=== PATIENT | male | born 1950 | race Caucasian/White ===

== ENCOUNTER 2018-11-01 09:33 | Day surgery (SDC) | payer OTHER ==
--- OUTSIDE RECORDS SUMMARY | 2018-11-01 09:36 | XMS REPORT ---
:1950 [facility] Mikael Muñoz [address] [place] [id number] Care Team Providers Name Role Phone UNKNOWN, REFFERING Primary Care Provider Unavailable YURI LARSON Unavailable Unavailable Problems This patient has no known problems. Allergies, Adverse Reactions, Alerts This patient has no known allergies or adverse reactions. Medications This patient has no known medications. Encounters Start End Encounter Admission Attending Care Care Encounter Date/Time Date/Time Type Type Clinicians Facility Department ID 2017-02-02 2017-02-02 Outpatient C [facility] [id number] 20:25:00 20:25:00 YURI Results Test Description Test Time Test Comments Text Results Atomic Results Result Comments Glycosylated Hemoglobin 2017-02-03 00:43:00 Test Item Value Reference Range Comments HBA1c (test code=HBA1C) 5.3 % 4.8-5.9 CBC with [id number] 00:09:00 Test Item Value Reference Range Comments WBC (test code=WBC) 6.9 K/cumm 4.4-10.5 RBC (test code=RBC) 4.36 M/cumm 4.10-5.70 Hemoglobin (test code=HGB) 13.3 gm/dL 13.4-17.4 Hematocrit (test code=HCT) 39.2 % 38.7-52.0 MCV (test code=MCV) 90.1 fL 80-100 MCH (test code=MCH) 30.6 pg 27.0-32.5 MCHC (test code=MCHC) 33.9 g/dL 32.0-37.5 RDW (test code=RDW) 13.1 % 11.5-14.5 Platelet Count (test code=PLTCT) 243 K/cumm 140-440 MPV (test code=MPV) 10.1 fL Diff Method (test code=DIFFM) Auto Neutrophil (test code=NEUT) 57.0 % 36-70 Lymphocyte (test code=LYMPH) 29.1 % 12-44 Monocyte (test code=MONO) 6.7 % 0-11 Eosinophil (test code=EOS) 6.3 % 0-7 Basophil (test code=BASO) 0.9 % 0-2 Neutro Abs (test code=ANEUT) 4.0 K/cumm 1.6-7.4 Lymph Abs (test code=ALYMPH) 2.0 K/cumm 0.5-4.6 [place] Abs (test code=AMONO) 0.5 K/cumm 0.0-1.2 Eos Abs (test code=AEOS) 0.43 K/cumm 0.00-0.74 Baso Abs (test code=ABASO) 0.1 K/cumm 0.00-0.21 Lipid [id number] 23:40:00 Test Item Value Reference Range Comments Cholesterol (test 143 mg/dL 0-200 code=CHOL) Triglycerides (test 117 mg/dL 9-200 code=TRIG) HDL (test code=HDL) 41 mg/dL 40-60 Chol/HDL (test 3.5 Ratio 0.0-5.0 code=CHOLPHDL) LDL, Calculated (test 79 mg/dL 0-130 (NOTE)RISK OF HEART code=LDLC) DISEASEPublished by Salvadorean Heart AssociationAnalyte Optimal Boderline Increased RiskCHOL <200 200-239 >240TRIG <150 150-199 >200HDL Male: >60 <40HDL Female: >60 <50LDL <100 130-159 >160LDL NEAR OPTIMAL IS 100-129 VLDL (test code=VLDL) 23 mg/dL 5-40 LDL/HDL (test code=LDLPHDL) 2 Comprehensive Metabolic [id number] 23:40:00 Test Item Value Reference Range Comments Sodium (test code=NA) 142 mmol/L 135-145 Potassium (test code=K) 4.4 mmol/L 3.5-5.1 Chloride (test code=CL) 104 mmol/L 98-105 Carbon Dioxide (test 27 mmol/L 22-29 code=CO2) Glucose (test code=GLU) 112 mg/dL 70-115 Blood Urea Nitrogen 16 mg/dL 8-23 (test code=BUN) Creatinine (test 0.9 mg/dL 0.7-1.2 code=CREAT) Calcium (test code=CA) 8.9 mg/dL 8.3-10.5 Prot Total (test 6.7 g/dL 6.4-8.3 code=TP) Albumin (test code=ALB) 4.3 g/dL 3.5-5.2 A/G Ratio (test 1.8 Ratio code=AGRATIO) Globulin (test 2.4 2.9-3.1 code=GLOB) Bili Total (test 0.2 mg/dL 0.1-0.9 code=TBIL) Alk Phos (test 71 U/L 40-129 code=APHOS) AST (test code=AST) 17 U/L 1-40 ALT (test code=ALT) 13 U/L 1-41 BUN/Creatinine Ratio 17.8 (test code=BCRATIO) Anion Gap (test 11 mmol/L 7-16 code=AGAP) Estimated GFR (test >60 mL/min/1.73m2 eGFR (estimated Glomerular code=GFR) Filtration Rate) is an estimated value,calculated from the patient's serum creatinine using the MDRD equation.It is NOT the patient's actual GFR. The eGFR provides a more clinicallyuseful measure of kidney disease than serum creatinine alone.This calculation takes sex and race into account, if the informationis provided. If the race is not provided, and the patient isAfrican-Salvad[place], multiply by 1.212. If sex is not provided, and thepatient is female, multiply by 0.742. Results for patients <18 years ofage have not been validated by the MDRD study and should be interpretedwith caution.eGFR Result Interpretation:eGFR > or=60 is in the Normal RangeeGFR < 60 may mean kidney diseaseeGFR < 15 may mean kidney failureRanges recommended by the National Kidney Foundation,http://nkdep.nih .gov
[2018-11-01] MEDS ORDERED: LIDOCAINE 2% MPF 5 ML VIAL ONE ×2 (09:51→11:21)
[2018-11-01] MEDS ORDERED: BUPIVACAINE 0.25% PF 10 ML VIAL ONE (09:52)
[2018-11-01] MEDS ORDERED: TETRACAINE HCL 0.5% 4ML OPTH ONE (09:52)
[2018-11-01] MEDS ORDERED: NA CHLORIDE 0.9% 500 ML ONE (09:52)
[2018-11-01] MEDS: CYCLOPENTOLATE 1% OPTH 2 ML ONE ×3 (10:10→10:20)
[2018-11-01] MEDS: PHENYLEPHRINE 10% OPTH 5ML ONE ×3 (10:10→10:20)
[2018-11-01] MEDS ORDERED: BALANCED SALT IRRIG PLAIN 500 ML BTL IRR ONE (10:41)
[2018-11-01] MEDS ORDERED: DUOVISC 1 KIT OPTH ONE (10:41)
[2018-11-01] MEDS ORDERED: NS 0.9% VIAL 10 ML ONE (10:41)
[2018-11-01] MEDS: EPINEPHRINE/PF 1 MG/ML AMP ONE ×2 (11:11→11:59)
[2018-11-01] MEDS ORDERED: PROPOFOL 200 MG/20 ML VIAL IV ONE (11:20)
[2018-11-01] MEDS ORDERED: EPINEPHRINE/PF 1 MG/ML AMP ONE ×2 (11:37)
[2018-11-01] MEDS: MOXIFLOXACIN HCL 10 DROPS/ML **OR USE OPTH ONE ×2 (11:59→12:17)
--- NOTE | 2018-11-01 12:48 | P.BOP ---
Preoperative diagnosis: Combined form cataract and miosis OD Postoperative diagnosis: Same Primary procedure: Phacoemulsification with IOL OD Estimated blood loss: None Anesthesia: Local (Subtenon's infusion with anesthesia for cataract surgery) Complications: None Implants: ZCB00 +20.5 Transferred to: Other (Day surgery) Condition: Good
--- NOTE | 2018-11-01 23:37 | OP ---
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 Postoperative Diagnosis: Combined form of cataract and myosis, right eye. Operation Performed: Phacoemulsification with intraocular lens implant, right eye complex with the use of pupil health professional, right eye. Anesthesia: Per cataract surgery. Complications: None. Description Of Procedure: In day surgery, the patient was prepped with Betadine and draped. A lid speculum was placed in the right eye. A conjunctival incision was made in the inferior nasal quadrant with Aashish scissors. A 1:1 mixture of 2% Xylocaine and 0.25% bupivacaine was placed around the globe. Approximately 5 mL were used. A [place] balloon was placed on the eye for approximately 5 minutes. The patient was brought into the operative room. The patient was prepped and draped in the usual sterile fashion for ophthalmic surgery. A lid speculum was placed in the eye. Paracentesis were made superiorly and inferiorly in the limbal cornea. Viscoat was placed in the anterior chamber. A crescent blade was used to create a tunnel incision in the temporal cornea and a keratome was used to enter the anterior chamber. The pupil did not dilate adequately for a 5 mm capsulotomy. An Xpand iris speculum was place in the eye to dilate the pupil. Provisc was placed in the eye and 360 degree capsulotomy was performed. The lens was hydrodissected with balanced salt solution and moved freely. The lens was removed in a stop and chop fashion. 9.56 phaco CDE was required. Irrigation and aspiration was used to remove residual cortex. Provisc was placed in the eye. A ZCB00 +20.5 diopter lens was placed in the capsular bag without complications. The Xpand iris speculum was removed. Irrigation and aspiration was used to remove residual viscoelastic. The paracentesis sites were hydrated with balanced salt solution and the wound and paracentesis sites were inspected and found to be watertight. Intracameral Vigamox 0.07 cc was injected at the end of the procedure. The eye was irrigated with balanced salt solution. The eye was patched with a soft cotton patch and Perdue metal shield. The patient was returned to day surgery in good condition. Comments: Epinephrine 1:[address] in the anterior chamber prior to Viscoat. Discharge Instructions: Mr. Franklin is discharged home in good condition. He is to follow up with Dr. Jones in the morning. DIANNA/MAYA Voice ID: [id number] Report ID: [id number] [id number]
== END 2018-11-01 13:09 | disposition home or self-care (01) ==
LOC: OR 09:33
PROVIDERS: ATTEND Ophthalmology Retina Specialist
PROC: 08RJ3JZ Replacement of Right Lens with Synthetic Substitute, Percutaneous Approach (ICD-10-PCS; principal; 2018-11-01 10:45)
DX: H25.11 Age-related nuclear cataract, right eye (principal); H57.03 Miosis; I10 Essential (primary) hypertension; I25.10 Atherosclerotic heart disease of native coronary artery without angina pectoris; I21.9 Acute myocardial infarction, unspecified; Z95.5 Presence of coronary angioplasty implant and graft
CPT/HCPCS: 66982; J2704; J0171 ×2

== ENCOUNTER 2024-01-31 19:55 | Inpatient (IN) | payer OTHER ==
--- OUTSIDE RECORDS SUMMARY | 2024-01-31 20:00 | XMS REPORT | Continuity of Care Document ---
Author Name Unknown Address [address] [facility] [address] [place] [address] [facility] Address [address] [facility] [address] [place] [address] Care Team Providers Care Biodiesel Product Manager Name Role Phone UNKNOWN, REFFERING Primary Care Physician TIFFANY Farias Attending Clinician Unavailable JULIAN AMAYA Attending Clinician Unavailable FLACA GREY Attending Clinician Unavailab Caroline WILKINS, Marielle Ross Attending Clinician + [phone] Reed WILKINS, Steph Attending Clinician [phone] Kalie Freed MD Attending Clinician + Tiffany Jamil MD Attending Clinician [phone] Neo WILKINS, Tobin Phillips Attending Clinician +[phone] Flaca Grey MD Attending Clinician [phone] YURI WHITE Attending Clinician Unavailable Yuri White Attending Clinician Unavailable Damian Attending Clinician Unavailable YURI WHITE Attending Clinician Unavailable KALIE FREED Admitting Clinician Kalie Carvajal MD Admitting Clinician + Damian Admitting Clinician Unavailable YURI WHITE Admitting Clinician Unavailable Payers Payer Name Policy Type Policy Number Effective Date Expirati on Date Source [employer] OON Medicare [id number] 2022 00:00:00 [employer] MED[employer] ADVANTAGE PPO [id number] 2022 00:00:00 Problems Condition Name Condition Details Condition Category Status Onset Date Resolution Date Last Treatment Date Treating Clinician Comments Source Benign prostatic hyperplasi a Benign prostatic hyperplasi a Disease Recurre iae 2023-03 00:00: 00 Jose A Youssef Epic Drop in hemoglobin Drop in hemoglobin Disease Active 2023-03 00:00: 00 Memcarlos Youssef Epic Aspiration pneumonia (CMS/HCC) Aspiration pneumonia (CMS/HCC) Disease Active 2023-03 00:00: 00 Jose A Youssef Epic 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 Disease Active 2023-03 00:00: 00 Jose A Youssef Epic Dysphagia Dysphagia Disease Active 2023-03 00:00: 00 Jose A Youssef Epic Moderate malnutriti on (CMS/HCC) Moderate malnutriti on (CMS/HCC) Disease Active 2023-03 00:00: 00 Jose A Youssef Epic Emphysema lung Emphysema lung Disease Active 2023-03 00:00: 00 Jose A Youssef Epic VT (ventricul ar tachycardi a) VT (ventricul ar tachycardi a) Disease Active 2023-03 00:00: 00 Jose A Youssef Epic Anxiety Anxiety Disease Active 2023-03 00:00: 00 Jose A Youssef Epic Depression Depression Disease Active 2023-03 00:00: 00 Jose A Youssef Epic Multifocal pneumonia Multifocal pneumonia Disease Active 2023-03 00:00: 00 Jose A Youssef Epic Carotid artery stenosis Carotid artery stenosis Disease Active 2023-03 00:00: 00 Jose A Youssef Epic Mixed hyperlipid emia Mixed hyperlipid emia Disease Active 2023-03 00:00: 00 Jose A Youssef Epic 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 Disease Active 2023-03 00:00: 00 Jose A Youssef Epic Hypokalemi a Hypokalemi a Disease Active 2023-03 00:00: 00 Jose A Youssef Epic Hypocalcem ia Hypocalcem ia Disease Active 2023-03 00:00: 00 Jose A Youssef Epic Transamini tis Transamini tis Disease Active 2023-03 00:00: 00 Jose A Youssef Epic Normocytic anemia Normocytic anemia Disease Active 2023-03 00:00: 00 Jose A Youssef Epic Atrial fibrillati on/flutter Atrial fibrillati on/flutter Disease Active 2023-03 00:00: 00 Jose A Youssef Epic Diarrhea Diarrhea Disease Resolve d 2023-03 00:00: 00 2024-01-25 00:00:00 2024-01-25 10:57:12 Jose A Youssef Epic Acute respirator y failure with hypoxemia Acute respirator y failure with hypoxemia Disease Resolve d 2023-03 00:00: 00 2024-01-25 00:00:00 2024-01-25 10:57:36 Jose A Youssef Epic VF (ventricul ar fibrillati on) (CMS/HCC) VF (ventricul ar fibrillati on) (CMS/HCC) Disease Resolve d 2023-03 00:00: 00 2024-01-25 00:00:00 2024-01-25 10:58:23 Jose A Youssef Epic Hyponatrem ia Hyponatrem ia Disease Resolve d 2023-03 00:00: 00 2024-01-25 00:00:00 2024-01-25 10:40:33 Jose A Youssef Epic Arrhythmia Arrhythmia Disease Resolve d 2023-03 00:00: 00 2024-01-17 00:00:00 2024-01-17 23:55:10 Jose A Treadwell Allergies, Adverse Reactions, Alerts Allergy Name Allergy Type Status Severity Reaction(s) Onset Date Inactive Date Treating Clinician Comments Source No Known Drug Allergie s DA Active U 11-14 00:00: 00 [facility] Social History Social Habit Start Date Stop Date Quantity Comments Source History of tobacco use Cigarette Smoker [facility] Mikael Treadwell Gender identity Reed riagt Treadwell Sexual orientation [facility] Tobacco use and exposure 2024-01-19 00:00:00 2024-01-19 00:00:00 Smokeless tobacco non-user [facility] History of Social function 2024-01-18 00:00:00 2024-01-18 00:00:00 [facility] Smoking Status Start Date Stop Date Source Ex-smoker 2024-01-19 00:00:00 2024-01-19 00:00:00 [facility] Medications Ordered Medication Name Filled Medication Name Start Date Stop Date Current Medication? Ordering Clinician Indication Dosage Frequency Signature (SIG) Comments Components Source traMADol (Ultram) 50 MG tablet traMADol (Ultram) 50 MG tablet 2023-03 14:57: 48 01-26 00:00 :00 No 50mg Q6H Take 50 mg by mouth every 6 hours if needed for severe pain (7-10). Jose A Youssef [facility] benazepril (Lotensin) 20 MG tablet benazepril (Lotensin) 20 MG tablet 2023-03 14:57: 47 Yes 1{tbl} QD Take 1 tablet by mouth 1 time each day. Jose A del real [facility] ferrous sulfate 325 (65 Fe) MG EC tablet ferrous sulfate 325 (65 Fe) MG EC tablet 2023-03 14:57: 47 Yes 325mg Take 325 mg by mouth in the morning and 325 mg at noon and 325 mg in the evening. Take with meals. Do not crush, chew, or split.. Jose A Youssef [facility] tadalafil (Cialis) 5 MG tablet tadalafil (Cialis) 5 MG tablet 2023-03 14:57: 47 Yes 5mg QD Take 5 mg by mouth 1 time each day. Jose A Youssef [facility] citalopram (CeleXA) 20 MG tablet citalopram (CeleXA) 20 MG tablet 2023-03 14:57: 45 01-25 00:00 :00 No 2{tbl} QD Take 2 tablets by mouth 1 time each day. Jsoe A Youssef [facility] simvastatin (Zocor) 40 MG tablet simvastatin (Zocor) 40 MG tablet 2023-03 14:57: 45 01-25 00:00 :00 No 40mg Take 40 mg by mouth at bedtime. Jose A Youssef [facility] aspirin 325 MG tablet aspirin 325 MG tablet 2023-03 14:57: 45 01-22 00:00 :00 No 325mg QD Take 325 mg by mouth 1 time each day. Jose A Youssef [facility] calcium carbonate (Tums) chewable tablet 500 mg calcium carbonate (Tums) chewable tablet 500 mg 2023-03 09:00: 00 Yes 500mg QD 500 mg, Oral, Daily, First dose on Thu01/27/24 at 0900 Jose A Youssef [facility] amiodarone (Pacerone) tablet 400 mg amiodarone (Pacerone) tablet 400 mg 2023-03 09:00: 00 02-02 08:59 :00 No 400mg QD 400 mg, Oral, Daily, First dose (after last modificati on) on Thu01/27/24 at 0900, For 7 days Jose A Youssef [facility] carvedilol (Coreg) 25 MG tablet carvedilol (Coreg) 25 MG tablet 2023-03 00:00: 00 04-26 23:59 :00 No 25mg Take 1 tablet by mouth in the morning and 1 tablet in the evening. Take with meals. Jose A Youssef [facility] amiodarone (Pacerone) 400 MG tablet amiodarone (Pacerone) 400 MG tablet 2023-03 00:00: 00 02-02 23:59 :00 No 400mg QD Take 1 tablet by mouth 1 time each day for 7 doses. Do not start before January 27, 2024. Jose A Youssef [facility] amoxicillin -clavulanat e (Augmentin) 875-125 MG per tablet 875 mg amoxicillin -clavulanat e (Augmentin) 875-125 MG per tablet 875 mg 2023-03 21:00: 00 02-20 20:59 :00 No 875mg Q.5D 875 mg, Oral, Every 12 hours scheduled, First dose (after last modificati on) on Thu01/26/24 at 2100, For 26 days, Give with food., Suspected Indication (Select all that apply): Pneumonia Jose A Treadwell tamsulosin (Flomax) 24 hr capsule 0.4 mg tamsulosin (Flomax) 24 hr capsule 0.4 mg 2023-03 09:00: 00 02-24 08:59 :00 No .4mg QD 0.4 mg, Oral, Daily, First dose on Thu01/26/24 at 0900, For 30 days Jose A Treadwell apixaban (Eliquis) 5 MG tablet apixaban (Eliquis) 5 MG tablet 2023-03 00:00: 00 Yes 5mg Q.5D Take 1 tablet by mouth in the morning and 1 tablet before bedtime. Jose A Treadwell guaiFENesin (Robitussin ) 100 MG/5ML liquid guaiFENesin (Robitussin ) 100 MG/5ML liquid 2023-03 00:00: 00 04-25 23:59 :00 No 200mg Q6H Take 10 mL by mouth every 6 hours if needed for cough. Jose A Treadwell amoxicillin -clavulanat e (Augmentin) 875-125 MG tablet amoxicillin -clavulanat e (Augmentin) 875-125 MG tablet 2023-03 00:00: 00 03-08 23:59 :00 No 875mg Q.5D Take 1 tablet by mouth in the morning and 1 tablet before bedtime. Do all this for 84 doses. Jose A Treadwell magnesium sulfate IVPB 2 g magnesium sulfate IVPB 2 g 2023-03 10:45: 00 01-24 13:20 :00 No 2g 2 g, Intravenou s, at 25 mL/hr, Administer over 2 Hours, Once, On Thu01/25/24 at 1045, For 1 dose Jose A Treadwell amoxicillin -clavulanat e (Augmentin) 875-125 MG per tablet 875 mg amoxicillin -clavulanat e (Augmentin) 875-125 MG per tablet 875 mg 2023-03 21:00: 00 01-25 09:54 :19 No 875mg Q.5D 875 mg, Oral, Every 12 hours scheduled, First dose (after last modificati on) on Thu24 at 2100, For 7 days, Give with food., Suspected Indication (Select all that apply): Pneumonia Jose A Treadwell LORazepam (Ativan) tablet 0.5 mg LORazepam (Ativan) tablet 0.5 mg 2023-03 13:31: 32 Yes .5mg Q6H 0.5 mg, Oral, Every 12 hours PRN, anxiety, Starting on 01/24/24 at 1331 Jose A Youssef Epic zinc oxide (Desitin) 40 % paste 1 Application zinc oxide (Desitin) 40 % paste 1 Application 2023-03 11:54: 28 02-22 11:53 :28 No 1{appli cation} 1 Applicatio n, Topical, As needed, diaper rash, irritation , Starting on 01/24/24 at 1154, For 30 days Jose A Treadwell carvedilol (Coreg) tablet 25 mg carvedilol (Coreg) tablet 25 mg 2023-03 17:00: 00 Yes 25mg 25 mg, Oral, 2 times daily with meals, First dose (after last modificati on) on 01/23/24 at 1700 Jose A Treadwell magnesium sulfate IVPB 2 g magnesium sulfate IVPB 2 g 2023-03 14:15: 00 01-22 16:42 :00 No 2g 2 g, Intravenou s, at 25 mL/hr, Administer over 2 Hours, Once, On 01/23/24 at 1415, For 1 dose Jose A Treadwell apixaban (Eliquis) tablet 5 mg apixaban (Eliquis) tablet 5 mg 2023-03 13:00: 00 Yes 5mg Q.5D 5 mg, Oral, Every 12 hours scheduled, First dose on 01/23/24 at 1300 Jose A Treadwell Potassium chloride solution 40 mEq Potassium chloride solution 40 mEq 2023-03 10:15: 00 01-22 10:47 :00 No 40meq 40 mEq, Oral, Once, On 01/23/24 at 1015, For 1 dose, Mix with 4 oz (120ml) of water prior to administra tion Jose A Youssef Epic carvedilol (Coreg) tablet 12.5 mg carvedilol (Coreg) tablet 12.5 mg 2023-03 08:00: 00 01-22 10:11 :34 No 12.5mg 12.5 mg, Oral, 2 times daily with meals, First dose (after last modificati on) on Thu01/23/24 at 0800 Jose A Treadwell ipratropium (Atrovent) 0.02 % nebulizer solution 0.5 mg ipratropium (Atrovent) 0.02 % nebulizer solution 0.5 mg 2023-03 16:00: 00 Yes .5mg Q6H 0.5 mg, Nebulizati on, Every 6 hours PRN, wheezing, shortness of breath, Starting on Thu01/22/24 at 1600 Jose A Treadwell potassium & sodium phosphates (Phos-NaK) 280-160-250 MG packet 1 packet potassium & sodium phosphates (Phos-NaK) 280-160-250 MG packet 1 packet 2023-03 13:30: 00 01-21 17:30 :00 No 1{packe t} 1 packet, Nasogastri c, Once, On Thu01/22/24 at 1330, For 1 dose, mg dosing is based on phosphorus component. Each packet contains 250 mg elemental phosphorus . Mix 1 packet in 75 mL water or juice; stir well and administer promptly. Jose A Treadwell HYDROcodone -acetaminop hen (Paige) 10-325 MG per tablet 1 tablet HYDROcodone -acetaminop hen (Paige) 10-325 MG per tablet 1 tablet 2023-03 13:06: 59 Yes 1{tbl} Q6H 1 tablet, Oral, Every 6 hours PRN, severe pain (7-10), Starting on Thu01/22/24 at 1306 Jose A Treadwell LORazepam (Ativan) tablet 0.5 mg LORazepam (Ativan) tablet 0.5 mg 2023-03 13:05: 24 01-23 13:31 :38 No .5mg QD 0.5 mg, Oral, Nightly PRN, anxiety, Starting on Thu01/22/24 at 1305 Jose A Treadwell acetaminoph en (Tylenol) tablet 1,000 mg acetaminoph en (Tylenol) tablet 1,000 mg 2023-03 06:45: 00 Yes 1000mg Q8H 1,000 mg, Oral, Every 8 hours, First dose on Thu01/22/24 at 0645, Max acetaminop hen = 4000mg/day (4gm/day) Jose A Treadwell ampicillin- sulbactam (Unasyn) 3 g in sodium chloride 0.9 % 100 mL IVPB-MB+ ampicillin- sulbactam (Unasyn) 3 g in sodium chloride 0.9 % 100 mL IVPB-MB+ 2023-03 16:15: 00 01-23 10:21 :20 No 3g Q6H 3 g, Intravenou s, at 200 mL/hr, Administer over 30 Minutes, Every 6 hours, First dose on Thu01/21/24 at 1615, For 28 days, Mini-Bag Plus bag. Break seal and mix before use, as follows: For liquid drug vials, skip to step 2. 1. Hold bag with vial down. Squeeze solution into vial until half-full. Shake to suspend drug in solution. 2. Hold bag with vial upside down. Squeeze bag to force air into vial, then release to drain suspended drug from vial into bag. 3. Repeat above until vial is empty of drug and solution is thoroughly mixed. Ensure drug is completely dissolved. Do not remove drug vial. 4. Remove port protector, attach admin set per its instructio ns, then hang container from IV pole and prime set per directions . Do not use in series connection s. 5. Ensure the vial is empty of drug and in solution, then administer medication as ordered. Use within specified BUD., Suspected Indication (Select all that apply): Pneumonia Jose A Treadwell oxyCODONE (Roxicodone ) immediate release tablet 5 mg oxyCODONE (Roxicodone ) immediate release tablet 5 mg 2023-03 10:29: 25 01-21 13:07 :33 No 5mg Q6H 5 mg, Nasogastri c, Every 6 hours PRN, severe pain (7-10), Starting on Thu01/21/24 at 1029 Jose A Treadwell melatonin oral liquid 1 mg melatonin oral liquid 1 mg 2023-03 01:30: 00 Yes 1mg 1 mg, Oral, Nightly, First dose on Thu01/21/24 at 0130 Jose A Treadwell LORazepam (Ativan) tablet 0.5 mg LORazepam (Ativan) tablet 0.5 mg 2023-03 17:30: 00 01-19 17:40 :00 No .5mg 0.5 mg, Oral, Once, On Thu01/20/24 at 1730, For 1 dose Jose A Treadwell amiodarone (Pacerone) tablet 400 mg amiodarone (Pacerone) tablet 400 mg 2023-03 17:00: 00 Yes 400mg Q.5D 400 mg, Oral, 2 times daily, First dose on Thu01/19/24 at 1700, For 7 days Jose A Treadwell metoprolol succinate XL (Toprol-XL) 24 hr tablet 25 mg metoprolol succinate XL (Toprol-XL) 24 hr tablet 25 mg 2023-03 09:00: 00 01-21 09:49 :29 No 25mg QD 25 mg, Oral, Daily, First dose on Thu01/19/24 at 0900, Do not crush or chew., On hold since Thu01/22/2024 at 0946 until manually unheld Jose A Treadwell HYDROcodone -acetaminop hen (Paige) 10-325 MG per tablet 1 tablet HYDROcodone -acetaminop hen (Paige) 10-325 MG per tablet 1 tablet 2023-03 07:33: 22 01-20 10:31 :13 No 1{tbl} Q6H 1 tablet, Oral, Every 6 hours PRN, severe pain (7-10), Starting on Thu01/19/24 at 0733 Jose A Treadwell HYDROcodone -acetaminop hen (Paige) 5-325 MG per tablet 1 tablet HYDROcodone -acetaminop hen (Paige) 5-325 MG per tablet 1 tablet 2023-03 07:33: 22 01-20 10:31 :13 No 1{tbl} Q6H 1 tablet, Oral, Every 6 hours PRN, moderate pain (4-6), Starting on Thu01/19/24 at 0733 Jose A Treadwell HYDROcodone -acetaminop hen (Paige) 5-325 MG per tablet 1 tablet HYDROcodone -acetaminop hen (Paige) 5-325 MG per tablet 1 tablet 2023-03 20:45: 00 01-18 00:08 :00 No 1{tbl} 1 tablet, Oral, Once, On Thu01/18/24 at 2045, For 1 dose Jose A Treadwell Enteral Free water Flush 30 mL Enteral Free water Flush 30 mL 2023-03 15:00: 00 01-23 09:23 :23 No 30mL Q4H 30 mL, Nasogastri c, Every 4 hours, First dose on Thu01/18/24 at 1500 Jose A Treadwell peptamen AF liquid peptamen AF liquid 2023-03 15:00: 00 01-23 11:54 :56 No Nasogastri c, at 80 mL/hr, Continuous , Starting on Thu01/18/24 at 1500, Administer enteral tube feeding as follows: Standard Progressio n: Initiate at 20 mL/hr and increase by 20 mL/hr evry 4 hours. Refer to the Rate field for Goal Rate , On hold since Thu01/22/2024 at 1547 until manually unheld Jose A Treadwell azithromyci n (Zithromax) tablet 500 mg azithromyci n (Zithromax) tablet 500 mg 2023-03 15:00: 00 01-18 14:50 :00 No 500mg 500 mg, Oral, Every 24 hours, First dose on Thu01/18/24 at 1500, For 2 days, Suspected Indication (Select all that apply): Pneumonia Jose A Treadwell Ensure Enlive liquid 1 Container Ensure Enlive liquid 1 Container 2023-03 14:00: 00 Yes 1{conta iner} 1 Container, Oral, 3 times daily with meals, First dose on Thu01/18/24 at 1400 Jose A Treadwell hydrocortis one sod succinate (PF) (Solu-URSULA F) injection 50 mg hydrocortis one sod succinate (PF) (Solu-URSULA F) injection 50 mg 2023-03 12:00: 00 01-20 16:37 :09 No 50mg Q.25D 50 mg, Intravenou s, Every 6 hours scheduled, First dose on Thu01/18/24 at 1200, For 5 days, IV or IM Reconstitu te 100 mg vials with bacteriost atic water or bacteriost atic sodium chloride. not more > 2ml Jose A Treadwell ipratropium (Atrovent) 0.02 % nebulizer solution 0.5 mg ipratropium (Atrovent) 0.02 % nebulizer solution 0.5 mg 2023-03 10:15: 00 01-21 15:48 :58 No .5mg Q.25D 0.5 mg, Nebulizati on, Every 6 hours RT, First dose on Thu01/18/24 at 1015 Jose A Treadwell metroNIDAZO LE (Flagyl) IVPB 500 mg metroNIDAZO LE (Flagyl) IVPB 500 mg 2023-03 10:15: 00 01-20 16:14 :26 No 500mg Q8H 500 mg, Intravenou s, Administer over 30 Minutes, Every 8 hours, First dose on Thu01/18/24 at 1015, For 7 days, premix bag, Suspected Indication (Select all that apply): Infectious Diarrhea Jose A Treadwell amLODIPine (Norvasc) tablet 5 mg amLODIPine (Norvasc) tablet 5 mg 2023-03 09:00: 00 Yes 5mg QD 5 mg, Oral, Daily, First dose (after last modificati on) on Thu01/18/24 at 0900 Jose A Treadwell aspirin chewable tablet 81 mg aspirin chewable tablet 81 mg 2023-03 09:00: 00 01-19 17:26 :56 No 81mg QD 81 mg, Oral, Daily, First dose on Thu01/18/24 at 0900, On hold since Thu01/20/2024 at 1619 until manually unheld Jose A Treadwell vancomycin (Vancocin) 1,000 mg in sodium chloride 0.9 % 100 mL IVPB-MB+ vancomycin (Vancocin) 1,000 mg in sodium chloride 0.9 % 100 mL IVPB-MB+ 2023-03 08:00: 00 01-18 09:06 :57 No 1000mg Q12H 1,000 mg, Intravenou s, at 100 mL/hr, Administer over 60 Minutes, Every 12 hours, First dose on Thu01/18/24 at 0800, Mini-Bag Plus bag. Break seal and mix before use, as follows: For liquid drug vials, skip to step 2. 1. Hold bag with vial down. Squeeze solution into vial until half-full. Shake to suspend drug in solution. 2. Hold bag with vial upside down. Squeeze bag to force air into vial, then release to drain suspended drug from vial into bag. 3. Repeat above until vial is empty of drug and solution is thoroughly mixed. Ensure drug is completely dissolved. Do not remove drug vial. 4. Remove port protector, attach admin set per its instructio ns, then hang container from IV pole and prime set per directions . Do not use in series connection s. 5. Ensure the vial is empty of drug and in solution, then administer medication as ordered. Use within specified BUD., Suspected Indication (Select all that apply): Pneumonia Memoria gt Youssef Epic pantoprazol e (ProtoNix) EC tablet 40 mg pantoprazol e (ProtoNix) EC tablet 40 mg 2023-03 07:30: 00 Yes 40mg 40 mg, Oral, Daily before breakfast, First dose on Thu01/18/24 at 0730, Do not crush, chew, or split. Jose A Youssef Epic HYDROcodone -acetaminop hen (Paige) 5-325 MG per tablet 1 tablet HYDROcodone -acetaminop hen (Paige) 5-325 MG per tablet 1 tablet 2023-03 22:45: 00 01-16 23:30 :00 No 1{tbl} 1 tablet, Oral, Once, On Thu01/17/24 at 2245, For 1 dose Memoria gt Youssef Epic pantoprazol e (ProtoNix) injection 40 mg pantoprazol e (ProtoNix) injection 40 mg 2023-03 22:45: 00 01-16 23:32 :00 No 40mg 40 mg, Intravenou s, Once, 1 dose, On Thu01/17/24 at 2245 Jose A Treadwell guaiFENesin (Robitussin ) 100 MG/5ML liquid 200 mg guaiFENesin (Robitussin ) 100 MG/5ML liquid 200 mg 2023-03 21:40: 37 Yes 200mg Q6H 200 mg, Oral, Every 6 hours PRN, cough, Starting on Thu01/17/24 at 2140 Jose A Treadwell ipratropium -albuterol (Duo-Neb) 0.5-2.5 mg/3 mL nebulizer solution 3 mL ipratropium -albuterol (Duo-Neb) 0.5-2.5 mg/3 mL nebulizer solution 3 mL 2023-03 21:15: 00 01-17 10:09 :05 No 3mL Q.25D 3 mL, Nebulizati on, Every 6 hours RT, First dose on Thu01/17/24 at 2115 Jose A Treadwell gabapentin (Neurontin) capsule 300 mg gabapentin (Neurontin) capsule 300 mg 2023-03 21:00: 00 01-25 00:00 :00 Yes 300mg 300 mg, Oral, Nightly, First dose on Thu01/17/24 at 2100 Jose A Treadwell vancomycin (Vancocin) 2,000 mg in sodium chloride 0.9 % 250 mL IVPB vancomycin (Vancocin) 2,000 mg in sodium chloride 0.9 % 250 mL IVPB 2023-03 19:10: 00 01-16 22:08 :00 No 2000mg 2,000 mg, Intravenou s, Administer over 120 Minutes, Once, On Thu01/17/24 at 1910, For 1 dose, IV fluid shortage, Suspected Indication (Select all that apply): Pneumonia Jose A Treadwell cefepime (Maxipime) 1 g in sterile water injection cefepime (Maxipime) 1 g in sterile water injection 2023-03 19:05: 00 01-20 16:14 :26 No 1g Q6H 1 g, Intravenou s, Administer over 5 Minutes, Every 6 hours, First dose on Thu01/17/24 at 1905, For 7 days, Reconstitu te vial with 10 mL sterile water for injection. Prepare dose at bedside immediatel y prior to administra tion. Reconstitu tion: Shake immediatel y and vigorously . Withdraw entire contents and give IV push slowly over specified time., Suspected Indication (Select all that apply): Pneumonia Jose A Treadwell atorvastati n (Lipitor) tablet 40 mg atorvastati n (Lipitor) tablet 40 mg 2023-03 18:55: 00 Yes 40mg QD 40 mg, Oral, Daily, First dose on 01/17/24 at 1855 Jose A Treadwell Potassium chloride solution 20 mEq Potassium chloride solution 20 mEq 2023-03 18:00: 00 01-16 18:12 :00 No 20meq 20 mEq, Oral, Once, On Thu01/17/24 at 1800, For 1 dose, Mix with 4 oz (120ml) of water prior to administra tion Jose A Treadwell magnesium sulfate IVPB 2 g magnesium sulfate IVPB 2 g 2023-03 17:50: 00 01-16 20:59 :00 No 2g 2 g, Intravenou s, at 25 mL/hr, Administer over 2 Hours, Once, On 01/17/24 at 1750, For 1 dose Jose A Treadwell iohexol (OMNIPaque) 350 MG/ML injection 100 mL iohexol (OMNIPaque) 350 MG/ML injection 100 mL 2023-03 17:47: 36 01-16 17:47 :00 No 100mL 100 mL, Intravenou s, Once in imaging, Starting on Thu01/17/24 at 1747, For 1 dose Jose A Treadwell buPROPion SR (Wellbutrin SR) 12 hr tablet 150 mg buPROPion SR (Wellbutrin SR) 12 hr tablet 150 mg 2023-03 17:40: 00 Yes 150mg QD 150 mg, Oral, Daily, First dose on 01/17/24 at 1740, Do not crush, chew, or split. Jose A Treadwell lisinopril tablet 40 mg lisinopril tablet 40 mg 2023-03 17:40: 00 Yes 40mg QD 40 mg, Oral, Daily, First dose on 01/17/24 at 1740 Jose A Treadwell memantine (Namenda) tablet 10 mg memantine (Namenda) tablet 10 mg 2023-03 17:40: 00 Yes 10mg Q.5D 10 mg, Oral, 2 times daily, First dose on 01/17/24 at 1740 Jose A Treadwell escitalopra m (Lexapro) tablet 5 mg escitalopra m (Lexapro) tablet 5 mg 2023-03 17:40: 00 Yes 5mg QD 5 mg, Oral, Daily, First dose on 01/17/24 at 1740 Jose A Treadwell clopidogrel (Plavix) tablet 75 mg clopidogrel (Plavix) tablet 75 mg 2023-03 17:40: 00 Yes 75mg QD 75 mg, Oral, Daily, First dose on 01/17/24 at 1740 oJse A Treadwell isosorbide mononitrate ER (Imdur) 24 hr tablet 30 mg isosorbide mononitrate ER (Imdur) 24 hr tablet 30 mg 2023-03 17:40: 00 01-25 00:00 :00 Yes 30mg QD Take 30 mg by mouth 1 time each day. Jose A Treadwell sodium chloride (NS) 0.9 % flush 10 mL sodium chloride (NS) 0.9 % flush 10 mL 2023-03 17:25: 00 Yes 10mL Q12H 10 mL, Intravenou s, Every 12 hours, First dose on Thu01/17/24 at 1725, Administer at least once every 12 hours Jose A Treadwell glucagon injection 1 mg glucagon injection 1 mg 2023-03 17:17: 06 Yes 1mg 1 mg, Intramuscu lar, As needed, For BG < 70 mg/dL if no IV access and patient is either Unconsciou s, unable to swallow or npo, Starting on Thu01/17/24 at 1717, For BG < 70 mg/dL if no IV access and patient is either Unconsciou s, unable to swallow or npo and notify MD. Jose A Treadwell dextrose 50 % solution 25 g dextrose 50 % solution 25 g 2023-03 17:17: 06 Yes 25g 25 g, Intravenou s, As needed, other, if Blood Glucose </= 50 mg/dL, Starting on Thu01/17/24 at 1717, If BG </=50 mg/dL, give 50 mL of D50W IV push STAT and notify MD. Jose A Youssef Epic dextrose 50 % solution 12.5 g dextrose 50 % solution 12.5 g 2023-03 17:17: 06 Yes 12.5g 12.5 g, Intravenou s, As needed, low blood sugar, if Blood Glucose 51- 69 mg/dL, Starting on Thu01/17/24 at 1717, For BG 51-69 mg/dL and patient UNCONSCIOU S OR UNABLE TO SWALLOW OR NPO: Give 25 mL of D50W IV push and notify MD. Jose A Youssef Epic sodium chloride 0.9 % infusion 250 mL sodium chloride 0.9 % infusion 250 mL 2023-03 17:17: 06 Yes 250mL 250 mL, Intravenou s, As needed, For antibiotic flush to clear line, replace bag every 24 hours., Starting on Thu01/17/24 at 1717 Jose A Youssef Epic sodium chloride (NS) 0.9 % flush 10 mL sodium chloride (NS) 0.9 % flush 10 mL 2023-03 17:17: 06 Yes 10mL 10 mL, Intravenou s, As needed, line care, Line Flush, Starting on Thu01/17/24 at 1717 Jose A Youssef Epic Potassium chloride solution 40 mEq Potassium chloride solution 40 mEq 2023-03 17:10: 00 01-16 18:11 :00 No 40meq 40 mEq, Oral, Once, On Thu01/17/24 at 1710, For 1 dose, Mix with 4 oz (120ml) of water prior to administra tion Jose A Youssef Epic Amiodarone HCl in Dextrose 450-5 MG/250ML-% solution 450 mg Amiodarone HCl in Dextrose 450-5 MG/250ML-% solution 450 mg 2023-03 17:00: 00 01-18 11:12 :41 No 450mg 450 mg, Intravenou s, at 16.67-33.3 3 mL/hr, Continuous , Starting on Thu01/17/24 at 1700, Start at 1 mg/min (33.33 mL/hour) x 6 hrs, then change to 0.5 mg/min (16.67 mL/hour) for 18 hours. Provider should consider changing to oral amiodarone if appropriat e after 24 hours of continuous infusion. Hold for HR < 50 BPM. Jose A Treadwell heparin 50 units/mL in sodium chloride 0.45 % heparin 50 units/mL in sodium chloride 0.45 % 2023-03 16:35: 00 01-22 12:46 :25 No .1U/kg/ h 0.1-40 Units/kg/h r ?82.5 kg (0.165-66 mL/hr, rounded to 0.17-66 mL/hr), Intravenou s, Continuous , Starting on [place] 01/17/24 at 1635, AFIB/Strok e PTT Weight Based Heparin Protocol Calculate heparin infusion dose using ACTUAL BODY WEIGHT. Start at 14 units/kg/h r (MAX INITIAL INFUSION = 1,200 units/hr = 24 mL/hr) - adjust per AFIB / Stroke Guidelines below Draw baseline PTT. Initiate drip. DO NOT wait for PTT results to start drip. Draw PTT 6 hours after drip initiation and 6 hours after every dose change. No heparin loading dose or bolus unless specifical ly ordered by provider. Do not draw PTT through line heparin is infused. --- Titration Table PTT < 30 sec: INCREASE dose by 4 units /kg/hr (Actual body Weight). Notify Provider STAT. Draw PTT 6 hours after increase in dose. PTT 30 - 45.9 sec: INCREASE dose by 3 units/kg/h r (Actual body Weight). Draw PTT 6 hours after increase in dose. PTT 46 - 59.9 sec: INCREASE dose by 2 units/kg/h r (Actual body Weight). Draw PTT 6 hours after increase in dose. PTT 60 - 79.9 sec: Therapeuti c, continue at same dose. Redraw PTT in 6 hours to confirm. Once 3 consecutiv e therapeuti c PTT, reduce draws to Q12H. PTT 80 - 90.9 sec: DECREASE dose by 1 unit/kg/hr (Actual Body Weight). Draw PTT 6 hours after decrease in dose. PTT 91 - 99.9 sec: HOLD infusion for 45 min. Notify provider STAT. DECREASE dose by 2 units/kg/h r (Actual Body Weight). Draw PTT 6 hours after decrease in dose. PTT 100 - 119.9 sec: HOLD infusion for 60 min. Notify provider STAT. DECREASE dose by 3 units/kg/h r (Actual Body Weight). Draw PTT 6 hours after decrease in dose. PTT 120 - 150.9 sec: HOLD infusion for 60 min. Notify provider STAT. DECREASE dose by 4 units/kg/h r (Actual Body Weight). Draw PTT 6 hours after decrease in dose. PTT >/= 151 sec: HOLD infusion and repeat PTT STAT through venipunctu re or separate line. Notify provider STAT. 1. If repeat PTT < 151 sec, then follow above protocol. 2. If repeat PTT >/= 151 sec, then continue to HOLD infusion & repeat PTT every 2 hours until PTT < 100 sec. Then DECREASE previous dose by 5 units/kg/h r (Actual Body Weight). Draw PTT 6 hours after decrease in dose --- Jose A Treadwell amiodarone (Cordarone) 150 mg in dextrose 5 % 100 mL IVPB (RN PREP) amiodarone (Cordarone) 150 mg in dextrose 5 % 100 mL IVPB (RN PREP) 2023-03 16:25: 00 01-16 17:01 :00 No 150mg 150 mg, Intravenou s, at 600 mL/hr, Administer over 10 Minutes, Once, On 01/17/24 at 1625, For 1 dose, If D5W 100 mL is not available, may mix in 100 mL of NS Jose A Treadwell HYDROcodone -acetaminop hen (Paige) 10-325 MG per tablet 1 tablet HYDROcodone -acetaminop hen (Paige) 10-325 MG per tablet 1 tablet 2023-03 15:20: 00 01-16 15:20 :00 No 1{tbl} 1 tablet, Oral, Once, On 01/17/24 at 1520, For 1 dose Jose A Treadwell azithromyci n (Zithromax) 500 mg in sodium chloride 0.9 % 250 mL IVPB (vial-mate) azithromyci n (Zithromax) 500 mg in sodium chloride 0.9 % 250 mL IVPB (vial-mate) 2023-03 15:15: 00 01-16 16:52 :00 No 500mg 500 mg, Intravenou s, at 250 mL/hr, Administer over 60 Minutes, Once, On 01/17/24 at 1515, For 1 dose, Suspected Indication (Select all that apply): Pneumonia Memcarlos l Mikael Epic cefTRIAXone (Rocephin) 1 g in sterile water injection cefTRIAXone (Rocephin) 1 g in sterile water injection 2023-03 15:15: 00 01-16 15:56 :00 No 1g 1 g, Intravenou s, Administer over 5 Minutes, Once, On 01/17/24 at 1515, For 1 dose, Reconstitu te vial with 10 mL sterile water for injection. Prepare dose at bedside immediatel y prior to administra tion. Reconstitu tion: Shake immediatel y and vigorously . Withdraw entire contents and give IV push slowly over specified time., Suspected Indication (Select all that apply): Pneumonia Memcarlos Youssef Epic magnesium sulfate IVPB 2 g magnesium sulfate IVPB 2 g 2023-03 14:45: 00 01-16 15:44 :00 No 2g 2 g, Intravenou s, at 100 mL/hr, Administer over 30 Minutes, Once, On 01/17/24 at 1445, For 1 dose Memcarlos Youssef Epic Potassium chloride solution 40 mEq Potassium chloride solution 40 mEq 2023-03 14:45: 00 01-16 14:48 :00 No 40meq 40 mEq, Oral, Once, On 01/17/24 at 1445, For 1 dose, Mix with 4 oz (120ml) of water prior to administra tion Memcarlos Youssef Epic benzonatate (Tessalon) capsule 100 mg benzonatate (Tessalon) capsule 100 mg 2023-03 13:45: 00 01-16 14:48 :00 No 100mg 100 mg, Oral, Once, On 01/17/24 at 1345, For 1 dose, Do not crush or chew. Jose A Youssef Epic carvedilol (Coreg) 12.5 MG tablet carvedilol (Coreg) 12.5 MG tablet 2023-03 0 00:00: 00 01-26 00:00 :00 No 12.5mg Take 12.5 mg by mouth in the morning and 12.5 mg in the evening. Take with meals. [facility] lovastatin (Mevacor) 40 MG tablet lovastatin (Mevacor) 40 MG tablet 2023-03 0 00:00: 00 Yes 40mg Take 40 mg by mouth at bedtime. [facility] escitalopra m (Lexapro) 20 MG tablet escitalopra m (Lexapro) 20 MG tablet 08-10 00:00: 00 Yes QD 1 time each day. [facility] clopidogrel (Plavix) 75 MG tablet clopidogrel (Plavix) 75 MG tablet 08-10 00:00: 00 01-22 00:00 :00 No 75mg QD Take 75 mg by mouth 1 time each day. [facility] memantine (Namenda) 10 MG tablet memantine (Namenda) 10 MG tablet 06-10 00:00: 00 Yes 10mg Q.5D Take 10 mg by mouth in the morning and 10 mg in the evening. [facility] gt Youssef [facility] amLODIPine (Norvasc) 5 MG tablet amLODIPine (Norvasc) 5 MG tablet 2022-03 00:00: 00 Yes 1{tbl} Q.5D Take 1 tablet by mouth in the morning and 1 tablet in the evening. [facility] gt [facility] Immunizations Ordered Immunization Name Filled Immunization Name Date Status Comments Source Influenza, High Dose Seasonal, Preservative Free Influenza, High Dose Seasonal, Preservative Free 2024-01-26 00:00:00 Completed [facility] Vital Signs Vital Name Observation Time Observation Value Comments S lalabindu Heart rate 2024-01-27 11:30:16 102 /min Jennifer jaramillo [facility] Respiratory rate 2024-01-27 11:30:16 18 /min [facility] Oxygen saturation in Arterial blood by Pulse oximetry 2024-01-27 11:30:16 98 /min [facility] Systolic blood pressure 2024-01-27 11:30:10 161 mm[Hg] [facility] Diastolic blood pressure 2024-01-27 11:30:10 74 mm[Hg] [facility] Body temperature 2024-01-27 11:29:48 37.06 [facility] Body height 2024-01-18 09:01:00 177.8 cm Reed fidell [place] [facility] Body weight 2024-01-18 09:01:00 82.555 kg Reed rial Mikael Epic BMI 2024-01-18 09:01:00 26.11 kg/m2 Reed rial Mikael Epic Heart rate 2024-01-27 11:30:16 102 /min Memor ial [place] Epic Respiratory rate 2024-01-27 11:30:16 18 /[facility] O[facility] in Arterial blood by Pulse oximetry 2024-01-27 11:30:16 98 /min [facility] Systolic blood pressure 2024-01-27 11:30:10 161 mm[Hg] [facility] Diastolic blood pressure 2024-01-27 11:30:10 74 mm[Hg] [facility] Body temperature 2024-01-27 11:29:48 37.06 [facility] Body height 2024-01-18 09:01:00 177.8 cm Reed rial [place] [facility] Body weight 2024-01-18 09:01:00 82.555 kg Reed rial Mikael Epic BMI 2024-01-18 09:01:00 26.11 kg/m2 Reed rial Mikael Epic Heart rate 2024-01-27 11:30:16 102 /min Memor ial Mikael Epic Respiratory rate 2024-01-27 11:30:16 18 /min [facility] Epic Oxygen saturation in Arterial blood by Pulse oximetry 2024-01-27 11:30:16 98 /min [facility] Systolic blood pressure 2024-01-27 11:30:10 161 mm[Hg] [facility] Diastolic blood pressure 2024-01-27 11:30:10 74 mm[Hg] [facility] Body temperature 2024-01-27 11:29:48 37.06 [facility] Body height 2024-01-18 09:01:00 177.8 cm Reed rial [place] [facility] Body weight 2024-01-18 09:01:00 82.555 kg [facility] BMI 2024-01-18 09:01:00 26.11 kg/m2 [facility] Procedures Procedure Date / Time Performed Performing Clinician Source POC GLUCOSE UNSOLICITED RESULTS 2024-01-27 11:31:00 Neo, Tobin Phillips [facility] POC GLUCOSE UNSOLICITED RESULTS 2024-01-27 07:31:00 Neo, Tobin Phillips [facility] MAGNESIUM LEVEL 2024-01-27 03:28:00 JenaLinda [facility] PHOSPHORUS LEVEL 2024-01-27 03:28:00 Jacinta Limon [facility] COMPLETE BLOOD COUNT W/DIFF AND PLATELET 2024-01-27 03:28:00 Mark Limon [facility] COMPLETE BLOOD COUNT 2024-01-27 03:28:00 Mark Limon [facility] AUTOMATED DIFFERENTIAL 2024-01-27 03:28:00 Mark Limon [facility] BASIC METABOLIC PANEL 2024-01-27 03:28:00 Myah Arcos [facility] [place] esophagus barium swallow w video and speech 2024-01-27 00:00:00 [facility] POC GLUCOSE UNSOLICITED RESULTS 2024-01-26 20:53:00 Neo, Tobin Phillips [facility] POC GLUCOSE UNSOLICITED RESULTS 2024-01-26 15:51:00 Neo, Min Alan [facility] POC GLUCOSE UNSOLICITED RESULTS 2024-01-26 11:50:00 Neo, Tobin Phillips [facility] COMPLETE BLOOD COUNT W/DIFF AND PLATELET 2024-01-26 10:24:00 Mark Limon [facility] COMPLETE BLOOD COUNT 2024-01-26 10:24:00 Mark Limon [facility] AUTOMATED DIFFERENTIAL 2024-01-26 10:24:00 Mark Limon [facility] POC GLUCOSE UNSOLICITED RESULTS 2024-01-26 07:22:00 Neo, Tobin Phillips [facility] COMPLETE BLOOD COUNT W/DIFF AND PLATELET 2024-01-26 03:33:00 NesbyMark [facility] COMPLETE BLOOD COUNT 2024-01-26 03:33:00 Mark Limon [facility] AUTOMATED DIFFERENTIAL 2024-01-26 03:33:00 Paytonsanjuanita Mark [facility] MAGNESIUM LEVEL 2024-01-26 03:32:00 JenaLinda Marthaoli [facility] PHOSPHORUS LEVEL 2024-01-26 03:32:00 NesbyJacinta [facility] BASIC METABOLIC PANEL 2024-01-26 03:32:00 Myah Arcos [facility] POC GLUCOSE UNSOLICITED RESULTS 2024-01-25 20:58:00 Neo, Min Alan [facility] POC GLUCOSE UNSOLICITED RESULTS 2024-01-25 16:09:00 Neo, Min Alan [facility] COMPLETE BLOOD COUNT W/DIFF AND PLATELET 2024-01-25 12:30:00 NessanjuanitaMark [facility] COMPLETE BLOOD COUNT 2024-01-25 12:30:00 NesbyMark [facility] AUTOMATED DIFFERENTIAL 2024-01-25 12:30:00 Nessanjuanita Mark [facility] POC GLUCOSE UNSOLICITED RESULTS 2024-01-25 11:37:00 Neo, Min Alan [facility] POC GLUCOSE UNSOLICITED RESULTS 2024-01-25 07:31:00 Neo, Min Alan [facility] MAGNESIUM LEVEL 2024-01-25 04:37:00 JenaLinda hewitt Marthaoli [facility] PHOSPHORUS LEVEL 2024-01-25 04:37:00 NesbyJacinta [facility] BASIC METABOLIC PANEL 2024-01-25 04:37:00 Myah Arcos [facility] POCT BLOOD GLUCOSE 2024-01-24 18:26:00 Romulo Arcos [facility] POC GLUCOSE UNSOLICITED RESULTS 2024-01-24 16:34:00 Neo, Tobin Phillips [facility] POCT BLOOD GLUCOSE 2024-01-24 13:25:00 Romulo Arcos [facility] POC GLUCOSE UNSOLICITED RESULTS 2024-01-24 11:56:00 NeoTobin davis [facility] OSMOLALITY URINE 2024-01-24 11:39:00 NessanjuanitaJacintaisle [facility] SODIUM LEVEL URINE 2024-01-24 11:39:00 Nessanjuanita Ada Abdoul Gómezisle [facility] OSMOLALITY 2024-01-24 11:38:00 NessanjuanitaKimberlee [facility] BASIC METABOLIC PANEL 2024-01-24 11:38:00 NessanjuanitaMarkisle [facility] POCT BLOOD GLUCOSE 2024-01-24 10:48:00 Romulo Arcos [facility] POC GLUCOSE UNSOLICITED RESULTS 2024-01-24 08:06:00 NeoTobin [facility] MAGNESIUM LEVEL 2024-01-24 04:10:00 Linda Bella [facility] OSMOLALITY 2024-01-24 04:10:00 Nessanjuanita Kimberlee Gómezisle [facility] PHOSPHORUS LEVEL 2024-01-24 04:10:00 Spring [facility] COMPLETE BLOOD COUNT W/DIFF AND PLATELET 2024-01-24 04:10:00 Spring [facility] COMPLETE BLOOD COUNT 2024-01-24 04:10:00 Dasia reid [facility] AUTOMATED DIFFERENTIAL 2024-01-24 04:10:00 Raul young [facility] BASIC METABOLIC PANEL 2024-01-24 04:10:00 Myah Arcos [facility] Phosphorus Level AM 2024-01-24 00:00:00 M [facility] Calprotectin, Stool 2024-01-24 00:00:00 M [facility] POC GLUCOSE UNSOLICITED RESULTS 2024-01-23 21:15:00 NeoTobin davis [facility] POC GLUCOSE UNSOLICITED RESULTS 2024-01-23 16:06:00 Neo, Tobin Phillips [facility] C DIFFICILE DNA WITH REFLEX TO TOXIN IF INDICATED 2024-01-23 13:55:00 Jermaine Whitman [facility] POC GLUCOSE UNSOLICITED RESULTS 2024-01-23 11:19:00 [facility] 2024-01-23 09:41:00 [facility], [facility] POC GLUCOSE UNSOLICITED RESULTS 2024-01-23 08:09:00 Neo, Tobin Phillips [facility] MAGNESIUM LEVEL 2024-01-23 01:16:00 JenaLinda hewitt [facility] PHOSPHORUS LEVEL 2024-01-23 01:16:00 Smithhart, [facility] COMPLETE BLOOD COUNT W/DIFF AND PLATELET 2024-01-23 01:16:00 Smithjuant, [facility] PT AND PTT 2024-01-23 01:16:00 Neo, Tobin Phillips [facility] COMPLETE BLOOD COUNT 2024-01-23 01:16:00 Dasia rt, [facility] AUTOMATED DIFFERENTIAL 2024-01-23 01:16:00 Raul young [facility] BASIC METABOLIC PANEL 2024-01-23 01:16:00 Myah Arcos [facility] POC GLUCOSE UNSOLICITED RESULTS 2024-01-22 22:18:00 Neo, [facility] POC GLUCOSE UNSOLICITED RESULTS 2024-01-22 16:56:00 Neo, Tobin Phillips [facility] [place] ESOPHAGUS BARIUM SWALLOW WITH VIDEO AND SPEECH 2024-01-22 15:18:55 Myah Arcos [facility] PT AND PTT 2024-01-22 14:20:00 Neo, [facility] POC GLUCOSE UNSOLICITED RESULTS 2024-01-22 12:36:00 Neo, Min Alan [facility] POC GLUCOSE UNSOLICITED RESULTS 2024-01-22 08:14:00 Neo, Min Alan [facility] POC GLUCOSE UNSOLICITED RESULTS 2024-01-22 07:20:00 Neo, Min [facility] PT AND PTT 2024-01-22 05:43:00 Neo, Tobin Phillips [facility] MAGNESIUM LEVEL 2024-01-22 05:38:00 JenaLinda hewitt [facility] PHOSPHORUS LEVEL 2024-01-22 05:38:00 Smithhannah [facility] C3 COMPLEMENT 2024-01-22 05:38:00 Clare Arcos [facility] COMPLETE BLOOD COUNT W/DIFF AND PLATELET 2024-01-22 05:38:00 Smithhannah [facility] ANTINEUTROPHIL CYTOPLASMIC ANTIBODY W/ REFLEX TITER 2024-01-22 05:38:00 Myah Arcos [facility] ANTINUCLEAR ANTIBODY COMPREHENSIVE PANEL 2024-01-22 05:38:00 Myah rAcos [facility] COMPLETE BLOOD COUNT 2024-01-22 05:38:00 Dasia reid [facility] AUTOMATED DIFFERENTIAL 2024-01-22 05:38:00 Raul young [facility] COMPREHENSIVE METABOLIC PANEL 2024-01-22 05:38:00 Spring [facility] PT AND PTT 2024-01-21 21:09:00 Neo, Tobin Phillips [facility] POC GLUCOSE UNSOLICITED RESULTS 2024-01-21 18:02:00 Neo, Tobin Phillips [facility] Epic XR ABDOMEN 1 VIEW 2024-01-21 17:23:29 [facility] XR ABDOMEN 1 VIEW 2024-01-21 16:37:59 Lisandro López [facility] PT AND PTT 2024-01-21 13:13:00 Neo, Tobin Phillips [facility] Epic XR ABDOMEN 1 VIEW 2024-01-21 13:04:11 Nader Nieves [facility] EGD 2024-01-21 10:42:25 Khari Varghese [facility] TISSUE EXAM 2024-01-21 10:18:00 Myah Ledbetter ial [place] Epic PTT 2024-01-21 03:48:00 Xochitl Constantino Reed rial Mikael Epic XR CHEST 1 VIEW 2024-01-21 02:25:00 Darryn Dunham [facility] PTT 2024-01-21 01:34:00 Tiffany Jamil Memo rial [place] Epic PHOSPHORUS LEVEL 2024-01-21 01:32:00 Smithhannah [facility] COMPLETE BLOOD COUNT W/DIFF AND PLATELET 2024-01-21 01:32:00 [facility] 2024-01-21 01:32:00 Smithsun rt[facility] AUTOMATED DIFFERENTIAL 2024-01-21 01:32:00 Raul young [facility] Epic COMPREHENSIVE METABOLIC PANEL 2024-01-21 01:32:00 Smithhannah, [facility] POC ARTERIAL BLOOD GAS AND BASIC PANEL UNSOLICITED RESULTS 2024-01-21 01:28:00 [facility] Blood Gas, Venous 2024-01-21 00:00:00 Mem orial [place] Epic POC GLUCOSE UNSOLICITED RESULTS 2024-01-20 18:17:00 [facility] 2024-01-20 17:44:00 Dhlyle, Tiffany Reed rial [place] Epic POC GLUCOSE UNSOLICITED RESULTS 2024-01-20 11:31:00 [facility] 2024-01-20 09:44:00 Dhoble, Tiffany Reed rial [place] Epic POC GLUCOSE UNSOLICITED RESULTS 2024-01-20 06:00:00 Omero, Tiffany [facility] Epic MAGNESIUM LEVEL 2024-01-20 02:13:00 Tiffany Jamil [facility] Epic COMPLETE BLOOD COUNT W/DIFF AND PLATELET 2024-01-20 02:13:00 Spring [facility] Epic RETICULOCYTE COUNT 2024-01-20 02:13:00 [facility] AND TIBC 2024-01-20 02:13:00 [facility] [place] Epic CALCIUM LEVEL IONIZED WHOLE BLOOD 2024-01-20 02:13:00 Omero[facility] PT AND PTT 2024-01-20 02:13:00 Dhlyle Tiffany Reed rial [place] Epic COMPLETE BLOOD COUNT 2024-01-20 02:13:00 [facility] AUT[facility]ATED DIFFERENTIAL 2024-01-20 02:13:00 Tiana Molina [facility] COMPREHENSIVE METABOLIC PANEL 2024-01-20 02:13:00 Tiana Londono Gloria [facility] FOLATE LEVEL 2024-01-20 02:13:00 Eric Yeimymino [facility] Epic PT AND PTT 2024-01-19 19:05:00 Tiffany Jamil Reed rial [place] Epic POC GLUCOSE UNSOLICITED RESULTS 2024-01-19 17:28:00 Ab Omerohijeet [facility] Epic PT AND PTT 2024-01-19 13:13:00 Omero, Tiffany Reed rial [place] Epic POC GLUCOSE UNSOLICITED RESULTS 2024-01-19 11:26:00 Ab Omerohijeet [facility] FECAL LEUKOCYTE STAIN 2024-01-19 11:02:00 Ab Omerohi esther [facility] ENTERIC PATHOGENS WITH CULTURE IF INDICATED 2024-01-19 11:02:00 Tiffany Jamil [facility] PT AND PTT 2024-01-19 04:58:00 Tiffany Jamil Reed [facility] MAGNESIUM LEVEL 2024-01-19 02:52:00 Getachew Londono [facility] PHOSPHORUS LEVEL 2024-01-19 02:52:00 Tiana Londono [facility] COMPLETE BLOOD COUNT W/DIFF AND PLATELET 2024-01-19 02:52:00 Tiana Londono Wells [facility] PT AND PTT 2024-01-19 02:52:00 Tiffany [facility]il [facility] COMPLETE [facility]LO[facility] COUNT 2024-01-19 02:52:00 Tiana Quinteros [facility] AUTOMATED DIFFERENTIAL 2024-01-19 02:52:00 Raul young [facility] COMPREHENSIVE METABOLIC PANEL 2024-01-19 02:52:00 Tiana Londono Gloria [facility] pH Stool 2024-01-19 00:00:00 [facility] POC GLUCOSE UNSOLICITED RESULTS 2024-01-18 23:08:00 Tiffany Jamil [facility] XR ABDOMEN 1 VIEW 2024-01-18 21:47:00 [facility]LO[facility] COUNT W/DIFF AND PLATELET 2024-01-18 19:38:00 Dhoble, Tiffany [facility] PT AND PTT 2024-01-18 19:38:00 Dhoble, Tiffany Reed rial [facility] COMPLETE BLOOD COUNT 2024-01-18 19:38:00 Dhoble, Abhij eet [facility] AUTOMATED DIFFERENTIAL 2024-01-18 19:38:00 Dhoble, Abh ijeet [facility] REFLEX MORPHOLOGY - DO NOT ORDER 2024-01-18 19:38:00 Dhoble, Tiffany [facility] US THYROID 2024-01-18 14:06:44 Harse, Valencia [facility] MEETING MANAGER FEES PROCEDURE 2024-01-18 13:20:00 Harse, Valencia Carlie [facility] [facility] 2024-01-18 11:06:00 Corine Freed [facility] FUNGAL CULTURE W/SMEAR 2024-01-18 11:05:00 Nisa Gonzalez [facility] MYCOBACTERIUM TUBERCULOSIS PCR RESP 2024-01-18 11:05:[address] [facility]IR[facility] W/GRAM STAIN 2024-01-18 11:04:00 Tiana Londono [facility] AFB CULTURE W/SMEAR W/PCR IF INDICATED 2024-01-18 11:04:00 Vanessa Reyes [facility] HISTOPLASMA ANTIGEN, URINE 2024-01-18 11:00:00 [facility] BLAST[facility]TIBODY 2024-01-18 11:00:00 Harse, Daisy muller [facility] COCCIDIOIDES ANTIBODY IGG, IGM W/ REFLEX TO CF 2024-01-18 11:00:00 Louise, Valencia [facility] TRANSTHORACIC ECHO (TTE) COMPLETE W/ STRAIN 2024-01-18 09:38:00 Tiana Londono [facility] CT BRAIN WO IV CONTRAST 2024-01-18 06:18:00 Sam Gonzalez [facility] STREP PNEUMONIAE ANTIGEN 2024-01-18 05:21:00 Smi Tiana lundy [facility] TRANSPLANT RESPIRATORY VIRAL PANEL [facility] 2024-01-18 05:21:00 Spring [facility] UA WITH CULTURE IF INDICATED 2024-01-18 05:21:00 Spring [facility] LACTIC ACID LEVEL 2024-01-18 03:15:00 Nisa Gonzalez [facility] XR ABDOMEN 1 VIEW 2024-01-18 03:06:24 Nisa Gonzalez [facility] MAGNESIUM LEVEL 2024-01-18 02:11:00 SmithGetachew young Gloria [facility] PHOSPHORUS LEVEL 2024-01-18 02:11:00 Spring [facility] T4 FREE 2024-01-18 02:11:00 Getachew Londono [facility] BILIRUBIN TOTAL AND DIRECT 2024-01-18 02:11:00 Nisa Gonzalez [facility] COMPLETE BLOOD COUNT W/DIFF AND PLATELET 2024-01-18 02:11:00 Spring [facility] RETICULOCYTE COUNT 2024-01-18 02:11:00 Nisa Gonzalez [facility] IRON LEVEL AND TIBC 2024-01-18 02:11:00 Nisa Gonzalez [facility] CALCIUM LEVEL IONIZED WHOLE BLOOD 2024-01-18 02:11:00 Kalie Freed [facility] THYROID STIMULATING HORMONE W/ REFLEX FREE T4 2024-01-18 02:11:00 Tiana Londono [facility] PT AND PTT 2024-01-18 02:11:00 Corine Freed [facility] COMPLETE BLOOD COUNT 2024-01-18 02:11:00 Dasia reid [facility] AUTOMATED DIFFERENTIAL 2024-01-18 02:11:00 Raul young [facility] COMPREHENSIVE METABOLIC PANEL 2024-01-18 02:11:00 Spring [facility] LIPID PANEL W/CALCULATED LDL 2024-01-18 02:11:00 Spring [facility] VANCOMYCIN LEVEL 2024-01-18 02:11:00 Tiana Londono [facility] VITAMIN B12 LEVEL 2024-01-18 02:11:00 Nisa Gonzalez [facility] FERRITIN 2024-01-18 02:11:00 Nisa Gonzalez [facility] FOLATE LEVEL 2024-01-18 02:11:00 Nisa Gonzalez [facility] HEMOGLOBIN A1C 2024-01-18 02:11:00 Getachew Londono [facility] ACUTE HEPATITIS PANEL 2024-01-18 00:01:00 Nisa Gonzalez [facility] QUANTIFERON - TB GOLD PLUS 2024-01-18 00:01:00 Nisa Gonzalez [facility] POC ARTERIAL BLOOD GAS AND COMPREHENSIVE PANEL UNSOLICITED RESULTS 2024-01-17 23:19:00 Kalie Freed [facility] BLOOD CULTURE 2024-01-17 23:14:00 Getachew Londono [facility] BLOOD CULTURE 2024-01-17 23:08:00 Getachew Londono [facility] TYPE AND SCREEN 2024-01-17 21:25:00 Nisa Gonzalez [facility] ASPERGILLUS GALACTOMANNA ANTIGEN 2024-01-17 21:25:00 Nisa Gonzalez [facility] MAGNESIUM LEVEL 2024-01-17 21:20:00 Nisa Gonzalez [facility] B-TYPE NATRIURETIC PEPTIDE 2024-01-17 21:20:00 Nisa Gonzalez [facility] PHOSPHORUS LEVEL 2024-01-17 21:20:00 Nisa Gonzalez [facility] T4 FREE 2024-01-17 21:20:00 Nisa Gonzalez [facility] HIV 4TH GEN WITH REFLEX 2024-01-17 21:20:00 Sam Gonzalez [facility] THYROID STIMULATING HORMONE W/ REFLEX FREE T4 2024-01-17 21:20:00 Nisa Gonzalez [facility] TROPONIN I HIGH SENSITIVITY (SINGLE ORDER) 2024-01-17 21:20:00 Tiana Londono Gloria [facility] FUNGITELL 2024-01-17 21:20:00 Nisa Gonzalez [facility] MYCOPLASMA ANTIBODY IGG, IGM 2024-01-17 21:20:00 Spring Tiana Castro [facility] BASIC METABOLIC PANEL 2024-01-17 21:20:00 Nisa Gonzalez [facility] HEMOGLOBIN A1C 2024-01-17 21:20:00 Nisa Gonzalez [facility] LACTIC ACID LEVEL 2024-01-17 21:20:00 Nisa Gonzalez [facility] ECG 12-LEAD 2024-01-17 20:11:56 Getachew Londono Gloria [facility] MAGNESIUM LEVEL 2024-01-17 19:06:00 Cj Oro [facility] PHOSPHORUS LEVEL 2024-01-17 19:06:00 [facility]OL[facility]EL 2024-01-17 19:06:00 Maria Esther Oro [facility] HEPATIC FUNCTION PANEL 2024-01-17 19:06:00 Nisa Gonzalez [facility] AFB CULTURE W/SMEAR W/PCR IF INDICATED 2024-01-17 19:05:00 Ute Gomez [facility] PROCALCITONIN LEVEL 2024-01-17 19:05:00 Ute Gomez [facility] MRSA BY PCR 2024-01-17 19:05:00 Ziggy Gomez [facility] CT ANGIOGRAM CHEST PULMONARY EMBOLISM 2024-01-17 17:47:25 Spring Tiana Wells [facility] PTT 2024-01-17 16:18:00 Steph Mcbride iagt [facility] XR CHEST 1 VIEW 2024-01-17 13:17:58 Marielle Cota Clarissa h [facility] ECG 12-LEAD 2024-01-17 13:14:45 Getachew Londono [facility] BLOOD GAS, VENOUS 2024-01-17 13:02:00 Beata, Marielle [place] [facility] B-TYPE NATRIURETIC PEPTIDE 2024-01-17 13:01:00 Marielle Cota [facility] PHOSPHORUS LEVEL 2024-01-17 13:01:00 Marielle Cota [facility] COMPLETE BLOOD COUNT W/DIFF AND PLATELET 2024-01-17 13:01:00 Marielle Cota [facility] PROTIME-INR 2024-01-17 13:01:00 Marielle Cota [facility] TROPONIN I HIGH SENSITIVITY (SINGLE ORDER) 2024-01-17 13:01:00 Marielle Cota [facility] COMPLETE BLOOD COUNT 2024-01-17 13:01:00 Beata [facility] AUTOMATED DIFFERENTIAL 2024-01-17 13:01:00 Paul Cota [facility] BASIC METABOLIC PANEL 2024-01-17 13:01:00 Delvin Mccarthy [facility] HEPATIC FUNCTION PANEL 2024-01-17 13:01:00 Paul Cota [facility] LIPASE LEVEL 2024-01-17 13:01:00 Marielle Cota [facility] MAGNESIUM LEVEL 2024-01-17 13:01:00 Marielle Cota [facility] CARDIAC POC 2024-01-17 12:45:39 Pipo Lafleur [facility] Cardiac device check - Inpatient 2024-01-17 00:00:00 [facility] Legionella antigen, urine 2024-01-17 00:00:00 [facility] ECG 12 lead 2024-01-17 00:00:00 [facility] Magnesium Level [facility] Basic Metabolic Panel [place] [facility] AFB Culture w/Smear w/PCR if Indicated [facility] Fungal Culture w/Smear Marcosor ial [facility] Plan of Care Planned Activity Planned Date Details Comments Source Medication 2024-02-03 09:00:00 amiodarone ( Pacerone) tablet 200 mg [code = 297003] [facility] Procedure 2024-02-24 00:00:00 Phosphorus Level [facility] Procedure 2024-02-23 00:00:00 Complete Blo od Count w/Diff and Platelet [facility] Encounters Start Date/Time End Date/Time Encounter Type Admission Type Attending [facility] Care Facility Care Department Encounter ID Source 2024-01-17 12:35:00 Inpatient Emergency [facility]AC[facility] [id number] 2024-03-02 10:00:00 2024-03-02 10:00:00 Outpatient JULIAN AMAYA [facility] [id number] [facility] 2024-01-17 12:35:00 2024-01-27 14:57:00 Inpatient Emergency MATILDA FLACA [facility] General Medicine [id number] [facility] 2024-01-17 12:35:00 2024-01-27 14:57:00 Hospital Encounter Marielle Cota, Steph Freed, Kalie Jamil, Tiffany Larson, Tobin Grey, Lauranikolaysun Puma [facility] [id number] [facility] 2023-10-14 09:43:00 2023-10-14 09:43:00 Outpatient ROQUE YURI [facility] [id number] [facility] 2023-05-04 10:49:00 2023-05-04 10:49:00 Outpatient ROQUE YURI [facility] [id number] [facility] 2023-04-23 10:48:00 2023-04-23 10:48:00 Outpatient ROQUE YURI [facility] [id number] [facility] 2021-11-29 06:02:00 2021-11-29 12:30:00 Outpatient Elective Yuri White [facility] [id number] [facility] 2021-11-29 06:02:00 2021-11-29 06:02:00 Outpatient [facility] [id number] [facility] 2021-11-15 06:36:00 2021-11-15 15:25:00 Outpatient Lin Yuri White [facility] [id number] [facility] 2021-11-15 06:36:00 2021-11-15 06:36:00 Outpatient [facility] [id number] [facility] 2021-05-24 10:26:00 2021-05-24 10:26:00 Outpatient YURI [facility] [id number] [facility] 2020-04-17 12:11:00 2020-04-17 12:11:00 Outpatient YURI [facility] [id number] [facility] 2020-02-22 04:39:00 2020-02-22 04:39:00 Outpatient Young_J MMG MMG [id number] [facility] 2020-01-18 03:04:00 2020-01-18 03:04:00 Outpatient Young_J MMG MMG [id number] [facility] 2019-11-07 04:57:00 2019-11-07 04:57:00 Outpatient Young_J MMG MMG [id number] [facility] 2019-03-17 10:46:00 2019-03-17 10:46:00 Outpatient Young_J MMG MMG [id number] [facility] 2017-02-02 20:25:00 2017-02-02 20:25:00 Outpatient Sammy YURI [facility] [id number] [facility] 2014-12-04 12:07:00 2014-12-04 12:07:00 Outpatient YURI [facility] [id number] [facility] 2013-07-18 12:36:00 2013-07-18 12:36:00 Outpatient YURI [facility] [id number] [facility] 2013-05-30 08:06:00 2013-05-30 08:06:00 Outpatient YURI [facility] [id number] [facility] 2010-03-25 13:48:00 2010-03-25 13:48:00 Outpatient YURI [facility] [id number] [facility] Results Test Description Test Time Test Comments Results Result Co mments Source [facility] [id number] 08:18:30* Test Item Value Reference Range Interpretation Comme nts POC Glu (test code = 0820191698) 94 mg/dL 70-99 POC Performing Location (jocelyne t code = 3103753982) C4E JE [facility] [id number] 21:12:29* Test Item Value Reference Range Interpretation Comme nts POC Glu (test code = 4432776740) 107 mg/dL 70-99 H POC Glu Comment 1 (test code = 2647875427) Notified RN/MD POC Performing Location (jocelyne t code = 3246512097) C4W ONC Lab Interpretation (test cod e = 34576-9) Abnormal [facility] [id number] 15:53:50* Test Item Value Reference Range Interpretation Comme nts POC Glu (test code = 0878765071) 109 mg/dL 70-99 H POC Performing Location (jocelyne t code = 8748219280) C4E JE Lab Interpretation (test cod e = 26591-9) Abnormal [facility] [id number] 12:34:53* Test Item Value Reference Range Interpretation Comme nts POC Glu (test code = 9387629030) 131 mg/dL 70-99 H POC Performing Location (jocelyne t code = 3438853888) C4E JE Lab Interpretation (test cod e = 68267-3) Abnormal [facility] [id number] 08:21:11* Test Item Value Reference Range Interpretation Comme nts POC Glu (test code = 5083354495) 88 mg/dL 70-99 POC Performing Location (jocelyne t code = 5457233004) C4W ONC [facility] [id number] 21:49:16* Test Item Value Reference Range Interpretation Comme nts POC Glu (test code = 7674974950) 110 mg/dL 70-99 H POC Glu Comment 1 (test code = 7275363772) Notified RN/MD POC Performing Location (jocelyne t code = 7290873950) C4E JE Lab Interpretation (test cod e = 13249-9) Abnormal [facility] [id number] 20:45:02* Test Item Value Reference Range Interpretation Comme nts POC Glu (test code = 3129102386) 110 mg/dL 70-99 H POC Performing Location (jocelyne t code = 4342655408) C4E JE Lab Interpretation (test cod e = 67936-4) Abnormal [facility] [id number] 12:27:04* Test Item Value Reference Range Interpretation Comme nts POC Glu (test code = 5568055407) 120 mg/dL 70-99 H POC Performing Location (jocelyne t code = 1009315889) C4W ONC Lab Interpretation (test cod e = 82183-9) Abnormal [facility] [id number] 08:50:44* Test Item Value Reference Range Interpretation Comme nts POC Glu (test code = 3085039701) 102 mg/dL 70-99 H POC Performing Location (jocelyne t code = 9872992124) C4E JE Lab Interpretation (test cod e = 82610-9) Abnormal [facility] [id number] 17:46:54* Test Item Value Reference Range Interpretation Comme nts POC Glu (test code = 5562973604) 105 mg/dL 70-99 H POC Performing Location (jocelyne t code = 3218761933) C4W ONC Lab Interpretation (test cod e = 13888-8) Abnormal [facility] [id number] 12:07:30* Test Item Value Reference Range Interpretation Comme nts POC Glu (test code = 5147078550) 110 mg/dL 70-99 H POC Glu Comment 1 (test code = 4204927190) Notified RN/MD POC Performing Location (jocelyne t code = 4064880114) C4E JE Lab Interpretation (test cod e = 74283-1) Abnormal [facility] [id number] 08:12:28* Test Item Value Reference Range Interpretation Comme nts POC Glu (test code = 9306121565) 87 mg/dL 70-99 POC Glu Comment 1 (test code = 6577397138) Notified RN/MD POC Performing Location (jocelyne t code = 0958056656) C4E JE [facility] [id number] 21:26:28* Test Item Value Reference Range Interpretation Comme nts POC Glu (test code = 4704464794) 121 mg/dL 70-99 H POC Glu Comment 1 (test code = 4235827280) Notified RN/MD POC Performing Location (jocelyne t code = 0069074682) C4W ONC Lab Interpretation (test cod e = 51172-3) Abnormal [facility] [id number] 16:41:43* Test Item Value Reference Range Interpretation Comme nts POC Glu (test code = 4059386986) 112 mg/dL 70-99 H POC Performing Location (jocelyne t code = 5034101803) C4E JE Lab Interpretation (test cod e = 16972-5) Abnormal [facility] [id number] 13:20:17* Test Item Value Reference Range Interpretation Comme nts POC Glu (test code = 8425628336) 141 mg/dL 70-99 H POC Performing Location (jocelyne t code = 2922044144) C4E JE Lab Interpretation (test cod e = 08534-3) Abnormal [facility] [id number] 09:20:45* Test Item Value Reference Range Interpretation Comme nts POC Glu (test code = 7713054595) 92 mg/dL 70-99 POC Performing Location (jocelyne t code = 6876332577) C4W ONC [facility] [id number] 22:40:57* Test Item Value Reference Range Interpretation Comme nts POC Glu (test code = 7565639744) 74 mg/dL 70-99 POC Glu Comment 1 (test code = 1532028119) Notified RN/MD POC Performing Location (jocelyne t code = 3619056501) C4W ONC [facility] [id number] 17:29:02* Test Item Value Reference Range Interpretation Comme nts POC Glu (test code = 5504282570) 130 mg/dL 70-99 H POC Glu Comment 1 (test code = 2002800868) Notified RN/MD POC Performing Location (jocelyne t code = 6096732349) C4W ONC Lab Interpretation (test cod e = 02443-8) [facility]normal [facility] EpicAspergillus galactomanna [id number] 14:09:26* Test Item Value Reference Range Interpretation Comme nts Aspergillus galactomannan Ag (test code = 4488465960) SEE COMMENT Aspergillus galactomannan In dex (test code = 4093726795) Source A galactomannan Ag (t est code = 4169290312) SERUM EMELIA (test code = EMELIA) [facility] [id number] 13:59:53* Test Item Value Reference Range Interpretation Comme nts Case Report (test code = 1499) Final Diagnosis (test code = 05730-9) f1dagRXrUSMkzFRlFA EwMVxhbnNpXHNwbHRw R4JzhujnHHgkIZ6iGT 5veGxhdHRveWVuXGRl CoYdq8fbq600bFIyv3 xmMCBTZWdvZSBVSTt9 xNpmJ32lw7E9RlchL4 xyZWQwXGdyZWVuMFxi kNTeCSl0MDGpxFBrvr EyMjQwXHBhcGVyaDE1 YWXhIV5oauaaRUxuQC waQFKwfwO8QFTyaDLc T9ZxLTFyNL3qxbmtHP W5XXxvECQeWFK5IxDs WQYsq0Srwqi6GrEsbM FyZFxwbGFpblxiXGZz UuWrUM1cMVVkdOheZ2 UxSINgs8hocctgEudt tMO2QnehUSZgLAPCk2 9waGFnZWFsIHNxdWFt e4XhSU68O16aNOI5vY VlSAMpGTM3dlXnSX2u TYNgPev0vABvq99cpY TeuSEeso7etHXzFN9e M9vmtzG4gSRtUJ53G8 4hQGCeM1XdfBWoXcBi YXJkaWEpIHdpdGggbW lsZCBjaHJvbmljIGlu XczhpB3ezPpeci1diA UbFINnXIUjOH9bP3S2 aXZlIGZvciBpbnRlc3 WdwlXnUA8kvMIsyKVm zUSep8CiPAojoQdes2 lhLlxwYXJccGFyIEIu IFxjZjAgRXNvcGhhZ3 LoLHUubWRqVDEkn7Zm uInrhLCjNW7rUIVuxL cmY7UizFLcxKDwmU77 goFsyEJys0Bpn2z9lS FzaLgdNKQxUOS3rAVi YBDmTD3gHIOeLFVftg xjZjEgLSBOZWdhdGl2 VRCik9MhzK68WSI5xS 7fnWLaDLLrbYlmk1je PG0xESY8v7AcDZJmDU 5ccGFyXHBhcmRcYjBc U8GnITPpxb9= Clinical Information (test code = 29) b7czxOPtWYJkbKKuDU EwMVxhbnNpXHNwbHRw N7FuanhePQbePG2hQS 5veGxhdHRveWVuXGRl KuIpa7sid917gEJbg6 xmMCBTZWdvZSBVSTt9 mVddK89fa0V8ZnwlW1 4mdZBjDXH6YUVlELEo cPLpUVLpDHJ6JSHipT TbP4kfNMPgEI5tkwcj OUwuMVvwSMVhoSQ4EP RptTUwQ0DoAUQrFGtd RSRhmzl6QzAxOv6qsH VyeTcyMFxwYXJkXHBs PXjjTNQcVhFoOr88XZ Kix0ShLIBxPOIdyb2= Macroscopic Description (test code = 5820202672) t4gitIAyRJCjsUOYGE VuPXNdYO2myTadvKg9 aScmHQUlqqG9eMYpWF sam2plFNF6t9prctGJ ZdthDCEcWU7yFJpgHS LmOQ9hMhVxNNErPgBo XHBhcGVydzEyMjQwXH PyuBXzjEE8FHCfPC6o cmdsMTgwMFxtYXJncj E6HGMyqCObL4MrLCAj YK5ubfdnVCR9KBTKLc dzQh8abGZwiEszSaCv ZmNoYXJzZXQwXGZzd2 lzcyBTZWdvZSBVSTt9 hC2KSCVaE0MwND1Oy4 zpCYSyxEPtFSO9OUus a9biSCfcWTS5NOEoGU IdCKHgLA0DKlZzIDL5 DimmZYQqOEn6AVt5LY MSKZTnTrg2OSG0HDl8 BJUbGV4kPTblvUWrTQ rvSsjdNZbgZ631EZvl XHPpO9WuD5AqQWgcHg BcXGlkIDUxMDAyIFxc GUTrS0HTILQtPJr1Cn AiPyYsOGy5KPegG2EF SARfTOZbJTT7SvzdDm N1YJs8BLRIUh6zUsE1 DNL6MQNsBKM0DajtZU dugHVpXZowc1TpMnJx MMFhXKwuhkF5YTWtca IeLWvruFslsF7hWfDp VCWUXhEUu93tcBKymP DgVWPZr8swmz0mzWSy X8rmOpSnAqtrACKuXN pccGFyZCANClxwbGFp blxsdHJjaFxmczIyXG BcpCAUAXL4ZC1tQXBZ NxogmOOnBUIve7EtVL xlcGljWHNhMzAgDQpS ZWNlaXZlZCBpbiBmb3 JtYWxpbiBsYWJlbGVk IHdpdGggdGhlIHBhdG ryvfPaplPoHE1uWOGE Bz7rFPFdQJZeQYeik9 FoWUBih8XuUZkxRBss YmlvcHNpZXMiIGFyZS RgzTd1vUPnJTN3ID8y q2innAKqw79joDI2rW UrqVMiJiUqJ87aynEm IHRoYXQgYXJlIDAuNC Z9AFRfUDO2VCNaXnRg bOQwkoGnO4mnTJeyyW TmPSSDoFMcq2ErE0vj OJ9zdHVfJI28vZUxoH mfr2GkdGw2xQWtLJwl IEExIGluIGEgYmlvcH F8VTXdFw8HNrvcyDee QqAfeMAxGhB3TIZdkQ LfKUD9DN6qlZfiCXZt QDe0PStqAZRxW5BsP3 QgXFxzZyBcXGlkIDUx XIVlBKynGPKkA9ZOMB XzPRl1DiGoQsXfPVk8 OJysE4JRTCZlQFLgDI Y9VrOzAmO5XXy3SWUY Or5bPqL5CSS1CXB7XJ Y2CukmNMbhqLSjBIoq c7MxSrLxTEYtIBqznv L3ZMRlboVmv9MaIDBb EFAtO7ikVpWxVRUOHr bgjlToWLEgZUVow7Hf SCr6ewShGE2jHA7jDu MyMlxwYXIgDQpccGFy ZCANClxwbGFpblxsdH JjaFxmczIyXGVwaWNO RXM4MV5vOUBBVdggcZ CeZURxq7LpERkwgXwk RGIqSzDzb0QhPKkpoQ ljWHNhMzAgDQpSZWNl fVWqWYWaqpNbg0XyNM xpbiBsYWJlbGVkIHdp dGggdGhlIHBhdGllbn ZxsuCrRD9iENQNIz8d IXUnOUOvYS1jLATzv5 4jtBOhBXWtDVIqw9Gk aWVzIiBpcyBhIHNpbm dsZSBvZiBmcmFnbWVu dNYuFxT2SL4wb2hkeC Brq73ooMO3tNVurOSc dGhhdCBpcyAwLjMgeC VyZjPpcAVdYkOjN75f JQSOmGMcl7KsI8xmYZ 2mnNSeBP10yGRlhBex w4KtzAm9fNLoNKqbMB IxIGluIGEgYmlvcHN5 DJNoOc0RFwgcdQbrYw AqiHAhVzY0FQGrbZHs YCS3GR2cmCyfFWYwM1 LjZ0TessM4CSEvlvWR VlueIHIxWM0SRTArLW yvDC3IyD== Microscopic Description (test code = 32) z8tbfVWbYPNfaNIsMz XnZGVwWXYaf6gmSUMy bGFuZzEwMzNcZnRuYm cilAQkYXHiGaDxm2oi d919uUNab5qaZKDwSr L5xZXfPSZeP45iLRCQ V214KJRtVVybl8uoi9 LtWDIctNDhn7H5KUGQ CBbeFDMNOYk0hCbxM7 8ym5P9LkxkL0eoJAGb YWVjP5JyOX8wKASyGn l3ABF2FNI3PZVpPVNp M5OtRY3sAQIrkJSoRI h6y0tdvDbrYJAyGTU9 u3vgNYnafgGlZX6vcd 6rtFo0g8chmzLnSHBy KXKqnTCMOISnF0MrhJ jzQe3anYb0mBbeIclg KSG4Ipu1UX9vri58br o0gUnsESNzmtoeWfZ2 TKwjCJGemnafNUu6MB vhDKXjqUB1YSMkaWMt V8SpCNRmTJ3budj8PU I2JNikVLHiSxX1ZLVe aGVhZGVyeTcyMFxmb2 08ATR3EcMfMH4hH9Bz g5Y2pK0oaRJgRPTelS DlKpTsZYWcak6fsWKy KCexy6AuUUI3tnH4lJ FmoUHsGRVgML38Oehe d7SaDkxoNSG9TCZzxo Upe5Icl5uhFjGogrIz D8aoA0ShIUWkJUAaBO FsOuKzraRgv2Xuq4Zs uPPbyFs4y9keJCDiNL SmzFljr2irCXN5EVLy J0O3mAHec0jrFQhwIQ VutWR0qxK4CWMcoGXf Y3KazI2wKXTeZC9kux s8p8vnABB1ILhjWNQc HiY5zpX9LRTyeSEiZA ScyQdyOTdzo901LFF2 JjJwWRRfv0OxX6AlcH afC79itLvbS60pOVKv cYpspG4sgChsoJ2uFs BcZnMyNFxxbFxwbGFp blxmMVxmczIyXGxhbm daHTLrOPfzN8xvQoEn FPAhnDubEMgkr6LnXT YxXGZzMjIgQSBtaWNy s3Xdi4AnLhLcjGTjqF 5hdGlvbiBoYXMgYmVl tqNoOTPlt7IgJRFiIR 1mAHDeINYgoJ2gcY7z olOfxhAccH9hr4Azi3 JhdGVkIGluIHRoZSBk nQUeuj2oxZAkXKOelo LnBUMbCXLia0XpbKo1 ZSBhbmQgbmVnYXRpdm OgZ47rpZQjpIGeLb6m QZKnmKEvgWH9c7ZoGF 9xQ4ZkDPMrMDLrkG30 vv5zeBW4o4FhUK1hW1 EwVPR4MDiblhslzVEl jBIeLh1gqLVcQBQpao M7lTdvJVFej2DpLUes dmUgYmVlbiByZXZpZX dlZCBhbmQsIHVubGVz nsSifHwvcwzyo8Ofxr 90ZWQsIGhhdmUgYmVl feKzr1UnGPM7afAyOG TciKEkg2AhnNR7LH8w cGFyfQ== Non-Clinical Documentation (test code = [id number]) g0lqkYLpRCBjuDCrTB EwMVxhbnNpXHNwbHRw J9ZtemxoSCuvCU6aMN 5veGxhdHRveWVuXGRl XbXme4itd178eICsl7 xmMCBTZWdvZSBVSTt9 mYnnJ53oz6M1XvnpH5 xyZWQwXGdyZWVuMFxi gUAgUPr7HFQdkLGlzo EyMjQwXHBhcGVyaDE1 AYQwHU7siwekMIlbCK igTOXldyQ5YKWgkKJn W0WcTNKyUL0kcoxgNV X8OWcpEQMtYVE9JwPl HBVxm6Ajgzu6DwAbuI FyZFxwbGFpblxmczIw XGNmMSBUaXNzdWUgcH XdJ7Bvl7usPtFaylCy s0lbBTJunIUeoTXiFT Rop94twZFsHx9wkUSz NWN6GD3okD7exAEqKT ihhh9aic9wUQZGTETi sHkvRDJJLWPbYK9geW f3CBbfGXBkrnPHtVLn p6Saw1OtBeApbMBwgW 5hdGlvbiBhbmQgZGlh A56uo3cmXVIosoEqmk 4uBUVanTPLEK1nnjza aAOHWEWfHF8lE1GFPO ApoDKmLZ9vPN5TVNwj e3TrmFHzCwzdXPVlCv UpIBGYTX5loP6lGQzh bHE1y60aBKQMSPr4NA MwLlxwYXJ9 Teaching Physician Statement (test code = [id number]) d5sbzNUrKARcdSSmGs WgWTYyFSRdw7sqMSJe bGFuZzEwMzNcZnRuYm wrcUBoLOTiKzIia1eg c082dEGmb6nyLFZnFo U8lBHpEVDbI11mTSXP K702AKAbEDkty4uea2 YcWJDphKBzl0R2ZRTH dulvnLm1bFehV92so6 S9CovkG3qdJOZcGZTb K2RuBO2eTWXsAot5AR L2NLW6YFJmUEAyB7Ml LQ7bGDUfkFYuBGe5d8 nqfYzqSAIdAEW4c9sf OCtswkWjZE3lia5tyT t5f7jhyfZmHYUfZOXh sRGEUNSwB6TrgTicIw 1keBl1sTsoSmpcOZC5 Vwb9NJ5pic26sgh2gU xfZBCetbfaScD1TQis CROhiivfHYz6NApdJF EbnDR5YTSmwXDxK1Ep XMRlTA7pzmp0ROZ8TC wnYNRqIiR7YJCfzXPa UOLhhIpuWDccx689VZ V1HaIoTH6nY7Ucc1F9 pP3wtWPrFVBqmNEqOz CdAXJqaq2oiYRpNEmw c5CxDND3cbF6uGAdeW ZyWAZzVK88Xgsqt1Sv VlmjWAL8MJTyfgVvq4 Ccw7ggYfWpgsEhE1br K5OtEZGdQFTsXJTvDu BdirXhf7Pwb4ErfAGg xOl0k1jtFECsPMUxxL jls9bhAQW4KLRjT9F6 bHAax0emNEttFVMzeH F0itT5VKLrgYLjR8Od sZ4wJABvVF1jfvh7l5 psZTK7LVgnGZPaDiQ4 abW0QEYpiOZtGWDokZ dcYXvku830OTU1YqWb FTJlb5YiC6DmtNsuM3 2ckBowM11tAGAwsTua wO2poIfujK4iXdSaJl MyNFxxbFxwbGFpblxm MVxmczIwXGxhbmcxMD UbSUfxU2ihGoOxWIUq nYkvYOmhe7HdKCDfZX MjDgFsFbtbwLM6KICz JAEsw93doAr7IVVjtv fso7UaEDYsUUMnHPGd ZGVudCdzIHByZWxpbW vvHWU8NYxdnMKqsICo gAH2sK3rUYMtDMNeiY jft6PvR2uzSP0mlAFy yPUyMABjd28bFHQjNF BoYXZlIHBlcnNvbmFs bHkgaXNzdWVkIHRoaX JvkqDmm7E8CjVwaTPm fQ== [facility] Jgfjmom6530-56-19 12:53:09* Test Item Value Reference Range Interpretation Comme nts POC Glu (test code = 2326570653) 123 mg/dL 70-99 H POC Glu Comment 1 (test code = 4944061497) Notified RN/MD POC Performing Location (jocelyne t code = 5471097114) C4W ONC Lab Interpretation (test cod e = 78526-4) Abnormal [facility] Fosaabc0676-88-87 08:27:18* Test Item Value Reference Range Interpretation Comme nts POC Glu (test code = 9375369026) 135 mg/dL 70-99 H POC Glu Comment 1 (test code = 3335237455) Notified RN/MD POC Performing Location (jocelyne t code = 0922127083) C4W ONC Lab Interpretation (test cod e = 74505-5) Abnormal [facility] Aoionap1120-44-57 07:22:21* Test Item Value Reference Range Interpretation Comme nts POC Glu (test code = 2182262403) 106 mg/dL 70-99 H POC Performing Location (jocelyne t code = 4300587782) C4E JE Lab Interpretation (test cod e = 48527-7) Abnormal [facility] Qzeiopg4015-34-61 20:43:59* Test Item Value Reference Range Interpretation Comme nts POC Glu (test code = 8726586504) 117 mg/dL 70-99 H POC Performing Location (jocelyne t code = 1250389346) C4E JE Lab Interpretation (test cod e = 30063-2) Abnormal [facility] Arterial Blood Gas and Basic Bumtw2763-91-54 01:31:07* Test Item Value Reference Range Interpretation Comme nts POC A Temp (test code = 8134321317) DegC POC A Source (test code = 0609039683) ART POC A pH (test code = 2744-1) 7.35-7.45 H POC A PCO2 (test code = 2019-8) See_Comment L [Automated messa ge] The system which generated this result transmitted reference range: 35 - 45 mmHg. The reference range was not used to interpret this result as normal/abnormal. POC A PO2 (test code = 2703-7) See_Comment LL [Automated messa ge] The system which generated this result transmitted reference range: 80 - 100 mmHg. The reference range was not used to interpret this result as normal/abnormal. POC A HCO3 (test code = 1960-4) See_Comment [Automated messa ge] The system which generated this result transmitted reference range: 22 - 26 mMol/L. The reference range was not used to interpret this result as normal/abnormal. POC A BE (test code = 1925-7) See_Comment [Automated messa ge] The system which generated this result transmitted reference range: -2 - 2 mMol/L. The reference range was not used to interpret this result as normal/abnormal. POC A O2 Sat (calc) (test code = 2708-6) 67.7 % 95-100 L POC A Hgb Tot (test code = 98132-3) 9.6 g/dL 13.7-17.5 L POC A Hct (calc) (test code = 40063-9) 29 % 40.1-51.0 L POC A Na (test code = 15850-8) See_Comment L [Automated messa ge] The system which generated this result transmitted reference range: 135 - 145 mEq/L. The reference range was not used to interpret this result as normal/abnormal. POC A K (test code = 9425872) See_Comment L [Automated messa ge] The system which generated this result transmitted reference range: 3.5 - 5.1 mEq/L. The reference range was not used to interpret this result as normal/abnormal. POC Chloride (test code = 3901345) See_Comment [Automated messa ge] The system which generated this result transmitted reference range: 95 - 109 mEq/L. The reference range was not used to interpret this result as normal/abnormal. POC A Glu (test code = 2339-0) 97 mg/dL 70-99 POC A LA (test code = 224) See_Comment [Automated messa ge] The system which generated this result transmitted reference range: 0.5 - 2.2 mMol/L. The reference range was not used to interpret this result as normal/abnormal. POC A Ca Ion (test code = 85157-2) See_Comment [Automated messa ge] The system which generated this result transmitted reference range: 1.05 - 1.25 mMol/L. The reference range was not used to interpret this result as normal/abnormal. POC A Ca Ion (7.4) (test code = 0865038118) 1.21 mmol/L 1.05-1.25 POC Performing Location (test code = 7896561504) [facility] Lab Interpretation (test code = 48064-8) Abnormal [facility] Paexqek6884-78-17 18:31:24* Test Item Value Reference Range Interpretation Comme nts POC Glu (test code = 2529404810) 95 mg/dL 70-99 POC Glu Comment 1 (test code = 3605491308) Notified RN/MD POC Performing Location (jocelyne t code = 8507347432) [facility] Mniarcl0968-27-42 12:08:15* Test Item Value Reference Range Interpretation Comme nts POC Glu (test code = 8884484107) 115 mg/dL 70-99 H POC Glu Comment 1 (test code = 3168569006) Notified RN/MD POC Performing Location (jocelyne t code = 9800152489) [facility] Lab Interpretation (test cod e = 11300-6) Abnormal [facility] Lqaoidp1701-24-41 06:02:32* Test Item Value Reference Range Interpretation Comme nts POC Glu (test code = 9209327090) 116 mg/dL 70-99 H POC Performing Location (jocelyne t code = 8380545110) 4 CCU Lab Interpretation (test cod e = 22815-4) Abnormal [facility] Uachuik5630-46-77 17:36:04* Test Item Value Reference Range Interpretation Comme nts POC Glu (test code = 2079174565) 124 mg/dL 70-99 H POC Glu Comment 1 (test code = 6980755210) Notified RN/MD POC Performing Location (jocelyne t code = 7472353170) [facility] Lab Interpretation (test cod e = 19336-3) Abnormal [facility] Tazufqy2516-21-71 11:29:34* Test Item Value Reference Range Interpretation Comme nts POC Glu (test code = 9134336971) 119 mg/dL 70-99 H POC Performing Location (jocelyne t code = 9398845541) [facility] CCU Lab Interpretation (test cod e = 41143-3) Abnormal [facility] Clfyfog8238-40-91 23:29:51* Test Item Value Reference Range Interpretation Comme nts POC Glu (test code = 1212389474) 137 mg/dL 70-99 H POC Glu Comment 1 (test code = 7280601260) Notified RN/MD POC Glu Comment 2 (test code = 2272728563) Cleaned Meter POC Performing Location (jocelyne t code = 8295289929) [facility]U Lab Interpretation (test cod e = 03988-8) [facility] ejivisys9882-17-37 11:04:22* Test Item Value Reference Range Interpretation Comme nts RVOT Vmean (test code = 0908360019) 0.78 m/s LA Vol I (A4C) BSA (test code = 4465770744) 25.2 ml/m2 LA Vol I BSA (test code = 7547973945) 37.4 ml/m2 LVOT Vmax/AV Vmax (test code = 9367490675) 0.91 {ratio} Ao Root diam diastole (test code = 1819947042) 28 mm LVOT Vmean (test code = 7270686295) 0.75 m/s PV mn jomar (test code = 6854909671) 1 m/s LA area A4C (test code = 0013213357) 17.7 cm2 LA area A2C (test code = 8244126069) 23.3 cm2 MV max jomar (test code = 3580851210) 0.942 cm/s TR pk grad (test code = 9914912884) mmHg TAPSE (test code = 1669586449) 28 mm LA ESV A2C (test code = 1710724120) 75.458605527155599 mL LA ESV A4C (test code = 1934239683) 75.063907036997370 mL MV mn jomar (test code = 0364785660) 0.591 m/s MV A pk jomar (test code = 4939923619) 0.8 m/s MV VTI (test code = 7571385878) 21.5 cm MV E pk jomar (test code = 6218049648) 0.88 m/s PV mn grad (test code = 8144688604) mmHg MV pk grad (test code = 6123951680) mmHg AV pk grad (test code = 3305931145) mmHg LV stroke vol (test code = 6304099627) 86 ml RVOT VTI (test code = 1477864752) 22.9 cm RVOT pk jomar (test code = 8417014428) 1.19 m/s AV VTI (test code = 6032627885) 23.6 cm AV pk jomar (test code = 5891157882) 1.2 m/s LVOT VTI (test code = 8559931615) 22.5 cm LVOT pk jomar (test code = 8261851841) 1.09 m/s LVOT area (test code = 2731137216) 3.8 cm2 LVOT diam (test code = 3100567840) 22 mm MV DT (test code = 8158259605) 176 ms MV e' lateral jomar (test code = 1801241691) 13.7 cm/s MV E/A ratio (test code = 6243338319) PV pk grad (test code = 8796464128) mmHg MV area cont eq (test code = 4659231637) 3.98 cm2 MV mn grad (test code = 8711165317) mmHg LVOT pk grad (test code = 0002194921) mmHg AV mn grad (test code = 8857084612) mmHg RVOT mn grad (test code = 7973068569) mmHg RVOT pk grad (test code = 9637553078) mmHg MV E/e' septal (test code = 2353562866) TR pk jomar (test code = 7773276390) 2.07 m/s AV area pk jomar (test code = 4677286127) 3.45 cm2 AV area cont VTI (test code = 0560888142) 3.62 cm2 LVOT mn grad (test code = 7999603455) mmHg LV ESV 3D (test code = 6352374850) 117 cm3 LV EDV 3D (test code = 8089247855) 276 ml LVEF 3D (test code = 6578560355) 58 % AV mn jomar (test code = 0040398062) 0.93 m/s LVPWd (test code = 2238112344) 11 mm LA size (test code = 3289774897) [address] junction (test code = 9162786958) 24 mm Fractional Shortening 2D (test code = 9697819398) 23 % LVIDs (test code = 5996962923) 36 mm IVSd (test code = 1493307005) 10 mm LVIDd (test code = 9460142632) 46 mm PV pk jomar (test code = 8493819331) 1.42 m/s PV VTI (test code = 2390120) 25.7 cm MV E/e' lateral (test code = 5792069) MV e' septal jomar (test code = 7710994) 7.62 cm/s LV ESV 2D (test code = 8951655) 52.6 mL LV EDV 2D (test code = 3954247) 96.3 mL IVSd 2D (test code = 0209142) 10.4 cm BSA (test code = 0094856617) 2.02 m2 LV RWT 2D (test code = 1650093275) LV mass index 2D (test code = 5084389161) 84.6 g/m2 LV GLS (test code = 4832925665) -16.9 % Radiology Study observation (narrative) (test code = 23480-1) EMELIA (test code = EMELIA) [facility] EpicElectrocardiogram, 42-kzei3350-24-04 10:46:23* Test Item Value Reference Range Interpretation Comme nts Ventricular Rate (test code = 6537714406) BPM Atrial Rate (test code = 6320968053) BPM AR Interval (test code = 6129237074) 194 ms QRS Duration (test code = 6279235091) 80 ms QT/QTc (test code = 2181440037) 430 ms QTc Calculation (test code = 5152469002) 495 ms P-[place] (test code = 7830645941) degrees R-[place] (test code = 4494258407) degrees T-[place] (test code = 1457417688) degrees EMELIA (test code = EMELIA) PXN (test code = PXN) [facility] EpicECG 12 nyzj6973-91-96 09:43:40* Test Item Value Reference Range Interpretation Comme nts Ventricular Rate (test code = 8940177850) BPM Atrial Rate (test code = 1898032958) BPM AR Interval (test code = 7485866324) 192 ms QRS Duration (test code = 0766084859) 100 ms QT/QTc (test code = 5251654013) 396 ms QTc Calculation (test code = 1063885467) 467 ms P-[place] (test code = 0089735278) degrees R-[place] (test code = 7996032198) degrees T-[place] (test code = 9771713215) degrees EMELIA (test code = EMELIA) PXN (test code = PXN) [facility] Arterial Blood Gas and Comprehensive Zduou0439-97-10 23:21:39* Test Item Value Reference Range Interpretation Comme nts POC A Temp (test code = 2867314041) DegC POC A Source (test code = 9042335998) ART POC A pH (test code = 2744-1) 7.35-7.45 H POC A PCO2 (test code = 2019-) See_Comment L [Automated messa ge] The system which generated this result transmitted reference range: 35 - 45 mmHg. The reference range was not used to interpret this result as normal/abnormal. POC A PO2 (test code = 2703-7) See_Comment L [Automated messa ge] The system which generated this result transmitted reference range: 80 - 100 mmHg. The reference range was not used to interpret this result as normal/abnormal. POC A HCO3 (test code = 1960-4) See_Comment [Automated messa ge] The system which generated this result transmitted reference range: 22 - 26 mMol/L. The reference range was not used to interpret this result as normal/abnormal. POC A BE (test code = 1925-7) See_Comment [Automated messa ge] The system which generated this result transmitted reference range: -2 - 2 mMol/L. The reference range was not used to interpret this result as normal/abnormal. POC A O2 Sat (calc) (test code = 2708-6) 93.8 % 95-100 L POC A O2 Sat (shona) (test code = 6789931169) 92.8 % 95.0-100.0 L POC A Oxyhgb (test code = 2841590184) 91.2 % 95-100 L POC A Carboxy (test code = 7474722562) 0.8 % Non-Smoker: 0.0-2.0 Smoker: 0.0-9.0 Reference RangeNon-Smoker 0.0-2.0 ? ?Smoker 0.0-9.0 POC A Methgb (test code = 2615-3) 0.8 % 0.0-1.4 POC A Hgb Tot (test code = 74932-0) 10.6 g/dL 13.7-17.5 L POC A Hct (calc) (test code = 33886-0) 32 % 40.1-51.0 L POC A Na (test code = 01063-0) See_Comment L [Automated messa ge] The system which generated this result transmitted reference range: 135 - 145 mEq/L. The reference range was not used to interpret this result as normal/abnormal. POC A K (test code = 8559996) See_Comment [Automated messa ge] The system which generated this result transmitted reference range: 3.5 - 5.1 mEq/L. The reference range was not used to interpret this result as normal/abnormal. POC Chloride (test code = 9436719) See_Comment [Automated messa ge] The system which generated this result transmitted reference range: 95 - 109 mEq/L. The reference range was not used to interpret this result as normal/abnormal. POC A Glu (test code = 2339-0) 130 mg/dL 70-99 H POC A LA (test code = 224) See_Comment [Automated messa ge] The system which generated this result transmitted reference range: 0.5 - 2.2 mMol/L. The reference range was not used to interpret this result as normal/abnormal. POC A Ca Ion (test code = 43879-8) See_Comment [Automated messa ge] The system which generated this result transmitted reference range: 1.05 - 1.25 mMol/L. The reference range was not used to interpret this result as normal/abnormal. POC A Ca Ion (7.4) (test code = 0057628328) 1.15 mmol/L 1.05-1.25 POC Performing Location (test code = 7510926881) [facility] CLI Lab Interpretation (test code = 98061-7) Abnormal [facility] EpicPartial Thromboplastin Korp3854-42-92 06:38:00* Test Item Value Reference Range Interpretation Comme nts Partial Thromboplastin Time (test code = PTT) 26.8 Seconds 23.9-32.8 N Comprehensive Metabolic Rsynk2597-21-69 06:38:00* Test Item Value Reference Range Interpretation Comme nts SODIUM (test code = NA) 141.0 mmol/L 136.0-145.0 N Potassium,K (test code = K) 4.9 mmol/L 3.0-5.1 N Chloride (test code = CL) 107 mmol/L 98-107 N Carbon Dioxide (test code = CO2) 29 mmol/L 20-31 N Anion Gap (test code = GAP) 5 mmol/L 5-15 N Blood Urea Nitrogen (test co de = BUN) 18 mg/dL 9-23 N Creatinine (test code = CREATT) 1.24 mg/dL 0.55-1.02 H Creatinine Clr Calc Pharmacy (test code = CRCLPHA) 55.60 mL/min Estimated GFR ( Ameri ca (test code = EGFRAA) > 60 mL/min/1.73m2 Estimated GFR (Non Afr Ameri ca (test code = EGFRNAA) 58 mL/min/1.73m2 BUN/Creatinine Ratio (test c ode = BCRATIO) 15 ratio 10-20 N Glucose (test code = GLU) 95 mg/dL 74-106 N Osmolality,Calculated (test code = OSMOC) 293.4 Calcium (test code = CA) 8.7 mg/dL 8.3-10.6 N Bilirubin,Total (test code = BILIT) 0.2 mg/dL 0.2-1.1 N Aspartate Amino Transferase (test code = AST) 23 U/L 0-34 N Alanine Aminotransferase (te st code = ALT) 19 U/L 10-49 N Total Protein (test code = TP) 7.2 g/dL 5.7-8.2 N Albumin Level (test code = ALB) 4.4 g/dL 3.2-4.8 N Globulin (test code = GLOB) 2.8 mg/dL 2.3-3.5 N Albumin/Globulin Ratio (test code = AGRATIO) 1.6 ratio 0.8-2.0 N Alkaline Phosphatase (test c ode = ALP) 77 U/L 46-116 N Lipid Abcbn8523-57-75 06:38:00* Test Item Value Reference Range Interpretation Comme nts Triglycerides (test code = TRIG) 211 mg/dL 9-200 H Cholesterol (test code = CHOL) 166 mg/dL 0-200 N LDL Cholesterol,Calculated (test code = LDLC) 91 mg/dL 0-130 N LDL (mg/dL)Op timal <100Near Optimal 100-129Borderline High 130-159High 160-189Very High >=190 VLDL CHOLESTEROL (test code = VLDL) 42 mg/dL HDL Cholesterol (test code = HDL) 33 mg/dL 40-60 L LDL/HDL Ratio (test code = LDLHDL) 3 Chol/HDL Ratio (test code = CHLHDL) 5.0 ratio 0.0-5.0 N Complete Blood Count w/o Vuvo2027-05-08 06:38:00* Test Item Value Reference Range Interpretation Comme nts White Blood Count (test code = WBCT) 8.0 x10 3/uL 4.4-10.5 N Red Blood Count (test code = RBC) 4.32 x10 6/uL 4.10-5.70 N Hemoglobin (test code = HGBT) 12.8 g/dL 13.4-17.4 L Hematocrit (test code = HCTT) 41.1 % 38.7-52.0 N Mean Corpuscular Volume (jocelyne t code = MCV) 95.10 fL 80.00-100.00 N Mean Corpuscular Hemoglobin (test code = MCH) 29.6 pg 27.0-32.5 N Mean Corpuscular HGB Conc (test code = MCHC) 31.10 g/dL 32.00-37.50 L RDW Coefficient of Variation (test code = RDWCV) 12.7 % 11.5-14.5 N Platelet Count (test code = PLTT) 280.0 x10 3/uL 140.0-440.0 N Mean Platelet Volume (test code = MPV) 9.3 fL nRBC Abs (test code = NRBCA) 0 nRBC Pct (test code = NRBCP) 0 % Prothrombin Time NJV5628-26-96 06:38:00* Test Item Value Reference Range Interpretation Comme nts Prothrombin Time (test code = PT) 10.5 Seconds 9.3-12.1 N INR (test code = INR) 1.0 ratio 0.9-1.2 N Reference Interv al is for non-anticoagulated patients.Suggested INR Therapeutic Range for Vitamin K antogonisttherapy:LEV ELS OFTHERAPY INDICATIONS TARGET INR RANGEStandard Dose Venous Thrombosis, 2.0 - 3.0 Atrial Fibrillation, Pulmonary Embolism.High Dose Valvular Heart Disease, 2.5 - 3.5 Mechanical Heart, Intracardiac Thrombosis. Complete Blood Count w/o Xuie2462-02-63 07:52:00* Test Item Value Reference Range Interpretation Comme nts White Blood Count (test code = WBCT) 7.0 x10 3/uL 4.4-10.5 N Red Blood Count (test code = RBC) 4.05 x10 6/uL 4.10-5.70 L Hemoglobin (test code = HGBT) 12.3 g/dL 13.4-17.4 L Hematocrit (test code = HCTT) 36.5 % 38.7-52.0 L Mean Corpuscular Volume (jocelyne t code = MCV) 90.10 fL 80.00-100.00 N Mean Corpuscular Hemoglobin (test code = MCH) 30.4 pg 27.0-32.5 N Mean Corpuscular HGB Conc (test code = MCHC) 33.70 g/dL 32.00-37.50 N RDW Coefficient of Variation (test code = RDWCV) 12.5 % 11.5-14.5 N Platelet Count (test code = PLTT) 256.0 x10 3/uL 140.0-440.0 N Mean Platelet Volume (test code = MPV) 9.2 fL nRBC Abs (test code = NRBCA) 0 nRBC Pct (test code = NRBCP) 0 % Prothrombin Time TVQ9678-09-15 07:52:00* Test Item Value Reference Range Interpretation Comme nts Prothrombin Time (test code = PT) 10.9 Seconds 9.3-12.1 N INR (test code = INR) 1.0 ratio 0.9-1.2 N Reference Interv al is for non-anticoagulated patients.Suggested INR Therapeutic Range for Vitamin K antogonisttherapy:LEV ELS OFTHERAPY INDICATIONS TARGET INR RANGEStandard Dose Venous Thrombosis, 2.0 - 3.0 Atrial Fibrillation, Pulmonary Embolism.High Dose Valvular Heart Disease, 2.5 - 3.5 Mechanical Heart, Intracardiac Thrombosis. Comprehensive Metabolic Qhnmo4063-09-93 07:52:00* Test Item Value Reference Range Interpretation Comme nts SODIUM (test code = NA) 140.0 mmol/L 136.0-145.0 N Potassium,K (test code = K) 4.5 mmol/L 3.0-5.1 N Chloride (test code = CL) 109 mmol/L 98-107 H Carbon Dioxide (test code = CO2) 24 mmol/L 20-31 N Anion Gap (test code = GAP) 7 mmol/L 5-15 N Blood Urea Nitrogen (test co de = BUN) 17 mg/dL 9-23 N Creatinine (test code = CREATT) 1.13 mg/dL 0.55-1.02 H Creatinine Clr Calc Pharmacy (test code = CRCLPHA) 66.33 mL/min Estimated GFR ( Ameri ca (test code = EGFRAA) > 60 mL/min/1.73m2 Estimated GFR (Non Afr Ameri ca (test code = EGFRNAA) > 60 mL/min/1.73m2 BUN/Creatinine Ratio (test c ode = BCRATIO) 15 ratio 10-20 N Glucose (test code = GLU) 111 mg/dL 74-106 H Osmolality,Calculated (test code = OSMOC) 292.0 Calcium (test code = CA) 8.7 mg/dL 8.3-10.6 N Bilirubin,Total (test code = BILIT) 0.3 mg/dL 0.2-1.1 N Aspartate Amino Transferase (test code = AST) 21 U/L 0-34 N Alanine Aminotransferase (te st code = ALT) 18 U/L 10-49 N Total Protein (test code = TP) 6.8 g/dL 5.7-8.2 N Albumin Level (test code = ALB) 4.3 g/dL 3.2-4.8 N Globulin (test code = GLOB) 2.5 mg/dL 2.3-3.5 N Albumin/Globulin Ratio (test code = AGRATIO) 1.7 ratio 0.8-2.0 N Alkaline Phosphatase (test c ode = ALP) 83 U/L 46-116 N Lipid Spjcf8522-46-80 07:52:00* Test Item Value Reference Range Interpretation Comme nts Triglycerides (test code = TRIG) 126 mg/dL 9-200 N Cholesterol (test code = CHOL) 137 mg/dL 0-200 N LDL Cholesterol,Calculated (test code = LDLC) 83 mg/dL 0-130 N LDL (mg/dL)Op timal <100Near Optimal 100-129Borderline High 130-159High 160-189Very High >=190 VLDL CHOLESTEROL (test code = VLDL) 25 mg/dL HDL Cholesterol (test code = HDL) 29 mg/dL 40-60 L LDL/HDL Ratio (test code = LDLHDL) 3 Chol/HDL Ratio (test code = CHLHDL) 4.7 ratio 0.0-5.0 N Glycosylated Hiircdawbm6451-51-00 00:43:00* Test Item Value Reference Range Interpretation Comme nts HBA1c (test code = HBA1C) 5.3 % 4.8-5.9 N CBC with Tdoxafloyivq5128-69-51 00:09:00* Test Item Value Reference Range Interpretation Comme nts WBC (test code = WBC) 6.9 K/cumm 4.4-10.5 N RBC (test code = RBC) 4.36 M/cumm 4.10-5.70 N Hemoglobin (test code = HGB) 13.3 gm/dL 13.4-17.4 L Hematocrit (test code = HCT) 39.2 % 38.7-52.0 N MCV (test code = MCV) 90.1 fL 80-100 N MCH (test code = MCH) 30.6 pg 27.0-32.5 N MCHC (test code = MCHC) 33.9 g/dL 32.0-37.5 N RDW (test code = RDW) 13.1 % 11.5-14.5 N Platelet Count (test code = PLTCT) 243 K/cumm 140-440 N MPV (test code = MPV) 10.1 fL Diff Method (test code = DIFFM) Auto Neutrophil (test code = NEUT) 57.0 % 36-70 N Lymphocyte (test code = LYMPH) 29.1 % 12-44 N Monocyte (test code = MONO) 6.7 % 0-11 N Eosinophil (test code = EOS) 6.3 % 0-7 N Basophil (test code = BASO) 0.9 % 0-2 N Neutro Abs (test code = ANEUT) 4.0 K/cumm 1.6-7.4 N Lymph Abs (test code = ALYMPH) 2.0 K/cumm 0.5-4.6 N [place] Abs (test code = AMONO) 0.5 K/cumm 0.0-1.2 N Eos Abs (test code = AEOS) 0.43 K/cumm 0.00-0.74 N Baso Abs (test code = ABASO) 0.1 K/cumm 0.00-0.21 N Lipid Bmyoahj1661-92-93 23:40:00* Test Item Value Reference Range Interpretation Comme nts Cholesterol (test code = CHOL) 143 mg/dL 0-200 N Triglycerides (test code = TRIG) 117 mg/dL 9-200 N HDL (test code = HDL) 41 mg/dL 40-60 N Chol/HDL (test code = CHOLPHDL) 3.5 Ratio 0.0-5.0 N LDL, Calculated (test code = LDLC) 79 mg/dL 0-130 N (NOTE)RISK OF HEART DISEASEPublished by Indonesian Heart AssociationAnalyte Optimal Boderline Increased RiskCHOL <200 200-239 >240TRIG <150 150-199 >200HDL Male: >60 <40HDL Female: >60 <50LDL <100 130-159 >160LDL NEAR OPTIMAL IS 100-129 VLDL (test code = VLDL) 23 mg/dL 5-40 N LDL/HDL (test code = LDLPHDL) 2 Comprehensive Metabolic Luzzt5619-56-14 23:40:00* Test Item Value Reference Range Interpretation Comme nts Sodium (test code = NA) 142 mmol/L 135-145 N Potassium (test code = K) 4.4 mmol/L 3.5-5.1 N Chloride (test code = CL) 104 mmol/L 98-105 N Carbon Dioxide (test code = CO2) 27 mmol/L 22-29 N Glucose (test code = GLU) 112 mg/dL 70-115 N Blood Urea Nitrogen (test code = BUN) 16 mg/dL 8-23 N Creatinine (test code = CREAT) 0.9 mg/dL 0.7-1.2 N Calcium (test code = CA) 8.9 mg/dL 8.3-10.5 N Prot Total (test code = TP) 6.7 g/dL 6.4-8.3 N Albumin (test code = ALB) 4.3 g/dL 3.5-5.2 N A/G Ratio (test code = AGRATIO) 1.8 Ratio Globulin (test code = GLOB) 2.4 2.9-3.1 L Bili Total (test code = TBIL) 0.2 mg/dL 0.1-0.9 N Alk Phos (test code = APHOS) 71 U/L 40-129 N AST (test code = AST) 17 U/L 1-40 N ALT (test code = ALT) 13 U/L 1-41 N BUN/Creatinine Ratio (test code = BCRATIO) 17.8 Anion Gap (test code = AGAP) 11 mmol/L 7-16 N Estimated GFR (test code = GFR) >60 mL/min/1.73m2 eGFR (estimated Glomerular Filtration Rate) is an estimated value,calculated from the patient's serum creatinine using the MDRD equation.It is NOT the patient's actual GFR. The eGFR provides a more clinicallyuseful measure of kidney disease than serum creatinine alone.This calculation takes sex and race into account, if the informationis provided. If the race is not provided, and the patient isAfrican-Indonesian, multiply by 1.212. If sex is not provided, and thepatient is female, multiply by 0.742. Results for patients <18 years ofage have not been validated by the MDRD study and should be interpretedwith caution.eGFR Result Interpretation:eGFR > or = 60 is in the Normal RangeeGFR < 60 may mean kidney diseaseeGFR < 15 may mean kidney failureRanges recommended by the National Kidney Foundation,http://nkdep .nih.gov Consult Notes Date/Time Note Provider Source 2024-01-26 14:01:00 NUTRITION ASSESSMENT - ADULT Unit: JE Reason for RD Encounter: nutrition follow-up Findings Nutrition Diagnosis: Nutrition Diagnosis: Inadequate oral intake related to decreased ability to consume sufficient energy as evidenced by NPO status and requiring enteral nutrition for nutrient. EVALUATION : Resolved *Malnutrition Diagnosis: Moderate malnutrition Related To: Chronic illness As Evidenced By: Moderate fat loss (PO intake <75% for >=1 month) Evaluation: Improved Interventions and Recommendation: Diet per MEETING MANAGER Continue Ensure TID chocolate Order snack per pt request: peach and vanilla yogurt (pm) NUTRITION RISK: Low, in 8-10 days Next Date for Nutrition Services Follow Up: 02/05/24 Communication : verbally MEETING MANAGER Current Nutrition: Dietary Orders (From admission, onward) Start Ordered 11/10/24 1012 Adult Diet Dysphagia; 2 - Mildly Thick ([place]); 6 - Soft & Bite Sized (Dysphagia Advanced); No Diet effective now Question Answer Comment Diet type Dysphagia Liquid Consistency or Liquid Type: 2 - Mildly Thick ([place]) Modify Texture or Food Level (Dysphagia): 6 - Soft & Bite Sized (Dysphagia Advanced) Room Service: No 01/24/24 1012 Orderered Tube Feeds and Supplements Medication Dose Route Frequency Provider Last Rate Last Admin Ensure Enlive liquid 1 Container 1 Container Oral TID with meals Valencia Gil NP 1 Container at 01/26/24 0800 PO/EN/PN Intakes: Percent Meals Eaten for the past 48 hrs: Percent Meals Eaten (%) 01/26/24 1306 100 01/26/24 0841 100 01/25/24 1400 100 01/25/24 0900 100 Nutrition Visit Information: 01/25: S/p MBS on 01/21. Today pt reports a good appetite, eager to have regular liquid consistency, requests to add snack to diet order. He has been drinking un-thickened water for the past 5 days. MEETING MANAGER at bedside re-educated pt the risk of aspiration and PNA of taking liquid consistency that's not recommended by MEETING MANAGER. Pt had diarrhea in the past few days but it has been resolved. 01/18: Pt UBW 195lbs and endorses weight gain to 210lbs recently. Pt states he has a good appetite but it is small. He intentionally only eats 1 meal per day. Pt endorses swallowing issues. Failed FEES. DHT placed and EN started. Peptamen 1.5 hanging, notified RN to change out formula. Anthropometrics: Height: 177.8 cm (5' 10") Height Method: Stated Weight: Weight Method: Bed scale 82.6kg Body mass index is 26.11 kg/m?. [place] body weight: 73 kg (160 lb 15 oz) Adjusted ideal body weight: 76.8 kg (169 lb 5.8 oz) Wt Readings from Last 10 Encounters: 01/18/24 82.6 kg (182 lb) Estimated Nutrition Needs: Weight Used for Equation Calculations: 82.6 kg (182 lb 1.6 oz) Calculated Energy Needs Using Equations Height: 1.778 m (5' 10") Weight Used for Equation Calculations: 82.6 kg (182 lb 1.6 oz) Energy Equation Used: Rule of thumb (kcal/kg) Energy Lower Range: 22 (kcal/kg) Energy Upper Range: 25 (kcal/day) Energy Needs Lower Range: 1817 kcal/day (kcal/day) Energy Needs Upper Range: 5 kcal/day Temp: 36.7 ?C (98.1 ?F) Estimated Protein Needs (g/kg) Protein Lower Range: 1.2 (g/kg) Protein Upper Range: 1.5 (g/day) Protein Lower Range: 99 g/day (g/day) Protein Upper Range: 124 g/day Fluid Needs Fluid Needs Method: mL/kg/day; Or per MD (mL/kg) Fluid Needs: 25 Nutrition Physical Findings per edi manager: Orientation Level: Oriented X4 O2 Delivery Method: Nasal cannula Gastrointestinal (WDL): WDL Abdomen Inspection: Soft Abdominal Tenderness: Nontender; No guarding Bowel Sounds: All quadrants Bowel Sounds (All Quadrants): Active Last BM Date: 01/25/24 Gastrointestinal Symptoms: Diarrhea LUE: Full movement RUE: Full movement LLE: Full movement RLE: Full movement Edema: Right lower extremity; Left lower extremity; Left upper extremity; Right upper extremity LUE Edema: +1 LLE Edema: +1 RLE Edema: +1 Gastric Tube 01/18/24 Cortrak 10 Fr Right nostril (Active) Wound 01/17/24 Right Buttock (Active) Wound 01/17/24 Other (Comments) Left Buttock (Active) Nutrition Focused Physical Exam - Muscles and Fat: Assessment of Muscle Status Date Assessed: 01/19/24 Muscle Status: No change from prior exam (01/25) Muslim Region: Eoct-rt-yiesiylm deficit: Slight depression Clavicle Bone Region: Fmso-qm-qsppandr deficit: More prominent clavicle bone, less prominent muscle when palpated Patellar Region: Afyp-ft-[id number] deficit: Knee cap more prominent Calves-Posterior Region: No deficits noted Assessment of Fat Status Date Assessed: 01/19/24 Fat Status: No change from prior exam (01/25) Orbital Region: Zuxr-rs-qbmqvwew deficit: Somewhat hollow look, slightly dark circles Cheek Region (Buccal Fat Pads): No deficits noted: Full, round, filled-out cheeks / Ample bounce back of fat pads Basic Information: Admitting diagnosis: Arrhythmia [I49.9] Chest pain, unspecified type [R07.9] Clinical course: Problem List VT (ventricular tachycardia) (HCC) VF (ventricular fibrillation) (CMS/HCC) (HCC) Anxiety Depression Multifocal pneumonia Cardiac defibrillator in situ Carotid artery stenosis Mixed hyperlipidemia 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 Hyponatremia Hypokalemia Hypocalcemia Transaminitis Normocytic anemia Atrial fibrillation/flutter (HCC) Emphysema lung (HCC) Acute respiratory failure with hypoxemia (HCC) Medications: acetaminophen, 1,000 mg, Oral, q8h [START ON 02/03/2024] amiodarone, 200 mg, Oral, Daily [START ON 01/27/2024] amiodarone, 400 mg, Oral, Daily amLODIPine, 5 mg, Oral, Daily amoxicillin-clavulanate, 875 mg, Oral, q12h MICHEL apixaban, 5 mg, Oral, q12h MICHEL atorvastatin, 40 mg, Oral, Daily buPROPion SR, 150 mg, Oral, Daily carvedilol, 25 mg, Oral, BID with meals clopidogrel, 75 mg, Oral, Daily Ensure Enlive, 1 Container, Oral, TID with meals escitalopram, 5 mg, Oral, Daily gabapentin, 300 mg, Oral, Nightly influenza vaccine, 0.5 mL, Intramuscular, During hospitalization [Held by provider] isosorbide mononitrate ER, 30 mg, Oral, Daily lisinopril, 40 mg, Oral, Daily melatonin, 1 mg, Oral, Nightly memantine, 10 mg, Oral, BID pantoprazole, 40 mg, Oral, Daily before breakfast sodium chloride, 10 mL, Intravenous, q12h tamsulosin, 0.4 mg, Oral, Daily PRN medications: dextrose, dextrose, glucagon, guaiFENesin, HYDROcodone-acetaminophen, ipratropium, LORazepam, sodium chloride, sodium chloride, zinc oxide Labs: Pertinent Labs : Labs in chart were reviewed. Lab Results Component Value Date Hgb A1C 5.09 01/18/2024 Review / Management: I/O 24 HRS: Intake/Output Summary (Last 24 hours) at 01/26/2024 1414 Last data filed at 01/26/2024 1306 Gross per 24 hour Intake 480 ml Output -- Net 480 ml Unmeasured Stool Occurrence: 1 Monitoring and Evaluation: MONITORING AND EVALUATION: Nutrition Intake : PO intake and tolerance GOAL: >75% of estimated needs met: Evaluation : Met Registered Dietitian: Lillie Cox MS, RD, LD Thursday-Thursday office phone [phone] Thursday-Thursday pager [phone] Weekend/On-call pager [phone] TERY MANAGER Nutrition [facility] 2024-01-21 15:33:46 Associated Order(s): IP CONSULT TO SOCIAL WORK SW following up on inpatient consult. SW met with pt at bedside to discuss MPOA paperwork. Pt would like to wait to complete until his niece Venus visits. SW will revisit with pt tomorrow. Consult will be marked as completed. Sherri Garcia LMSW Clinical Research Specialist, Internal Medicine Case Management Department [phone] [facility] 2024-01-21 11:07:35 Pulmonary Consultation Note History Of Present Illness Esequiel Chew Jr. is a 73 y.o. year old male with PMH of CAD and prior PCI's (on DAPT), HTN, HLD, A-fib, carotid artery stenosis, COPD/emphysema, BPH, HFrEF, AICD, anxiety, depression who presented after an episode of lightheadedness followed by an ICD shock and was admitted to CCU for arrhythmia workup. On admission, he also reported dyspnea, orthopnea, diarrhea, and intermittent fevers x 3 weeks. 3 days prior to presentation, he experienced an episode of palpitations and lightheadedness followed by an AICD shock. He then fell and hit his head, and was brought to the ED for evaluation by family. In the ED, he began having runs of VT and was started on an amiodarone gtt. CXR showed left midlung and right lower lobe pulmonary opacities suggesting multifocal infection. CTA chest showed bilateral consolidations, some of which contain cavitary changes; enlarged mediastinal and bilateral hilar lymph notes, indeterminate. Pt admitted to CCU and followed by [facility] for multifocal pneumonia with cavitary lesions, and acute hypoxic respiratory failure. He has been treated with cefepime/flagyl for PNA x 3 days Per cardiology, recommendations for medical management of VT with amiodarone taper, and outpatient evaluation for VT ablation and PVI. Pt underwent FEES on 01/17 showing mild to moderate oropharyngeal dysphagia, with MEETING MANAGER recommendations for NPO with alternate means of nutrition. Pt currently has NG tube in place, receiving tube feeds. GI performed EGD on 01/20 with findings of a mild non-obstructive Schatzki's ring and small hiatal hernia. Today, patient reports significant improvement in respiratory symptoms. Still requiring 2.5L NC and reporting productive cough new this admission. He reports a significant smoking history (about 40 years), but quit 5 years ago. He reports symptoms of acid reflux and has occasional episodes of aspiration. Denies frequent regurgitation, dysphagia, or emesis. 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 He reports that his father from lung cancer (diagnosed at 66 years). He brought up that he does not want to "live the rest of his life in the hospital", and does not want to be discharged to a snf. He would like to enjoy at least 5-10 more years of his life, and when he is ready for discharge, he would like to stay with his friend who has been taking care of him. He does not think he would want aggressive treatment if he were to be diagnosed with cancer himself. Past Medical History CAD and prior PCI's (on DAPT), HTN, HLD, A-fib, carotid artery stenosis, COPD/emphysema, BPH, HFrEF, AICD, anxiety, depression Surgical History He has no past surgical history on file. Social History He reports that he has quit smoking. His smoking use included cigarettes. He has never been exposed to tobacco smoke. He has never used smokeless tobacco. He reports that he does not use drugs. No history on file for alcohol use. Family History No family history on file. Allergies Patient has no known allergies. Current medications: [START ON 02/03/2024] amiodarone, 200 mg, Oral, Daily amiodarone, 400 mg, Oral, BID [START ON 01/27/2024] amiodarone, 400 mg, Oral, Daily [Held by provider] amLODIPine, 5 mg, Oral, Daily atorvastatin, 40 mg, Oral, Daily buPROPion SR, 150 mg, Oral, Daily [Held by provider] carvedilol, 12.5 mg, Oral, BID with meals cefepime, 1 g, Intravenous, q6h clopidogrel, 75 mg, Oral, Daily Ensure Enlive, 1 Container, Oral, TID with meals Enteral Free water Flush, 30 mL, Nasogastric, q4h escitalopram, 5 mg, Oral, Daily gabapentin, 300 mg, Oral, Nightly hydrocortisone sodium succinate, 50 mg, Intravenous, q6h MICHEL influenza vaccine, 0.5 mL, Intramuscular, During hospitalization ipratropium, 0.5 mg, Nebulization, q6h [Held by provider] isosorbide mononitrate ER, 30 mg, Oral, Daily [Held by provider] lisinopril, 40 mg, Oral, Daily melatonin, 1 mg, Oral, Nightly memantine, 10 mg, Oral, BID metoprolol succinate XL, 25 mg, Oral, Daily metroNIDAZOLE, 500 mg, Intravenous, q8h pantoprazole, 40 mg, Oral, Daily before breakfast sodium chloride, 10 mL, Intravenous, q12h Review of Systems Constitutional: Positive for chills and fever. HENT: Negative for mouth sores and sore throat. Respiratory: Positive for cough. Negative for shortness of breath. Cardiovascular: Negative for chest pain and leg swelling. Genitourinary: Negative for dysuria and hematuria. Musculoskeletal: Negative for arthralgias. Physical Exam: No apparent respiratory distress at rest on Head and examination: Normocephalic, atraumatic examination with pInk conjunctiva, anicteric sclerae. No cervical adenopathy or jugular venous distention. Neck supple Chest: Equal chest expansion. Lung auscultation reveals distant breath sounds with scattered rhonchi. No wheezing or crackles Cardiac: Adynamic precordium with distinct heart sounds and regular rhythm. Abdomen: No guarding, tenderness or hepatosplenomegaly. Bowel sounds hypoactive Extremities: Warm with fair pulses and pink nailbeds. Last Recorded Vitals Blood pressure 138/64, pulse 84, temperature 36.7 ?C (98 ?F), resp. rate 17, height 1.778 m (5' 10"), weight 82.6 kg (182 lb), SpO2 94%. Pertinent Labs : Results from last 7 days Lab Units 01/21/24 12701/17/24 2319 POC PH, ARTERIAL 7.51* 7.46* POC PCO2, ARTERIAL mmHg 31* 34* POC PO2, ARTERIAL mmHg 31* 66* POC HCO3, ARTERIAL mMol/L POC SO2, ARTERIAL (CALC) % 67.7* 93.8* POC SO2, ARTERIAL % -- 92.8* POC BASE EXCESS, ARTERIAL mMol/L 2 1 Results from last 7 days Lab Units 01/21/24 0132 01/21/24 0128 01/20/2421201/19/24 025 WBC 10*3/uL 18.74* -- 15.03* 14.61* HEMOGLOBIN g/dL 9.1* -- 8.7* 7.9* POC HEMATOCRIT, ARTERIAL (CALC) % -- 29.0* -- -- HEMATOCRIT % 29.0* -- 25.4* 23.8* PLATELETS 10*3/uL 842* -- 706* 566* Results from last 7 days Lab Units 01/21/24 0132 01/21/24 0128 01/20/24 1817 01/20/24 0600 01/20/2421201/19/24 1126 01/19/24 0252 POC SODIUM, ARTERIAL mEq/L -- 133* -- -- -- -- -- SODIUM mEq/L 142 -- -- -- 136 -- 134* POC POTASSIUM, ARTERIAL mEq/L -- 3.3* -- -- -- -- -- POTASSIUM mEq/L 3.7 -- -- -- 3.7 -- 3.5 POC CHLORIDE mEq/L -- 108 -- -- -- -- -- CHLORIDE mEq/L 108* -- -- -- 106 -- 103 CO2 mEq/L 26.5 -- -- -- 22.7 -- 24.2 BUN mg/dL 19 -- -- -- 17 -- 20 CREATININE mg/dL 0.75 -- -- -- 0.70 -- 0.72 CALCIUM mg/dL 7.9* -- -- -- 7.9* -- 7.4* PROTEIN TOTAL g/dL 6.5 -- -- -- 6.8 -- 6.9 BILIRUBIN TOTAL mg/dL 0.32 -- -- -- 0.30 -- 0.40 ALK PHOS U/L 100 -- -- -- 104 -- 110 ALT U/L 34 -- -- -- 34 -- 38 AST U/L 31 -- -- -- 31 -- 35 POC GLUCOSE, ARTERIAL mg/dL -- 97 -- -- -- -- -- GLUCOSE mg/dL 100* -- -- -- 129* -- 137* POC GLUCOSE mg/dL -- -- 95 < > -- < > -- < > = values in this interval not displayed. No results found for: "CBCDIF", "PLASCLMYIGH", "PROCAL", "BNP" RADIOLOGY EGD Result Date: 01/21/2024 Table formatting from the original result was not included. Introduction: A 73 yrs male patient presents for an EGD. Indication: Dysphagia, unspecified type Pre-sedation assessment: A history and physical has been performed, and patient medication allergies have been reviewed. The patient's tolerance of previous anesthesia has been reviewed. The risks and benefits of the procedure and the sedation options and risks were discussed with the patient. All questions were answered and informed consent obtained. Consent: The benefits, risks (perforation, bleeding, infection, pancreatitis, adverse effects to the medicine, and the possibility of missing polyps, tumors, cancers, and other lesions), alternatives to the procedure were discussed and informed consent was obtained from the patient. Medications See Anesthesia Record. Details of the Procedure The patient underwent monitored anesthesia care, which was administered by an anesthesia professional. The patient's ETCO2, heart rate, level of consciousness, oxygen, respirations, blood pressure and ECG were monitored throughout the procedure. The scope was introduced through the mouth and advanced to the second part of the duodenum. Retroflexion was performed in the cardia. The patient experienced no blood loss. The procedure was not difficult. The patient tolerated the procedure well. There were no apparent adverse events. Findings All observed locations appeared normal, including the cardia, fundus of the stomach, body of the stomach, incisura, antrum, pylorus, duodenal bulb, 1st part of the duodenum and 2nd part of the duodenum. Non-obstructing ring in the lower third of the esophagus; performed cold forceps biopsy Small hiatal hernia - GE junction 41 cm from the incisors. Hill grade 2 GE valve. Performed multiple forceps biopsies in the middle third of the esophagus and lower third of the esophagus A nasogastric tube was successfully placed in the stomach Impression Normal. Ring in the lower third of the esophagus; performed cold forceps biopsy Small hiatal hernia Performed forceps biopsies in the middle third of the esophagus and lower third of the esophagus Nasogastric tube placed in the stomach Specimens ID Type Source Tests Collected by Time 1 : lwer esophageal biopsies Tissue Esophagus - Lower TISSUE EXAM Alonzo Scott MA 01/21/2024 1018 2 : mid esophageal biopsies Tissue Esophagus - Mid TISSUE EXAM Alonzo Scott MA 01/21/2024 1023 Recommendation Follow up with PCP Await pathology results No significant lesions seen that could be causing dysphagia. Recommend further management with speech therapy. Events Procedure Events Event Event Time Procedure Events Event Event Time ENDO UPPER SCOPE IN TIME 01/21/2024 10:15 AM ENDO UPPER SCOPE OUT TIME 01/21/2024 10:27 AM EGD procedure length: 12m Last relevant procedure: Scope Used: Staff Staff Role Bea Shook MD Anesthesiologist Myah Ledbetter MD Proceduralist Chanel Nieves MD Fellow Alonzo Scott MA Endo Mold Stamper ASA Score: 4 Mallampati Score: II XR chest 1 view Result Date: 01/21/2024 EXAM: XR CHEST 1 VIEW DATE: 01/21/2024 2:19 INDICATION: increased work of rbeathing COMPARISON: CTA chest and chest x-ray from 01/17/2024 TECHNIQUE: AP chest Stable left AICD and feeding tube. Stable cardiomediastinal silhouette. 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 Bilateral masslike and consolidative cavitary opacities in addition to other patchy opacities as better characterized on recent CT chest. No pleural effusion. No pneumothorax in this portable radiograph. Regional skeleton is unchanged. XR abdomen 1 view Result Date: 01/19/2024 EXAM: XR ABDOMEN 1 VIEW DATE: 01/18/2024 21:40 INDICATION: tube placement verification ADDITIONAL INFORMATION: None. COMPARISON: None. TECHNIQUE: Limited AP view of the abdomen for tube placement assessment. FINDINGS: Feeding tube: With its tip overlying the gastric lumen. Enteric suction tube: None. Other tubes, lines and hardware: ICD leads overlying the right atrium and right ventricle.. Other: Bilateral opacification of the lung lobes. Mild to moderate gaseous distention of stomach. 1. Feeding tube with its tip overlying the gastric antrum. This report was dictated by a [employer] Controller/Fellow/MIRACLE: Deborah Matute RES, MD 01/19/2024 11:05 I have personally reviewed the images as well as the interpretation and agree with the findings. Dictation Date/time: 01/19/2024 11:03 Electronically Signed by: Pastora Wilkerson MD 01/19/2024 12:55 US thyroid Result Date: 01/18/2024 EXAM: US THYROID DATE: 01/18/2024 13:38 INDICATION: 73-year-old Male to evaluate thyroid for thyroiditis COMPARISON: None. TECHNIQUE: Multiplanar grayscale and color Doppler ultrasound of the neck was obtained in the area of the thyroid. FINDINGS: Thyroid: Homogeneous parenchyma with subjectively normal color Doppler flow. Size: Right thyroid: 1.8 cm x 3.2 cm x 1.2 cm, 3.6 cm3 Left thyroid: 1.7 cm x 3.3 cm x 1.6 cm, 4.9 cm3 Isthmus thickness: 0.4 cm Thyroid nodules: None. Other: None. Unremarkable thyroid ultrasound. This report was dictated by a [employer] Controller/Fellow/MIRACLE: Gisele Alexander RES 01/18/2024 14:54 I have personally reviewed the images as well as the interpretation and agree with the findings. Dictation Date/time: 01/18/2024 14:51 Electronically Signed by: Lori Gonzalez MD 01/18/2024 16:16 XR abdomen 1 view Result Date: 01/18/2024 EXAM: XR ABDOMEN 1 VIEW DATE: 01/18/2024 2:59 INDICATION: abdominal distention ADDITIONAL INFORMATION: None. COMPARISON: X-ray chest, 01/17/2024. TECHNIQUE: AP abdomen. FINDINGS: Lines, tubes and hardware: Partially visualized combination pacer ICD with leads overlying the right atrium and right ventricle. Lower thorax: Pulmonary opacities within the left midlung and right lower lobe, same as prior. Abdomen and bowel: Diffusely dilated gas-filled bowel loops, small bowel loop measuring up to 3.6 cm. Bones and soft tissues: Regional skeleton is unchanged. Others: Residual contrast in the distended urinary bladder. 1. Ileus. Serial radiographs may be obtained to ensure resolution. 2. Hardware as above. This report was dictated by a [employer] Controller/Fellow/MIRACLE: Gina Murphy RES, MD 01/18/2024 11:53 I have personally reviewed the images as well as the interpretation and agree with the findings. Dictation Date/time: 01/18/2024 11:46 Electronically Signed by: Samson Garrison MD 01/18/2024 13:16 Transthoracic echo (TTE) complete Result Date: 01/18/2024 1. This study demonstrates normal biventricular size and overall systolic function, concentric left ventricular remodeling, a catheter in the right sided chambers, trace mitral regurgitation, and trace tricuspid regurgitation. 2. There are no prior echocardiographic studies currently available for comparison. Electrocardiogram, 12-lead Result Date: 01/18/2024 SINUS RHYTHM WITH PREMATURE SUPRAVENTRICULAR COMPLEX(ES) PROLONGED QT INTERVAL OR TU FUSION, CONSIDER MYOCARDIAL DISEASE, ELECTROLYTE IMBALANCE, OR DRUG EFFECTS ABNORMAL ECG Compared with prior study, prolonged QT interval is now noted Confirmed by Katelin Hayward ([id number]) on 01/18/2024 10:46:16 AM ECG 12 lead Result Date: 01/18/2024 SINUS RHYTHM NORMAL ECG NO PREVIOUS ECGS AVAILABLE Confirmed by Katelin Hayward ([id number]) on 01/18/2024 9:43:[address] BRAIN WO IV CONTRAST Result Date: 01/18/2024 EXAM: CT BRAIN WITHOUT CONTRAST DATE: 01/18/2024 6:10 INDICATION: s/p fall . COMPARISON: None. TECHNIQUE: Axial CT images of the brain were obtained. Sagittal and coronal reformats. IV contrast: None DLP: Refer to CT protocol form FINDINGS: No acute intracranial hemorrhage or extra-axial collection. No midline shift or mass effect. No brain parenchymal edema. The ventricles and sulci are enlarged from chronic brain parenchymal volume loss. Periventricular white matter hypoattenuation is nonspecific but likely represents chronic microvascular ischemic changes. The skull base, calvarium, and included facial bones have no acute fracture. The paranasal sinuses and mastoid air cells are predominantly clear. * No acute intracranial hemorrhage or calvarial fracture. This report was dictated by a [employer] Controller/Fellow/MIRACLE: Magaly Landry RES, MD 01/18/2024 8:18 I have personally reviewed the images as well as the interpretation and agree with the findings. Dictation Date/time: 01/18/2024 8:11 Electronically Signed by: Kayden Calderon MD 01/18/2024 9:07 CT angiogram chest pulmonary embolism Result Date: 01/18/2024 EXAM: CTA CHEST WITH CONTRAST DATE: 01/17/2024 17:36 INDICATION: Pacemaker shocks, runs of VT and VF, concern for PE Age: 73 years y/o Male; ADDITIONAL INFORMATION: None. COMPARISON: None available. TECHNIQUE: CT of the chest is acquired during pulmonary arterial phase following administration of IV contrast. Axial, sagittal, coronal, and oblique MIP reconstructions are created. IV Contrast and DLP: Refer to MAR/pet technologist documentation. FINDINGS: Lines, tubes and hardware: There is a left-sided ICD/pacemaker with its leads terminating in the right atrial appendage and right ventricle. Lower neck: The visualized portions of the lower neck are unremarkable. Lymph nodes: There are enlarged mediastinal and bilateral hilar lymph nodes measuring up to 1.4 cm in short axis. Mediastinum, heart, pericardium and great vessels: Pulmonary emboli: None. Pulmonary trunk: 2.3 cm. Ascending aorta: 3.0 cm. Heart: The heart size is within normal limits. There is no CT evidence of right heart strain. RV/LV <1.0, within normal limits. Moderate Pericardium: No pericardial effusion. Airway, lungs and pleura: There is mucous plugging in the peripheral airways. There is moderate centrilobular enprostil emphysema. There are bilateral consolidations some of which contain cavitary changes. No pleural effusions or pneumothorax. Upper abdomen: There is a small hiatal hernia. Musculoskeletal: No acute abnormality. Age-related degenerative findings. Low attenuation of the vertebral trabecular bone, suggestive of osteopenia/osteoporosis. Correlation with DEXA scan is recommended. 1. No pulmonary emboli or right heart strain. 2. Bilateral consolidations, some of which contain cavitary changes. The differential diagnosis mainly includes necrotizing pneumonia. Less possible differential possibilities include septic emboli, mycobacterial infection, or fungal infection. Follow-up with chest CT in 8 weeks is recommended to ensure resolution and rule out underlying malignancy. 3. Enlarged mediastinal and bilateral hilar lymph nodes, indeterminate. Attention on follow-up imaging is recommended. 4. Moderate emphysema. 5. Moderate atherosclerotic coronary artery calcifications. 6. Findings suggestive of osteopenia/osteoporosis. Correlation with DEXA scan is recommended. 7. Other incidental findings as described above. The above findings were communicated to and acknowledged by Dr. Gomez via Securechat at 01/17/2024 17:59 by Virginia Rogers RES. This report was dictated by a [employer] Controller/Fellow/MIRACLE: Virginia Rogers RES 01/17/2024 18:08 I have personally reviewed the images as well as the interpretation and agree with the findings. Dictation Date/time: 01/17/2024 17:52 Electronically Signed by: González Mireles MD 01/18/2024 8:29 XR chest 1 view Result Date: 01/17/2024 EXAM: XR CHEST 1 VIEW DATE: 01/17/2024 12:55 INDICATION: CP COMPARISON: None. TECHNIQUE: AP chest. FINDINGS: Lines, tubes and hardware: Combination pacer-ICD has leads overlying the right atrium and right ventricle. Lungs and pleura: Pulmonary opacities within the left midlung and right lower lobe. The costophrenic sulci are sharp without effusion. Heart and mediastinum: The heart size is normal. Vascular calcifications are present at the aorta. Bones and soft tissues: No acute abnormality. Age-related degenerative findings. Left midlung and right lower lobe pulmonary opacities suggesting multifocal infection. Transthoracic echo (TTE) complete Result Date: 01/18/2024 1. This study demonstrates normal biventricular size and overall systolic function, concentric left ventricular remodeling, a catheter in the right sided chambers, trace mitral regurgitation, and trace tricuspid regurgitation. 2. There are no prior echocardiographic studies currently available for comparison. Assessment & Plan Esequiel Chew Jr. is a 73 y.o. year old male with PMH of CAD and prior PCI's (on DAPT), HTN, HLD, A-fib, carotid artery stenosis, COPD/emphysema, BPH, HFrEF, AICD, anxiety, depression who presented after an episode of lightheadedness followed by an ICD shock and was admitted to CCU for arrhythmia workup. Pulmonology consulted for acute hypoxemic respiratory failure in the setting of bilateral necrotizing lung consolidations with cavitary changes and hilar lymphadenopathy. Patient's findings on CT likely represent lung abscesses from necrotizing pneumonia in the setting of aspiration. Although similar imaging findings could be seen in lung cancer, infection is more likely given that the patient has responded very well clinically to antibiotics. Would treat infection as below with repeat CT scan after. #Bilateral necrotizing lung consolidations with cavitations #Hilar lymphadenopathy #Acute hypoxemic and hypercapnic respiratory failure #COPD #Chronic dysphagia with aspiration Recommendations: - Would change current antibiotics to IV Unasyn and complete a total of 4-6 weeks of antibiotics total (can change to PO Augmentin if discharging) - If still admitted in 10 days, can repeat CT chest with contrast at that time - No indication for bronchoscopy at this time, as yield of bronchial washings would be low with multiple days of antibiotics, and biopsy can carry risks of worsening infection in the setting of abscess - Follow up with Pulmonology in [address] chest w contrast (we will arrange for follow up) Patient seen and discussed with Dr. Amaya. Reg Edgar MD Internal Medicine PGY-3 [facility] Cosigned by Julian Amaya MD at 01/21/2024 4:38 PM CEMETERY MANAGER TERY MANAGER TERY MANAGER Associated attestation - Julian Amaya MD - 01/21/2024 4:38 PM CEMETERY MANAGER Attending note: I personally saw and examined the patient on 01/21/2024. I discussed and confirmed the history and examination with the resident. I have also independently reviewed the records including laboratory data, imaging and if available, outside records. We jointly formulated an assessment and plan as is outlined in the note. 73 year old male who was admitted for ICD shock and found to have bilateral pulmonary parenchymal changes on CT chest suggestive of necrotizing pneumonia and possibly lung abscess. He has had non specific symptoms of cough, feeling fatigued and some shortness of breath prior to this hospitalization. We were consulted to evaluate whether he should undergo bronchoscopy to identify microbiologic diagnosis. He had provided good sputum sample with < 25 squamous epithelial cells and this culture was negative, blood cultures have remained negative. Today is day 5 of antibiotics and he is feeling better. His imaging also shows significant emphysema in upper to mid lungs and fibrotic changes in the lower zones most consistent with combined pulmonary fibrosis and emphysema. Considering he is on day 5 of antibiotics and improving, the likelihood of BAL providing a microbiologic diagnosis is pretty low. He has had dysphagia, GERD and hiatal hernia and he has had episodes suggestive of aspiration. There is also a possibility that BAL may make him symptomatically worse post procedure. After extensive discussion with the patient and discussing risks and benefits, we agree that risks potentially outweigh the benefits as the yield of BAL is going to be low. Malignancy is certainly in the differential. We can check ANCA but vasculitis is also low on differential. We have mutually agreed to continue antibiotics for [address] chest and outpatient clinic follow up. If CT chest is improving, we have ruled out malignancy but if the findings are similar or worse, he will need bronchoscopy with BAL and biopsy. I will set him up to see me in clinic on March [address] chest and PFTs and communicate the final time with the primary team so that this can be added to his discharge paperwork. For antibiotics, he can be transitioned to IV unasyn while inpatient and discharged on augmentin. For COPD, he is only on albuterol PRN and uses only 2-3 times/week, he can continue this. We can also stop hydrocortisone. Case was discussed in person with primary team's attending, Dr. Larson. We will sign off but please do not hesitate to call us with any questions or if there is clinical worsening. High complexity. Julian Amaya MD Back Panel Padderrelief man Department of Pulmonary, Critical Care and Sleep Medicine [facility] Internal Medicine [facility] 2024-01-20 16:51:48 GASTROENTEROLOGY INPATIENT CONSULT SERVICE CONSULT NOTE Consult requested by Dr Tiffany Jamil MD Consult order placed by primary team Patient Name: Esequiel Chew Jr. Primary Care Physician: PCP Date of admission: 01/17/2024 Date of Service: 01/20/2024 Reason for Consultation: Dysphagia HPI History Obtained From: Patient Two patient identifiers (Name/) confirmed: Yes Esequiel Chew Jr. is a 73 y.o. male with pseudomonal Pertinent History History reviewed. No pertinent past medical history. History reviewed. No pertinent surgical history. Social History Tobacco Use Smoking status: Former Types: Cigarettes Passive exposure: Never Smokeless tobacco: Never Substance Use Topics Drug use: Never No family history on file. No current facility-administered medications on file prior to encounter. Current Outpatient Medications on File Prior to Encounter Medication Sig Dispense Refill amLODIPine (Norvasc) 5 MG tablet Take 1 tablet by mouth in the morning and 1 tablet in the evening. benazepril (Lotensin) 20 MG tablet Take 1 tablet by mouth 1 time each day. carvedilol (Coreg) 12.5 MG tablet Take 12.5 mg by mouth in the morning and 12.5 mg in the evening. Take with meals. clopidogrel (Plavix) 75 MG tablet Take 75 mg by mouth 1 time each day. escitalopram (Lexapro) 20 MG tablet 1 time each day. lovastatin (Mevacor) 40 MG tablet Take 40 mg by mouth at bedtime. memantine (Namenda) 10 MG tablet Take 10 mg by mouth in the morning and 10 mg in the evening. aspirin 325 MG tablet Take 325 mg by mouth 1 time each day. buPROPion SR (Wellbutrin SR) 150 MG 12 hr tablet Take 150 mg by mouth 1 time each day. citalopram (CeleXA) 20 MG tablet Take 2 tablets by mouth 1 time each day. gabapentin (Neurontin) 300 MG capsule Take 300 mg by mouth at bedtime. isosorbide mononitrate ER (Imdur) 30 MG 24 hr tablet Take 30 mg by mouth 1 time each day. simvastatin (Zocor) 40 MG tablet Take 40 mg by mouth at bedtime. No Known Allergies Home Meds: @PTAMEDSLIST@ Review of Systems General: (-) fever (-) chills, (-) night sweats, (-) weight loss, (-) weight gain, (-) fatigue HEENT: (-) headache, (-) visual changes, (-) hearing loss, (-) rhinorrhea, (-) sore throat Cardiac: (-) chest pain, (-) palpitations, (-) syncope Respiratory: (-) cough, (-) shortness of breath, (-) wheezing Gastrointestinal: see HPI Urinary: (-) frequency, (-) urgency, (-) dysuria, (-) hematuria Musculoskeletal: (-) myalgias, (-) arthralgias Neurological: (-) muscular weakness, (-) tingling, (-) numbness Hematology: (-) easy bruising, (-) bleeding, (-) lymphadenopathy Skin: (-) rashes, (-) itching, (-) bruising Physical Exam Vitals: 01/20/24 1300 01/20/24 1400 01/20/24 1500 01/20/24 1600 BP: 142/66 135/72 149/78 137/63 Pulse: 88 92 95 89 Resp: (!) 39 26 (!) 43 25 Temp: TempSrc: SpO2: 96% 93% 96% 96% Weight: Height: Physical Exam General Appearance: Awake, alert male in no apparent distress HEENT: NC/AT, PERRL, EOMI, MMM CV: RRR, without murmur, gallop, or rubs. No edema. Pulm: Clear to auscultation. No wheezing, rales, or rhonchi GI: soft, NT/ND, +BS, no organomegaly. MSK: no redness, warmth, or swelling of the joints. Normal ROM. Neuro: A&Ox3. Moves all extremities equally. Sensation grossly intact. Skin: no rashes or lesions Laboratory data Lab Results Component Value Date WBC 15.03 (H) 01/20/2024 Hgb 8.7 (L) 01/20/2024 POC A Hct (calc) 32.0 (L) 01/17/2024 Hct 25.4 (L) 01/20/2024 MCV 91.0 01/20/2024 POC A Na 131 (L) 01/17/2024 Sodium Lvl 136 01/20/2024 POC A K 4.0 01/17/2024 Potassium Lvl 3.7 01/20/2024 POC Chloride 99 01/17/2024 Chloride Lvl 106 01/20/2024 CO2 Lvl 22.7 01/20/2024 BUN 17 01/20/2024 Calcium Lvl 7.9 (L) 01/20/2024 Magnesium 1.86 01/20/2024 Phosphorus Lvl 3.4 01/19/2024 Prothrombin Time (PT) 17.8 (H) 01/20/2024 INR 1.44 (H) 01/20/2024 PTT 49.8 (H) 01/20/2024 Lab Results Component Value Date AST 31 01/20/2024 ALT 34 01/20/2024 Imaging / endoscopy / colonoscopy Prior relevant EGD: none Prior relevant Colonoscopy: none CT head negative. Problem List: Patient Active Problem List Diagnosis VT (ventricular tachycardia) (HCC) VF (ventricular fibrillation) (CMS/HCC) (HCC) Anxiety Depression Multifocal pneumonia Cardiac defibrillator in situ Carotid artery stenosis Mixed hyperlipidemia 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 Hyponatremia Hypokalemia Hypocalcemia Transaminitis Normocytic anemia Atrial fibrillation/flutter (HCC) Emphysema lung (HCC) Acute respiratory failure with hypoxemia (HCC) Moderate malnutrition (CMS/HCC) (HCC) Assessment/plan: Esequiel Chew Jr. is a 73 y.o. year old male with PMH of CAD and prior PCI's, HTN, HLD, A-fib, carotid artery stenosis, COPD/emphysema, BPH, HFrEF, AICD, anxiety, depression presented with multiple AICD shocks and CT imaging concerning for multifocal pneumonia versus cavitary pneumonia. GI was consulted for several months of dysphagia requiring feeding tube while inpatient. #Oropharyngeal dysphagia #History of tobacco use #WL -associated with 20 lbs WL in 2 months. Dysphagia is progress and worse with liquids. FEES which showed mild to moderate oropharyngeal dysphagia. -barium swallow pending -CT head negative, no hx of stroke Plan: -EGD in AM -Hold TF at midnight -Make NPO at midnight Khari Varghese MD Gastroenterology & Hepatology l PGY-4 [facility] 01/20/2024 4:55 PM Cosigned by Chintan Mendoza MD at 01/20/2024 8:42 PM CEMETERY MANAGER TERY MANAGER TERY MANAGER Associated attestation - Chintan Mendoza MD - 01/20/2024 8:42 PM CEMETERY MANAGER I reviewed the resident's note and agree with the documented findings and plan of care.Elderly male with dysphagia and weight loss. Plan for EGD tomorrow to exclude UGI pathology. Chintan Mendoza MD, AGAArianna, RAN, DWIGHT Parra and Tammy Harding relief man Chief, Gastroenterology, Hepatology, and Nutrition [facility] 2024-01-20 10:38:48 Associated Order(s): Inpatient consult to Supportive Medicine Supportive Medicine Initial Consult Note Inpatient consult to Supportive Medicine Performed by: Cher Clemente DO Authorized by: Vanessa Reyes MD Principal Problem: VT (ventricular tachycardia) (HCC) Reason for Consult: goals of care discussions Requesting Clinician: Tiffany Jamil MD History Of Present Illness Esequiel Chew Jr. is a 73 y.o. male presenting with history of HTN, carotid artery stenosis, COPD, Afib on plavix s/p ICD, hx of MIs s/p stent placement), who presented after an episode of lightheadedness followed by an ICD shock and is admitted to CCU for arrhythmia workup. CXR showed left midlung and right lower lobe pulmonary opacities suggesting multifocal infection. CTA chest showed bilateral consolidations, some of which contain cavitary changes; enlarged mediastinal and bilateral hilar lymph notes, indeterminate. Pt admitted to CCU [facility] for multifocal pneumonia with cavitary lesions, and acute hypoxic respiratory failure. Per cardiology, recommendations for medical management of VT with amiodarone taper, and outpatient evaluation for VT ablation and PVI. Pt underwent FEES on 01/17 showing mild to moderate oropharyngeal dysphagia, with MEETING MANAGER recommendations for NPO with alternate means of nutrition. Pt currently has NG tube in place, receiving tube feeds. Supportive Medicine is consulted for assistance with goals of care discussions, with regards to the possibility of feeding tube placement. History obtained from chart review and the patient. No family present at bedside. Pt reports hx of chronic back pain that started after back injury at age 9 when he fell off a ladder, hx of herniated discs, and hx of spinal surgery. Pt reports taking tramadol 50mg and Paige 10 at home for at least 15 years, reports taking 2-4 tablets of tramadol or Paige per day. Pt reports alternating tramadol and Paige as needed for pain, would take 4 tablets of tramadol in addition to 4 tablets of Paige 10 per day but sometimes would take 2 tablets of tramadol in addition to 2 tablets of Paige 10 per day depending on his pain level. Pt denies constipation, reports diarrhea with last BM today. Pt denies any difficulty swallowing at home prior to hospitalization, reports he did not notice any changes to swallowing at home, denies coughing or choking with eating/drinking at home. Pt reports his partner had a PEG tube, would see his partner tube feed. Pt is and does not have any children. Advance Care Planning Advance Directives and Living Will: Not Received Power of Blow Mold Operator: Not Received Medical Power of Blow Mold Operator/Advance Directive: No AD/MPOA documentation in [facility]. Pt reports he previously completed MPOA documentation for niece Venus but does not know where the document is, does not think Venus has a copy of the document. Social History Social History Tobacco Use Smoking status: Former Types: Cigarettes Passive exposure: Never Smokeless tobacco: Never Substance Use Topics Alcohol use: Not on file Social History Substance and Sexual Activity Drug Use Never Living situation: Pt reports living alone in a house. Self-identifed support system: Pt reports he has a brother who lives in [place], sister and niece who live in [place]. Pt is and does not have any children. Functional Status: Pt reports living independently, does not have home health, does not have home provider. Pt reports using assistive devices including cane and rolling walker at home. Review Of Systems Review of Systems HENT: Negative for trouble swallowing. Gastrointestinal: Positive for diarrhea. Negative for constipation. Musculoskeletal: Positive for back pain. Physical Exam Recent Vital Signs: 129/60 | 90 | 36.5 ?C (97.7 ?F) | 26 | 177.8 cm (5' 10") | 82.6 kg (182 lb) | Body mass index is 26.11 kg/m?. BP & Temp Min/Max Last 24 Hours: BP Min: 88/54 Min taken time: 01/19/24 1500 Max: 153/69 Max taken time: 01/20/24 0400 | Temp Av.7 ?C (98 ?F) Min: 36.5 ?C (97.7 ?F) Min taken time: 01/20/24 0800 Max: 36.9 ?C (98.4 ?F) Max taken time: 01/19/24 1225 Physical Exam: Vitals reviewed. Constitutional: General: He is not in acute distress. HENT: Head: Normocephalic and atraumatic. Nose: Comments: NG tube in place Mouth/Throat: Mouth: Mucous membranes are moist. Eyes: General: No scleral icterus. Cardiovascular: Rate and Rhythm: Normal rate. Pulmonary: Effort: Pulmonary effort is normal. No respiratory distress. Skin: General: Skin is warm and dry. Neurological: Mental Status: He is alert and oriented to person, place, and time. Psychiatric: Mood and Affect: Mood normal. Behavior: Behavior normal. Diagnostic Data Labs: Latest Reference Range & Units 01/20/24 02:13 Sodium Lvl 136 - 145 mEq/L 136 Potassium Lvl 3.4 - 4.5 mEq/L 3.7 Chloride Lvl 98 - 107 mEq/L 106 CO2 Lvl 20.0 - 31.0 mEq/L 22.7 Anion Gap 10.0 - 20.0 mEq/L 11.0 Creatinine Lvl 0.7 - 1.30 mg/dL 0.70 EGFR >60 mL/min/1.73m2 97 BUN 9 - 23 mg/dL 17 B/C Ratio 6 - 25 24 Glucose Lvl 70 - 99 mg/dL 129 (H) (H): Data is abnormally high Imaging: Reviewed in EMR. Impression 73 y.o. male presenting with history of HTN, carotid artery stenosis, COPD, Afib on plavix s/p ICD, hx of MIs s/p stent placement), who presented after an episode of lightheadedness followed by ICD shocks and is admitted to CCU for arrhythmia workup. CXR showed left midlung and right lower lobe pulmonary opacities suggesting multifocal infection. CTA chest showed bilateral consolidations, some of which contain cavitary changes; enlarged mediastinal and bilateral hilar lymph notes, indeterminate. Pt admitted to CCU and followed by [facility] for multifocal pneumonia with cavitary lesions, and acute hypoxic respiratory failure. Per cardiology, recommendations for medical management of VT with amiodarone taper, and outpatient evaluation for VT ablation and PVI. Pt underwent FEES on 01/17 showing mild to moderate oropharyngeal dysphagia, with MEETING MANAGER recommendations for NPO with alternate means of nutrition. Pt currently has NG tube in place, receiving tube feeds. Supportive Medicine is consulted for assistance with goals of care discussions, with regards to the possibility of feeding tube placement. Goals of Care Decisional Capacity: Pt has capacity. Pt making his own decisions at this time. Code Status: Full code Plan of Care: Continue current treatment Advance Care Planning - No AD/MPOA documentation in [facility]. Pt reports previously completing MPOA documentation for his niece Venus to be his MPOA, but does not know where document is. - Pt reports his partner had a PEG tube and expresses understanding of tube feeding, PEG tube care, risks of infection/skin irritation, and how it changes way of life. Pt reports he did not notice any difficulty swallowing at home prior to hospitalization, reports he felt weak in 2 weeks leading up to his hospitalization in addition to the ICD shocks. Pt reports the FEES procedure was painful and uncomfortable, pt amenable to MBBS for further evaluation. Pt reports his independence is important to him. Pt reports if he fails additional swallowing evaluation and a feeding tube is indicated, he would be amenable to life with a feeding tube if it allows for him to return to his independent living. Pt expresses that he would like to go back to his independent living after hospital discharge however, reports he can live with his niece or other family (brother/sister) if needed in his recovery. Pt expresses that a life of dependence in a snf would not be acceptable to him, and that he would not want to be intubated if he is at end-of-life. Discussed with pt Advance Directives and MPOA documentation, discussed with pt to further discuss his wishes in detail with his niece Venus who he wants to be his MPOA. Pt amenable to completing Advance Directives and Medical Power of Blow Mold Operator documentation at this time. - Recommend SW consult for assistance with completing AD/MPOA documentation. Recommendations # Pain, Chronic - MEDD: 22.5 - Current pain regimen: gabapentin 300mg at bedtime, Paige 5 q6h PRN for moderate pain, Paige 10 q6h PRN for severe pain - Continue current pain regimen [facility]; no patterns suggestive of abuse or diversion noted - Maintain naloxone readily available at bedside in case of respiratory depression # Dysphagia - MEETING MANAGER following, appreciate recommendations - Recommend further evaluation/workup for etiology of dysphagia # Delirium, at risk - Recommend to maintain day/night cycle by having lights on during the day and off at night and minimize nighttime interruptions. - Recommend to avoid or minimize medications that can worsen or precipitate delirium, such as opioids, benzodiazepines, anticholinergics, antihistamines, etc. - Recommend to avoid restraints as possible as these can also worsen delirium. - Encourage family to be at bedside as well, if possible. Cher Clemente, DO Supportive Medicine Fellow Thank you for the opportunity to participate in the care of this patient. We are available as needed, please contact us as below. To contact us, please message our team through Epic: [facility] Supportive and Palliative Medicine Weekday (weekdays 7am to 4pm) [facility] Supportive and Palliative Medicine Weeknight/Weekend/Holiday (all other times) Cosigned by Kanika Desai MD at 01/22/2024 4:12 PM CEMETERY MANAGER TERY MANAGER TERY MANAGER TERY MANAGER TERY MANAGER Associated attestation - Kanika Desai MD - 01/22/2024 4:12 PM CEMETERY MANAGER ATTENDING ATTESTATION I have seen and examined the patient with the fellow, Cher Clemente DO on 01/20/24. I have personally reviewed the patient's labs and diagnostic data, including CBC, BMP. Personally reviewed cxr: pt with icd. I have reviewed documentation in the EMR from cardiology and critical care. I have reviewed the documentation and agree with the documented examination and plan, with the following clarifications and additions: Patient alert, oriented, pleasant. After obtaining consent for complex medical decision-making and advance care planning discussion today, I met with patient for goals of care discussion. I spent 20 minutes in face to face discussion of goals. Please refer to fellow note. In short, has had weeks to months of dysphagia, recently worsened. He currently lives alone but has a niece and other family members along with financial resources that he feels can assist for any current short term and ongoing needs if he cannot live alone. He has had experience with Gtube management and felt this alternative feeding source was able to provide his partner with increased life expectancy and still a good quality. If feeding tube can still allow him to have increased life expectancy and return a relatively functionally independent lifestyle (he is agreeable he may need to move in with his niece, but is still hoping to go on independent walks and manage his ADLs) he would be open to discussion. Life in snf is not acceptable quality of life. HE is open to filling out advance directives as he feels he would wish for DNR/DNI and comfort in setting of terminal illness. We have discussed the patient with primary team. Thank you for the opportunity to participate in the care of this patient. We will follow along intermittently as indicated. For additional visits, please contact us directly. To contact us, please message our team through Epic: [facility] Supportive and Palliative Medicine Weekday (weekdays 7am to 4pm) [facility] Supportive and Palliative Medicine Weeknight/Weekend/Holiday (all other times) [facility] 09:43:53 Associated Order(s): IP CONSULT TO NUTRITION SERVICES NUTRITION ASSESSMENT - ADULT Unit: CCU Reason for RD Encounter: TF Consult Findings Nutrition Diagnosis: Nutrition Diagnosis: Inadequate oral intake related to decreased ability to consume sufficient energy as evidenced by NPO status and requiring enteral nutrition for nutrient. *Malnutrition Diagnosis: Moderate malnutrition Related To: Chronic illness As Evidenced By: Moderate fat loss (PO intake <75% for >=1 month) Interventions and Recommendation: 1: ENTERAL NUTRITION: ENTERAL FORMULA: Peptamen AF @ 80mL/hr x22hr infusion time (Provides 2112kcal, 134g PRO) 2: DIET : Advance diet as medically feasible and Per MEETING MANAGER recommendations 3: DIET: Oral supplement(s) : Ensure Enlive TID chocolate when diet advances NUTRITION RISK: Moderate, in 5-7 days Next Date for Nutrition Services Follow Up: 01/26/24 Communication : RN Current Nutrition: Orderered Tube Feeds and Supplements Medication Dose Route Frequency Provider Last Rate Last Admin Ensure Enlive liquid 1 Container 1 Container Oral TID with meals Valencia Gil NP 1 Container at 01/18/24 1723 Enteral Free water Flush 30 mL 30 mL Nasogastric q4h Vanessa Reyes MD 30 mL at 01/19/24 1200 peptamen AF liquid Nasogastric Continuous Vanessa Reyes MD 80 mL/hr at 01/19/24 1216 Rate Change at 01/19/24 1216 PO/EN/PN Intakes: No data found. Nutrition Visit Information: 01/18: Pt UBW 195lbs and endorses weight gain to 210lbs recently. Pt states he has a good appetite but it is small. He intentionally only eats 1 meal per day. Pt endorses swallowing issues. Failed FEES. DHT placed and EN started. Peptamen 1.5 hanging, notified RN to change out formula. Anthropometrics: Height: 177.8 cm (5' 10") Height Method: Stated Weight: Weight Method: Bed scale 82.6kg Body mass index is 26.11 kg/m?. [place] body weight: 73 kg (160 lb 15 oz) Adjusted ideal body weight: 76.8 kg (169 lb 5.8 oz) Wt Readings from Last 10 Encounters: 01/18/24 82.6 kg (182 lb) Estimated Nutrition Needs: Weight Used for Equation Calculations: 82.6 kg (182 lb 1.6 oz) Calculated Energy Needs Using Equations Height: 1.778 m (5' 10") Weight Used for Equation Calculations: 82.6 kg (182 lb 1.6 oz) Energy Equation Used: Rule of thumb (kcal/kg) Energy Lower Range: 25 (kcal/kg) Energy Upper Range: 35 (kcal/day) Energy Needs Lower Range: 2065 kcal/day (kcal/day) Energy Needs Upper Range: 2891 kcal/day Temp: 36.9 ?C (98.4 ?F) Estimated Protein Needs (g/kg) Protein Lower Range: 1.2 (g/kg) Protein Upper Range: 1.5 (g/day) Protein Lower Range: 99 g/day (g/day) Protein Upper Range: 124 g/day Fluid Needs Fluid Needs Method: mL/kg/day; Or per MD (mL/kg) Fluid Needs: 25 (mL/day) Fluid Needs (Calculated): 2065 mL/kg/day Nutrition Physical Findings per edi manager: Orientation Level: Disoriented to time O2 Delivery Method: Nasal cannula Gastrointestinal (WDL): X Abdomen Inspection: Soft Abdominal Tenderness: Soft; Nontender Bowel Sounds: All quadrants Bowel Sounds (All Quadrants): Active Last BM Date: 01/19/24 Gastrointestinal Symptoms: Diarrhea LUE: Full movement RUE: Full movement LLE: Limited movement RLE: Limited movement Edema: Left lower extremity; Right lower extremity Gastric Tube 01/18/24 Cortrak 10 Fr Right nostril (Active) Wound 01/17/24 Right Buttock (Active) Wound 01/17/24 Other (Comments) Left Buttock (Active) Nutrition Focused Physical Exam - Muscles and Fat: Assessment of Muscle Status Date Assessed: 01/19/24 Muslim Region: Xcbt-[id number]-qiacngca deficit: Slight depression Clavicle Bone Region: Tmvr-kz-oltsnoie deficit: More prominent clavicle bone, less prominent muscle when palpated Patellar Region: Oquk-gs-pfqompvw deficit: Knee cap more prominent Calves-Posterior Region: No deficits noted Assessment of Fat Status Date Assessed: 01/19/24 Orbital Region: Wsxa-wy-[id number] deficit: Somewhat hollow look, slightly dark circles Cheek Region (Buccal Fat Pads): No deficits noted: Full, round, filled-out cheeks / Ample bounce back of fat pads Basic Information: Admitting diagnosis: Arrhythmia [I49.9] Chest pain, unspecified type [R07.9] Clinical course: Problem List VT (ventricular tachycardia) (HCC) VF (ventricular fibrillation) (CMS/HCC) (HCC) Anxiety Depression Multifocal pneumonia Cardiac defibrillator in situ Carotid artery stenosis Mixed hyperlipidemia 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 Hyponatremia Hypokalemia Hypocalcemia Transaminitis Normocytic anemia Atrial fibrillation/flutter (HCC) Emphysema lung (HCC) Acute respiratory failure with hypoxemia (HCC) Medications: [START ON 02/02/2024] amiodarone, 200 mg, Oral, Daily amiodarone, 400 mg, Oral, BID [START ON 01/26/2024] amiodarone, 400 mg, Oral, Daily [Held by provider] amLODIPine, 5 mg, Oral, Daily aspirin, 81 mg, Oral, Daily atorvastatin, 40 mg, Oral, Daily azithromycin, 500 mg, Oral, q24h buPROPion SR, 150 mg, Oral, Daily [Held by provider] carvedilol, 12.5 mg, Oral, BID with meals cefepime, 1 g, Intravenous, q6h clopidogrel, 75 mg, Oral, Daily Ensure Enlive, 1 Container, Oral, TID with meals Enteral Free water Flush, 30 mL, Nasogastric, q4h escitalopram, 5 mg, Oral, Daily gabapentin, 300 mg, Oral, Nightly hydrocortisone sodium succinate, 50 mg, Intravenous, q6h MICHEL ipratropium, 0.5 mg, Nebulization, q6h [Held by provider] isosorbide mononitrate ER, 30 mg, Oral, Daily [Held by provider] lisinopril, 40 mg, Oral, Daily memantine, 10 mg, Oral, BID metoprolol succinate XL, 25 mg, Oral, Daily metroNIDAZOLE, 500 mg, Intravenous, q8h pantoprazole, 40 mg, Oral, Daily before breakfast sodium chloride, 10 mL, Intravenous, q12h heparin, 0.1-40 Units/kg/hr, Last Rate: 25 Units/kg/hr (01/19/24 1100) peptamen AF, , Last Rate: 80 mL/hr at 01/19/24 1216 PRN medications: dextrose, dextrose, glucagon, guaiFENesin, HYDROcodone-acetaminophen, HYDROcodone-acetaminophen, sodium chloride, sodium chloride Labs: Pertinent Labs : Labs in chart were reviewed. Lab Results Component Value Date Hgb A1C 5.09 01/18/2024 Review / Management: I/O 24 HRS: Intake/Output Summary (Last 24 hours) at 01/19/2024 1404 Last data filed at 01/19/2024 1100 Gross per 24 hour Intake 1178.08 ml Output 2650 ml Net -1471.92 ml Monitoring and Evaluation: MONITORING AND EVALUATION: Nutrition Intake : PO intake and tolerance GOAL: >75% of estimated needs met: Kaye Card MPH RD LD Thursday-Thursday pager [phone] [facility] [phone] TERY MANAGER Nutrition [facility] 2024-01-19 08:05:18 Brief EP Plan of Care Note: Echo reviewed, with normal EF. Recommend continued medical management of VT with amiodarone taper. Consider initiating beta ronen as tolerated. Will follow up outpatient for evaluation of VT ablation and PVI. Continue workup and management of pulmonary cavitary lesions per primary team. Oseas Isbell MD Pin Drafter EP will sign off at this time. Cosigned by Kay Schrader MD at 01/22/2024 10:32 PM CEMETERY MANAGER TERY MANAGER TERY MANAGER Mental Health Worker Physician [facility] 2024-01-18 10:27:10 Associated Order(s): IP CONSULT TO ELECTROPHYSIOLOGY Electrophysiology (EP) Consult Note Referring Provider: No ref. provider found Reason for Consult: Consult for ventricular tachycardia/ICD shocks History of Present Illness Susan Parker is a 73-year-old male with a history of CAD status post PCI last in 2004, reported heart failure with reduced ejection fraction (?), [place] presenting for dizziness and lightheadedness followed by an ICD shock. EP consulted for ventricular tachycardia and ICD shocks. Patient notes that over the past 3 weeks he has had intermittent fevers, chills and cough. Over this time he has noted at least 3 shocks with his ICD, with preceding symptoms of body tingling, lightheadedness and palpitations. Currently denies chest pain, shortness of breath, palpitations. Notes history of heart failure with reduced ejection fraction, saying that his last EF was 33 to 5%. Of note also mentions a very recent cardiac catheterization with his primary resource paraprofessional which showed mild nonobstructive coronary artery disease with patent stents, left for medical management. History reviewed. No pertinent surgical history. No family history on file. Social History Substance and Sexual Activity Drug Use Not on file Tobacco Use: Low Risk (01/16/2023) Received from [facility] Nephrology Patient History Smoking Tobacco Use: Never Smokeless Tobacco Use: Never Passive Exposure: Not on file Alcohol Use: Not on file No Known Allergies Current Outpatient Medications Medication Instructions amLODIPine (Norvasc) 5 MG tablet 1 tablet, 2 times daily aspirin 325 mg, Oral, Daily benazepril (Lotensin) 20 MG tablet 1 tablet, Daily buPROPion SR (WELLBUTRIN SR) 150 mg, Oral, Daily carvedilol (COREG) 12.5 mg, 2 times daily with meals citalopram (CeleXA) 20 MG tablet 2 tablets, Oral, Daily clopidogrel (PLAVIX) 75 mg, Daily escitalopram (Lexapro) 20 MG tablet Daily gabapentin (NEURONTIN) 300 mg, Oral, Nightly isosorbide mononitrate ER (IMDUR) 30 mg, Oral, Daily lovastatin (MEVACOR) 40 mg, Nightly memantine (NAMENDA) 10 mg, 2 times daily simvastatin (ZOCOR) 40 mg, Oral, Nightly Review of Systems: As above Physical Exam: BP 119/57 | Pulse 83 | Temp 36.6 ?C (97.8 ?F) (Oral) | Resp (!) 48 | Ht 1.778 m (5' 10") | Wt 82.6 kg (182 lb) | SpO2 93% | BMI 26.11 kg/m? General: alert, oriented, not in distress Lungs: no resp distress Heart: RHYTHM: RRR, no mrg Abdomen: soft, non tender, non distended Extremities: lower extremity edema, symmetric, normal distal pulses Laboratory Data: Lab Results Component Value Date Glucose Lvl 126 (H) 01/18/2024 Creatinine Lvl 1.06 01/18/2024 BUN 34 (H) 01/18/2024 Potassium Lvl 3.9 01/18/2024 Sodium Lvl 133 (L) 01/18/2024 CO2 Lvl 24.4 01/18/2024 Calcium Lvl 7.8 (L) 01/18/2024 Magnesium 2.56 01/18/2024 Albumin Lvl 1.9 (L) 01/18/2024 Protein 6.9 01/18/2024 ALT 41 (H) 01/18/2024 AST 47 (H) 01/18/2024 Bilirubin Total 0.34 01/18/2024 Bilirubin Total 0.35 01/18/2024 WBC 20.09 (H) 01/18/2024 Hgb 8.3 (L) 01/18/2024 Hct 27.1 (L) 01/18/2024 Plt Count 576 (H) 01/18/2024 Cholesterol 56 01/18/2024 Triglycerides 102 01/18/2024 HDL Cholesterol 11.1 01/18/2024 Hgb A1C 5.09 01/18/2024 TSH 0.189 (L) 01/18/2024 Natriuretic Peptide B 173 (H) 01/17/2024 INR 1.48 (H) 01/18/2024 Diagnostic Tests: Transthoracic echo (TTE) complete Result Date: 01/18/2024 1. This study demonstrates normal biventricular size and overall systolic function, concentric left ventricular remodeling, a catheter in the right sided chambers, trace mitral regurgitation, and trace tricuspid regurgitation. 2. There are no prior echocardiographic studies currently available for comparison. Encounter Date: 01/17/24 Electrocardiogram, 12-lead Result Value Ventricular Rate 80 Atrial Rate 80 AR Interval 194 QRS Duration 80 QT/QTc 430 QTc Calculation 495 P-[place] 71 R-[place] 48 T-[place] 57 Narrative SINUS RHYTHM WITH PREMATURE SUPRAVENTRICULAR COMPLEX(ES) PROLONGED QT INTERVAL OR TU FUSION, CONSIDER MYOCARDIAL DISEASE, ELECTROLYTE IMBALANCE, OR DRUG EFFECTS ABNORMAL ECG Compared with prior study, prolonged QT interval is now noted Confirmed by Katelin Hayward ([id number]) on 01/18/2024 10:46:16 AM Device interrogation 01/18/2024: 7 episodes of VT in zone 2 status post ATP and 850 V shock. Episodes of atrial fibrillation documented with the VT and zone 3 (V-fib range) Problem List Items Addressed This Visit None Visit Diagnoses Chest pain, unspecified type - Primary Assessment and Plan: Susan Parker is a 73-year-old male with a history of CAD status post PCI last in 2004, reported heart failure with reduced ejection fraction (?), [place] presenting for dizziness and lightheadedness followed by an ICD shock. EP consulted for ventricular tachycardia and ICD shocks. # Monomorphic ventricular tachycardia # Paroxysmal atrial fibrillation (based on ICD EGM, [id number] of 3) Recommendations: -Continue IV amiodarone per protocol, can transition to p.o. amiodarone if patient remains clinically stable (400 mg twice daily x 7 days, 400 mg daily x 7 days, 200 mg daily until follow-up) -Formal echocardiogram -Recommend evaluation and assessment of cavitary lung lesions per primary team could potentially trigger VT -Patient with documented episode of atrial fibrillation based on ICD EGM, patient would require anticoagulation based on CHADS2-VASC score if no other contraindications -Patient will likely require consideration of outpatient VT ablation acute infectious process has been evaluated and treated Patient staffed with attending Dr. Schrader EP will continue to follow. Oseas Isbell MD Cosigned by Kay Schrader MD at 01/18/2024 10:05 PM CEMETERY MANAGER TERY MANAGER TERY MANAGER TERY MANAGER Associated attestation - Kay Schrader MD - 01/18/2024 10:05 PM CEMETERY MANAGER I have seen and examined the patient with Dr. Isbell on 01/18/24. I have reviewed all the clinical information, lab investigation and imaging data. I agree with the above findings, assessment and plan. Continue medical therapy for VT . 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 Good candidate for VT ablation for scar modification as outpatient once his lung infection subside. [facility] 2024-01-17 21:52:50 Consults History Of Present Illness Esequiel Chew is a 73 y/o M with a PMHx of chronic back pain, h/o multiple back surgeries, CAD s/p PCI (00 and 05' stents), HTN, HLD, Afib, carotid artery stenosis (L 40% occlusion), COPD, BPH, HFrEF, AICD, anxiety, depression, who presented to the hospital for multiple ICD shocks. Patient reportedly has been experiencing AICD discharges, dyspnea, orthopnea, intermittent fevers, for 3 weeks. Patient reports that 3 days ago he had an episode of palpitations, lightheadedness, and then and ICD shock. He states that he then fell and hit his head on the fireplace, but ended up on his bottom? Patient was brought to the ED by his niece who received an overseas phone call by the patient's boyfriend for concerns about his health. In the ED, the patient had runs of VT and was started on an amio gtt. CTA PE reported no PE, bilateral GGOs, air and fluid-filled cavities seen in the left mid lung and RML respectively, and extensive emphysematous changes. Patient is admitted to CCU for acute hypoxic respiratory failure and VT/VF AICD discharges. On arrival to CCU, patient is alert and oriented x4, on 4L nasal cannula, on amio gtt, and heparin gtt. Past Medical History He has no past medical history on file. Surgical History He has no past surgical history on file. Social History He has no history on file for tobacco use, alcohol use, and drug use. Family History No family history on file. Allergies Patient has no known allergies. Medications Medications Prior to Admission Medication Sig Dispense Refill Last Dose/Taking amLODIPine (Norvasc) 5 MG tablet Take 1 tablet by mouth in the morning and 1 tablet in the evening. Taking benazepril (Lotensin) 20 MG tablet Take 1 tablet by mouth 1 time each day. Taking carvedilol (Coreg) 12.5 MG tablet Take 12.5 mg by mouth in the morning and 12.5 mg in the evening. Take with meals. Taking clopidogrel (Plavix) 75 MG tablet Take 75 mg by mouth 1 time each day. Taking escitalopram (Lexapro) 20 MG tablet 1 time each day. Taking lovastatin (Mevacor) 40 MG tablet Take 40 mg by mouth at bedtime. Taking memantine (Namenda) 10 MG tablet Take 10 mg by mouth in the morning and 10 mg in the evening. Taking aspirin 325 MG tablet Take 325 mg by mouth 1 time each day. buPROPion SR (Wellbutrin SR) 150 MG 12 hr tablet Take 150 mg by mouth 1 time each day. citalopram (CeleXA) 20 MG tablet Take 2 tablets by mouth 1 time each day. gabapentin (Neurontin) 300 MG capsule Take 300 mg by mouth at bedtime. isosorbide mononitrate ER (Imdur) 30 MG 24 hr tablet Take 30 mg by mouth 1 time each day. simvastatin (Zocor) 40 MG tablet Take 40 mg by mouth at bedtime. Review of Systems Constitutional: Positive for chills, fatigue and fever. HENT: Positive for sore throat. Eyes: Negative. Respiratory: Positive for cough, shortness of breath and wheezing. Cardiovascular: Negative for chest pain and leg swelling. Gastrointestinal: Positive for abdominal distention and diarrhea. Negative for abdominal pain and blood in stool. Endocrine: Negative. Genitourinary: Negative. Musculoskeletal: Positive for back pain. Skin: Bilateral buttocks skin tears Allergic/Immunologic: Negative. Neurological: Negative for dizziness, light-headedness, numbness and headaches. Psychiatric/Behavioral: Negative. Physical Exam: Constitutional: Appearance: Normal appearance. He is obese. HENT: Head: Normocephalic. Mouth/Throat: Mouth: Mucous membranes are moist. Eyes: Extraocular Movements: Extraocular movements intact. Pupils: Pupils are equal, round, and reactive to light. Cardiovascular: Rate and Rhythm: Normal rate and regular rhythm. Pulses: Normal pulses. Heart sounds: No murmur heard. Comments: L chest AICD w/o drainage, redness, or pain on palpation Pulmonary: Effort: Respiratory distress present. Breath sounds: Wheezing present. Abdominal: General: There is distension. Tenderness: There is no guarding. Musculoskeletal: General: Normal range of motion. Cervical back: Normal range of motion. Skin: General: Skin is warm. Capillary Refill: Capillary refill takes less than 2 seconds. Comments: Bilateral buttocks wound Neurological: General: No focal deficit present. Mental Status: He is alert and oriented to person, place, and time. Mental status is at baseline. Psychiatric: Mood and Affect: Mood normal. Last Recorded Vitals Blood pressure (!) 95/45, pulse 81, temperature 37.7 ?C (99.9 ?F), temperature source Oral, resp. rate 22, height 1.778 m (5' 10"), weight 82.5 kg (181 lb 14.1 oz), SpO2 90%. Relevant Results Pertinent Labs : Lab Results Component Value Date WBC 20.05 (H) 01/17/2024 Hgb 9.4 (L) 01/17/2024 Hct 29.4 (L) 01/17/2024 Plt Count 581 (H) 01/17/2024 Lab Results Component Value Date Sodium Lvl 136 01/17/2024 Potassium Lvl 4.0 01/17/2024 Chloride Lvl 101 01/17/2024 CO2 Lvl 25.0 01/17/2024 BUN 36 (H) 01/17/2024 Creatinine Lvl 1.10 01/17/2024 Glucose Lvl 108 (H) 01/17/2024 Lab Results Component Value Date Calcium Lvl 7.8 (L) 01/17/2024 Magnesium 2.47 01/17/2024 Phosphorus Lvl 4.3 01/17/2024 Lab Results Component Value Date AST 58 (H) 01/17/2024 ALT 45 (H) 01/17/2024 Alkaline Phosphatase 125 (H) 01/17/2024 Lab Results Component Value Date PTT 35.3 01/17/2024 Prothrombin Time (PT) 16.6 (H) 01/17/2024 INR 1.32 (H) 01/17/2024 No results found for: "COLORU", "CLARITYU", "SPECGRAV", "PHUR", "PROTUR", "GLUCOSEU", "KETONESU", "NITRITEU", "LEUKOCYTESUR", "BILIRUBINUR", "UROBILINOGEN" Lab Results Component Value Date HS Troponin I 12 01/17/2024 Natriuretic Peptide B 170 (H) 01/17/2024 No components found for: "HGBA1C;2" No components found for: "TSH;2" Assessment & Plan Arrhythmia (Resolved: 01/17/2024) VT (ventricular tachycardia) (HCC) VF (ventricular fibrillation) (CMS/HCC) (HCC) Anxiety Depression Multifocal pneumonia Cardiac defibrillator in situ Carotid artery stenosis Mixed hyperlipidemia 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 Hyponatremia Hypokalemia Hypocalcemia Transaminitis Normocytic anemia Atrial fibrillation/flutter (HCC) Chronic back pain C/f sepsis Neuro/Psych: - no focal deficits - continue home escitalopram and wellbutrin for anxiety/depression - continue home namenda for memory difficulties - continue home gabapentin - Send for CT head CV: - Device interrogation shows since 08/06 >> 7 episodes of VT-2 (HR >181) >> 4 episodes of VF with 3 shocks delivered >> 49 episodes of SVT noted >> AP <1%, MEDICAID BILLING SPECIALIST 3.5% - BNP 170 - trend trop, initial trop 12 - Obtain TTE - Continue amiodarone gtt. - Consult EP in the AM. - can consider [facility] this hospitalization for ischemic eval. - Continue ASA, plavix, and statin - Hold home antihypertensives given borderline blood pressures 90/50s. Amlodipine 5mg, lisinopril 40mg, coreg 12.5mg, isosorbide mononitrate ER. - Management per CCU team. Resp: - CTA PE negative for PE, bilateral GGOs, air and fluid-filled cavities seen in the left mid lung and RML respectively, and extensive emphysematous changes. - currently on nasal cannula - Start schedued duonebs q6h - f/u MTB PCR, quantiferon gold, transplant respiratory viral, respiratory culture - Will need to establish outpatient follow-up for COPD at a pulmonary clinic GI/Nutrition: - [facility] diet - send for enteric pathogens for mucoidal diarrhea, per patient report. - hold anti-diarrheal or laxatives for now - continue home ppi - f/u KUB - elevated liver enzymes. F/u acute hepatitis panel and trend liver enzymes Renal/Electrolytes: - strict I&O - check lytes and replete PRN - continue to monitor - hold BPH medication for now given borderline blood pressures Endo: - Check TSH w/reflex, Hgb A1c Heme/Onc: - send for anemia panel in the AM - continue to monitor daily cbc w/diff and coags ID: - Leukocytosis - CTA with evidence c/f multifocal pneumonia - f/u blood cultures, UA w/reflex, HIV, fungal sputum culture - f/u MTB PCR, quantiferon gold, transplant respiratory viral, respiratory culture - Continue empiric vancomycin, cefepime, and azithromycin. Msk/Skin/Deconditioned: - Consult PT/OT Lines, Tubes, and Drains: PIVs Compliance: Intubation: none Sedation weaning trial: DVT prophylaxis: heparin gtt HOB greater than 30 degrees: GI prophylaxis: protonix Central Lines: none Arterial Line: none [place]: none Restraints:none Disposition: CCU Code Status: Full code DISPOSITION I spent a total of 45 minutes of critical care time with this patient independently, not including procedure time then plan was discussed with Dr. Zak Donaldson Cosigned by Zak Donaldson MD at 01/18/2024 2:04 AM CEMETERY MANAGER TERY MANAGER TERY MANAGER Associated attestation - Zak Donaldson MD - 01/18/2024 2:04 AM CEMETERY MANAGER [facility] Attending Attestation I saw and examined the patient on 01/17/24. I agree with Nisa Gonzalez NP's chief complaint, history, exam, and medical decision making with the following additions/revisions: 73-year-old male with extensive history as outlined below, presenting after having multiple ICD shocks at home. Interrogation with mixed VT and VF events. In the setting of hypokalemia and cavitary pneumonia. Currently says breathing comfortably on 5 L of oxygen which is new, with no chest pain. Symptoms of cough are chronic, but sputum production has changed in the last couple of days. Physical Exam: as outlined POCUS: IVC >2.2cm and noncollapsing. Difficulty obtaining cardiac views. Assessment & Plan Problem List: Principal Problem: VT (ventricular tachycardia) (HCC) Active Problems: VF (ventricular fibrillation) (CMS/HCC) (HCC) Anxiety Depression Multifocal pneumonia Cardiac defibrillator in situ Carotid artery stenosis Mixed hyperlipidemia 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 Hyponatremia Hypokalemia Hypocalcemia Transaminitis Normocytic anemia Atrial fibrillation/flutter (HCC) Emphysema lung (HCC) Acute respiratory failure with hypoxemia (HCC) I personally formulated the plan and discussed with the MIRACLE. As outlined below. Code status: Full Code There is a high probability of sudden, clinically significant or life threatening deterioration in the patient's condition due to the above. Personal critical care time not including separately billable procedures: 40 minutes Please note, J[employer]Jabon Dictation was used for this note. Please excuse any typos or transcriptional errors. Zak Donaldson MD [place] [facility] [facility] Faculty Nurse Practitioner Darryn Youssef History and Physical Notes Date/Time Note Provider Source 2024-01-17 16:08:08 CCU History and Physical Admission Date: 01/17/2024 CCU Day: 0 Problem List Active Problems: There are no active Hospital Problems. Esequiel Chew Jr [address] White Assessment & Plan The patient is a 73 y.o. 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 CARDIOVASCULAR: Pressors: none #Ventricular Tachycardia #Ventricular Fibrillation - ddx: ischemia, CHF, electrolyte abnomalitites - may consider C this admission to workup known CAD for potential progression Device interrogation shows since 08/06 >> 7 episodes of VT-2 (HR >181) >> 4 episodes of VF with 3 shocks delivered >> 49 episodes of SVT noted >> AP <1%, MEDICAID BILLING SPECIALIST 3.5% - BNP 170 - Plan - trend trop, initial trop 12 - TTE - amiodarone gtt - can consider C this hospitalization for ischemic eval #Afib - not on anticoagulation or any rhythm control - not in Afib on admission - Plan: - heparin gtt - amiodarone as above #CAD - history of FL in 1999 and 2004 - describes chest tightness with exertion - Troponin 12 Plan: - trend troponin - GDMT: * RAAS: lisinopril * BB: coreg * MRA: none * SGLT2: will consider adding after monitoring BP - continue atorvastatin - continue plavix - pending TSH, A1C, lipid panel #HTN - continue amlodipine 5mg daily - continue coreg 12.5 daily BID NEURO/PSYCH Sedation: - RASS/AxO4 - Pain control - Sedation - Fall precautions RESPIRATORY: - No acute concerns; monitor for hypoxemic respiratory concerns - Stable on NC, O2 sat goal >90% - Early ambulation as tolerated - Aspiration precautions #Multifocal PNA - Fever and chill for 3 weeks (Tmax 103) - CXR 01/16: Left midlung and right lower lobe pulmonary opacities suggesting multifocal infection. - WBC 20.05 on admission - CTA chest shows cavitary lesion - Pt on 2 L NC on admission, not on home O2 - Plan: - strep pneumo antigen, legionella antigen, AFB, MRSA nares, Mycoplasma, Blood Cultures - vanc/cefepime/azithromycin GI/FEN: - Heart health diet - Bowel regimen (miralax/senna) - PPI RENAL: - Strict I&Os - Check & replete lytes - Avoid nephrotoxins - Renally dose medications INFECTIOUS DISEASE: - Monitor for infections HEMATOLOGY: #Anemia - Hb 9.4 on admission - transfuse to keep Hgb >7.0, Plt >20 ENDO: - follow up A1c/TSH MSK/DERM - PT/OT consulted Code status: FULL Contact: No patient contacts matched the search criteria. DVT PPX: heparin gtt PUD PPX : Not indicated Diet: Heart Healthy L/T/D: IV Access: Peripheral IV 01/17/24 Left Antecubital (Active) Peripheral IV 01/17/24 Right Antecubital (Active) Dispo: pending clinical improvement Patient staffed with attending physician, MD Tiana Cooney MD Internal Medicine | PGY-1 [facility] | [facility] Subjective History of Present Illness The patient is a 73 y.o. 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 He also reports orthopnea and dyspena and chest tightness on exertion. He is active at baseline, mowing his lawn and walking around his 2 [address] land. He reports he does often have to stop and rest. Per the patient over the last three weeks he has been shocked at least 3 times by his ICD. He says each shock is proceeded by an episode of "body tingling", lightheadedness and palpitations. This is the first time he has sought care for it. When asked about his ICD, patient described an episode of cardiac arrest and stated that he got a ICD placed afterwards. Presume VT/VF as cause. He is on plavix, and is not sure why he is not on anticoagulation but has been on plavix monotherapy for many years. He also reports a 3 week history of fevers with a Tmax of 103. He additionally has a productive cough. PMH: History reviewed. No pertinent past medical history. PSH: History reviewed. No pertinent surgical history. FH: No family history on file. SH: Social History Tobacco Use Smoking Status Not on file Smokeless Tobacco Not on file Social History Substance and Sexual Activity Alcohol Use None Social History Substance and Sexual Activity Drug Use Not on file ALLERGIES: Patient has no known allergies. PRIOR TO ADMISSION MEDS: No current facility-administered medications on file prior to encounter. No current outpatient medications on file prior to encounter. ROS: 10 point review of systems assessed and negative except as stated in the HPI. Objective Vital Signs Current: Visit Vitals BP 108/54 Pulse 83 Temp 37.7 ?C (99.9 ?F) (Oral) Resp 16 24 Hour: Vitals: 01/17/24 1300 01/17/24 1400 01/17/24 1430 01/17/24 1530 BP: 110/54 115/69 119/59 108/54 Pulse: 84 82 84 83 Resp: 16 16 Temp: SpO2: 91% 91% 92% 94% Intake/Output: No intake/output data recorded. No intake or output data in the 24 hours ending 01/17/24 1608 Net intake/output since admission: Net IO Since Admission: No IO data has been entered for this period [01/17/24 1608] PHYSICAL EXAM General Appearance: no acute distress, no pallor HEENT: Extra ocular movements intact, no scleral icterus, mucous membrane moist, external ears normal Neck: Supple, FROM Lungs: respiratory effort normal, crackles bilaterally, no wheezes/rales/rhonchi Heart: Regular rate and regular rhythm, no murmur Abdomen: soft, non-tender, non-distended MSK/Extremities: No edema, pulses 2+. No obvious deformity. Skin: No lesions, no rash. No jaundice. Neurologic: AOx3, no focal deficits, speech clear Psych: Mood congruent affect, responds appropriately to questions. SCHEDULED HOSPITAL MEDICATIONS azithromycin, 500 mg, Intravenous, Once PRN Medications: Drips: heparin, 0.1-40 Units/kg/hr LABS Results from last 7 days Lab Units 01/17/24 1301 WBC 10*3/uL 20.05* HEMOGLOBIN g/dL 9.4* MCV fL 92.7 Results from last 7 days Lab Units 01/17/24 1301 WBC 10*3/uL 20.05* HEMOGLOBIN g/dL 9.4* MCV fL 92.7 Results from last 7 days Lab Units 01/17/24 1301 SODIUM mEq/L 135* POTASSIUM mEq/L 3.0* CHLORIDE mEq/L 100 CO2 mEq/L 25.6 BUN mg/dL 32* PHOSPHORUS mg/dL 3.7 Results from last 7 days Lab Units 01/17/24 1301 AST U/L 41* ALT U/L 41* Results from last 7 days Lab Units 01/17/24 1301 INR 1.32* PROTIME Seconds 16.6* No lab exists for component: "APH", "APCO2", "APO2" No lab exists for component: "POCGLU" Microbiology: No results found for the last 90 days. OTHER DATA EKG Review: No results found for this or any previous visit (from the past 4464 hours). Echo: No echocardiogram results found for the past 12 months Stress Test: Cath: Radiology Review: XR chest 1 view Result Date: 01/17/2024 EXAM: XR CHEST 1 VIEW DATE: 01/17/2024 12:55 INDICATION: CP COMPARISON: None. TECHNIQUE: AP chest. FINDINGS: Lines, tubes and hardware: Combination pacer-ICD has leads overlying the right atrium and right ventricle. Lungs and pleura: Pulmonary opacities within the left midlung and right lower lobe. The costophrenic sulci are sharp without effusion. Heart and mediastinum: The heart size is normal. Vascular calcifications are present at the aorta. Bones and soft tissues: No acute abnormality. Age-related degenerative findings. Left midlung and right lower lobe pulmonary opacities suggesting multifocal infection. Cosigned by Kalie Freed MD at 01/18/2024 5:37 PM CEMETERY MANAGER TERY MANAGER TERY MANAGER Associated attestation - Kalie Freed MD - 01/18/2024 5:37 PM CEMETERY MANAGER The patient was seen and examined with the resident. The relevant lab results, imaging and EKGs were personally reviewed, and the medications were reconciled. I agree with above mentioned assessment and plan. Total amount of critical care time spent throughout the day excluding procedural time was - 35 minutes. The patient remain critically ill, and requires ICU level of care. Patient Active Problem List Diagnosis Date Noted Emphysema lung ([facility]) 01/18/2024 Acute respiratory failure with hypoxemia ([facility]) 01/18/2024 VT (ventricular tachycardia) ([facility]) 01/17/2024 VF (ventricular fibrillation) ([facility]) ([facility]) 01/17/2024 Anxiety 01/17/2024 Depression 01/17/2024 Multifocal pneumonia 01/17/2024 Carotid artery stenosis 01/17/2024 Mixed hyperlipidemia 01/17/2024 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 01/17/2024 Hyponatremia 01/17/2024 Hypokalemia 01/17/2024 Hypocalcemia 01/17/2024 Transaminitis 01/17/2024 Normocytic anemia 01/17/2024 Atrial fibrillation/flutter ([facility]) 01/17/2024 Cardiac defibrillator in situ 04/17/2023 Internal Medicine [facility] Procedure Notes Date/Time Note Provider Source 2024-01-27 10:30:00 Images from the original note were not included. Speech-Language Pathology [facility] MEETING MANAGER FIBEROPTIC ENDOSCOPIC EVALUATION OF SWALLOWING (FEES) Patient Name: Esequiel Chew Jr. Today's Date: 01/27/2024 Room: [facility] FEES EVALUATION SUMMARY: Pt appears safe to start an easy to chew/thin liquid diet with strict aspiration precautions. RECOMMENDATIONS: Diet Recommendations: Soft and bite size/thin liquids Medications: As tolerated, Whole with drink, Whole in puree, One pill at a time, Crushed in puree with MD approval Swallow Precautions: Upright to 90 degrees, Remain upright after meals 30 minutes, Alternate liquids/solids, Small bites/sips, Feed only when alert Supervision Recommended: Close supervision Oral care: Regular toothbrush PROGNOSIS: Good PLAN: Treatment/Interventions: Instrumental Assessments Frequency: 3-4 times per week GENERAL INFORMATION: Reason for Consult: Pt was referred for a FEES evaluation in the setting of further assessment of the pharyngeal swallow. Oxygenation: Nasal cannula Behavior:Cooperative Level of Consciousness: Awake & alert Pain: Diet Prior to this Evaluation: Level 0- Thin Liquids and Level 6- Dysphagia Soft and Bite-Sized Preferred Language: Burmese PRE-ASSESSMENT: MEETING MANAGER Pre-Assessment Current Method of Nutrition: Oral intake FEES PROCEDURE: MEETING MANAGER present on this date for instrumental swallow study. MEETING MANAGER passed the scope through the right nare, views of the hypopharynx and larynx obtained. Anatomy appears WFL. MEETING MANAGER provided the pt with trials of thin liquid, mildly thick liquid, puree and regular texture PO. Oral phase c/b posterior loss with all trials. Pharyngeal phase c/b decreased epiglottic inversion and decreased laryngeal sensation. Deficits resulted shallow penetration with mildly thick liquid. Shallow penetration was observed with thin liquid when mixed with regular texture PO x1. Mild pharyngeal residue remained after the swallow. At this time the pt appears safe to initiate a soft and bite sized with thin liquid diet. MEETING MANAGER provided the pt with strict aspiration precautions that the pt verbalized he will follow. MEETING MANAGER instructed that the pt not mix consistencies at this time. Pt verbalized understanding. If concern for aspiration arises please discontinue diet and consult speech therapy services. MEETING MANAGER to continue to follow for dysphagia treatment. EXAMINATION METHOD: Examination Method Previous MBS or FEES: Yes Previous MBS/FEES comment: Pt on an easy to chew/thin liquid diet. Time out protocol completed: Yes Respiratory Status: Nasal cannula Foreign Body Obstruction: DHT ANATOMICAL OVERVIEW Anatomical Overview Views of The Larynx and Vocal Folds Included: Within Functional Limits Secretions: 0-Normal amount of secretions, mucosa moist, but no saliva flowing Velopharyngeal Closure: Within Functional Limits Epiglottis: Within Functional Limits Valleculae: Within Functional Limits Arytenoids: Within Functional Limits Posterior Pharyngeal Wall: Within Functional Limits True Vocal Cords at Rest: Within Functional Limits True Vocal Cords During Voicing: Within Functional Limits FEES BOLUS: Bolus 1: Bolus 1 Texture: 0 Thin Method of Feeding: Spoon, Straw Oral Phase Observations: Posterior loss Swallow Initiated: Lateral channels Nicole-Valleculae Residue: II- Trace 1-5% Trace Coating of The Mucosa Penetration-Aspiration Scale: 3: Material enters the airway, remains above the vocal folds, and is not ejected from the airway. Bolus 2: Bolus 2 Texture: 2 Mildly Thick Method of Feeding: Straw Oral Phase Observations: Posterior loss Swallow Initiated: Lateral channels Penetration-Aspiration Scale: 3: Material enters the airway, remains above the vocal folds, and is not ejected from the airway. Bolus 3: Bolus 3 Texture: 4 Pureed Method of Feeding: Spoon Oral Phase Observations: Posterior loss Swallow Initiated: Valleculae [place]-Valleculae Residue: III-Mild 5-25% Epiglottic Ligament Visible Penetration-Aspiration Scale: 1: Material does not enter airway Bolus 4: Bolus 4 Texture: 7 Regular Swallow Initiated: Valleculae Penetration-Aspiration Scale: 1: Material does not enter airway OUTCOME MEASURES: International Dysphagia Diet Standardization Initiative - IDDSI Solids - 6 - Soft & Bite Sized Liquids - 0 - Thin IDDSI Level - 7 FUNCTIONAL ORAL INTAKE SCALE (FOIS), CARTER ET AL., 2005: 6- Total oral diet with multiple consistencies without special preparation, but with specific food limitations DYSPHAGIA OUTCOME AND SEVERITY SCALE (ANDREA), O'LANI ET AL., 1999: 6 = Within functional limits/modified independence. Normal diet, functional swallow. Patient may have mild oral or pharyngeal delay, retention, or trace epiglottal undercoating but independently and spontaneously compensates/clears. May need extra time for meal. Have no aspiration or penetration across consistencies. GOALS: Encounter Goals Encounter Goals (Active) Pt will tolerate a soft/bite size with thin liquid diet without concern for aspiration. Start: 01/27/24 Expected End: 02/18/24 LTG - Patient will improve on swallowing outcome measure (Progressing) Start: 01/18/24 Expected End: 03/14/24 STG - Improve airway protection (Progressing) Start: 01/18/24 Expected End: 03/14/24 STG - Participate in an instrumental swallow study (Progressing) Start: 01/18/24 Expected End: 03/14/24 Speech-Language/Pathology Treatment Plan, taught by ANDREW Quezada at 01/27/2024 2:15 PM. Learner: Patient Readiness: Acceptance Method: Explanation Response: Verbalizes Understanding Results of Exam, taught by ANDREW Quezada at 01/27/2024 2:15 PM. Learner: Patient Readiness: Acceptance Method: Explanation Response: Verbalizes Understanding Education Comments No comments found. If this is the last documented treatment, then it will signify discharge from acute care prior to discharge from the therapy service and will serve as the discharge summary. Therapy discharge recommendations are made by determining the patient's prior level of function, assessing current function level and establishing rehab potential. The overall discharge plan may be affected by input from Physicians, Care Coordination, medical condition/status, family support and insurance benefits. ANDREW Quezada [facility] 2024-01-22 14:50:00 Images from the original note were not included. Speech-Language Pathology [facility] MEETING MANAGER MODIFIED BARIUM SWALLOW STUDY (MBSS) Patient Name: Esequiel Chew Jr. Today's Date: 01/22/2024 [facility]: [facility] MBSS EVALUATION SUMMARY: MEETING MANAGER present on this date for MBS. Prior to the exam the pt was NPO with DHT access. Pt participating in MBS given concern for aspiration during the swallow. MEETING MANAGER provided the pt with trials of thin liquid, mildly thick liquid, puree and regular texture PO. Oral phase c/b posterior loss with all trials and brisk AP transit. Pharyngeal phase c/b decreased epiglottic inversion. Deficits resulted in shallow penetration with thin liquid and flash penetration with mildly thick liquid. The pt was able to tolerate trials of puree and regular texture PO without any penetration/aspiration. The pt presented with ild vallecular residue after the swallow. This improved with liquid wash. At this time time the presents with mild-moderate oropharyngeal dysphagia. It is recommended that the pt be started on a soft/bite size with mildly thick liquid. If concern for aspiration arises please discontinue diet and consult speech therapy services. MEETING MANAGER to continue to follow for dysphagia treatment. RECOMMENDATIONS: Diet Recommendations: Soft and bite size with mildly thick liqud. Medications: As tolerated, One pill at a time, Whole in puree, Crushed in puree with MD approval Swallow Precautions: Upright to 90 degrees, Remain upright after meals 30 minutes, Alternate liquids/solids, Small bites/sips, Feed only when alert Oral care: Suction toothbrush , Every 6 hours PROGNOSIS: Good PLAN: Frequency: 1-2 times per week GENERAL INFORMATION: Reason for Consult: Pt was referred for a MBSS evaluation in the setting of ongoing evaluation of the pharyngeal swallow. Oxygenation: Room air Behavior:Cooperative Level of Consciousness: Awake & alert Pain: Diet Prior to this Evaluation: Level 2- Mildly-thick Liquids and Level 6- Dysphagia Soft and Bite-Sized Preferred Language: Burmese PRE-ASSESSMENT: MEETING MANAGER Pre-Assessment Current Method of Nutrition: Dobhoff Tube VIDEO FLUOROSCOPIC EXAM: Video Fluoroscopic Exam Patient Position: In a chair, Upright Viewing Plane: Lateral Feeding Assistance: Clinician provided bolus trials Follow Directions/Commands Given: Yes Respiratory Status: Nasal cannula IMPAIRMENT PROFILE: Impairment Profile Lip Closure: Within Functional Limits Tongue Control During Bolus Hold: Within Functional Limits Bolus Preparation for Mastication: Within Functional Limits Bolus Transport and Lingual Motion: Within Functional Limits Soft Palate Elevation: Within Functional Limits Tongue Base Retraction: Within Functional Limits Laryngeal Elevation: Within Functional Limits Anterior Hyoid Excursion: Within Functional Limits Epiglottic Movement: Impaired Laryngeal Vestibular Closure: Within Functional Limits Pharyngeal Stripping Wave: Unable to Determine/Assess Pharyngoesophageal Segment Opening: Within Functional Limits Pharyngeal Contraction: Impaired Esophageal Clearance: Within Functional Limits MBSS BOLUS: Bolus 1: Clinical Measure 1 IDDSI Texture: 0- Thin Bolus Hold: >50% Post loss Bolus Transport: Brisk Initiation of Pharyngeal Swallow: Valleculae Penetration-Aspiration Scale: 3: Material enters the airway, remains above the vocal folds, and is not ejected from the airway. Bolus 2: Clinical Measure 2 IDDSI Texture: 2- Mildly thick Bolus Hold: >50% Post loss Bolus Transport: Brisk Initiation of Pharyngeal Swallow: Valleculae Penetration-Aspiration Scale: 2: Material enters the airway, remains above the vocal folds, and is ejected from the airway. Bolus 3: Clinical Measure 3 IDDSI Texture: 4- Pureed Bolus Hold: >50% Post loss Initiation of Pharyngeal Swallow: Valleculae Penetration-Aspiration Scale: 1: Material does not enter airway Bolus 4: Clinical Measure 4 IDDSI Texture: 7- Regular Initiation of Pharyngeal Swallow: Valleculae Penetration-Aspiration Scale: 1: Material does not enter airway AMOUNT OF RESIDUE AND LOCATION: Amount of Residue and Location (on the worst texture) Valleculae Clearance: Residue Collection Present Pyriform Sinuses Clearance: Residue Collection Present OUTCOME MEASURES: International Dysphagia Diet Standardization Initiative - IDDSI Solids - 6 - Soft & Bite Sized Liquids - 2 - Mildly Thick IDDSI Level - 5 FUNCTIONAL ORAL INTAKE SCALE (FOIS), CARTER ET AL., 2005: 5- Total oral diet with multiple consistencies, but requiring special preparation or compensations DYSPHAGIA OUTCOME AND SEVERITY SCALE (ANDREA), O'LANI ET AL., 1999: 4 = Mild to moderate dysphagia: Intermittent supervision/cueing, one or two consistencies restricted. May exhibit one or more of the following: -Retention in the oral cavity that is cleared with cue. -Retention in pharynx cleared with cue. -Aspiration with one consistency, with weak or no reflexive cough. --Or airway penetration to the level of the vocal cords with cough with two consistencies. --Or airway penetration to the level of the vocal cords without cough with one consistency GOALS: Encounter Goals Encounter Goals (Active) Pt will tolerate a soft and bite size with thin liquid diet without concern for aspiration. Start: 01/22/24 Expected End: 02/12/24 LTG - Patient will improve on swallowing outcome measure (Progressing) Start: 01/18/24 Expected End: 03/14/24 STG - Improve airway protection (Progressing) Start: 01/18/24 Expected End: 03/14/24 STG - Participate in an instrumental swallow study (Progressing) Start: 01/18/24 Expected End: 03/14/24 EDUCATION: Education Documentation No documentation found. Education Comments No comments found. If this is the last documented treatment, then it will signify discharge from acute care prior to discharge from the therapy service and will serve as the discharge summary. Therapy discharge recommendations are made by determining the patient's prior level of function, assessing current function level and establishing rehab potential. The overall discharge plan may be affected by input from Physicians, Care Coordination, medical condition/status, family support and insurance benefits. Tiffany Oseguera CCC-MEETING MANAGER [facility] 2024-01-22 10:15:00 Speech-Language Pathology [facility] MEETING MANAGER FIBEROPTIC ENDOSCOPIC EVALUATION OF SWALLOWING (FEES) Patient Name: Esequiel Chew Jr. Today's Date: 01/22/2024 [facility]: [facility] FEES EVALUATION SUMMARY: Suspected aspiration during the swallow MBS recommended. RECOMMENDATIONS: NPO pending MBSS. Oral care: Suction toothbrush , Every 2 hours PROGNOSIS: Good PLAN: Frequency: 1-2 times per week GENERAL INFORMATION: Reason for Consult: Pt was referred for a FEES evaluation in the setting of ongoing evaluation of pharyngeal swallow. Oxygenation: Nasal cannula Behavior:Cooperative Level of Consciousness: Awake & alert Pain: Diet Prior to this Evaluation: NPO Preferred Language: Burmese PRE-ASSESSMENT: MEETING MANAGER Pre-Assessment Current Method of Nutrition: Dobhoff Tube FEES PROCEDURE: MEETING MANAGER present on this date for instrumental swallow study. MEETING MANAGER passed the scope through the right nare, views of the hypopharynx and larynx obtained. Anatomy appears WFL at this time. MEETING MANAGER provided the pt with trials of thin liquid, mildly thick liquid and puree. Oral phase c/b posterior loss with all trials. Pharyngeal phase c/b decreased epiglottic inversion. Deficits resulted in deep penetration of thin liquid with thin liquid before the swallow. Throughout trials the pt presented with an inconsistent throat clear. It is recommended that the pt be remain NPO and participate in MBS to ask risk of aspiration during the swallow. EXAMINATION METHOD: Examination Method Previous MBS or FEES: Yes Previous MBS/FEES comment: Following previous FEES, it was recommended that pt remain NPO with DHT. Time out protocol completed: Yes Respiratory Status: Nasal cannula Foreign Body Obstruction: DHT ANATOMICAL OVERVIEW Anatomical Overview Views of The Larynx and Vocal Folds Included: Within Functional Limits Secretions: 0-Normal amount of secretions, mucosa moist, but no saliva flowing Velopharyngeal Closure: Within Functional Limits Epiglottis: Within Functional Limits Valleculae: Within Functional Limits Arytenoids: Within Functional Limits Posterior Pharyngeal Wall: Within Functional Limits True Vocal Cords at Rest: Within Functional Limits True Vocal Cords During Voicing: Within Functional Limits FEES BOLUS: Bolus 1: Bolus 1 Texture: 0 Thin Method of Feeding: Spoon, Cup, Straw Oral Phase Observations: Posterior loss Swallow Initiated: Valleculae, Pyriform sinus Penetration-Aspiration Scale: 5: Material enters the airway, contacts the vocal folds, and is not ejected from the airway. Bolus 2: Bolus 2 Texture: 2 Mildly Thick Method of Feeding: Straw Swallow Initiated: Valleculae Bolus 3: Bolus 3 Texture: 4 Pureed Oral Phase Observations: Posterior loss Swallow Initiated: Valleculae [place]-Valleculae Residue: III-Mild 5-25% Epiglottic Ligament Visible Penetration-Aspiration Scale: 2: Material enters the airway, remains above the vocal folds, and is ejected from the airway. OUTCOME MEASURES: International Dysphagia Diet Standardization Initiative - IDDSI Solids - N/A Liquids - N/A FUNCTIONAL ORAL INTAKE SCALE (FOIS), CARTER ET AL., 2005: 1- Nothing by mouth GOALS: Encounter Goals Encounter Goals (Active) LTG - Patient will improve on swallowing outcome measure (Progressing) Start: 01/18/24 Expected End: 03/14/24 STG - Improve airway protection (Progressing) Start: 01/18/24 Expected End: 03/14/24 STG - Participate in an instrumental swallow study (Progressing) Start: 01/18/24 Expected End: 03/14/24 EDUCATION: Education Documentation No documentation found. Education Comments No comments found. If this is the last documented treatment, then it will signify discharge from acute care prior to discharge from the therapy service and will serve as the discharge summary. Therapy discharge recommendations are made by determining the patient's prior level of function, assessing current function level and establishing rehab potential. The overall discharge plan may be affected by input from Physicians, Care Coordination, medical condition/status, family support and insurance benefits. Tiffany Oseguera CCC-MEETING MANAGER [facility] 2024-01-21 10:47:58 [facility] ENDOSCOPY LAB BRIEF POSTOP NOTE Please refer to EPIC procedure note (under "Chart review: Procedures tab") for full narrative Procedure: EGD Pre-Op Diagnosis: Orophayngeal dysphagia Post-Op Diagnosis: Oropharyngeal dysphagia, non-obstructive mild Schatzki's ring Endoscopist: Dr. Ledbetter Senior Marketing Associate/Fellow/Resident(s ): Dr. Nieves Sedation: anesthesia TIVA EBL: minimal Specimens: yes Grafts and Implants: None Complications: no Disposition: to recovery in stable condition then back to unit Brief findings: Mild non-obstructive Schatzki's ring s/p bold biopsy disruption Small hiatal hernia Mid and lower esophageal biopsies NGT replaced; placement confirmed by endoscopy Recommendations: Confirm NGT placement; XR ordered Follow up pathology No significant lesions seen that could be contributing to dysphagia Continue speech therapy evaluation GI will sign off at this time. Please page GI fellow monitor and storage bin tender with questions or concerns. - This is a brief note used for immediate communication. See complete procedure note for full details in the 'chart review' section, under the 'procedures' tab. The note will generally be available within 24 hours. -------- Cosigned by Myah Ledbetetr MD at 01/21/2024 12:11 PM CEMETERY MANAGER TERY MANAGER TERY MANAGER Internal Medicine Physician [facility] 2024-01-18 13:20:00 Associated Order(s): MEETING MANAGER FEES PROCEDURE Images from the original note were not included. Speech-Language Pathology [facility] MEETING MANAGER FIBEROPTIC ENDOSCOPIC EVALUATION OF SWALLOWING (FEES) Patient Name: Susan Parker Today's Date: 01/18/2024 Room: [place] [id number] FEES EVALUATION SUMMARY: RECOMMENDATIONS: Diet Recommendations: NPO with alternate means of nutrition Medications: Non oral Patient may have up to 10 ice chips an hour only after aggressive oral care. Oral care: Suction toothbrush , Every 2 hours MEETING MANAGER to follow up with dysphagia management and repeat instrumental as indicated. PROGNOSIS: Good PLAN: Treatment/Interventions: Instrumental Assessments, Swallow function Frequency: 1-2 times per week GENERAL INFORMATION: Reason for Consult: Pt was referred for a FEES evaluation. Oxygenation: Nasal canula Behavior:Cooperative Level of Consciousness: Awake & alert Diet Prior to this Evaluation: NPO Preferred Language: Burmese PRE-ASSESSMENT: MEETING MANAGER Pre-Assessment Current Method of Nutrition: NPO until cleared by Speech FEES PROCEDURE: The Patient was educated re: the purpose of the test and the procedure. The Patient was given the chance to ask questions re: the procedure and provided verbal assent. The [employer] [employer] Swallow[facility] was utilized at this evaluation. Pt completed instrumental assessment of the swallow while seated upright in bed. Time out was performed, and the flexible endoscope was passed through the right naris, through the velopharyngeal port, and into the oropharynx where visualization of the hypopharynx was obtained. Laryngeal anatomy was WFL. Patient was presented with po trials of thin liquid via tsp/straw, nectar thick liquid via strawm and puree mixed with food grade green dye for contrast. The oral phase was c/b decreased tongue base retraction and posterior loss. The pharyngeal phase was c/b suspected decreased pharyngeal constriction, epiglottic inversion, and pharyngeal closure. Penetration [PAS 4] (suspected [PAS 8]) was indicated with thin liquids, penetration [PAS 6] indicated with nectar thick liquids, and penetration [PAS 3] indicated with puree. A cued cough was ineffective to clear airway invasion. Patient with mild to moderate oropharyngeal dysphagia. Swallow safety and efficiency are impaired. Non-oral nutrition/hydration is indicated at this time. EXAMINATION METHOD: Examination Method Previous MBS or FEES: No Time out protocol completed: Yes Respiratory Status: Nasal cannula ANATOMICAL OVERVIEW Anatomical Overview Views of The Larynx and Vocal Folds Included: Within Functional Limits Secretions: 0-Normal amount of secretions, mucosa moist, but no saliva flowing Velopharyngeal Closure: Within Functional Limits Epiglottis: Within Functional Limits Valleculae: Within Functional Limits Arytenoids: Within Functional Limits Posterior Pharyngeal Wall: Within Functional Limits True Vocal Cords at Rest: Within Functional Limits FEES BOLUS: Bolus 1: Bolus 1 Texture: 0 Thin Oral Phase Observations: Posterior loss Swallow Initiated: Laryngeal vestibule Nicole-Valleculae Residue: II- Trace 1-5% Trace Coating of The Mucosa Nicole-Pyriform Sinus Residue: II- Trace 1-5% Trace Coating of The Mucosa Penetration-Aspiration Scale: 4: Material enters the airway, contacts the vocal folds, and is ejected from the airway. Timing of Airway Invasion: Before the swallow Response to Airway Invasion: Absent response Bolus 2: Bolus 2 Texture: 2 Mildly Thick Oral Phase Observations: Posterior loss Swallow Initiated: Laryngeal vestibule Nicole-Valleculae Residue: II- Trace 1-5% Trace Coating of The Mucosa [place]-Pyriform Sinus Residue: II- Trace 1-5% Trace Coating of The Mucosa Penetration-Aspiration Scale: 6: Material enters the airway, passes below the vocal folds, and is ejected into the larynx or out of the airway. Timing of Airway Invasion: Before the swallow Response to Airway Invasion: Productive spontaneous cough Bolus 3: Bolus 3 Texture: 4 Pureed Oral Phase Observations: Posterior loss Swallow Initiated: Valleculae Nicole-Valleculae Residue: II- Trace 1-5% Trace Coating of The Mucosa Nicole-Pyriform Sinus Residue: II- Trace 1-5% Trace Coating of The Mucosa Penetration-Aspiration Scale: 3: Material enters the airway, remains above the vocal folds, and is not ejected from the airway. Timing of Airway Invasion: During the swallow (inferred) Response to Airway Invasion: Absent response OUTCOME MEASURES: International Dysphagia Diet Standardization Initiative - IDDSI Solids - N/A Liquids - N/A IDDSI Level - 0 FUNCTIONAL ORAL INTAKE SCALE (FOIS), CATRER ET AL., 2005: 1- Nothing by mouth DYSPHAGIA OUTCOME AND SEVERITY SCALE (ANDREA), O'LANI ET AL., 1999: 4 = Mild to moderate dysphagia: Intermittent supervision/cueing, one or two consistencies restricted. May exhibit one or more of the following: -Retention in the oral cavity that is cleared with cue. -Retention in pharynx cleared with cue. -Aspiration with one consistency, with weak or no reflexive cough. --Or airway penetration to the level of the vocal cords with cough with two consistencies. --Or airway penetration to the level of the vocal cords without cough with one consistency GOALS: Encounter Goals Encounter Goals (Active) LTG - Patient will improve on swallowing outcome measure Start: 01/18/24 STG - Improve airway protection Start: 01/18/24 STG - Participate in an instrumental swallow study Start: 01/18/24 EDUCATION: Education Documentation Speech-Language/Pathology Treatment Plan, taught by ANDREW Ram at 01/18/2024 2:26 PM. Learner: Patient Readiness: Eager Method: Explanation Response: Verbalizes Understanding Results of Exam, taught by ANDREW Ram at 01/18/2024 2:26 PM. Learner: Patient Readiness: Eager Method: Explanation Response: Verbalizes Understanding Education Comments No comments found. If this is the last documented treatment, then it will signify discharge from acute care prior to discharge from the therapy service and will serve as the discharge summary. Therapy discharge recommendations are made by determining the patient's prior level of function, assessing current function level and establishing rehab potential. The overall discharge plan may be affected by input from Physicians, Care Coordination, medical condition/status, family support and insurance benefits. ANDREW Ram TERY MANAGER [facility] Notes Date/Time Note Provider Source Referral ID Status Reason Start Date Expiration Date Visits Requested Visits Authorized [id number] Pending Review Specialty Services Required 4 03/27/2024 999 999 TERY MANAGER* Home Health (Routine) - Pending Review Specialty Diagnoses / Procedures Referred By Javi t Referred To Contact Home Health Services Diagnoses Cavitary lesion of lung Aspiration pneumonia of both lungs, unspecified aspiration pneumonia type, unspecified part of lung (CMS/HCC) (HCC) Multifocal pneumonia VF (ventricular fibrillation) (CMS/HCC) (HCC) VT (ventricular tachycardia) ([facility]) Mark Limon MD [address] [facility] [address] [place] [address] Phone: tel: fax: Referral ID Status Reason Start Date Expiration Date Visits Requested Visits Authorized [id number] Pending Review Specialty Services Required 4 03/25/2024 999 [address] [id number] 14:57:54* * Auth/Cert (Routine) Specialty Diagnoses / Procedures Referred By Contjovon t Referred To Contact Diagnoses Arrhythmia Chest pain, unspecified type Procedures APPROVED Kalie Freed MD [address] [facility] [address] [address] Phone: tel: fax: [facility] [place] [facility] (4 Cardiac Care Unit) [address] [place] [phone] Phone: tel: Referral ID Status Reason Start Date Expiration Date Visits Re quested Visits Authorized [id number] 1 1 [id number] 14:57:54 [id number] 14:57:54* Audit-C Score Answer Date of Assessment Author 0 01/19/2024 11:29 PM Angie Lake RN * Intimate Partner Violence Question Answer Date of Assessment Author Within the last year, have y ou been humiliated or emotionally abused in other ways by your partner or ex-partner? No 01/19/2024 11:29 PM Angie Lake, SANYA Within the last year, have y ou been afraid of your partner or ex-partner? No 01/19/2024 11:29 PM Angie Lake RN Within the last year, have y ou been raped or forced to have any kind of sexual activity by your partner or ex-partner? No 01/19/2024 11:29 PM Angie Lake, SANYA Within the last year, have y ou been kicked, hit, slapped, or otherwise physically hurt by your partner or ex-partner? No 01/19/2024 11:29 PM Angie Lake RN * * Calculated C-SSRS Risk Score (Lifetime/Recent) Answer Date of Assessment Author No Risk Indicated 01/17/2024 12:47 PM Marisel Cheung RN * [place] Suicide Severity Rating Scale (Screener/Recent Self-Report) Question Answer Date of Assessment Author 1. Wish to be (Past 1 Month) No 024 12:47 PM CEMETERY MANAGER Marisel Soriano, RN 2. Non-Specific Active Suici jung Thoughts (Past 1 Month) No 01/17/2024 12:47 PM CEMETERY MANAGER Keila Soriano RN 6. Suicidal Behavior (Lifetime) No 12:47 PM CEMETERY MANAGER Marisel Soriano, RN [place] [id number] 14:57:54* Gem Jacques PTA - 01/27/2024 1:46 PM CEMETERY MANAGER Physical Therapy 01/27/24 0903 Pain Assessment Pain Assessment DVPRS Pain Score 6 Pain Rating Scale (DVPRS) 5 Pain Type Chronic pain Pain Location Back Pain Orientation Mid;Lower TERY MANAGER * Tiffany Oseguera [facility]-MEETING MANAGER - 01/27/2024 10:15 AM CEMETERY MANAGER Images from the original note were not included. Speech-Language Pathology [facility] MEETING MANAGER DYSPHAGIA TREATMENT Patient Name: Esequiel Chew Jr. Today's Date: 01/27/2024 [facility] IMPRESSIONS: Pt to participate in instrumental swallow study. RECOMMENDATIONS: Diet Recommendations: Soft and bite size with mildly thick liquid Medications: As tolerated, One pill at a time, Whole in puree, Crushed in puree with MD approval Swallow Precautions: Upright to 90 degrees, Remain upright after meals 30 minutes, Alternate liquids/solids, Small bites/sips, Feed only when alert Oral care: Suction toothbrush , Every 2 hours, As needed FEES on this date. PROGNOSIS: Good PLAN: Treatment/Interventions: Instrumental Assessments Frequency: 3-4 times per week GENERAL INFORMATION: Oxygenation: Nasal cannula Behavior:Cooperative Level of Consciousness: Awake & alert Diet Prior to this Treatment: Level 2- Mildly-thick Liquids and Level 6- Dysphagia Soft and Bite-Sized Preferred Language: Burmese TREATMENT SUMMARY: MEETING MANAGER present on this date for ongoing dysphagia treatment. MEETING MANAGER provided the pt with at home thickener packets. MEETING MANAGER provided detailed instructions regarding how to thicken liquids to mildly thick consistency. The pt verbalized understanding. Pt requesting that he participate in instrumental swallow study before discharge 2/ living far from the hospital. Pt agreeable to participate in FEES on this date. OUTCOME MEASURES: International Dysphagia Diet Standardization Initiative - IDDSI Solids - 6 - Soft & Bite Sized Liquids - 2 - Mildly Thick IDDSI Level - 5 GOALS: Encounter Goals Encounter Goals (Active) LTG - Patient will improve on swallowing outcome measure (Progressing) Start: 01/18/24 Expected End: 03/14/24 STG - Improve airway protection (Progressing) Start: 01/18/24 Expected End: 03/14/24 STG - Participate in an instrumental swallow study (Progressing) Start: 01/18/24 Expected End: 03/14/24 Patient Education:Education Documentation No documentation found. Education Comments No comments found. If this is the last documented treatment, then it will signify discharge from acute care prior to discharge from the therapy service and will serve as the discharge summary. Therapy discharge recommendations are made by determining the patient's prior level of function, assessing current function level and establishing rehab potential. The overall discharge plan may be affected by input from Physicians, Care Coordination, medical condition/status, family support and insurance benefits. KATELYN QuezadaMEETING MANAGER TERY MANAGER * June, PLUG CUTTER - 01/27/2024 9:03 AM CEMETERY MANAGER Physical Therapy Treatment Session Note Patient Name: Esequiel Chew Jr. Today's Date: 01/27/2024 Preferred Language: Burmese Assessment & Plan Assessment and Plan: PT Assessment: Pt tolerates session despite reporting back pain. Rated 6/10 limiting further gait. Pt SBA with bed mobility and transfers. CGA with ambulation. No LOB observed. Pt reported eager to go home and happy doing better medically. Pt will cont to benefit from skilled therapy while inhouse to progress to mobility. Therapy discharge recommendations are made by determining the patient's prior level of function, assessing current function level and establishing rehab potential. The overall discharge plan may be affected by input from Physicians, Care Coordination, medical condition/status, family support and insurance benefits. Subjective"Yeah let's get in a morning walk." Pain: 01/27/24 0903Pain Assessment Pain Assessment DVPRS Pain Score 6 Pain Rating Scale (DVPRS) 5 Pain Type Chronic pain Pain Location Back Pain Orientation Mid;Lower ObjectiveGeneral Visit Information: PT Last Visit PT Received On: 01/27/24 CognitionBehavior/Cognition: Alert, Cooperative, Pleasant mood Orientation Level: Oriented X4 TreatmentRN cleared session. Pt supine alert and awake. Agreeable to treatment. 2L O2 NC. Reported soiled. SBA rolling L<>R with pericare. Once completed, pt transferred EOB. No dizziness reported, however reported back pain. Agreeable to cont session. Pt transitioned to stand to RW. Ambulated into hallway. Returned to room. Transferred BTB. Pt positioned for comfort. Essentials near. NAD upon exit. RN notified. Therapeutic activity:Therapeutic Activity Therapeutic Activity Time Entry: 18 Bed Mobility 1:Level of Assistance 1: Supervision/touching assistance Bed Mobility Comments 1: SBA with task Assistive Devices And Adaptive Equipments: Bed rail Bed Mobility 2:Level of Assistance 2: Supervision/touching assistance Bed Mobility Comments 2: SBA with task Bed Mobility To/From: Sitting EOB to supine Assistive Devices And Adaptive Equipments: No device Bed Mobility 3:Level of Assistance 3: Setup/clean up assistance Bed Mobility Comments 3: SBA with task Bed Mobility To/From: Roll left/right Assistive Devices And Adaptive Equipments: Bed rail Transfers 1: Level of Assistance 1: Supervision/touching assistance Trials/Comments 1: SBA guarding with task Transfer To/From: [id number] Assistive Devices And Adaptive Equipments: Walker, front-wheeled Gait training: Gait Training Time Entry: 15 Gait Training Activity 1:Distance (enter in feet): 140' Gait Training Activity 1: Indoor surface Assistive Devices And Adaptive Equipments: Walker, front-wheeled Level of Assistance 1: Supervision/touching assistance Gait Training Activity 1 Comment: CGA with task. Demonstrates forward flex posture requiring cues for posture. Reported back pain limiting further ambulation. Fatigued with task. No LOB. AM-PAC Basic Mobility:AM-PAC Basic Mobility Inpatient Turning in bed without bedrails: A Little Lying on back to sitting on edge of flat bed: A Lot Bed to chair: None Standing up from chair: None Walk in room: A Little Climbing 3-5 stairs: A Lot Mobility Inpatient Raw Score: 18 JH-HL Goal: 6 Mobility: Highest Level of Mobility Performed (JH-HLM)-HL Goal: 6 Modified [place] Patient Education: Education Documentation No documentation found. Education Comments No comments found. Goals:Encounter Goals Encounter Goals (Active) Pt will complete bed mobility modified independently with or without use of the bedrails. Start: 01/19/24 Expected End: 02/16/24 Pt will ambulate 200 ft with or without least restrictive assistive device and modified independent level of assistance. Start: 01/19/24 Expected End: 02/16/24 Pt with ascend and descend 7 steps modified independently with use of one or more hand rails. Start: 01/19/24 Expected End: 02/16/24 Pt will complete sit to/from stand and stand pivot transfers with modified independence using least restrictive assistive device. Start: 01/19/24 Expected End: 02/16/24 Ana Luisa Salmon, PT, DPT Treatment Note: If this is the last documented treatment, then it will signify discharge from acute care prior to discharge from the therapy service and will serve as the discharge summary. Gem Jacques PTA TERY MANAGER * Alan Holly - 01/26/2024 4:37 PM CEMETERY MANAGER [facility]. [facility] Per Lionel, delivery of portable tank at bedside will be today by 1700. Home setup will be delivered s/p discharge. CM & ordering team made aware. TERY MANAGER * Jose Carlos Little OT - 01/26/2024 3:45 PM CEMETERY MANAGER Treatment Session Note Patient Name: Esequiel Chew Jr. Today's Date: 01/26/2024 Preferred Language: Burmese Assessment & Plan Pt tolerated session well. OT tx focusing on functional transfers, standing balance, increasing activity tolerance and ADL participation. Pt continues to demonstrate increased independence with all transitional mobility and ADLs requiring less assistance. Pt demonstrated good standing balance with functional mobility training. Pt required seated rest breaks after standing FA and ADLs secondary to decreased activity tolerance. Pt is motivated and actively engaging in all aspects of therapy. Pt is performing close to baseline level of function and presents as LOW Fall risk and requires 1 person CGA with A.E. for functional mobility and ADLs. Pt will benefit from continued skilled acute care OT services to address deficits and promote safe and IND ADL participation + reduce caregiver burden. Pt left sitting in BSCh, 2L 02 on and all needs within reach. RN informed. Assessment: OT Assessment Results: Impaired ADL status, Impaired upper extremity strength, Impaired endurance, Impaired gross motor control Prognosis: Good Evaluation/Treatment Tolerance: Patient tolerated treatment well Medical Staff Made Aware: Yes Strengths: Coping skills, Insight into deficits, Attitude of self Plan: Treatment Plan/Goals Established with Patient/Caregiver: Yes Treatment Interventions: ADL retraining, Endurance training, Functional transfer training, Patient/family training, UE strengthening/ROM OT Plan: Skilled OT (Cont OT POC) OT Frequency: 3-5 times per week OT Discharge Recommendations: Home Health OT OT Planned Treatments: Activities of Daily Living, Balance training, Caregiver training, Energy conservation training, Mobility training, Safety education, Therapeutic activities, Therapeutic exercises Duration: Discharge Subjective "I am ready to go home to my pup!" Pain: Pain Assessment Pain Assessment: DVPRS (01/26/20241017) Pain Score: 0 (01/26/20241017) Vital Signs: Patient Vitals for the past 24 hrs: BP MAP (mmHg) Pulse Resp SpO2 01/26/24 1515 -- -- 82 16 97 % 01/26/24 1515 124/58 80 -- -- -- 01/26/24 1306 -- -- 77 18 93 % 01/26/24 1304 -- -- 86 18 92 % 01/26/24 1304 -- -- 91 18 (!) 84 % 01/26/24 1303 -- -- 91 18 (!) 86 % 01/26/24 1301 -- -- 94 18 (!) 87 % 01/26/24 1255 -- -- 78 18 95 % 01/26/24 1253 -- -- 79 18 96 % 01/26/24 1149 -- -- 78 15 96 % 01/26/24 1149 118/53 75 -- -- -- 01/26/24 0719 -- -- 86 -- 95 % 01/26/24 0718 -- -- 87 18 94 % 01/26/2418 159/72 101 -- -- -- 01/26/249 -- -- 76 18 95 % 01/26/249 142/69 93 -- -- -- 01/25/247 -- -- 80 18 95 % 01/25/247 123/53 76 -- -- -- 01/25/241947 -- -- 92 17 97 % 01/25/241947 118/67 84 -- -- -- 01/25/24 1608 -- -- 89 19 96 % 01/25/24 1607 147/65 92 -- -- -- No data found. Objective General Visit Information: Family/Caregiver Present: No Self Care: ADL Self Care/Home Management (ADLs) Time Entry: 29 Grooming Assistance: Supervision/touching assistance (Standing at sink) LE Dressing Assistance: Supervision/touching assistance (Sitting in bed) Toileting Assistance: Supervision/touching assistance Toileting Deficit: Steadying, Supervison/safety 01/26/24 1018 OT Last Visit OT Received On 01/26/24 Time Calculation Start Time 1018 Stop Time 1047 Time Calculation (min) 29 min General Family/Caregiver Present No Precautions UE Weight Bearing Status FWB LE Weight Bearing Status FWB Medical Precautions Fall, safety, Standard Pain Assessment Pain Assessment DVPRS Pain Score 0 ADL Self Care/Home Management (ADLs) Time Entry 29 Grooming Assistance Supervision/touching assistance (Standing at sink) LE Dressing Assistance Supervision/touching assistance (Sitting in bed) Toileting Assistance Supervision/touching assistance Toileting Deficit Steadying;Supervison/safety Bed Mobility 1 Level of Assistance 1 Setup/clean up assistance Bed Mobility To/From Supine to sit on EOB Assistive Devices And Adaptive Equipments Bed rail Transfers Transfer Yes Transfer 1 Level of Assistance 1 Supervision/touching assistance Transfer To/From Edz-yk-Wszij/Kczkz-ii-Vci Assistive Devices And Adaptive Equipments (2ue SUPPORT) Transfers 2 Technique 2 Via walking Level of Assistance 2 Supervision/touching assistance Transfer To/From Bed;Toilet Assistive Devices And Adaptive Equipments (2 UE support) Transfers 3 Technique 3 Via walking Level of Assistance 3 Supervision/touching assistance Transfer To/From Toilet;Chair Assistive Devices And Adaptive Equipments (2UE support) Functional Mobility Functional Mobility CGA with 2UE support Activity Tolerance Endurance Tolerates 10 - 20 min exercise with multiple rests Sitting Balance Supports self independently with both upper extremities Other Activity Other Activity 1 Functional room mobility for ADL; CGA Other Activity 2 Functional sit<>Stand transfers 2x10 with SBA; 2 MIN seated rest breaks in between AM-PAC Daily Activity Inpatient Putting on and taking off regular lower body clothing 4 Bathing (including washing, rinsing, drying) 4 Toileting, which includes using toilet, bedpan or urinal 3 Putting on and taking off regular upper body clothing 4 Taking care of personal grooming such as brushing teeth 4 Eating Meals 4 AM-PAC Daily Activity Raw Score 23 OT Assessment OT Assessment Results Impaired ADL status;Impaired upper extremity strength;Impaired endurance;Impaired gross motor control Prognosis Good Evaluation/Treatment Tolerance Patient tolerated treatment well Medical Staff Made Aware Yes Strengths Coping skills;Insight into deficits;Attitude of self OT Plan Treatment Plan/Goals Established with Patient/Caregiver Yes Treatment Interventions ADL retraining;Endurance training;Functional transfer training;Patient/family training;UE strengthening/ROM OT Plan Skilled OT (Cont OT POC) OT Discharge Recommendations Home Health OT OT Planned Treatments Activities of Daily Living;Balance training;Caregiver training;Energy conservation training;Mobility training;Safety education;Therapeutic activities;Therapeutic exercises Mobility Highest Level of Mobility Performed (JH-HLM) 7 Patient Education: Education Documentation No documentation found. Education Comments No comments found. Goals: Encounter Goals Encounter Goals (Active) Patient will perform grooming with mod I standing at sink. (Progressing) Start: 01/19/24 Patient will perform toilet transfer with mod I using LRAD. (Progressing) Start: 01/19/24 Patient will perform toileting with mod I in 3/3 trials. (Progressing) Start: 01/19/24 Patient will perform lower body dressing with mod I using assistive device if needed in 3/3 trials. (Progressing) Start: 01/19/24 Pt will perform >8 min of OOB ADL routine with no rest breaks to improve overall activity tolerance. (Progressing) Start: 01/19/24 Within 2 weeks of starting therapy, the patient and/or family/caregiver will demonstrate independence and be compliant in a written HEP in order to maximize gains made during therapy. (Progressing) Start: 01/19/24 Pt will tolerate a soft and bite size with thin liquid diet without concern for aspiration. Start: 01/22/24 Expected End: 02/12/24 Jose Carlos Little OTR TERY MANAGER * Marci Nails RN - 01/26/2024 3:37 PM CEMETERY MANAGER Patient has DC orders as of this writing. However, patient is unable to discharge yet at this time as delivery of portable home O2 is pending. Of note, orders for cont home O2 was placed only this afternoon. [facility] Coordinator is working on getting this DME delivered to bedside today. SANYA Prince is aware. TERY MANAGER * Alan Holly - 01/26/2024 3:26 PM CEMETERY MANAGER Home health order received for home oxygen. Per DME they do not service [place], referral sent to [facility] for STAT processing and delivery to bedside. Pending auth/delivery. TERY MANAGER * Sherri Garcia LMSW - 01/26/2024 1:51 PM CEMETERY MANAGER PT will be rafia ome with HH services. Caregiver Venus is available to clam picker pt when ready to dc. No further needs at this time. Sherri Garcia LMSW Clinical Research Specialist, Internal Medicine Case Management Department [phone] TERY MANAGER * Gem Jacques PTA - 01/26/2024 1:05 PM CEMETERY MANAGER Physical Therapy Treatment Session Note Patient Name: Esequiel Chew Jr. Today's Date: 01/26/2024 Preferred Language: Burmese First attempt to work with pt: Time In: 8860-0601. Pt reported recently worked with OT and wanting to rest. Stated "I want to catch my breath and boogie this afternoon with you." Second attempt as follows below: Assessment & Plan Assessment and Plan: PT Assessment: Pt cont to tolerate tx well. Requires little to no assist with transfers and ambulation. Able to ambulate post prior 6MWT conducted by nursing staff. Highly motivated to get better. Pt demonstrates great effort tolerating session with no overt effects. Pt will cont to benefit from skilled therapy while inhouse to increase functional mobility, strength and endurance. Therapy discharge recommendations are made by determining the patient's prior level of function, assessing current function level and establishing rehab potential. The overall discharge plan may be affected by input from Physicians, Care Coordination, medical condition/status, family support and insurance benefits. Subjective"I am ready." "I'm happy I'm getting better." Objective General Visit Information: PT Last Visit PT Received On: 01/26/24 Treatment Solar Designer/Installer SANYA Mueller at bedside. Reported recently conducted 6MWT with pt. Pt reported ready to cont with therapy. O2 95% 2L. O2 transferred to portable tank 2L. Pt transitioned to stand to RW. Ambulated into hallway. No LOB. Returned to room due to fatigue. Transferred to BS chair. Completed LE exercises. O2 stabilized 95%-96%. Repositioned for comfort. O2 returned to wall. Essentials near. NAD upon exit. RN notified. Transfers 1:Level of Assistance 1: Supervision/touching assistance Trials/Comments 1: SBA guarding with task. No LOB observed. Transfer To/From: Sci-ad-Wqsjc/Ijpmu-bq-Wvr Assistive Devices And Adaptive Equipments: Walker, front-wheeled Gait training: Gait Training Time Entry: Gait Training Activity 1:Distance (enter in feet): 135' Gait Training Activity 1: Indoor surface Assistive Devices And Adaptive Equipments: Walker, front-wheeled Level of Assistance 1: Supervision/touching assistance Gait Training Activity 1 Comment: CGA with task. Demonstrates forward flex posture requiring cues for posture. Reported L shoulder discomfort due to increase reliance onto UEs. Fatigued with task. No LOB. 01/26/24 1305Therapeutic Exercise Therapeutic Exercise Activity 1 Marches (x15) Position 1 Seated Therapeutic Exercise Activity 2 LAQs (x15) Position 2 Seated Therapeutic Exercise Acitivity 3 Hip abd/add (x30) Position 3 Seated Therapeutic Exercise Activity 4 Ankle rockers (x30) Position 4 Seated AM-PAC Basic Mobility:AM-PAC Basic Mobility Inpatient Turning in bed without bedrails: A Little Lying on back to sitting on edge of flat bed: A Little Bed to chair: A Little Standing up from chair: None Walk in room: A Little Climbing 3-5 stairs: A Lot Mobility Inpatient Raw Score: 18 JH-HLM Goal: 6 Mobility: Highest Level of Mobility Performed (JH-HLM)-HLM Goal: 6 Modified [place] Patient Education: Education Documentation No documentation found. Education Comments No comments found. Goals:Encounter Goals Encounter Goals (Active) Pt will complete bed mobility modified independently with or without use of the bedrails. Start: 01/19/24 Expected End: 02/16/24 Pt will ambulate 200 ft with or without least restrictive assistive device and modified independent level of assistance. Start: 01/19/24 Expected End: 02/16/24 Pt will tolerate a soft and bite size with thin liquid diet without concern for aspiration. Start: 01/22/24 Expected End: 02/12/24 Pt with ascend and descend 7 steps modified independently with use of one or more hand rails. Start: 01/19/24 Expected End: 02/16/24 Pt will complete sit to/from stand and stand pivot transfers with modified independence using least restrictive assistive device. Start: 01/19/24 Expected End: 02/16/24 Ana Luisa Salmon, PT, DPT Treatment Note: If this is the last documented treatment, then it will signify discharge from acute care prior to discharge from the therapy service and will serve as the discharge summary. Gem Jacques PTA TERY MANAGER * Tiffany Oseguera CCC-MEETING MANAGER - 01/26/2024 10:06 AM CEMETERY MANAGER Images from the original note were not included. Speech-Language Pathology [facility] MEETING MANAGER DYSPHAGIA TREATMENT Patient Name: Esequiel Chew Jr. Today's Date: 01/26/2024 [facility] IMPRESSIONS: Pt presenting with mild oropharyngeal dysphagia at this time. RECOMMENDATIONS: Diet Recommendations: Soft and bite size with mildly thick liqud. Medications: As tolerated, One pill at a time, Whole in puree, Crushed in puree with MD approval Swallow Precautions: Upright to 90 degrees, Remain upright after meals 30 minutes, Alternate liquids/solids, Small bites/sips, Feed only when alert Oral care: Suction toothbrush , Every 6 hours, As needed Repeat instrumental swallow study. PROGNOSIS: Good PLAN: Treatment/Interventions: Instrumental Assessments Frequency: 3-4 times per week GENERAL INFORMATION: Oxygenation: Nasal cannula Behavior:Cooperative Level of Consciousness: Awake & alert Pain: Diet Prior to this Treatment: Level 2- Mildly-thick Liquids and Level 6- Dysphagia Soft and Bite-Sized Preferred Language: Burmese TREATMENT SUMMARY: MEETING MANAGER present on this date for ongoing dysphagia treatment. Upon arrival the pt was seen sitting upright in bed. Pt with thin liquid at the bedside. MEETING MANAGER provided ongoing education to the pt regarding his risk of aspiration PNA following the results of previous FEES if he is to upgrade his liquids IND. The pt verbalized understanding. MEETING MANAGER assisted the pt is thickening 8 oz of water to mildly thick consistencies (2 thickener packets) and observed the pt with trials of mildly thick liquid with his medications. The pt was able to tolerate all trials without any overt s/s of airway invasion. At this time the pt appears safe to continue on current soft and bite size with mildly thick liquid diet. MEETING MANAGER recommended that the pt participate in a repeat instrumental swallow study, pt verbalized preference of MBS. MEETING MANAGER to plan for MBS on 01/26, if the pt is to discharge prior please order outpatient MBS. OUTCOME MEASURES: International Dysphagia Diet Standardization Initiative - IDDSI Solids - 6 - Soft & Bite Sized Liquids - 2 - Mildly Thick IDDSI Level - 5 GOALS: Encounter Goals Encounter Goals (Active) LTG - Patient will improve on swallowing outcome measure (Progressing) Start: 01/18/24 Expected End: 03/14/24 STG - Improve airway protection (Progressing) Start: 01/18/24 Expected End: 03/14/24 STG - Participate in an instrumental swallow study (Progressing) Start: 01/18/24 Expected End: 03/14/24 Patient Education:Education Documentation No documentation found. Education Comments No comments found. If this is the last documented treatment, then it will signify discharge from acute care prior to discharge from the therapy service and will serve as the discharge summary. Therapy discharge recommendations are made by determining the patient's prior level of function, assessing current function level and establishing rehab potential. The overall discharge plan may be affected by input from Physicians, Care Coordination, medical condition/status, family support and insurance benefits. KATELYN QuezadaMEETING MANAGER TERY MANAGER * Mark Limon MD - 01/26/2024 7:28 AM CEMETERY MANAGER Subjective No acute events overnight. Patient had hb drop 2 pts this am, pending repeat. Equal drop in all cell lines however, could be dilutional. Patient denies melena and bright red blood per rectum and other bleeding. Patient endorsing urinary retention with dribbling and difficulty starting and maintaining a stream. States he would like to have a straight cath and start back on home flomax. All other ROS negative. Objective Last Recorded Vitals Blood pressure 159/72, pulse 86, temperature 36.7 ?C (98.1 ?F), resp. rate 18, height 1.778 m (5' 10"), weight 82.6 kg (182 lb), SpO2 95%. Physical Exam:Gen: Resting in bed comfortably, awake, alert and oriented x4 CV: normal rate and rhythm Pulm: Equal expansion, scattered wheezing and crackles on auscultation especially posterior lateral and lower lung olivares. GI: some distension, nontender to palpation Extremities: no peripheral edema Relevant Results: reviewed Assessment:Esequiel Chew Jr. is a 73 y.o. year old male with PMH of CAD and prior PCI's, HTN, HLD, A-fib, carotid artery stenosis, COPD/emphysema, BPH, HFrEF, AICD, anxiety, depression who presented after an episode of lightheadedness followed by an ICD shock and was admitted to CCU for arrhythmia workup. Now admitted to JE unit for continued care of multifocal pneumonia and diet progression. His stay has been complicated by diarrhea that has now resolved. Medically stable on oral antibiotics as of 01/24, pending disposition planning and family decision making for discharge. Assessment & Plan Cavitary lesion of lung - ddx aspiration PNA most likely cause vs vasculitis - multifocal pneumonia with left sided cavitary lung lesions -Antimicrobials: - Azithromycin 01/16-01/18 - CTX 01/16 - Cefepime 01/16-01/20 - Vancomycin 01/16-01/18 - Unasyn 01/20-01/23 - Flagyl 01/17-01/20 - Augmentin 01/23-present (EOT 6 weeks total) -s/p IV hydrocortisone 50 mg q6h 01/17-01/20 -UA negative, HIV negative, Viral panel negative, strep pna and legionella negative -Fungal sputum culture NGTD -Blood culture NGTD -Resp gram stain growing few GPC in pairs and clusters. Culture prelim negative -MTB PCR, QuantiFERON gold negative -Pulmonology consulted with c/f necrotizing pneumonia and possibly lung abscess - no bronch at this time due to risk of worsening status - fungitel ,aspergillus, mycoplasma, histo, blasto, coccidio negative PLAN: - Augmentin for a 4-6 week course - Repeat CT scan in 10-14 days (~01/30) to assess progression if patient is still inpatient - Follow up with Pulmonology in [address] chest w contrast (we will arrange for follow up) - F/up vasculitis work up with ANCA, SHERLEY, Complement per pulm - wean to room air as tolerated Aspiration pneumonia (CMS/HCC) (HCC) - as above Dysphagia - failed FEES 01/17, 01/21 - EGD did not show any lesions that would suggest etiology of dysphagia - Barium swallow 01/21, on dysphagia PLAN: - soft and bite sized diet with mildly thick liquids, meds as tolerated VT (ventricular tachycardia) (HCC) -Has ICD in place -EP wants to transition Amiodarone to PO and consider outpatient ablation after infectious issues resolve - Amiodarone: 400mg BID for 1 week (01/18-01/25), 400mg daily 1 week (01/26-02/01), 200mg daily afterwards (02/02-) Atrial fibrillation/flutter (HCC) - not in Afib on admission PLAN: - amiodarone as above - eliquis 5mg bid 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 - history of FL in 1999 and 2004 - Tchol 56, TG 102, LDL 25 PLAN: - GDMT: * RAAS: lisinopril * BB: coreg * MRA: none * SGLT2: will consider adding after monitoring BP - continue atorvastatin 40mg - continue plavix 75mg Anxiety - wellbutrin 150mg daily - Escitalopram 5mg daily - lorazepam 0.5mg PRN q12h Depression - as above Cardiac defibrillator in situ - as above Carotid artery stenosis - as above Moderate malnutrition (CMS/HCC) (HCC) - as above Drop in hemoglobin - hbg 10.5-> 8.6 but equal drop in all cell lines - likely dilutional - stat CBC to repeat level - patient asx , denies bleeding Benign prostatic hyperplasia - pt endorsing urinary retention and bladder distention - straight cath once - restart home tamsulosin 0.4mg Current Diet: Adult Diet Dysphagia; 2 - Mildly Thick ([place]); 6 - Soft & Bite Sized (Dysphagia Advanced); No VTE Prophylaxisapixaban - 5 MG Disposition: Home with home health and oxygen Mark Limon MDInternal Medicine PGY-1 [facility] Cosigned by Flaca Grey MD at 01/26/2024 11:02 PM CEMETERY MANAGER TERY MANAGER TERY MANAGER Associated attestation - Flaca Grey MD - 01/26/2024 11:02 PM CEMETERY MANAGER I performed a history and physical examination if the patient and discussed his management with the resident. I reviewed the resident's note and agree with the documented findings and plan of care. * Jose Carlos Little OT - 01/25/2024 4:41 PM CEMETERY MANAGER Treatment Session Note Patient Name: Esequiel Chew Jr. Today's Date: 01/25/2024 Preferred Language: Burmese Assessment & Plan Pt tolerated session well. OT tx focusing on functional transfers, standing balance, increasing activity tolerance and ADL participation. Pt demonstrated increased independence with all transitional mobility requiring less assistance. Pt required frequent rest breaks with transitional mobility secondary to decreased activity tolerance. Pt demonstrated good understanding to energy conservation techniques with sit<>stand transfer training. Pt completed standing FA to increase upright tolerance to promote safe and IND functional mobility for ADL participation. Pt demonstrated increased IND with toileting ADL requiring less physical assistance. Pt is motivated and actively engaging in all aspects of therapy. Pt is performing close to baseline level of function and presents as LOW Fall risk and requires 1 person Min A with A.E. for functional mobility and ADLs. Pt will benefit from continued skilled acute care OT services to promote safe and IND ADL participation + reduce caregiver burden. Pt left sitting in BSCh, 2L 02 and all needs within reach. Family at bedside. RN informed. Assessment: OT Assessment Results: Impaired ADL status, Impaired upper extremity strength, Impaired endurance, Impaired gross motor control Prognosis: Good Evaluation/Treatment Tolerance: Patient tolerated treatment well Medical Staff Made Aware: Yes Strengths: Coping skills, Insight into deficits, Attitude of self Plan: Treatment Plan/Goals Established with Patient/Caregiver: Yes Treatment Interventions: ADL retraining, Endurance training, Functional transfer training, Patient/family training, UE strengthening/ROM OT Plan: Skilled OT (Cont OT POC) OT Frequency: 3-5 times per week OT Discharge Recommendations: Home Health OT OT Planned Treatments: Activities of Daily Living, Balance training, Caregiver training, Energy conservation training, Mobility training, Safety education, Therapeutic activities, Therapeutic exercises Duration: Discharge Subjective "I was knocking on 's door" Pain: Pain Assessment Pain Assessment: DVPRS (01/25/2024 111) Pain Score: 0 (01/25/2024 1110) Post-Therapy Intervention Pain Assessment: 0/10 Vital Signs: Patient Vitals for the past 24 hrs: BP MAP (mmHg) Pulse Resp SpO2 01/25/24 1608 -- -- 89 19 96 % 01/25/24 1607 147/65 92 -- -- -- 01/25/24 1136 -- -- 83 18 94 % 01/25/24 1135 136/50 79 -- -- -- 01/25/24 0729 -- -- 104 19 95 % 01/25/24 0729 155/63 94 -- -- -- 01/25/24 0408 -- -- 79 17 93 % 01/25/24406 137/65 89 -- -- -- 01/24/24 2353 -- -- 79 -- 95 % 01/24/242352 136/66 89 -- -- -- 01/24/241928 -- -- 89 18 96 % 01/24/241928 132/63 86 -- -- -- No data found. Objective General Visit Information: Family/Caregiver Present: Yes Others Present: Niece Self Care: ADL Self Care/Home Management (ADLs) Time Entry: 23 Toileting Assistance: Supervision/touching assistance Toileting Deficit: Verbal cueing, Steadying, Supervison/safety, Increased time to complete 01/25/24 1110 OT Last Visit OT Received On 01/25/24 Time Calculation Start Time 1110 Stop Time 1133 Time Calculation (min) 23 min General Family/Caregiver Present Yes Others Present Niece Precautions UE Weight Bearing Status FWB LE Weight Bearing Status FWB Medical Precautions Fall, safety, Standard Pain Assessment Pain Assessment DVPRS Pain Score 0 ADL Self Care/Home Management (ADLs) Time Entry 23 Toileting Assistance Supervision/touching assistance Toileting Deficit Verbal cueing;Steadying;Supervison/safety;Increased time to complete Transfer 1 Technique 1 Via walking Level of Assistance 1 Supervision/touching assistance (2 UE support) Transfer To/From Chair;Toilet Activity Tolerance Endurance Tolerates 10 - 20 min exercise with multiple rests Other Activity Other Activity 1 Functional sit<>Stand transfers 3x10; CGA, 2UE support and frequent seated rest break Other Activity 2 Pt educated on deep prused lip breathing and E.C. techniques Other Activity 3 Pt left sitting in BSCh with Niece at bedside and all needs within reach AM-PAC Daily Activity Inpatient Putting on and taking off regular lower body clothing 2 Bathing (including washing, rinsing, drying) 2 Toileting, which includes using toilet, bedpan or urinal 3 Putting on and taking off regular upper body clothing 3 Taking care of personal grooming such as brushing teeth 3 Eating Meals 3 AM-PAC Daily Activity Raw Score 16 OT Assessment OT Assessment Results Impaired ADL status;Impaired upper extremity strength;Impaired endurance;Impaired gross motor control Prognosis Good Evaluation/Treatment Tolerance Patient tolerated treatment well Medical Staff Made Aware Yes Strengths Coping skills;Insight into deficits;Attitude of self OT Plan Treatment Plan/Goals Established with Patient/Caregiver Yes Treatment Interventions ADL retraining;Endurance training;Functional transfer training;Patient/family training;UE strengthening/ROM OT Plan Skilled OT (Cont OT POC) OT Discharge Recommendations Home Health OT OT Planned Treatments Activities of Daily Living;Balance training;Caregiver training;Energy conservation training;Mobility training;Safety education;Therapeutic activities;Therapeutic exercises Mobility Highest Level of Mobility Performed (-[facility]) 6 Patient Education: Education Documentation No documentation found. Education Comments No comments found. Goals: Encounter Goals Encounter Goals (Active) Patient will perform grooming with mod I standing at sink. (Progressing) Start: 01/19/24 Patient will perform toilet transfer with mod I using LRAD. (Progressing) Start: 01/19/24 Patient will perform toileting with mod I in 3/3 trials. (Progressing) Start: 01/19/24 Patient will perform lower body dressing with mod I using assistive device if needed in 3/3 trials. (Progressing) Start: 01/19/24 Pt will perform >8 min of OOB ADL routine with no rest breaks to improve overall activity tolerance. (Progressing) Start: 01/19/24 Within 2 weeks of starting therapy, the patient and/or family/caregiver will demonstrate independence and be compliant in a written HEP in order to maximize gains made during therapy. (Progressing) Start: 01/19/24 Pt will tolerate a soft and bite size with thin liquid diet without concern for aspiration. Start: 01/22/24 Expected End: 02/12/24 Jose Carlos Little OTR TERY MANAGER * Sudha Sol RN - 01/25/2024 4:06 PM CEMETERY MANAGER CASE MANAGEMENT ROUTINE DISCHARGE PLAN NOTE LOS: 8 Barriers to Discharge: pending home health orders DISCHARGE PLAN A: Home with HH DISCHARGE PLAN B: Home with family YESENIA: 1 day TERY MANAGER * Sherri Garcia LMSW - 01/25/2024 1:17 PM CEMETERY MANAGER SW revisited with pt at bedside to follow up on dc plans. Pt worked with PT today and walked well with minimal assistance. Pt prefers to go home wit HH services. Pt will need SN, PTOT, MEDICAL TRANSCRIPTION EDITOR, FOUNTAIN VENDING MECHANIC, bedside toilet and wheelchair. Pt niece is at bedside and able to take pt home on dc. No further needs at this time. Sherri Garcia LMSW Clinical Research Specialist, Internal Medicine Case Management Department [phone] TERY MANAGER * June, PLUG CUTTER - 01/25/2024 10:18 AM CEMETERY MANAGER Physical Therapy Treatment Session Note Patient Name: Esequiel Chew Jr. Today's Date: 01/25/2024 Preferred Language: Burmese Assessment & Plan Assessment and Plan: PT Assessment: Pt tolerates session well. Motivated and pleasant. Requires no assist with bed mobility and transfers. CGA with ambulation. Fatigues with increase exertion. O2 86%-90% 2L post gait at rest. <1 min increase 92%-93% at rest. Pt demonstrates good effort tolerating session with no overt effects. Will cont to benefit from skilled therapy while inhouse to progress cardiopulmonary endurance, strength and mobility. Therapy discharge recommendations are made by determining the patient's prior level of function, assessing current function level and establishing rehab potential. The overall discharge plan may be affected by input from Physicians, Care Coordination, medical condition/status, family support and insurance benefits. Subjective"I'm ready!!" Objective General Visit Information: PT Last Visit PT Received On: 01/25/24 TreatmentTherapeutic activity: Therapeutic Activity Therapeutic Activity Time Entry: 10 Bed Mobility 1:Level of Assistance 1: Supervision/touching assistance Bed Mobility Comments 1: SBA with task Bed Mobility To/From: Supine to sit on EOB Assistive Devices And Adaptive Equipments: Bed rail Transfers 1: Technique 1: Stand pivot Level of Assistance 1: Supervision/touching assistance Trials/Comments 1: SBA guarding with task Transfer To/From: [id number] Assistive Devices And Adaptive Equipments: Walker, front-wheeled Gait training: Gait Training Time Entry: 15 Gait Training Activity 1:Distance (enter in feet): ~150' Gait Training Activity 1: Indoor surface Assistive Devices And Adaptive Equipments: Walker, front-wheeled Level of Assistance 1: Supervision/touching assistance Gait Training Activity 1 Comment: CGA with task. Demonstrates intermittent fast pace, forward flex posture. No LOB. Fatigued with task requiring two standing rest breaks Pt left [facility] post session. Essentials near. NAD upon exit. RN notified. AM-PAC Basic Mobility:AM-PAC Basic Mobility Inpatient Turning in bed without bedrails: None Lying on back to sitting on edge of flat bed: A Little Bed to chair: A Little Standing up from chair: None Walk in room: A Little Climbing 3-5 stairs: A Lot Mobility Inpatient Raw Score: 19 JH-HLM Goal: 6 Mobility: Highest Level of Mobility Performed (JH-HLM)JH-HLM Goal: 6 Modified [place] Patient Education: Education Documentation No documentation found. Education Comments No comments found. Goals:Encounter Goals Encounter Goals (Active) Pt will complete bed mobility modified independently with or without use of the bedrails. Start: 01/19/24 Expected End: 02/16/24 Pt will ambulate 200 ft with or without least restrictive assistive device and modified independent level of assistance. Start: 01/19/24 Expected End: 02/16/24 Pt will tolerate a soft and bite size with thin liquid diet without concern for aspiration. Start: 01/22/24 Expected End: 02/12/24 Pt with ascend and descend 7 steps modified independently with use of one or more hand rails. Start: 01/19/24 Expected End: 02/16/24 Pt will complete sit to/from stand and stand pivot transfers with modified independence using least restrictive assistive device. Start: 01/19/24 Expected End: 02/16/24 Ana Luisa Salmon, PT, DPT Treatment Note: If this is the last documented treatment, then it will signify discharge from acute care prior to discharge from the therapy service and will serve as the discharge summary. Gem Jacques PTA TERY MANAGER * Mark Limon MD - 01/25/2024 6:40 AM CEMETERY MANAGER Subjective No acute events overnight. Patient denies chest pain, abdominal pain, headache. Patient states diarrhea now resolved. Requests to be walked with PT. Objective Last Recorded Vitals Blood pressure 137/65, pulse 79, temperature 36.7 ?C (98.1 ?F), resp. rate 17, height 1.778 m (5' 10"), weight 82.6 kg (182 lb), SpO2 93%. Physical Exam: Gen: Resting in bed comfortably, awake, alert and oriented x4 CV: normal rate and rhythm Pulm: Equal expansion, no wheezing or crackles on auscultation GI: Soft, nontender to palpation Extremities: no peripheral edema Relevant Results: reviewed Assessment: Esequiel Chew Jr. is a 73 y.o. year old male with PMH of CAD and prior PCI's, HTN, HLD, A-fib, carotid artery stenosis, COPD/emphysema, BPH, HFrEF, AICD, anxiety, depression who presented after an episode of lightheadedness followed by an ICD shock and was admitted to CCU for arrhythmia workup. Now admitted to JE unit for continued care of multifocal pneumonia and diet progression. His stay has been complicated by diarrhea that has now resolved. Medically stable on oral antibiotics as of 01/24, pending disposition planning and family decision making for discharge. Assessment & Plan Cavitary lesion of lung - ddx aspiration PNA most likely cause vs vasculitis - multifocal pneumonia with left sided cavitary lung lesions -Antimicrobials: - Azithromycin 01/16-01/18 - CTX 01/16 - Cefepime 01/16-01/20 - Vancomycin 01/16-01/18 - Unasyn 01/20-01/23 - Flagyl 01/17-01/20 - Augmentin 01/23-present (EOT 6 weeks total) -s/p IV hydrocortisone 50 mg q6h 01/17-01/20 -UA negative, HIV negative, Viral panel negative, strep pna and legionella negative -Fungal sputum culture NGTD -Blood culture NGTD -Resp gram stain growing few GPC in pairs and clusters. Culture prelim negative -MTB PCR, QuantiFERON gold negative -Pulmonology consulted with c/f necrotizing pneumonia and possibly lung abscess - no bronch at this time due to risk of worsening status - fungitel ,aspergillus, mycoplasma, histo, blasto, coccidio negative PLAN: - Augmentin for a 4-6 week course - Repeat CT scan in 10-14 days (~01/30) to assess progression if patient is still inpatient - Follow up with Pulmonology in [address] chest w contrast (we will arrange for follow up) - F/up vasculitis work up with ANCA, SHERLEY, Complement per pulm - wean to room air as tolerated Acute respiratory failure with hypoxemia (HCC) (Resolved: 01/25/2024) - as above Aspiration pneumonia (CMS/HCC) (HCC) - as above Dysphagia - failed FEES 01/17, 01/21 - EGD did not show any lesions that would suggest etiology of dysphagia - Barium swallow 01/21, on dysphagia PLAN: - soft and bite sized diet with mildly thick liquids, meds as tolerated Diarrhea (Resolved: 01/25/2024) - was having multiple loose stools off bowel regimen - on antibiotic regimen per pulm - Cdiff panel negative, fecal leukocytes negative Plan: - continue to monitor now off tube feeds - carmen cream Hyponatremia (Resolved: 01/25/2024) - Na dropped from 146-> 130 over 24 hours - patient reports eating well - order serum osm, urine, osm and urine na wnl Plan: - repeat BMP normal, likely lab error VT (ventricular tachycardia) (HCC) -Has ICD in place -EP wants to transition Amiodarone to PO and consider outpatient ablation after infectious issues resolve - Amiodarone: 400mg BID for 1 week (01/18-01/25), 400mg daily 1 week (01/26-02/01), 200mg daily afterwards (02/02-) VF (ventricular fibrillation) (CMS/HCC) (HCC) (Resolved: 01/25/2024) - as above Atrial fibrillation/flutter (HCC) - not in Afib on admission PLAN: - amiodarone as above - eliquis 5mg bid 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 - history of FL in 1999 and 2004 - Tchol 56, TG 102, LDL 25 PLAN: - GDMT: * RAAS: lisinopril * BB: coreg * MRA: none * SGLT2: will consider adding after monitoring BP - continue atorvastatin 40mg - continue plavix 75mg Anxiety - wellbutrin 150mg daily - Escitalopram 5mg daily - lorazepam 0.5mg PRN q12h Depression - as above Cardiac defibrillator in situ - as above Carotid artery stenosis - as above Moderate malnutrition (CMS/HCC) (HCC) - as above Current Diet: Adult Diet Dysphagia; 2 - Mildly Thick ([place]); 6 - Soft & Bite Sized (Dysphagia Advanced); No VTE Prophylaxis apixaban - 5 MG Code status: FULL Contact: VIRGINIAVENUS (Niece) Mark Limon MD Internal Medicine PGY-1 [facility] Cosigned by Flaca Grey MD at 01/26/2024 12:21 AM CEMETERY MANAGER TERY MANAGER TERY MANAGER TERY MANAGER Associated attestation - Flaca Grey MD - 01/26/2024 12:21 AM CEMETERY MANAGER I performed a history and physical examination if the patient and discussed his management with the resident. I reviewed the resident's note and agree with the documented findings and plan of care. * Mark Limon MD - 01/24/2024 8:04 AM CEMETERY MANAGER Subjective No acute events overnight. Patient denies chest pain, abdominal pain, headache, difficulty breathing. Reports no resolution of diarrhea and having pain because his skin feels "raw" due to him having so many bowel movements and sitting in it. Reports working with PT was good when he got to walk and wants to continue. States talking to the [employer]en [employer] utility worker yesterday was very helpful in terms of his emotional burden and stress level. Reports he lost his phone when he got to the hospital. Reports coughing sputum. Reports eating what they bring him and not drinking more water than prior. Objective Last Recorded Vitals Blood pressure 150/64, pulse 78, temperature 36.5 ?C (97.7 ?F), resp. rate 18, height 1.778 m (5' 10"), weight 82.6 kg (182 lb), SpO2 94%. Physical Exam:Gen: Resting in bed comfortably, awake, alert and oriented x4 CV: normal rate and rhythm Pulm: Equal expansion, no wheezing or crackles on auscultation GI: Soft, nontender to palpation Extremities: no peripheral edema Relevant Results: reviewed Assessment:Esequiel Chew Jr. is a 73 y.o. year old male with PMH of CAD and prior PCI's, HTN, HLD, A-fib, carotid artery stenosis, COPD/emphysema, BPH, HFrEF, AICD, anxiety, depression who presented after an episode of lightheadedness followed by an ICD shock and was admitted to CCU for arrhythmia workup. Now admitted to JE unit for continued care of multifocal pneumonia and diet progression. His stay has been complicated by diarrhea workup/ management and now acute hyponatremia workup. Assessment & PlanDiarrhea #Diarrhea - having multiple loose stools off bowel regimen - on antibiotic regimen per pulm - low concern for infectious cause as another clear cause of WBC elevation Plan: - Cdiff panel negative - continue to monitor now off tube feeds - carmen cream - f/u fecal calproctectin Hyponatremia - Na dropped from 146-> 130 over 24 hours - patient reports eating well Plan: - repeat BMP - order serum osm, urine, osm and urine na Acute respiratory failure with hypoxemia (HCC) #acute hypoxic hypercapnic respiratory failure #multifocal pneumonia with left sided cavitary lung lesions #Aspiration PNA -Antimicrobials: - Azithromycin 01/16-01/18 - CTX 01/16 - Cefepime 01/16-01/20 - Vancomycin 01/16-01/18 - Unasyn 01/20-01/23 - Flagyl 01/17-01/20 - Augmentin 01/23-present (EOT 6 weeks total) -s/p IV hydrocortisone 50 mg q6h 01/17-01/20 -UA negative, HIV negative, Viral panel negative, strep pna and legionella negative -Fungal sputum culture prelim negative -Blood culture prelim negative -Resp gram stain growing few GPC in pairs and clusters. Culture prelim negative -MTB PCR, QuantiFERON gold negative -Pulmonology consulted with c/f necrotizing pneumonia and possibly lung abscess - no bronch at this time due to risk of worsening status - Start IV Unasyn (01/20 - ) with plan to transition to Augmentin for a 4-6 week course once patient can tolerate PO - fungitel ,aspergillus, mycoplasma, histo, blasto, coccidio negative PLAN: - will swap to oral Augmentin tomorrow once stable on new diet - Repeat CT scan in 10-14 days (~01/30) to assess progression if patient is still inpatient - Follow up with Pulmonology in [address] chest w contrast (we will arrange for follow up) - F/up vasculitis work up with ANCA, SHERLEY, Complement per pulm VT (ventricular tachycardia) (HCC) #ventricular tachycardia with ICD -EP wants to transition Amiodarone to PO and consider outpatient ablation after infectious issues resolve - Amiodarone: 400mg BID for 1 week, 400mg daily 1 week, 200mg daily afterwards VF (ventricular fibrillation) (CMS/HCC) (HCC) - as above Atrial fibrillation/flutter (HCC) - not in Afib on admission PLAN: - amiodarone as above -Transition to eliquis 5mg bid 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 - history of [place] in 1999 and 2004 - Tchol 56, TG 102, LDL 25 PLAN: - GDMT: * RAAS: lisinopril * BB: coreg * MRA: none * SGLT2: will consider adding after monitoring BP - continue atorvastatin 40mg - continue plavix 75mg Dysphagia - failed FEES 01/17, 01/21 - EGD did not show any lesions that would suggest etiology of dysphagia - Barium swallow 01/21, on dysphagia PLAN: - soft and bite sized diet with mildly thick liquids, meds as tolerated Anxiety - wellbutrin 150mg daily - Escitalopram 5mg daily - lorazepam 0.5mg PRN Depression - as above Cardiac defibrillator in situ - as above Carotid artery stenosis - as above Moderate malnutrition (CMS/HCC) (HCC) - as above Current Diet: Adult Diet Dysphagia; 2 - Mildly Thick ([place]); 6 - Soft & Bite Sized (Dysphagia Advanced) VTE Prophylaxisapixaban - 5 MG BID Reason for continued hospitalization:Code status: FULL Contact: VENUS COLEMAN (Niece) Mark Limon MDInternal Medicine PGY-1 [facility] Cosigned by Hali Pham MD at 01/24/2024 4:16 PM CEMETERY MANAGER TERY MANAGER TERY MANAGER TERY MANAGER TERY MANAGER Associated attestation - Hali Escalante MD - 01/24/2024 4:16 PMCST Teaching Attending Attestation Note I saw and evaluated the patient on 01/24/2024 , I reviewed the history, vital signs, Laboratory results , medications, and other data. I discussed the case in detail with resident physician Dr. Rausch and I agree with her findings and plan. Clinically improving and we will transition him to po antibiotics today. He takes alprazolam 0.5 mg PRN for anxiety at home 1-3 times per week. He requested one dose during my assessment. We will add it to his medical regimen prn. Hali Ocampo, [facility] Geriatric and Palliative Medicine. * Mary Mcbride - 01/23/2024 11:38 AM CEMETERY MANAGER Spiritual Care Subjective [employer] Pastoral Care Volunteer, Aleks Chin, visited the patient on Sat2023 at 11:38 am and provided spiritual support and prayer. [employer] available 06/10 in-house. Call [employer] [phone] or page [phone]. TERY MANAGER * Quentin Gonzalez MD - 01/23/2024 6:47 AM CEMETERY MANAGER Subjective NAEON, patient happy about being able to eat, wants to get stronger Complaining of some diarrhea today 01/21 Spoke with Venus who is now [facility] regarding patient's dispo. Patient wants a regular diet and to go home but he does not have care. Working to figure out situation with patient at this time. Objective Last Recorded Vitals Blood pressure 144/76, pulse 78, temperature 36.4 ?C (97.5 ?F), resp. rate 16, height 1.778 m (5' 10"), weight 82.6 kg (182 lb), SpO2 94%. Physical Exam: Vitals reviewed. Constitutional: Appearance: Normal appearance. HENT: Head: Normocephalic and atraumatic. Comments: NGT in place Nose: Nose normal. Comments: NG Tube in place Mouth/Throat: Mouth: Mucous membranes are moist. Eyes: Extraocular Movements: Extraocular movements intact. Pupils: Pupils are equal, round, and reactive to light. Cardiovascular: Rate and Rhythm: Normal rate and regular rhythm. Pulses: Normal pulses. Heart sounds: No murmur heard. Pulmonary: Effort: Pulmonary effort is normal. Breath sounds: Normal breath sounds. Abdominal: General: Abdomen is flat. Bowel sounds are normal. There is no distension. Palpations: Abdomen is soft. There is no mass. Tenderness: There is no abdominal tenderness. There is no guarding or rebound. Hernia: No hernia is present. Musculoskeletal: General: Normal range of motion. Cervical back: Normal range of motion. Skin: General: Skin is warm. Capillary Refill: Capillary refill takes less than 2 seconds. Neurological: General: No focal deficit present. Mental Status: He is alert and oriented to person, place, and time. Psychiatric: Mood and Affect: Mood normal. Behavior: Behavior normal. Assessment & Plan VT (ventricular tachycardia) (HCC) VF (ventricular fibrillation) (CMS/HCC) (HCC) Anxiety Depression Multifocal pneumonia Cardiac defibrillator in situ Carotid artery stenosis Mixed hyperlipidemia Coronary artery disease involving king salmon coronary artery of king salmon heartwithout angina pectoris Hyponatremia Hypokalemia Hypocalcemia Transaminitis Normocytic anemia Atrial fibrillation/flutter (HCC) Emphysema lung (HCC) Acute respiratory failure with hypoxemia (HCC) Moderate malnutrition (CMS/HCC) (HCC) Esequiel Chew . is a 73 y.o. year old male with PMH of CAD and prior PCI's, HTN, HLD, A-fib, carotid artery stenosis, COPD/emphysema, BPH, HFrEF, AICD, anxiety, depression who presented after an episode of lightheadedness followed by an ICD shock and was admitted to CCU for arrhythmia workup. CXR showed left midlung and right lower lobe pulmonary opacities suggesting multifocal infection. CTA chest showed bilateral consolidations, some of which contain cavitary changes; enlarged mediastinal and bilateral hilar lymph notes, indeterminate. Pt admitted to CCU and followed by [facility] for multifocal pneumonia with cavitary lesions, and acute hypoxic respiratory failure. Per cardiology, recommendations for medical management of VT with amiodarone taper, and outpatient evaluation for VT ablation and PVI. Pt underwent FEES on 01/17 showing mild to moderate oropharyngeal dysphagia, with MEETING MANAGER recommendations for NPO with alternate means of nutrition. Pt currently has NG tube in place. Passed barium swallow, started on dysphagia diet and will progress per speech. Will keep in NG tube for 1 more day. #Diarrhea- having multiple loose stools off bowel regimen - on antibiotic regimen per pulm - low concern for infectious cause as another clear cause of WBC elevation Plan: - Cdiff panel - continue to monitor now off tube feeds - avoid loperamide until negative Cdiff #ventricular tachycardia with ICD-EP wants to transition Amiodarone to PO and consider outpatient ablation after infectious issues resolve -Needs anticoagulation for A fib. Currently on Heparin drip. Transition to orals before discharge pendig further work up with Barium swallow - 400mg BID for 1 week, 400mg daily 1 week, 200mg daily on #Afib- not in Afib on admission PLAN: - amiodarone as above -Transition to eliquis 5mg bid #CAD- history of FL in 1999 and 2004 - Tchol 56, TG 102, LDL 25 PLAN: - GDMT: * RAAS: lisinopril * BB: coreg * MRA: none * SGLT2: will consider adding after monitoring BP - continue atorvastatin - continue plavix #acute hypoxic hypercapnic respiratory failure#multifocal pneumonia with left sided cavitary lung lesions #Aspiration PNA -Received 3 days of Azithromycin and Vancomycin -Discontinue hydrocortisone 50 mg q6h for PNA day 3 of 5 -UA negative, HIV negative, Viral panel negative, strep pna and legionella negative -Fungal sputum culture prelim negative -Blood culture prelim negative -Resp gram stain growing few GPC in pairs and clusters. Culture prelim negative -MTB PCR, QuantiFERON gold negative -Pulmonology consulted with c/f necrotizing pneumonia and possibly lung abscess - no bronch at this time due to risk of worsening status - Stop hydrocortisone, Start IV Unasyn (01/20 - ) with plan to transition to Augmentin for a 4-6 week course once patient can tolerate PO - fungitel ,aspergillus, mycoplasma, histo, blasto, coccidio negative PLAN: - will swap to oral Augmentin tomorrow once stable on new diet - Repeat CT scan in 10-14 days to assess progression if patient is still inpatient - Follow up with Pulmonology in [address] chest w contrast (we will arrange for follow up) - F/up vasculitis work up with ANCA, SHERLEY, Complement #Dysphagia- failed FEES 01/17, 01/21 - EGD did not show any lesions that would suggest etiology of dysphagia - Barium swallow 01/21, on dysphagia PLAN: - soft and bite sized diet with mildly thick liquids, meds as tolerated As of 01/21, it is my assessment that the patient has capacity. He is aware ofhis current medical conditions, the underlying plan and the risks involved at this time. He is able to appreciate the importance of treatment and the risks of not attaining treatment at this time. Code status: FULLContact: VENUS COLEMAN (Niece) DVT PPX: eliquis 5mg BID PUD PPX : Not indicated Diet: Heart Healthy Current Diet: Adult Diet Dysphagia; 2 - Mildly Thick ([place]); 6 - Soft & Bite Sized (Dysphagia Advanced) This patient was seen and staffed with attending physician, Dr. Ocampo. Seethe attending attestation for further details and final recommendations. Quentin Gonzalez MDInternal Medicine PGY-1 [facility] | [facility] Cosigned by Hali Pham MD at 01/23/2024 4:07 PM CEMETERY MANAGER TERY MANAGER TERY MANAGER TERY MANAGER Associated attestation - Hali Escalante MD - 01/23/2024 4:07 PMCST Teaching Attending Attestation Note I saw and evaluated the patient on 01/23/2024 , I reviewed the history, vital signs, Laboratory results , medications, and other data. I discussed the case in detail with resident physician Dr. Gonzalez and I agree with his findings and plan. Patient with episodes of diarrhea for the past 2 days. We will do C-Diff today. He is not in any laxative or bowel regimen. Hali Ocampo, [facility] Palliative [facility]. * Sherri Garcia LMSW - 01/22/2024 1:30 PM CEMETERY MANAGER SW met with pt at bedside to revisit on MPOA. Pt now wanting to complete and the OOHDNR as well. RONEN with notary credentials, assisted pt in completing MPOA and OOHDNR paperwork. Pt is documented as having medical decision making capacity and able to sign on his own. Paperwork has been completed. Copy on pt chart, originals given to pt. No further notary needs at this time. SW also offered SNF for placement, pt has declined at this time. SW will revisit with pt on Thursday. Sherri Garcia LMSW Clinical Research Specialist, Internal Medicine Case Management Department [phone] TERY MANAGER TERY MANAGER * June, PLUG CUTTER - 01/22/2024 10:03 AM CEMETERY MANAGER Physical Therapy Treatment Session Note Patient Name: Esequiel Chew Jr. Today's Date: 01/22/2024 Preferred Language: Burmese Assessment & Plan Assessment and Plan: PT Assessment: Pt tolerates session well. Pleasant and receptive. Requires little to no assistance with bed mobility, transfers and gait. Extensive time given for bowel incontinence. Able to ambulate few steps in room utilizing RW Del. No LOB observed. Pt demonstrates good effort tolerating session. Pt will cont to benefit from skilled therapy while inhouse to progress mobility, strength and endurance. Therapy discharge recommendations are made by determining the patient's prior level of function, assessing current function level and establishing rehab potential. The overall discharge plan may be affected by input from Physicians, Care Coordination, medical condition/status, family support and insurance benefits. SubjectiveAgreeable to treatment Objective General Visit Information: PT Last Visit PT Received On: 01/22/24 GeneralFamily/Caregiver Present: Yes Others Present: Rebeca espinosa TreatmentRN cleared session. Pt supine alert and awake. Family member at bedside. Pt reported soiled. Extensive time given for clean-up. Pt SBA rolling L<>R with task. Once completed, transferred EOB. Reported slight lightheadedness. Resolved with acclimation. MEETING MANAGER at bedside. Pt transitioned to stand to RW Del. Ambulated few steps to chair. Positioned for comfort. NAD upon exit. Left in care with MEETING MANAGER. RN notified. Therapeutic activity:Therapeutic Activity Therapeutic Activity Time Entry: 33 Bed Mobility 1:Level of Assistance 1: Supervision/touching assistance Bed Mobility Comments 1: Pt SBA with task Bed Mobility To/From: Supine to sit on EOB Assistive Devices And Adaptive Equipments: Bed rail Transfers 1: Technique 1: Stand pivot, Via walking Level of Assistance 1: Supervision/touching assistance Trials/Comments 1: Pt Del with task. Cued fo posture Transfer To/From: [id number]-kl-[id number] Assistive Devices And Adaptive Equipments: Walker, front-wheeled Gait Training Activity 1: Distance (enter in feet): ~8 Gait Training Activity 1: Indoor surface Assistive Devices And Adaptive Equipments: Walker, front-wheeled Level of Assistance 1: Supervision/touching assistance Gait Training Activity 1 Comment: Del with task. Demonstrates slight forward flex posture, decrease step length and stride. No LOB. AM-PAC Basic Mobility:AM-PAC Basic Mobility Inpatient Turning in bed without bedrails: A Little Lying on back to sitting on edge of flat bed: A Little Bed to chair: A Little Standing up from chair: A Little Walk in room: A Little Climbing 3-5 stairs: A Little Mobility Inpatient Raw Score: 18 JH-HLM Goal: 6 Mobility: Highest Level of Mobility Performed (JH-HLM)JH-HLM Goal: 6 Modified [place] Patient Education: Education Documentation No documentation found. Education Comments No comments found. Goals:Encounter Goals Encounter Goals (Active) Pt will complete bed mobility modified independently with or without use of the bedrails. Start: 01/19/24 Expected End: 02/16/24 Pt will ambulate 200 ft with or without least restrictive assistive device and modified independent level of assistance. Start: 01/19/24 Expected End: 02/16/24 Pt will tolerate a soft and bite size with thin liquid diet without concern for aspiration. Start: 01/22/24 Expected End: 02/12/24 Pt with ascend and descend 7 steps modified independently with use of one or more hand rails. Start: 01/19/24 Expected End: 02/16/24 Pt will complete sit to/from stand and stand pivot transfers with modified independence using least restrictive assistive device. Start: 01/19/24 Expected End: 02/16/24 Ana Luisa Salmon, PT, DPT Treatment Note: If this is the last documented treatment, then it will signify discharge from acute care prior to discharge from the therapy service and will serve as the discharge summary. Gem Jacques PTA TERY MANAGER * Myah Arcos MD - 01/22/2024 6:21 AM CEMETERY MANAGER Subjective NAEON, patient reports being upset with night nursing staff because they would not allow him to turn down the thermostat. Patient reports that he is very distressed and having panic attacks regarding this and home situations including recent fraud scheme and a pip bursting on his property. Discussed with patient recommendations for SNF but patient very persistent he wants to go home. Venus (friend) to come by today to discuss dispo with patient. Patient would also very much like NGT removed. Discussed the importance of keeping the tube at this time pending barium swallow. Patient denies chest pain, SOB at this time. Reports feeling febrile and diarrhea with two soft stools per day. Spoke with Venus who is now [facility] regarding patient's dispo. Patient wants a regular diet and to go home but he does not have care. Working to figure out situation with patient at this time. Objective Last Recorded Vitals Blood pressure 163/71, pulse 98, temperature 37.1 ?C (98.7 ?F), resp. rate 16, height 1.778 m (5' 10"), weight 82.6 kg (182 lb), SpO2 97%. Physical Exam:Vitals reviewed. Constitutional: Appearance: Normal appearance. HENT: Head: Normocephalic and atraumatic. Comments: NGT in place Nose: Nose normal. Mouth/Throat: Mouth: Mucous membranes are moist. Eyes: Extraocular Movements: Extraocular movements intact. Pupils: Pupils are equal, round, and reactive to light. Cardiovascular: Rate and Rhythm: Normal rate and regular rhythm. Pulses: Normal pulses. Heart sounds: No murmur heard. Pulmonary: Effort: Pulmonary effort is normal. Breath sounds: Normal breath sounds. Abdominal: General: Abdomen is flat. Bowel sounds are normal. There is no distension. Palpations: Abdomen is soft. There is no mass. Tenderness: There is no abdominal tenderness. There is no guarding or rebound. Hernia: No hernia is present. Musculoskeletal: General: Normal range of motion. Cervical back: Normal range of motion. Skin: General: Skin is warm. Capillary Refill: Capillary refill takes less than 2 seconds. Neurological: General: No focal deficit present. Mental Status: He is alert and oriented to person, place, and time. Psychiatric: Mood and Affect: Mood normal. Behavior: Behavior normal. Assessment & PlanVT (ventricular tachycardia) (HCC) VF (ventricular fibrillation) (CMS/HCC) (HCC) Anxiety Depression Multifocal pneumonia Cardiac defibrillator in situ Carotid artery stenosis Mixed hyperlipidemia Coronary artery disease involving king salmon coronary artery of king salmon heartwithout angina pectoris Hyponatremia Hypokalemia Hypocalcemia Transaminitis Normocytic anemia Atrial fibrillation/flutter (HCC) Emphysema lung (HCC) Acute respiratory failure with hypoxemia (HCC) Moderate malnutrition (CMS/HCC) (HCC) Esequiel Chew . is a 73 y.o. year old male with PMH of CAD and prior PCI's, HTN, HLD, A-fib, carotid artery stenosis, COPD/emphysema, BPH, HFrEF, AICD, anxiety, depression who presented after an episode of lightheadedness followed by an ICD shock and was admitted to CCU for arrhythmia workup. CXR showed left midlung and right lower lobe pulmonary opacities suggesting multifocal infection. CTA chest showed bilateral consolidations, some of which contain cavitary changes; enlarged mediastinal and bilateral hilar lymph notes, indeterminate. Pt admitted to CCU and followed by [facility] for multifocal pneumonia with cavitary lesions, and acute hypoxic respiratory failure. Per cardiology, recommendations for medical management of VT with amiodarone taper, and outpatient evaluation for VT ablation and PVI. Pt underwent FEES on 01/17 showing mild to moderate oropharyngeal dysphagia, with MEETING MANAGER recommendations for NPO with alternate means of nutrition. Pt currently has NG tube in place, receiving tube feeds. #ventricular tachycardia with ICD-EP wants to transition Amiodarone to PO and consider outpatient ablation after infectious issues resolve -Needs anticoagulation for A fib. Currently on Heparin drip. Transition to orals before discharge pendig further work up with Barium swallow #Afib- not in Afib on admission PLAN: - heparin gtt - amiodarone as above -Transition to plavix and eliquis on discharge. Dc aspirin. #CAD- history of FL in 1999 and 2004 - Tchol 56, TG 102, LDL 25 PLAN: - GDMT: * RAAS: lisinopril * BB: coreg * MRA: none * SGLT2: will consider adding after monitoring BP - continue atorvastatin - continue plavix #acute hypoxic hypercapnic respiratory failure#multifocal pneumonia with left sided cavitary lung lesions #Aspiration PNA -Received 3 days of Azithromycin and Vancomycin -Discontinue hydrocortisone 50 mg q6h for PNA day 3 of 5 -UA negative, HIV negative, Viral panel negative, strep pna and legionella negative -Fungal sputum culture prelim negative -Blood culture prelim negative -Resp gram stain growing few GPC in pairs and clusters. Culture prelim negative -MTB PCR, QuantiFERON gold negative PLAN:-Pulmonology consulted with c/f necrotizing pneumonia and possibly lung abscess - no bronch at this time due to risk of worsening status - Stop hydrocortisone, Start IV Unasyn (01/20 - ) with plan to transition to Augmentin for a 4-6 week course once patient can tolerate PO - Repeat CT scan in 10-14 days to assess progression if patient is still inpatient - Follow up with Pulmonology in [address] chest w contrast (we will arrange for follow up) - F/up Fungitell, mycoplasma, aspergillus, cocci, histo, and blasto - F/up vasculitis work up with ANCA, SHERLEY, Complement #Dysphagia- failed FEES 01/17, 01/21 - EGD did not show any lesions that would suggest etiology of dysphagia PLAN: - Barium swallow 01/21 - Continue NGT and tube feeds at this time - Will consider Brain MRI based on barium swallow results As of 01/21, it is my assessment that the patient has capacity. He is aware ofhis current medical conditions, the underlying plan and the risks involved at this time. He is able to appreciate the importance of treatment and the risks of not attaining treatment at this time. Code status: FULLContact: VENUS COLEMAN (Niece) DVT PPX: heparin gtt PUD PPX : Not indicated Diet: Heart Healthy Current Diet: NPO Diet NPO except: Ice chips (okay for meds) This patient was seen and staffed with attending physician, Dr. Larson. See the attending attestation for further details and final recommendations. Myah Arcos DOUniversity [facility]als [facility] Centerjulia Russo | [facility] PGY1 Cosigned by Tobin Larson MD at 01/22/2024 9:37 PM CEMETERY MANAGER TERY MANAGER TERY MANAGER TERY MANAGER Associated attestation - Tobin Larson MD - 01/22/2024 9:37 PM CST I saw and evaluated the patient, participating in the huertas portions of the service. I reviewed the resident's note. I agree with the resident's findings and plan. Barium swallow test pending.Depending on the results, will need to determine if he would need MRI or not. It seems that his dysphagia has been going on for a long time. Less likely to be able to fix it during this hospitalization. Therefore, depending on the results of swallowing test, will determine further plans. * Marci Nails RN - 01/21/2024 12:00 PM CEMETERY MANAGER CASE MANAGEMENT ROUTINE DISCHARGE PLAN NOTE LOS: 4 Barriers to Discharge: EGD w/ NGT placement 01/20, NPO w/ NGT, failed swallow eval 01/19. Discharge Plan A: SNF pending selection. Discharge Plan B: Home w/ HH. YESENIA: >2 days. FRANKLIN Lerner, RN-BC, [facility] [employer] Medicine Service TERY MANAGER * Jimy Muhammad, PT - 01/21/2024 10:30 AM CEMETERY MANAGER Physical Therapy Encounter Note Patient Name: Esequiel Chew Jr. Today's Date: 01/21/2024 Missed Treatment Time and Reason Chart review completed. Pt off the floor for testing/procedure. Will continue to follow and attempt PT treatment as schedule permits. Electronically Signed by: Jimy Muhammad PT, DPT, MS TERY MANAGER * Linda Bella MD - 01/21/2024 2:38 AM CEMETERY MANAGER Subjective Esequiel Chew Jr. is a 73 y.o. year old male with PMH of CAD and prior PCI's, HTN, HLD, A-fib, carotid artery stenosis, COPD/emphysema, BPH, HFrEF, AICD, anxiety, depression who presented after an episode of lightheadedness followed by an ICD shock and was admitted to CCU for arrhythmia workup. CXR showed left midlung and right lower lobe pulmonary opacities suggesting multifocal infection. CTA chest showed bilateral consolidations, some of which contain cavitary changes; enlarged mediastinal and bilateral hilar lymph notes, indeterminate. Pt admitted to CCU and followed by [facility] for multifocal pneumonia with cavitary lesions, and acute hypoxic respiratory failure. Per cardiology, recommendations for medical management of VT with amiodarone taper, and outpatient evaluation for VT ablation and PVI. Pt underwent FEES on 01/17 showing mild to moderate oropharyngeal dysphagia, with MEETING MANAGER recommendations for NPO with alternate means of nutrition. Pt currently has NG tube in place, receiving tube feeds. Patient performed bedside swallow for me and did not have cough or aspiration event on it. GI was consulted for several months of dysphagia requiring feeding tube while inpatient. Pending EGD in AM. Objective Last Recorded Vitals Blood pressure 133/64, pulse 90, temperature 36.2 ?C (97.2 ?F), temperature source Oral, resp. rate 16, height 1.778 m (5' 10"), weight 82.6 kg (182 lb), SpO2 96%. Physical Exam:Vitals reviewed. Constitutional: Appearance: Normal appearance. HENT: Head: Normocephalic and atraumatic. Nose: Nose normal. Mouth/Throat: Mouth: Mucous membranes are moist. Eyes: Extraocular Movements: Extraocular movements intact. Pupils: Pupils are equal, round, and reactive to light. Cardiovascular: Rate and Rhythm: Normal rate and regular rhythm. Pulses: Normal pulses. Heart sounds: No murmur heard. Pulmonary: Effort: Pulmonary effort is normal. Breath sounds: Normal breath sounds. Abdominal: General: Abdomen is flat. Bowel sounds are normal. There is no distension. Palpations: Abdomen is soft. There is no mass. Tenderness: There is no abdominal tenderness. There is no guarding or rebound. Hernia: No hernia is present. Musculoskeletal: General: Normal range of motion. Cervical back: Normal range of motion. Skin: General: Skin is warm. Capillary Refill: Capillary refill takes less than 2 seconds. Neurological: General: No focal deficit present. Mental Status: He is alert and oriented to person, place, and time. Psychiatric: Mood and Affect: Mood normal. Behavior: Behavior normal. Assessment & PlanVT (ventricular tachycardia) (HCC) VF (ventricular fibrillation) (CMS/HCC) (HCC) Anxiety Depression Multifocal pneumonia Cardiac defibrillator in situ Carotid artery stenosis Mixed hyperlipidemia Coronary artery disease involving king salmon coronary artery of king salmon heartwithout angina pectoris Hyponatremia Hypokalemia Hypocalcemia Transaminitis Normocytic anemia Atrial fibrillation/flutter (HCC) Emphysema lung (HCC) Acute respiratory failure with hypoxemia (HCC) Moderate malnutrition (CMS/HCC) (HCC) #ventricular tachycardia with ICD-EP wants to transition Amiodarone to PO and consider outpatient ablation after infectious issues resolve -Needs anticoagulation for A fib. Currently on Heparin drip. Transition to orals before discharge -BP meds currently held before EGD #Afib- not on anticoagulation or any rhythm control - not in Afib on admission PLAN: - heparin gtt - amiodarone as above -Transition to plavix and eliquis on discharge. Dc aspirin. #CAD- history of FL in 1999 and 2004 - Tchol 56, TG 102, LDL 25 PLAN: - GDMT: * RAAS: lisinopril * BB: coreg * MRA: none * SGLT2: will consider adding after monitoring BP - continue atorvastatin - continue plavix -Held BP meds for EGD #acute hypoxic hypercapnic respiratory failure#multifocal pneumonia with left sided cavitary lung lesions #Aspiration PNA -Received 3 days of Azithromycin and Vancomycin -Continue hydrocortisone 50 mg q6h for PNA day 3 of 5 -UA negative, HIV negative, Viral panel negative, strep pna and legionella negative -Fungal sputum culture prelim negative -Blood culture prelim negative -Resp gram stain growing few GPC in pairs and clusters. Culture prelim negative -MTB PCR, QuantiFERON gold negative -Fungitell, mycoplasma, aspergillus pending -Also pending cocci, histo, and blasto Plan: -Continue empiric cefepime day 4 for concern for multifocal pneumonia on CT scan. Will need a 14 day course. If WBC and clinically improving can ultimately discharge with Augmentin for total of 14 days of antibiotics but will keep on Cefepime for now -Continue Flagyl day 3 for diarrhea coverage -repeat CT scan in 8 weeks #Dysphagia- failed FEES 01/17, cortrack in place - will need repeat eval prior to discharge -Pending EGD in AM Code status: FULLContact: VENUS COLEMAN (Niece) DVT PPX: heparin gtt PUD PPX : Not indicated Diet: Heart Healthy Current Diet: NPO Diet NPO except: Ice chips (okay for meds) Linda Bella MDInternal Medicine PGY-3 [facility] | [facility] Cosigned by Tobin Larson MD at 01/21/2024 10:00 PM CEMETERY MANAGER TERY MANAGER TERY MANAGER TERY MANAGER Associated attestation - Tobin Larson MD - 01/21/2024 10:00 PM CST I saw and evaluated the patient, participating in the huertas portions of the service. I reviewed the resident's note. I agree with the resident's findings and plan. Multifocal pneumonia/pulmonary abscess - probably due to chronic aspirationWould need barium swallow test EGD - no significant lesions seen that could be contributing to dysphagia * KAYLI Powell - 01/21/2024 12:54 AM CEMETERY MANAGER Received message from nursing that pt had new o2 requirement up to 3l, increased work of breathing. On exam pt stated he was beginning to breath more comfortably on oxygen. Did use accessory muscles for breathing, vitals stable. Respirations 20+, lungs PT was alert and oriented, lung sounds did exhibit some coarseness. Ordered chest x-ray, vbg, cbc, cmp. Asked nursing to call rt for breathing treatment. Will continue to monitor for further desaturation change in mental status or new symptoms. TERY MANAGER * ANDREW Ram - 01/20/2024 1:31 PM CEMETERY MANAGER Images from the original note were not included. [facility] MEETING MANAGER DYSPHAGIA TREATMENT Patient Name: Esequiel Chew Jr. Today's Date: 01/20/2024 [place]: [place] [address] [address] IMPRESSIONS: Patient seen for dysphagia management. Patient completed pharyngeal strengthening exercises characterized by effortful swallows of weighted bolus (ice chips) x15 and zeynep x15. MEETING MANAGER instructed to completed daily exercise program at least 3 times a day. Patient verbalized understanding. RECOMMENDATIONS: Diet Recommendations: NPO with alternate means of nutrition Medications: Non oral Patient may have ~10 ice chips an hour after oral care Oral care: Suction toothbrush , Every 6 hours MEETING MANAGER to follow up with dysphagia management and repeat instrumental as indicated. PROGNOSIS: Good PLAN: Treatment/Interventions: Instrumental Assessments, Swallow function Frequency: 1-2 times per week GENERAL INFORMATION: Oxygenation: Room air Behavior:Cooperative Level of Consciousness: Awake & alert Diet Prior to this Treatment: Temporary Means of Alternative Nutrition & Hydration and NPO Preferred Language: Burmese OUTCOME MEASURES: International Dysphagia Diet Standardization Initiative - IDDSI Solids - N/A Liquids - N/A IDDSI Level - 0 GOALS: Encounter Goals Encounter Goals (Active) LTG - Patient will improve on swallowing outcome measure (Progressing) Start: 01/18/24 Expected End: 03/14/24 STG - Improve airway protection (Progressing) Start: 01/18/24 Expected End: 03/14/24 STG - Participate in an instrumental swallow study Start: 01/18/24 Expected End: 03/14/24 Patient Education:Education Documentation Speech-Language/Pathology Treatment Plan, taught by ANDREW Ram at 01/20/2024 1:31 PM. Learner: Patient Readiness: Eager Method: Explanation Response: Verbalizes Understanding Results of Exam, taught by ANDREW Ram at 01/20/2024 1:31 PM.Learner: Patient Readiness: Eager Method: Explanation Response: Verbalizes Understanding Education CommentsNo comments found. If this is the last documented treatment, then it will signify discharge from acute care prior to discharge from the therapy service and will serve as the discharge summary. Therapy discharge recommendations are made by determining the patient's prior level of function, assessing current function level and establishing rehab potential. The overall discharge plan may be affected by input from Physicians, Care Coordination, medical condition/status, family support and insurance benefits. KATELYN RamSLP TERY MANAGER * Arya Hallman-Tammy Goddard MD - 01/20/2024 10:05 AM CEMETERY MANAGER [facility] ICU Note This patient was seen with SUGARCANE PLANTER Louise and Dr. Bella and bedside RN as part of a multidisciplinary team. Briefly this is a 73 y/o male who presents with VT in the setting of a multifocal pneumonia and acute hypoxic respiratory failure Interval Events: -no acute events -WBC plateaued; fever curve stable Problem List -ventricular tachycardia with ICD -acute hypoxic hypercapnic respiratory failure -multifocal pneumonia with left sided cavitary lung lesions -aspiration -emphysema -TFTs suggestive of hyperthyroid state -hyponatremia -thrombocytosis -anemia - likely nutritional and chronic disease related -history of dyslipidemia -history of atrial fibrillation/flutter (CHADSVASc 3) -history of multivessel CAD Daily Plan -continue memantine -continue escitalopram -continue on buproprion -continue on gabapentin -tylenol prn for pain/discomfort -continue ASA/plavix/statin for dyslipidemia/CAD -continued on amiodarone per CCU/EP -continued on heparin drip per CCU/EP -continue supplemental oxygen -encourage IS -continue ipratropium q6h for COPD; currently does not appear to be in exacerbation -continue steroids for CAP (3/5) -continue tube feeds -follow up ongoing MEETING MANAGER evaluation -continue PPI -bowel regimen deferred for now given precedent diarrhea -consider endocrinology consult given deranged TFTs and VT presentation -SSI as needed to maintain blood glucose targets of 140-180 -continue cefepime/flagyl (D3) - if clinically improving and WBC normalized and respiratory status normalized then recommend transitioning to Augmentin to complete 14 days of therapy -follow-up infectious work-up including blood, respiratory cultures, aspergillus antigen and fungitell -follow-up enteral PCR panel -continued on heparin drip (atrial fibrillation) ICU Quality Review -ICU day: 3 day -mechanically ventilated: no -restraints indicated: no -PT/OT: ordered -DVT prophylaxis: systemic anticoagulation -GI prophylaxis: yes -central Lines: none -arterial Lines: none -devices: none -posada: no -tubes/drains: none -pressure injury: none I spent a total of 35 minutes caring for this patient including reviewing the patients chart, obtaining relevant history from the patient, performing a physical examination, interpreting date and coordinating care with consultants. This is exclusive to any procedures or teaching. Vitals: Visit Vitals BP 132/61 Pulse 92 Temp 36.5 ?C (97.7 ?F) (Oral) Resp (!) 33 Ht 1.778 m (5' 10") Wt 82.6 kg (182 lb) SpO2 94% BMI 26.11 kg/m? Smoking Status Former BSA 2.02 m? Tube/Drain Output: Output by Drain (mL) 01/18/24 07 - 01/18/24 1859 01/18/24 1900 - 01/19/24 0659 01/19/24 07 - 01/19/24 1859 01/19/24 1900 - 01/20/24 0659 01/20/24 07 - 01/20/24 1005 Requested LDAs do not have output data documented. Labs: Last ABG Results from last 7 days Lab Units 01/17/24 2319 POC PH, ARTERIAL 7.46* POC PCO2, ARTERIAL mmHg 34* POC PO2, ARTERIAL mmHg 66* POC HCO3, ARTERIAL mMol/L 24 POC SO2, ARTERIAL (CALC) % 93.8* POC SO2, ARTERIAL % 92.8* POC BASE EXCESS, ARTERIAL mMol/L 1 Last CBC ResultLast Lab Result Automated Differential Collection Time: 01/20/24 2:13 AM Result Value Ref Range Segs % 90.0 (H) 40.6 - 75.7 % Lymphs % 6.0 (L) 14.9 - 47.8 % Monos % 2.6 (L) 4.2 - 12.6 % Eos % 0.0 (L) 0.2 - 5.0 % Basos % 0.1 (L) 0.2 - 1.3 % Immature Grans % 1.3 (H) 0.1 - 1 % Segs # 13.54 (H) 1.48 - 6.56 10*3/uL Lymphs # 0.90 0.86 - 3.84 10*3/uL Monos # 0.39 0.29 - 0.96 10*3/uL Eos # 0.00 0.00 - 0.46 10*3/uL Basos # 0.01 0.01 - 0.08 10*3/uL Imm Grans # 0.19 (H) 0.01 - 0.07 10*3/uL Complete Blood Count Collection Time: 01/20/24 2:13 AM Result Value Ref Range WBC 15.03 (H) 3.92-.10.07 10*3/uL RBC 2.79 (L) 4.27 - 6.02 10*6/uL NRBC % 0.0 0 /100 WBC Hgb 8.7 (L) 12.4 - 17.4 g/dL Hct 25.4 (L) 37.1 - 50.8 % MCV 91.0 79.2 - 96.8 fL MCH 31.2 26.1 - 32.4 pg MCHC 34.3 31.2 - 36.1 g/dL RDW - SD 47.8 (H) 34.0 - 37.0 fL Plt Count 706 (H) 160 - 381 10*3/uL MPV 8.5 (L) 9.0 - 12.0 fL Last BMP or CMP ResultLast Lab Result Basic Metabolic Panel STAT Collection Time: 01/17/24 9:20 PM Result Value Ref Range Glucose Lvl 135 (H) 70 - 99 mg/dL BUN 36 (H) 9 - 23 mg/dL Creatinine Lvl 1.18 0.7 - 1.30 mg/dL Sodium Lvl 135 (L) 136 - 145 mEq/L Potassium Lvl 4.2 3.4 - 4.5 mEq/L Chloride Lvl 101 98 - 107 mEq/L CO2 Lvl 26.2 20.0 - 31.0 mEq/L Anion Gap 12.0 10.0 - 20.0 mEq/L Calcium Lvl 7.8 (L) 8.3 - 10.6 mg/dL eGFR 65 >60 mL/min/1.73m2 Culture ResultsNo results found for the last 90 days. Bowel Movements:No data recorded Ventilator Settings Active Medications heparin, 0.1-40 Units/kg/hr, Last Rate: 22 Units/kg/hr (01/20/24 0619) peptamen AF, , Last Rate: 80 mL/hr at 01/20/24 0600 [START ON 02/03/2024] amiodarone, 200 mg, Oral, Dailyamiodarone, 400 mg, Oral, BID [START ON 01/27/2024] amiodarone, 400 mg, Oral, Daily [Held by provider] amLODIPine, 5 mg, Oral, Daily aspirin, 81 mg, Oral, Daily atorvastatin, 40 mg, Oral, Daily buPROPion SR, 150 mg, Oral, Daily [Held by provider] carvedilol, 12.5 mg, Oral, BID with meals cefepime, 1 g, Intravenous, q6h clopidogrel, 75 mg, Oral, Daily Ensure Enlive, 1 Container, Oral, TID with meals Enteral Free water Flush, 30 mL, Nasogastric, q4h escitalopram, 5 mg, Oral, Daily gabapentin, 300 mg, Oral, Nightly hydrocortisone sodium succinate, 50 mg, Intravenous, q6h MICHEL ipratropium, 0.5 mg, Nebulization, q6h [Held by provider] isosorbide mononitrate ER, 30 mg, Oral, Daily [Held by provider] lisinopril, 40 mg, Oral, Daily memantine, 10 mg, Oral, BID metoprolol succinate XL, 25 mg, Oral, Daily metroNIDAZOLE, 500 mg, Intravenous, q8h pantoprazole, 40 mg, Oral, Daily before breakfast sodium chloride, 10 mL, Intravenous, q12h TERY MANAGER * Valencia Gil NP - 01/20/2024 7:13 AM CEMETERY MANAGER Hospital Course: This is a 73-year-old male with CAD and prior PCI's, HTN, HLD, A-fib, carotid artery stenosis, COPD/emphysema, BPH, HFrEF, AICD, anxiety, depression presented with multiple AICD shocks and CT imaging concerning for multifocal pneumonia versus cavitary pneumonia. Interval events: No events overnight. Remains on Heparin drip Review of Systems Constitutional: Negative. Respiratory: Negative. Cardiovascular: Negative. Genitourinary: Negative. Skin: Negative. Neurological: Negative. All other systems reviewed and are negative. Physical Exam: Constitutional: General: He is not in acute distress. Appearance: Normal appearance. He is normal weight. Cardiovascular: Rate and Rhythm: Normal rate and regular rhythm. Pulses: Normal pulses. Heart sounds: Normal heart sounds. Pulmonary: Effort: Pulmonary effort is normal. No respiratory distress. Breath sounds: Normal breath sounds. Abdominal: General: Bowel sounds are normal. There is no distension. Palpations: Abdomen is soft. Tenderness: There is no abdominal tenderness. Skin: General: Skin is warm and dry. Capillary Refill: Capillary refill takes less than 2 seconds. Neurological: General: No focal deficit present. Mental Status: He is alert and oriented to person, place, and time. Mental status is at baseline. Psychiatric: Mood and Affect: Mood normal. Behavior: Behavior normal. BP 143/66 | Pulse 96 | Temp 36.6 ?C (97.9 ?F) (Oral) | Resp (!) 33 | Ht 1.778 m (5' 10") | Wt 82.6 kg (182 lb) | SpO2 94% | BMI 26.11 kg/m? [START ON 02/03/2024] amiodarone, 200 mg, Oral, Dailyamiodarone, 400 mg, Oral, BID [START ON 01/27/2024] amiodarone, 400 mg, Oral, Daily [Held by provider] amLODIPine, 5 mg, Oral, Daily aspirin, 81 mg, Oral, Daily atorvastatin, 40 mg, Oral, Daily buPROPion SR, 150 mg, Oral, Daily [Held by provider] carvedilol, 12.5 mg, Oral, BID with meals cefepime, 1 g, Intravenous, q6h clopidogrel, 75 mg, Oral, Daily Ensure Enlive, 1 Container, Oral, TID with meals Enteral Free water Flush, 30 mL, Nasogastric, q4h escitalopram, 5 mg, Oral, Daily gabapentin, 300 mg, Oral, Nightly hydrocortisone sodium succinate, 50 mg, Intravenous, q6h MICHEL ipratropium, 0.5 mg, Nebulization, q6h [Held by provider] isosorbide mononitrate ER, 30 mg, Oral, Daily [Held by provider] lisinopril, 40 mg, Oral, Daily memantine, 10 mg, Oral, BID metoprolol succinate XL, 25 mg, Oral, Daily metroNIDAZOLE, 500 mg, Intravenous, q8h pantoprazole, 40 mg, Oral, Daily before breakfast sodium chloride, 10 mL, Intravenous, q12h heparin, 0.1-40 Units/kg/hr, Last Rate: 22 Units/kg/hr (01/20/24 0619)peptamen AF, , Last Rate: 80 mL/hr at 01/20/24 0600 Encounter Date: 01/17/24XR chest 1 view Narrative EXAM: XR CHEST 1 VIEW DATE: 01/17/2024 12:55 INDICATION: CP COMPARISON: None. TECHNIQUE: AP chest. FINDINGS: Lines, tubes and hardware: Combination pacer-ICD has leads overlying the right atrium and right ventricle. Lungs and pleura: Pulmonary opacities within the left midlung and right lower lobe. The costophrenic sulci are sharp without effusion. Heart and mediastinum: The heart size is normal. Vascular calcifications are present at the aorta. Bones and soft tissues: No acute abnormality. Age-related degenerativefindings. ImpressionLeft midlung and right lower lobe pulmonary opacities suggesting multifocal infection. Transthoracic echo (TTE) complete Result Date: 01/18/2024 1. This study demonstrates normal biventricular size and overall systolic function, concentric left ventricular remodeling, a catheter in the right sided chambers, trace mitral regurgitation, and trace tricuspid regurgitation. 2. There are no prior echocardiographic studies currently available for comparison. Patient Active Problem List Diagnosis VT (ventricular tachycardia) (HCC) VF (ventricular fibrillation) (CMS/HCC) (HCC) Anxiety Depression Multifocal pneumonia Cardiac defibrillator in situ Carotid artery stenosis Mixed hyperlipidemia 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 Hyponatremia Hypokalemia Hypocalcemia Transaminitis Normocytic anemia Atrial fibrillation/flutter (HCC) Emphysema lung (HCC) Acute respiratory failure with hypoxemia (HCC) Moderate malnutrition (CMS/HCC) (HCC) Plan: Neuro/Psych/HEENT:-No acute issues -CT brain negative for acute abnormality -Continue home meds Lexapro and Wellbutrin for anxiety and depression -Continues on memantine for memory difficulties -Pain control with gabapentin and Tylenol PRN -Continue delirium precautions and adherence to sleep-wake cycle. CV:-AICD interrogation shows multiple V. tach and V-fib episodes as well as SVT. EP wants to transition Amiodarone to PO and consider outpatient ablation after infectious issues resolve -Needs anticoagulation for A fib. Currently on Heparin drip -ECHO showing normal biventricular size and systolic function, LV remodeling, trace mitral and tricuspid regurgitation -Continue metoprolol for rate control. Other oral anti-hypertensives remain held -Continue aspirin, statin, Plavix for CAD. Multivessel disease shown on CTA PE protocol. Would recommend ischemic evaluation Resp:-Supplemental O2 to keep O2 sats > 92% -CTA PE protocol shows to the segmental level. Bilateral groundglass and consolidative opacities with a peripheral predominance. Air and fluid-filled cavities are seen in the left midlung and the right middle lobe which could represent mycobacterial or fungal infection, abscess, septic emboli, or malignancy. Extensive emphysematous changes -Ipratropium and budesonide scheduled -Continue volume expansion protocol and incentive spirometry GI/Nutrition:-Underwent FEEs procedure which showed mild to moderate oropharyngeal dysphagia. -Keep NPO and continue tube feeds at goal. Monitor tolerance -Protonix ppx -Reports of prodromal mucoid diarrhea prior to admission. Enteric pathogen stool culture pending. Fecal leukocytes negative. Continue Flagyl -Hepatitis panel negative Renal/Electrolytes:-Monitor UOP with strict I's/O's -Trend BUN/Cr -Avoid nephrotoxic agents -Replace electrolytes as needed Endo:-Continue strict glycemic control with sliding scale insulin to keep blood glucose 100-180 -HgbA1c 5, TSH low and T4 high. Thyroid US normal Heme/Onc:-Monitor for bleeding and coagulopathies -Maintain Hgb > 7 and Platelets > 10k -Iron studies low. Wait on oral iron given underlying infection ID:-Continue empiric cefepime day 4 for concern for multifocal pneumonia on CT scan. Will need a 14 day course. If WBC and clinically improving can ultimately discharge with Augmentin for total of 14 days of antibiotics but will keep on Cefepime for now -Continue Flagyl day 3 for diarrhea coverage -Received 3 days of Azithromycin and Vancomycin -Continue hydrocortisone 50 mg q6h for PNA day 3 of 5 -UA negative, HIV negative, Viral panel negative, strep pna and legionella negative -Fungal sputum culture prelim negative -Blood culture prelim negative -Resp gram stain growing few GPC in pairs and clusters. Culture prelim negative -MTB PCR, QuantiFERON gold negative -Fungitell, mycoplasma, aspergillus pending -Also pending cocci, histo, and blasto Musculoskeletal/Skin:-Continue wound care and sacral decubitus prevention -PT/OT and out of be to chair daily Prophylaxis:-DVT ppx: Heparin -PUD ppx: Protonix Vascular/ access:Peripheral IV 01/17/24 Left Antecubital (Active) Peripheral IV 01/17/24 Anterior;Right;Upper Arm (Active) Compliance:Restraints: None Indwelling Posada Catheter: None Central Venous Access: None Arterial Access: None Code Status: Full Disposition: CCU I spent a total of 25 minutes of critical care time with this patient independently, not including procedure time, then [facility] Attending Dr. Nitza Gil, MSN, AGACNP-[id number] Division of Pulmonary Critical Care MedicineTexas [facility] [place] [facility] [place] [email or web address] Cosigned by Arya Goddard MD at 01/20/2024 4:51 PM CEMETERY MANAGER TERY MANAGER TERY MANAGER TERY MANAGER * Vanessa Reyes MD - 01/20/2024 6:44 AM CEMETERY MANAGER CCU Progress Note Admission Date: 01/17/2024 CCU Day: 3 Problem List Principal Problem: VT (ventricular tachycardia) (HCC) Active Problems: VF (ventricular fibrillation) (CMS/HCC) (HCC) Anxiety Depression Multifocal pneumonia Cardiac defibrillator in situ Carotid artery stenosis Mixed hyperlipidemia 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 Hyponatremia Hypokalemia Hypocalcemia Transaminitis Normocytic anemia Atrial fibrillation/flutter (HCC) Emphysema lung (HCC) Acute respiratory failure with hypoxemia (HCC) Moderate malnutrition (CMS/HCC) ([facility]) Aws Solution Architect Dr. White Assessment & Plan Mr. Esequiel Chew Jr a 73 y.o. 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 CARDIOVASCULAR: #Ventricular Tachycardia #Ventricular Fibrillation - ddx: ischemia, CHF, electrolyte abnomalitites - may consider [facility] this admission to workup known CAD for potential progression - CT chest neg for PE, shows bilateral consolidations/cavitary changes Device interrogation shows since 08/06 >> 7 episodes of VT-2 (HR >181) >> 4 episodes of VF with 3 shocks delivered >> 49 episodes of SVT noted >> AP <1%, MEDICAID BILLING SPECIALIST 3.5% - BNP 170 - Echo: EF 55-60%, trace MR/TR PLAN: - f/u EP recs: PO amiodarone 400 mg twice daily x 7 days, 400 mg daily x 7 days, 200 mg daily until follow-up, potential outpatient ablation after infection resolves #Afib - not on anticoagulation or any rhythm control - not in Afib on admission PLAN: - heparin gtt - amiodarone as above #CAD - history of FL in 1999 and 2004 - describes chest tightness with exertion - Troponin 12 - Tchol 56, TG 102, LDL 25 PLAN: - GDMT: * RAAS: lisinopril * BB: coreg * MRA: none * SGLT2: will consider adding after monitoring BP - continue atorvastatin - continue plavix #HTN - continue amlodipine 5mg daily - continue coreg 12.5 daily BID NEURO/PSYCH - RASS/AxO4 - Fall precautions RESPIRATORY: #Multifocal PNA - Fever and chill for 3 weeks (Tmax 103) - CXR 01/16: Left midlung and right lower lobe pulmonary opacities suggesting multifocal infection - WBC 20.05 on admission - CT chest neg for PE, shows bilateral consolidations/cavitary changes, enlarged mediastinal/BL hilar LAD - Pt on 2 L NC on admission, not on home O2 - resp cx show few g (+) cocci in pairs/clusters - strep pneumo antigen negative, bcx neg, no AFB seen, mycobac PCR negative, quant gold negative, legionella negative - weaned to RA on 01/19 - s/p vanc/azithro PLAN: - MRSA nares, Mycoplasma, Blood Cultures (NGTD2) - cefepime/flagyl - outpatient follow up on cavitary changes, enlarged mediastinal/bilateral hilar lymph nodes with repeat CT scan in 8 weeks GI/FEN: Diarrhea - started at hospital - fecal leuk neg - hold bowel reg, f/u stool studies Dysphagia - failed FEES 01/17, cortrack in place - will need repeat eval prior to discharge RENAL: - Strict I&Os - Check & replete lytes - Avoid nephrotoxins - Renally dose medications INFECTIOUS DISEASE: - Monitor for infections - see above for pna HEMATOLOGY: #Anemia #Thrombocytosis, reactive vs 2/2 anemia? - Hb 9.4 on admission - transfuse to keep Hgb >7.0, Plt >20 - anemia panel ENDO: - A1c 5.09 - TSH 0.189L, Free T4 2.13H MSK/DERM - PT/OT consulted Code status: FULL Contact: VENUS COLEMAN (Niece) DVT PPX: heparin gtt PUD PPX : Not indicated Diet: Heart Healthy L/T/D: IV Access: Peripheral IV 01/17/24 Left Antecubital (Active) Peripheral IV 01/17/24 Right Antecubital (Active) Dispo: pending clinical improvement Patient staffed with attending physician, Dr. Omero Reyes MD Internal Medicine | PGY-2 [facility] | [employer] [place]. Today, Mr. Chew reports that he is feeling well and slept well overnight. He would like to know the 'game plan' for the rest of his admission. PMH: History reviewed. No pertinent past medical history. PSH: History reviewed. No pertinent surgical history. FH: No family history on file. SH: Social History Tobacco Use Smoking Status Former Types: Cigarettes Passive exposure: Never Smokeless Tobacco Never Social History Substance and Sexual Activity Alcohol Use None Social History Substance and Sexual Activity Drug Use Never ALLERGIES: Patient has no known allergies. PRIOR TO ADMISSION MEDS:No current facility-administered medications on file prior to encounter. Current Outpatient Medications on File Prior to EncounterMedication Sig Dispense Refill amLODIPine (Norvasc) 5 MG tablet Take 1 tablet by mouth in the morning and 1 tablet in the evening. benazepril (Lotensin) 20 MG tablet Take 1 tablet by mouth 1 time each day. carvedilol (Coreg) 12.5 MG tablet Take 12.5 mg by mouth in the morning and 12.5 mg in the evening. Take with meals. clopidogrel (Plavix) 75 MG tablet Take 75 mg by mouth 1 time each day. escitalopram (Lexapro) 20 MG tablet 1 time each day. lovastatin (Mevacor) 40 MG tablet Take 40 mg by mouth at bedtime. memantine (Namenda) 10 MG tablet Take 10 mg by mouth in the morning and 10 mg in the evening. aspirin 325 MG tablet Take 325 mg by mouth 1 time each day. buPROPion SR (Wellbutrin SR) 150 MG 12 hr tablet Take 150 mg by mouth 1 time each day. citalopram (CeleXA) 20 MG tablet Take 2 tablets by mouth 1 time each day. gabapentin (Neurontin) 300 MG capsule Take 300 mg by mouth at bedtime. isosorbide mononitrate ER (Imdur) 30 MG 24 hr tablet Take 30 mg by mouth 1 time each day. simvastatin (Zocor) 40 MG tablet Take 40 mg by mouth at bedtime. ROS: 10 point review of systems assessed and negative except as stated in the HPI. Objective Vital SignsCurrent: Visit Vitals BP 143/66 Pulse 96 Temp 36.6 ?C (97.9 ?F) (Oral) Resp (!) 33 24 Hour:Vitals: 01/20/24 0200 01/20/24 0300 01/20/24 0400 01/20/24 0500 BP: 142/67 143/61 153/69 143/66 Pulse: 96 96 98 96 Resp: (!) 37 18 (!) 31 (!) 33 Temp: 36.6 ?C (97.9 ?F) SpO2: 90% 98% 97% 94% Intake/Output: I/O last 3 completed shifts: In: 2403.2 (29.1 mL/kg) [I.V.:1326.2 (16.1 mL/kg); Other:150] Out: 3100 (37.6 mL/kg) [Urine:3100 (1 mL/kg/hr)] Weight: 82.6 kg Intake/Output Summary (Last 24 hours) at 01/20/2024 0644Last data filed at 01/20/2024 0300 Gross per 24 hour Intake 2513.54 ml Output 900 ml Net 1613.54 ml Net intake/output since admission: Net IO Since Admission: 541.88 mL [01/20/24 0644] PHYSICAL EXAM General Appearance: no acute distress, no pallor, very soft voiceHEENT: Extra ocular movements intact, no scleral icterus, mucous membrane moist, external ears normal Neck: Supple, FROM Lungs: respiratory effort normal, crackles bilaterally, no wheezes/rales/rhonchi Heart: Regular rate and regular rhythm, no murmur Abdomen: soft, non-tender, non-distended MSK/Extremities: No edema, pulses 2+. No obvious deformity. Skin: No lesions, no rash. No jaundice. Neurologic: AOx3, no focal deficits, speech clear Psych: Mood congruent affect, responds appropriately to questions. SCHEDULED HOSPITAL MEDICATIONS [START ON 02/03/2024] amiodarone, 200 mg, Oral, Daily amiodarone, 400 mg, Oral, BID [START ON 01/27/2024] amiodarone, 400 mg, Oral, Daily [Held by provider] amLODIPine, 5 mg, Oral, Daily aspirin, 81 mg, Oral, Daily atorvastatin, 40 mg, Oral, Daily buPROPion SR, 150 mg, Oral, Daily [Held by provider] carvedilol, 12.5 mg, Oral, BID with meals cefepime, 1 g, Intravenous, q6h clopidogrel, 75 mg, Oral, Daily Ensure Enlive, 1 Container, Oral, TID with meals Enteral Free water Flush, 30 mL, Nasogastric, q4h escitalopram, 5 mg, Oral, Daily gabapentin, 300 mg, Oral, Nightly hydrocortisone sodium succinate, 50 mg, Intravenous, q6h MICHEL ipratropium, 0.5 mg, Nebulization, q6h [Held by provider] isosorbide mononitrate ER, 30 mg, Oral, Daily [Held by provider] lisinopril, 40 mg, Oral, Daily memantine, 10 mg, Oral, BID metoprolol succinate XL, 25 mg, Oral, Daily metroNIDAZOLE, 500 mg, Intravenous, q8h pantoprazole, 40 mg, Oral, Daily before breakfast sodium chloride, 10 mL, Intravenous, q12h PRN Medications:PRN medications: dextrose, dextrose, glucagon, guaiFENesin, HYDROcodone-acetaminophen, HYDROcodone-acetaminophen, sodium chloride, sodium chloride Drips:heparin, 0.1-40 Units/kg/hr, Last Rate: 22 Units/kg/hr (01/20/24 030) peptamen AF, , Last Rate: 80 mL/hr at 01/20/24 030 LABSResults from last 7 days Lab Units 01/20/2421201/19/2425101/18/241937 WBC 10*3/uL 15.03* 14.61* 15.45* HEMOGLOBIN g/dL 8.7* 7.9* 8.3* MCV fL 91.0 91.9 90.8 Results from last 7 daysLab Units 01/20/2421201/19/2425101/18/241937 WBC 10*3/uL 15.03* 14.61* 15.45* HEMOGLOBIN g/dL 8.7* 7.9* 8.3* MCV fL 91.0 91.9 90.8 Results from last 7 daysLab Units 01/20/2421201/19/2425101/18/2421001/17/24231801/17/242119 POC SODIUM, ARTERIAL -- -- -- < > -- SODIUM mEq/L 136 134* 133* -- 135* POC POTASSIUM, ARTERIAL -- -- -- < > -- POTASSIUM mEq/L 3.7 3.5 3.9 -- 4.2 POC CHLORIDE -- -- -- < > -- CHLORIDE mEq/L 106 103 101 -- 101 CO2 mEq/L 22.7 24.2 24.4 -- 26.2 BUN mg/dL 17 20 34* -- 36* PHOSPHORUS mg/dL -- 3.4 3.5 -- 4.0 < > = values in this interval not displayed. Results from last 7 daysLab Units 01/20/2421201/19/24 0252 01/18/24 0211 AST U/L 31 35 47* ALT U/L 34 38 41* Results from last 7 daysLab Units 01/20/24 0213 01/19/24 1905 01/19/24 1313 INR 1.44* 1.41* 1.42* PROTIME Seconds 17.8* 17.5* 17.6* PTT Seconds 68.4* 102.8* 77.3* No lab exists for component: "APH", "APCO2", "APO2"No lab exists for component: "POCGLU" Microbiology:No results found for the last 90 days. OTHER DATA EKG Review: Encounter Date: 01/17/24 Electrocardiogram, 12-lead Result Value Ventricular Rate 80 Atrial Rate 80 AR Interval 194 QRS Duration 80 QT/QTc 430 QTc Calculation 495 P-[place] 71 R-[place] 48 T-[place] 57 Narrative SINUS RHYTHM WITH PREMATURE SUPRAVENTRICULAR COMPLEX(ES) PROLONGED QT INTERVAL OR TU FUSION, CONSIDER MYOCARDIAL DISEASE, ELECTROLYTE IMBALANCE, OR DRUG EFFECTS ABNORMAL ECG Compared with prior study, prolonged QT interval is now noted Confirmed by Katelin Hayward ([id number]) on 01/18/2024 10:46:16 AM Echo: Transthoracic echo (TTE) complete Result Date: 01/18/2024 1. This study demonstrates normal biventricular size and overall systolic function, concentric left ventricular remodeling, a catheter in the right sided chambers, trace mitral regurgitation, and trace tricuspid regurgitation. 2. There are no prior echocardiographic studies currently available for comparison. Stress Test: Cath: Radiology Review: XR abdomen 1 view Result Date: 01/19/2024 EXAM: XR ABDOMEN 1 VIEW DATE: 01/18/2024 21:40 INDICATION: tube placement verification ADDITIONAL INFORMATION: None. COMPARISON: None. TECHNIQUE: Limited AP view of the abdomen for tube placement assessment. FINDINGS: Feeding tube: With its tip overlying the gastric lumen. Enteric suction tube: None. Other tubes, lines and hardware: ICD leads overlying the right atrium and right ventricle.. Other: Bilateral opacification of the lung lobes. Mild to moderate gaseous distention of stomach. 1. Feeding tube with its tip overlying the gastric antrum. This report was dictated by a [employer] Controller/Fellow/MIRACLE: Deborah Matute RES, MD 01/19/2024 11:05 I have personally reviewed the images as well as the interpretation and agree with the findings. Dictation Date/time: 01/19/2024 11:03 Electronically Signed by: Pastora Wilkerson MD 01/19/2024 12:55 US thyroidResult Date: 01/18/2024 EXAM: US THYROID DATE: 01/18/2024 13:38 INDICATION: 73-year-old Male to evaluate thyroid for thyroiditis COMPARISON: None. TECHNIQUE: Multiplanar grayscale and color Doppler ultrasound of the neck was obtained in the area of the thyroid. FINDINGS: Thyroid: Homogeneous parenchyma with subjectively normal color Doppler flow. Size: Right thyroid: 1.8 cm x 3.2 cm x 1.2 cm, 3.6 cm3 Left thyroid: 1.7 cm x 3.3 cm x 1.6 cm, 4.9 cm3 Isthmus thickness: 0.4 cm Thyroid nodules: None. Other: None. Unremarkable thyroid ultrasound. This report was dictated by a [employer] Controller/Fellow/MIRACLE: Gisele Alexander RES 01/18/2024 14:54 I have personally reviewed the images as well as the interpretation and agree with the findings. Dictation Date/time: 01/18/2024 14:51 Electronically Signed by: Lori Gonzalez MD 01/18/2024 16:16 XR abdomen 1 viewResult Date: 01/18/2024 EXAM: XR ABDOMEN 1 VIEW DATE: 01/18/2024 2:59 INDICATION: abdominal distention ADDITIONAL INFORMATION: None. COMPARISON: X-ray chest, 01/17/2024. TECHNIQUE: AP abdomen. FINDINGS: Lines, tubes and hardware: Partially visualized combination pacer ICD with leads overlying the right atrium and right ventricle. Lower thorax: Pulmonary opacities within the left midlung and right lower lobe, same as prior. Abdomen and bowel: Diffusely dilated gas-filled bowel loops, small bowel loop measuring up to 3.6 cm. Bones and soft tissues: Regional skeleton is unchanged. Others: Residual contrast in the distended urinary bladder. 1. Ileus. Serial radiographs may be obtained to ensure resolution. 2. Hardwareas above. This report was dictated by a [employer] Controller/Fellow/MIRACLE: Gina Murphy RES, MD 01/18/2024 11:53 I have personally reviewed the images as well as the interpretation and agree with the findings. Dictation Date/time: 01/18/2024 11:46 Electronically Signed by: Samson Garrison MD 01/18/2024 13:16 Transthoracic echo (TTE) completeResult Date: 01/18/2024 1. This study demonstrates normal biventricular size and overall systolic function, concentric left ventricular remodeling, a catheter in the right sided chambers, trace mitral regurgitation, and trace tricuspid regurgitation. 2. There are no prior echocardiographic studies currently available for comparison. Electrocardiogram, 12-leadResult Date: 01/18/2024 SINUS RHYTHM WITH PREMATURE SUPRAVENTRICULAR COMPLEX(ES) PROLONGED QT INTERVAL OR TU FUSION, CONSIDER MYOCARDIAL DISEASE, ELECTROLYTE IMBALANCE, OR DRUG EFFECTS ABNORMAL ECG Compared with prior study, prolonged QT interval is now noted Confirmed by Katelin Hayward ([id number]) on 01/18/2024 10:46:16 AM ECG 12 leadResult Date: 01/18/2024 SINUS RHYTHM NORMAL ECG NO PREVIOUS ECGS AVAILABLE Confirmed by Katelin Hayward ([id number]) on 01/18/2024 9:43:[address] BRAIN WO IV CONTRASTResult Date: 01/18/2024 EXAM: CT BRAIN WITHOUT CONTRAST DATE: 01/18/2024 6:10 INDICATION: s/p fall . COMPARISON: None. TECHNIQUE: Axial CT images of the brain were obtained. Sagittal and coronal reformats. IV contrast: None DLP: Refer to CT protocol form FINDINGS: No acute intracranial hemorrhage or extra-axial collection. No midline shift or mass effect. No brain parenchymal edema. The ventricles and sulci are enlarged from chronic brain parenchymal volume loss. Periventricular white matter hypoattenuation is nonspecific but likely represents chronic microvascular ischemic changes. The skull base, calvarium, and included facial bones have no acute fracture. The paranasal sinuses and mastoid air cells are predominantly clear. * No acute intracranial hemorrhage or calvarial fracture. This report was dictated by a [employer] Controller/Fellow/MIRACLE: Magaly Landry RES, MD 01/18/2024 8:18 I have personally reviewed the images as well as the interpretation and agree with the findings. Dictation Date/time: 01/18/2024 8:11 Electronically Signed by: Kayden Calderon MD 01/18/2024 9:07 CT angiogram chest pulmonary embolismResult Date: 01/18/2024 EXAM: CTA CHEST WITH CONTRAST DATE: 01/17/2024 17:36 INDICATION: Pacemaker shocks, runs of VT and VF, concern for PE Age: 73 years y/o Male; ADDITIONAL INFORMATION: None. COMPARISON: None available. TECHNIQUE: CT of the chest is acquired during pulmonary arterial phase following administration of IV contrast. Axial, sagittal, coronal, and oblique MIP reconstructions are created. IV Contrast and DLP: Refer to MAR/pet technologist documentation. FINDINGS: Lines, tubes and hardware: There is a left-sided ICD/pacemaker with its leads terminating in the right atrial appendage and right ventricle. Lower neck: The visualized portions of the lower neck are unremarkable. Lymph nodes: There are enlarged mediastinal and bilateral hilar lymph nodes measuring up to 1.4 cm in short axis. Mediastinum, heart, pericardium and great vessels: Pulmonary emboli: None. Pulmonary trunk: 2.3 cm. Ascending aorta: 3.0 cm. Heart: The heart size is within normal limits. There is no CT evidence of right heart strain. RV/LV <1.0, within normal limits. Moderate Pericardium: No pericardial effusion. Airway, lungs and pleura: There is mucous plugging in the peripheral airways. There is moderate centrilobular enprostil emphysema. There are bilateral consolidations some of which contain cavitary changes. No pleural effusions or pneumothorax. Upper abdomen: There is a small hiatal hernia. Musculoskeletal: No acute abnormality. Age-related degenerative findings. Low attenuation of the vertebral trabecular bone, suggestive of osteopenia/osteoporosis. Correlation with DEXA scan is recommended. 1. No pulmonary emboli or right heart strain. 2. Bilateral consolidations, some of which contain cavitary changes. The differential diagnosis mainly includes necrotizing pneumonia. Less possible differential possibilities include septic emboli, mycobacterial infection, or fungal infection. Follow-up with chest CT in 8 weeks is recommended to ensure resolution and rule out underlying malignancy. 3. Enlarged mediastinal and bilateral hilar lymph nodes, indeterminate. Attention on follow-up imaging is recommended. 4. Moderate emphysema. 5. Moderate atherosclerotic coronary artery calcifications. 6. Findings suggestive of osteopenia/osteoporosis. Correlation with DEXA scan is recommended. 7. Other incidental findings as described above. The above findings were communicated to and acknowledged by Dr. Gomez via Securechat at 01/17/2024 17:59 by Virginia Rogers RES. This report was dictated by a [employer] Controller/Fellow/MIRACLE: Virginia Rogers RES 01/17/2024 18:08 I have personally reviewed the images as well as the interpretation and agree with the findings. Dictation Date/time: 01/17/2024 17:52 Electronically Signed by: González Mireles MD 01/18/2024 8:29 XR chest 1 viewResult Date: 01/17/2024 EXAM: XR CHEST 1 VIEW DATE: 01/17/2024 12:55 INDICATION: CP COMPARISON: None. TECHNIQUE: AP chest. FINDINGS: Lines, tubes and hardware: Combination pacer-ICD has leads overlying the right atrium and right ventricle. Lungs and pleura: Pulmonary opacities within the left midlung and right lower lobe. The costophrenic sulci are sharp without effusion. Heart and mediastinum: The heart size is normal. Vascular calcifications are present at the aorta. Bones and soft tissues: No acute abnormality. Age-related degenerative findings. Left midlung and right lower lobe pulmonary opacities suggesting multifocal infection. Cosigned by Tiffany Jamil MD at 01/20/2024 9:48 AM CST TERY MANAGER TERY MANAGER Associated attestation - Tiffany Jamil MD - 01/20/2024 9:48 AM CST The patient was seen and examined with the resident. The relevant lab results, imaging and EKGs were personally reviewed, and the medications were reconciled. I agree with above mentioned assessment and plan. Total amount of critical care time spent throughout the day excluding procedural time was - 35 minutes. The patient remain critically ill, and requires ICU level of care. -- Pt with VT/Vfib , also has ICD, started on amiodarone and metoprolol-- Ischemic cardiomyopathy , LVEF ~ 50% -- Multifocal pneumonia with cavitary lesions - AFB -ve, on antibiotics -- Dysphagia NG tube in - speech therapy eval -- Continue GI and DVT prophylaxis per ICU protocol -- Appreciate PCCM input on non-cardiac critical issues Patient Active Problem ListDiagnosis Date Noted Moderate malnutrition (CMS/HCC) ([facility]) 01/19/2024 Emphysema lung ([facility]) 01/18/2024 Acute respiratory failure with hypoxemia ([facility]) 01/18/2024 VT (ventricular tachycardia) ([facility]) 01/17/2024 VF (ventricular fibrillation) (CMS/HCC) ([facility]) 01/17/2024 Anxiety 01/17/2024 Depression 01/17/2024 Multifocal pneumonia 01/17/2024 Carotid artery stenosis 01/17/2024 Mixed hyperlipidemia 01/17/2024 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 01/17/2024 Hyponatremia 01/17/2024 Hypokalemia 01/17/2024 Hypocalcemia 01/17/2024 Transaminitis 01/17/2024 Normocytic anemia 01/17/2024 Atrial fibrillation/flutter ([facility]) 01/17/2024 Cardiac defibrillator in situ 04/17/2023 * Tracee Chapin, PT - 01/19/2024 1:36 PM CEMETERY MANAGER Evaluation and Treatment Note Patient Name: Esequiel Chew Jr. Today's Date: 01/19/2024 Preferred Language: Burmese Assessment & Plan Assessment: PT Assessment: Pt was able to walk a short distance in the room to access the restroom but exhibits decresed endurance, activity tolerance, strength, and safety awareness. Prognosis: Good Barriers to Discharge: Limited family support, Limited social support (lives alone) Evaluation/Treatment Tolerance: Patient limited by fatigue, Patient tolerated treatment well Medical Staff Made Aware: Yes Strengths: Ability to acquire knowledge, Attitude of self Plan: Treatment Plan/Goals Established with Patient/Caregiver: Yes Treatment/Interventions: Balance training, Bed mobility training, Functional activities, Gait training, Patient education, Stair training PT Plan: Skilled PT PT Frequency: 4-5 times per week until discharge Therapy discharge recommendations are made by determining the patient's prior level of function, assessing current function level and establishing rehab potential. The overall discharge plan may be affected by input from Physicians, Care Coordination, medical condition/status, family support and insurance benefits. Subjective "I'm glad you came. Id like to get up" Current Problem: Per EMR: Briefly this is a 73 y/o male who presents with VT in the setting of a multifocal pneumonia and acute hypoxic respiratory failure. Interval Events: -FEES with papa aspiration -oxygen requirements stable; WBC down-trending Pain: Pt denies pain Vital Signs: Patient Vitals for the past 24 hrs: BP MAP (mmHg) Pulse Resp SpO2 01/19/24 1100 114/56 79 81 (!) 31 100 % 01/19/24 1000 144/65 94 76 (!) 30 97 % 01/19/24 0900 122/60 86 80 (!) 33 92 % 01/19/24 0813 141/58 -- 80 -- -- 01/19/24 0804 -- -- 78 (!) 27 97 % 01/19/24 0800 141/58 83 84 (!) 30 94 % 01/19/24 0751 -- -- 81 -- 95 % 01/19/24 0700 129/61 88 79 -- 96 % 01/19/24 0600 109/55 79 81 (!) 32 96 % 01/19/24 0500 110/54 78 80 (!) 36 99 % 01/19/24 0400 108/71 82 78 (!) 28 100 % 01/19/24 0300 109/55 79 75 (!) 30 99 % 01/19/24 0216 -- -- 76 19 98 % 01/19/24 0200 119/56 80 74 23 99 % 01/19/24 0100 -- -- 82 (!) 46 98 % 01/19/24 0000 123/59 85 80 (!) 33 98 % 01/18/24 2300 118/58 84 79 (!) 35 99 % 01/18/24 2200 (!) 118/97 104 79 (!) 36 99 % 01/18/24 2130 125/58 79 81 (!) 35 99 % 01/18/24 2100 115/69 84 102 (!) 35 99 % 01/18/24 2030 140/67 96 80 (!) 45 100 % 01/18/242028 -- -- 80 (!) 39 99 % 01/18/24 2000 137/60 87 81 (!) 32 98 % 01/18/24 1930 -- -- 80 (!) 50 99 % 01/18/24 1900 120/56 69 83 (!) 39 98 % 01/18/24 1830 -- -- (!) 138 (!) 45 99 % 01/18/24 1800 123/58 83 82 (!) 35 99 % 01/18/24 1700 101/56 75 84 (!) 37 94 % 01/18/24 1600 -- -- 80 (!) 33 94 % 01/18/24 1500 108/73 80 80 (!) 33 90 % 01/18/24 1400 109/54 78 82 (!) 41 90 % Home Living: Type of Home: Mobile home Home Adaptive Equipment: Walker rolling or standard, Cane Home Living Comments: lives alone Home Layout: One level Home Access: Stairs to enter with rails (x 7-8 steps) Entrance Stairs-Rails: Both Prior Level of Function: Level of Bricelyn: Household ambulation Receives Help From: Neighbor, Friends ADL Assistance: Independent Homemaking Assistance: Independent Vocational: Retired Objective General Visit Information: Family/Caregiver Present: Yes Others Present: OT Precautions: Airborne Droplet Isolation, Falls risk Cognition: Overall Cognitive Status: Within Functional Limits Behavior/Cognition: Alert, Cooperative, Pleasant mood, Distractible, Requires redirection Orientation Level: Disoriented to time, Disoriented to situation General Assessments:Activity Tolerance Activity Tolerance Endurance: Tolerates 10 - 20 min exercise with multiple rests Sensation SensationLight Touch: RLE Intact, LLE Intact Coordination CoordinationMovements are Fluid and Coordinated: Yes Functional Assessments:Bed Mobility Bed Mobility 1: Level of Assistance 1: Partial/Mod assistance Bed Mobility To/From: Supine to sit on EOB, Sitting EOB to supine Assistive Devices And Adaptive Equipments: Bed rail Transfers Transfers 1:Level of Assistance 1: Partial/Mod assistance Transfer To/From: [id number], Toilet Assistive Devices And Adaptive Equipments: Walker, front-wheeled Gait Gait Training Activity 1: Distance (enter in feet): 15, 10 Assistive Devices And Adaptive Equipments: Walker, front-wheeled Level of Assistance 1: Supervision/touching assistance Extremity Assessments:RUE Assessment RUE Assessment: Within Functional Limits LUE AssessmentLUE Assessment: Within Functional Limits RLE AssessmentRLE Assessment: Within Functional Limits LLE AssessmentLLE Assessment: Within Functional Limits Activity Tolerance:Endurance: Tolerates 10 - 20 min exercise with multiple rests CognitionOverall Cognitive Status: Within Functional Limits Behavior/Cognition: Alert, Cooperative, Pleasant mood, Distractible, Requires redirection Orientation Level: Disoriented to time, Disoriented to situation Outcome Measures: AM-PAC Basic Mobility:Turning in bed without bedrails: A Little Lying on back to sitting on edge of flat bed: A Little Bed to chair: A Little Standing up from chair: A Little Walk in room: A Little Climbing 3-5 stairs: A Little Mobility Inpatient Raw Score: 18 -[facility] Goal: 6 Walked 25 feet or more (i.e. walked outside of room) Patient Education:Education Documentation Physical Therapy Plan of Care, taught by Tracee Chapin PT at 01/19/2024 1:36 PM. Learner: Patient Readiness: Acceptance Method: Explanation Response: Verbalizes Understanding Education CommentsNo comments found. Goal:Encounter Goals Encounter Goals (Active) Pt will complete bed mobility modified independently with or without use of the bedrails. Start: 01/19/24 Expected End: 02/16/24 Pt will ambulate 200 ft with or without least restrictive assistive device and modified independent level of assistance. Start: 01/19/24 Expected End: 02/16/24 Pt with ascend and descend 7 steps modified independently with use of one or more hand rails. Start: 01/19/24 Expected End: 02/16/24 Pt will complete sit to/from stand and stand pivot transfers with modified independence using least restrictive assistive device. Start: 01/19/24 Expected End: 02/16/24 Treatment Note: If this is the last documented treatment, then it will signify discharge from acute care prior to discharge from the therapy service and will serve as the discharge summary. Tracee Chapin PT, DPT TERY MANAGER * Annmarie Viveros RN - 01/19/2024 12:14 PM CEMETERY MANAGER CASE MANAGEMENT ROUTINE DISCHARGE PLAN NOTE LOS: 2 Barriers to Discharge: AFB pending, on antibiotics Aspiration precautions. Failed FEES DISCHARGE PLAN A: Home DISCHARGE PLAN B: Home health YESENIA: 2-3 days TERY MANAGER * Allie Slaughter OT - 01/19/2024 11:49 AM CEMETERY MANAGER Evaluation and Treatment Patient Name: Esequiel Chew Jr. Today's Date: 01/19/2024 Preferred Language: Burmese Assessment & Plan Assessment: Pt reports at baseline, he is overall independent and lives in a mobile home with 7 step entry. Pt today presents below baseline; performs overall mobility with min A and overall ADLs with dep assist. Pt mildly impulsive and needs cueing and redirection at times; with mild confusion. Pt demo's decreased activity tolerance, decreased balance and decreased strength. Pt will benefit from skilled OT services to address deficits and maximize independence. OT Assessment Results: Impaired ADL status, Impaired upper extremity strength, Impaired endurance, Impaired functional mobility Prognosis: Good Barriers to Discharge: Complicated medical history, Insight into deficits, Limited family support, Limited social support Evaluation/Treatment Tolerance: Patient limited by fatigue Medical Staff Made Aware: Yes Strengths: Capable of completing ADLs semi/independent Plan: Treatment Plan/Goals Established with Patient/Caregiver: Yes Treatment Interventions: ADL retraining, Functional transfer training, Patient/family training, UE strengthening/ROM OT Plan: Skilled OT OT Frequency: 3-5 times per week OT Discharge Recommendations: alf facility placement OT Planned Treatments: Activities of Daily Living, Balance training, Caregiver training, Energy conservation training, Mobility training, Patient education, Safety education, Therapeutic exercises, Therapeutic activities Duration: Discharge Therapy discharge recommendations are made by determining the patient's prior level of function, assessing current function level and establishing rehab potential. The overall discharge plan may be affected by input from Physicians, Care Coordination, medical condition/status, family support and insurance benefits. Subjective Pt agreeable to OT evaluation Current Problem: Per EMR "Briefly this is a 73 y/o male who presents with VT in the setting of a multifocal pneumonia and acute hypoxic respiratory failure " Pain: Pt reports no pain Objective Pt found semi-vasquez in bed and agreeable to OT evaluation; SANYA Llanes clears pt for mobility. Pt on 3 L O2. Pt performs sup>sit with min A and performs LBD with min A, donning socks at EOB with posterior lean requiring correction. Pt performs sit>stand with min A and has BM smear on kelechi; is dep for pericare. Pt reports he feels he still needs to have more BM; performs ambulation to bathroom with min A and RW and performs toilet transfer with min A. Pt takes extended time on toilet; once finished, stands and is dep for further pericare. Pt returns to seated EOB and performs sit>sup with min A. Pt left in bed with all needs met, VSS. Vital Signs: VSS General Visit Information: Seen with PT Vero Cognition: Orientation Level: (Mild confusion) Home Living: Type of Home: (mobile home) Lives With: Alone Home Adaptive Equipment: Cane, Walker rolling or standard Home Layout: One level Home Access: Stairs to enter with rails Entrance Stairs-Rails: Both Entrance Stairs-Number of Steps: 7-8 Prior Function: Level of Bricelyn: (Pt reports he ambulates in home via furniture surfing) ADL Assistance: Independent Mobility/Transfers: Bed Mobility Bed Mobility Bed Mobility: Yes Bed Mobility 1 Level of Assistance 1: Partial/Mod assistance (min A) Bed Mobility To/From: Supine to sit on EOB Assistive Devices And Adaptive Equipments: Bed rail Transfer Transfers Transfer: Yes Transfer 1 Level of Assistance 1: Partial/Mod assistance (min A) Transfer To/From: Bed, [id number] Assistive Devices And Adaptive Equipments: Walker, front-wheeled Toilet Transfers Toilet Transfers Toilet Transfer To/From: Toilet Level of Assistance: Partial/Mod assistance (min A) Assistive Devices And Adaptive Equipments: Walker, Front-wheeled (grab bar) Functional Mobility Functional Mobility Functional Mobility: (Pt ambulates with min A and RW to bathroom and back to bed; needs cueing for redirection and focus on task at hand) OT General Assessments: Activity Tolerance Endurance: P+ 2-4min w/o rest period with above s/s Sitting Balance: (Pt overall CGA for sitting balance; while donning socks, needs min A d/t posterior lean) Hand Function Gross Grasp: Functional Extremity Assessments: RUE Assessment RUE Assessment: (Overall 3/5) LUE Assessment LUE Assessment: (Overall 3/5) Treatment: Self-Care: LE Dressing Assistance: Partial/Mod assistance (min A d/t posterior lean while performing figure 4 technique to don socks) LE Dressing Deficit: Don/doff L sock, Don/doff R sock Toileting Assistance: Dependent Toileting Deficit: Perineal hygiene AM-PAC Daily Activity: Putting on and taking off regular lower body clothing: A Little Bathing (including washing, rinsing, drying): A Lot Toileting, which includes using toilet, bedpan or urinal: Total Putting on and taking off regular upper body clothing: A Little Taking care of personal grooming such as brushing teeth: A Little Eating Meals: A Little AM-PAC Daily Activity Raw Score: 15 Mobility Highest Level of Mobility Performed (-HLM): Walked 10 steps or more (i.e. walked to restroom) Patient Education: Education Documentation Mobility Training, taught by Allie Slaughter OT at 01/19/2024 1:32 PM. Learner: Patient Readiness: Acceptance Method: Explanation Response: Verbalizes Understanding ADL Training, taught by Allie Slaughter OT at 01/19/2024 1:32 PM. Learner: Patient Readiness: Acceptance Method: Explanation Response: Verbalizes Understanding Occupational Therapy Plan of Care, taught by Allie Slaughter OT at 01/19/2024 1:32 PM. Learner: Patient Readiness: Acceptance Method: Explanation Response: Verbalizes Understanding Education Comments No comments found. Goals: Encounter Goals Encounter Goals (Active) Patient will perform grooming with mod I standing at sink. Start: 01/19/24 Patient will perform toilet transfer with mod I using LRAD. Start: 01/19/24 Patient will perform toileting with mod I in 3/3 trials. Start: 01/19/24 Patient will perform lower body dressing with mod I using assistive device if needed in 3/3 trials. Start: 01/19/24 Pt will perform >8 min of OOB ADL routine with no rest breaks to improve overall activity tolerance. Start: 01/19/24 Within 2 weeks of starting therapy, the patient and/or family/caregiver will demonstrate independence and be compliant in a written HEP in order to maximize gains made during therapy. Start: 01/19/24 Treatment Note: If this is the last documented treatment, then it will signify discharge from acute care prior to discharge from the therapy service and will serve as the discharge summary. Allie Slaughter OT TERY MANAGER * Shantelle Arzate PharmD - 01/19/2024 9:07 AM CEMETERY MANAGER Vancomycin Dosing and Monitoring Protocol - Sign-Off Note The Department of Pharmacy will no longer be managing Vancomycin therapy for this patient because: Therapy is being discontinued Thank you for allowing us to participate in the care of this patient. We will sign off for now. Please re-consult if needed. Shantelle Arzate PharmD TERY MANAGER * Arya Hallman-Tammy Goddard MD - 01/19/2024 8:56 AM CEMETERY MANAGER [facility] ICU Note This patient was seen with SUGARCANE PLANTER Louise and Dr. Bella and bedside RN as part of a multidisciplinary team. Briefly this is a 73 y/o male who presents with VT in the setting of a multifocal pneumonia and acute hypoxic respiratory failure Interval Events: -FEES with papa aspiration -oxygen requirements stable; WBC down-trending -no further ectopy overnight -MRSA PCR negative; gram stain with few GPC in pairs and clusters Problem List -ventricular tachycardia with ICD -acute hypoxic hypercapnic respiratory failure -multifocal pneumonia with left sided cavitary lung lesions -aspiration -emphysema -TFTs suggestive of hyperthyroid state -hyponatremia -thrombocytosis -anemia - likely nutritional and chronic disease related -history of dyslipidemia -history of atrial fibrillation/flutter (CHADSVASc 3) -history of multivessel CAD Daily Plan -continue memantine -continue escitalopram -continue on buproprion -continue on gabapentin -tylenol prn for pain/discomfort -continue ASA/plavix/statin for dyslipidemia/CAD -continued on amiodarone infusion per CCU/EP -continued on heparin drip per CCU/EP -continue supplemental oxygen -encourage IS -start ipratropium q6h for COPD; currently does not appear to be in exacerbation -continue steroids for CAP -continue tube feeds -follow up ongoing MEETING MANAGER evaluation -continue PPI -bowel regimen deferred for now given precedent diarrhea -consider endocrinology consult given deranged TFTs and VT presentation -SSI as needed to maintain blood glucose targets of 140-180 -continue vancomycin/cefepime/flagyl/azithromycin (D2) - azithromycin to complete today and may also discontinue vancomycin as MRSA PCR negative -follow-up infectious work-up including blood, respiratory cultures, aspergillus antigen and fungitell -follow-up enteral PCR panel -continued on heparin drip (atrial fibrillation) ICU Quality Review -ICU day: 2 day -mechanically ventilated: no -restraints indicated: no -PT/OT: ordered -DVT prophylaxis: systemic anticoagulation -GI prophylaxis: yes -central Lines: none -arterial Lines: none -devices: none -posada: no -tubes/drains: none -pressure injury: none I spent a total of 45 minutes caring for this patient including reviewing the patients chart, obtaining relevant history from the patient, performing a physical examination, interpreting date and coordinating care with consultants. This is exclusive to any procedures or teaching. Vitals: Visit Vitals BP 141/58 Pulse 80 Temp 36.9 ?C (98.4 ?F) Resp (!) 32 Ht 1.778 m (5' 10") Wt 82.6 kg (182 lb) SpO2 96% BMI 26.11 kg/m? BSA 2.02 m? Tube/Drain Output: Output by Drain (mL) 01/17/24 07 - 01/17/24 18501/17/24 1900 - 01/18/24 0659 01/18/24 07 - 01/18/24 1859 01/18/24 1900 - 01/19/24 0659 01/19/24 0700 - 01/19/24 0856 Requested LDAs do not have output data documented. Labs: Last ABG Results from last 7 days Lab Units 01/17/24 2319 POC PH, ARTERIAL 7.46* POC PCO2, ARTERIAL mmHg 34* POC PO2, ARTERIAL mmHg 66* POC HCO3, ARTERIAL mMol/L 24 POC SO2, ARTERIAL (CALC) % 93.8* POC SO2, ARTERIAL % 92.8* POC BASE EXCESS, ARTERIAL mMol/L 1 Last CBC ResultLast Lab Result Automated Differential Collection Time: 01/19/24 2:52 AM Result Value Ref Range Segs % 91.8 (H) 40.6 - 75.7 % Lymphs % 4.9 (L) 14.9 - 47.8 % Monos % 2.0 (L) 4.2 - 12.6 % Eos % 0.0 (L) 0.2 - 5.0 % Basos % 0.1 (L) 0.2 - 1.3 % Immature Grans % 1.2 (H) 0.1 - 1 % Segs # 13.41 (H) 1.48 - 6.56 10*3/uL Lymphs # 0.72 (L) 0.86 - 3.84 10*3/uL Monos # 0.29 0.29 - 0.96 10*3/uL Eos # 0.00 0.00 - 0.46 10*3/uL Basos # 0.01 0.01 - 0.08 10*3/uL Imm Grans # 0.18 (H) 0.01 - 0.07 10*3/uL Complete Blood Count Collection Time: 01/19/24 2:52 AM Result Value Ref Range WBC 14.61 (H) 3.92-.10.07 10*3/uL RBC 2.59 (L) 4.27 - 6.02 10*6/uL NRBC % 0.0 0 /100 WBC Hgb 7.9 (L) 12.4 - 17.4 g/dL Hct 23.8 (L) 37.1 - 50.8 % MCV 91.9 79.2 - 96.8 fL MCH 30.5 26.1 - 32.4 pg MCHC 33.2 31.2 - 36.1 g/dL RDW - SD 48.1 (H) 34.0 - 37.0 fL Plt Count 566 (H) 160 - 381 10*3/uL MPV 9.3 9.0 - 12.0 fL Last BMP or CMP ResultLast Lab Result Basic Metabolic Panel STAT Collection Time: 01/17/24 9:20 PM Result Value Ref Range Glucose Lvl 135 (H) 70 - 99 mg/dL BUN 36 (H) 9 - 23 mg/dL Creatinine Lvl 1.18 0.7 - 1.30 mg/dL Sodium Lvl 135 (L) 136 - 145 mEq/L Potassium Lvl 4.2 3.4 - 4.5 mEq/L Chloride Lvl 101 98 - 107 mEq/L CO2 Lvl 26.2 20.0 - 31.0 mEq/L Anion Gap 12.0 10.0 - 20.0 mEq/L Calcium Lvl 7.8 (L) 8.3 - 10.6 mg/dL eGFR 65 >60 mL/min/1.73m2 Culture ResultsNo results found for the last 90 days. Bowel Movements:No data recorded Ventilator Settings Active Medications Amiodarone HCl in Dextrose, 450 mg, Last Rate: 450 mg (01/19/24 0051) heparin, 0.1-40 Units/kg/hr, Last Rate: 25 Units/kg/hr (01/19/24 0551) peptamen AF, , Last Rate: 40 mL/hr at 01/19/24 0400 [Held by provider] amLODIPine, 5 mg, Oral, Dailyaspirin, 81 mg, Oral, Daily atorvastatin, 40 mg, Oral, Daily azithromycin, 500 mg, Oral, q24h buPROPion SR, 150 mg, Oral, Daily [Held by provider] carvedilol, 12.5 mg, Oral, BID with meals cefepime, 1 g, Intravenous, q6h clopidogrel, 75 mg, Oral, Daily Ensure Enlive, 1 Container, Oral, TID with meals Enteral Free water Flush, 30 mL, Nasogastric, q4h escitalopram, 5 mg, Oral, Daily gabapentin, 300 mg, Oral, Nightly hydrocortisone sodium succinate, 50 mg, Intravenous, q6h MICHEL ipratropium, 0.5 mg, Nebulization, q6h [Held by provider] isosorbide mononitrate ER, 30 mg, Oral, Daily [Held by provider] lisinopril, 40 mg, Oral, Daily memantine, 10 mg, Oral, BID metoprolol succinate XL, 25 mg, Oral, Daily metroNIDAZOLE, 500 mg, Intravenous, q8h pantoprazole, 40 mg, Oral, Daily before breakfast sodium chloride, 10 mL, Intravenous, q12h vancomycin (Vancocin) 1,000 mg in sodium chloride 0.9 % 100 mL IVPB-MB+, 1,000 mg, Intravenous, q12h TERY MANAGER * Vanessa Reyes MD - 01/19/2024 6:31 AM CEMETERY MANAGER CCU Progress Note Admission Date: 01/17/2024 CCU Day: 2 Problem List Principal Problem: VT (ventricular tachycardia) (HCC) Active Problems: VF (ventricular fibrillation) (CMS/HCC) (HCC) Anxiety Depression Multifocal pneumonia Cardiac defibrillator in situ Carotid artery stenosis Mixed hyperlipidemia 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 Hyponatremia Hypokalemia Hypocalcemia Transaminitis Normocytic anemia Atrial fibrillation/flutter (HCC) Emphysema lung (HCC) Acute respiratory failure with hypoxemia (HCC) Esequiel Chew Jr 1950 [address] White Assessment & Plan Mr. Esequiel Chew Jr a 73 y.o. 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 CARDIOVASCULAR: #Ventricular Tachycardia #Ventricular Fibrillation - ddx: ischemia, CHF, electrolyte abnomalitites - may consider [facility] this admission to workup known CAD for potential progression - CT chest neg for PE, shows bilateral consolidations/cavitary changes Device interrogation shows since 08/06 >> 7 episodes of VT-2 (HR >181) >> 4 episodes of VF with 3 shocks delivered >> 49 episodes of SVT noted >> AP <1%, MEDICAID BILLING SPECIALIST 3.5% - BNP 170 - Echo: EF 55-60%, trace MR/TR PLAN: - f/u EP recs: Continue IV amiodarone per protocol, can transition to p.o. amiodarone if patient remains clinically stable (400 mg twice daily x 7 days, 400 mg daily x 7 days, 200 mg daily until follow-up) #Afib - not on anticoagulation or any rhythm control - not in Afib on admission PLAN: - heparin gtt - amiodarone as above #CAD - history of FL in 1999 and 2004 - describes chest tightness with exertion - Troponin 12 PLAN: - GDMT: * RAAS: lisinopril * BB: coreg * MRA: none * SGLT2: will consider adding after monitoring BP - continue atorvastatin - continue plavix - pending TSH, A1C, lipid panel #HTN - continue amlodipine 5mg daily - continue coreg 12.5 daily BID NEURO/PSYCH - RASS/AxO4 - Fall precautions RESPIRATORY: #Multifocal PNA - Fever and chill for 3 weeks (Tmax 103) - CXR 01/16: Left midlung and right lower lobe pulmonary opacities suggesting multifocal infection - WBC 20.05 on admission - CT chest neg for PE, shows bilateral consolidations/cavitary changes, enlarged mediastinal/BL hilar LAD - Pt on 2 L NC on admission, not on home O2 - resp cx show few g (+) cocci in pairs/clusters - strep pneumo antigen negative PLAN: - legionella antigen, AFB, MRSA nares, Mycoplasma, Blood Cultures - vanc/cefepime/azithromycin - outpatient follow up on cavitary changes, enlarged mediastinal/bilateral hilar lymph nodes with repeat CT scan in 8 weeks GI/FEN: Diarrhea - started at hospital - hold bowel reg, f/u stool studies RENAL: - Strict I&Os - Check & replete lytes - Avoid nephrotoxins - Renally dose medications INFECTIOUS DISEASE: - Monitor for infections HEMATOLOGY: #Anemia - Hb 9.4 on admission - transfuse to keep Hgb >7.0, Plt >20 - anemia panel ENDO: - A1c 5.09 - TSH 0.189L, Free T4 2.13H MSK/DERM - PT/OT consulted Code status: FULL Contact: VENUS COLEMAN (Niece) DVT PPX: heparin gtt PUD PPX : Not indicated Diet: Heart Healthy L/T/D: IV Access: Peripheral IV 01/17/24 Left Antecubital (Active) Peripheral IV 01/17/24 Right Antecubital (Active) Dispo: pending clinical improvement Patient staffed with attending physician, Dr. Omero Reyes MD Internal Medicine | PGY-2 [facility] | [employer]. Today, Mr. Chew reports he slept well overnight, no complaints. Reports he takes norco 10-325 PRN at home for back pain, usually 4x a day. PMH: History reviewed. No pertinent past medical history. PSH: History reviewed. No pertinent surgical history. FH: No family history on file. SH: Social History Tobacco Use Smoking Status Not on file Smokeless Tobacco Not on file Social History Substance and Sexual Activity Alcohol Use None Social History Substance and Sexual Activity Drug Use Not on file ALLERGIES: Patient has no known allergies. PRIOR TO ADMISSION MEDS:No current facility-administered medications on file prior to encounter. Current Outpatient Medications on File Prior to EncounterMedication Sig Dispense Refill amLODIPine (Norvasc) 5 MG tablet Take 1 tablet by mouth in the morning and 1 tablet in the evening. benazepril (Lotensin) 20 MG tablet Take 1 tablet by mouth 1 time each day. carvedilol (Coreg) 12.5 MG tablet Take 12.5 mg by mouth in the morning and 12.5 mg in the evening. Take with meals. clopidogrel (Plavix) 75 MG tablet Take 75 mg by mouth 1 time each day. escitalopram (Lexapro) 20 MG tablet 1 time each day. lovastatin (Mevacor) 40 MG tablet Take 40 mg by mouth at bedtime. memantine (Namenda) 10 MG tablet Take 10 mg by mouth in the morning and 10 mg in the evening. aspirin 325 MG tablet Take 325 mg by mouth 1 time each day. buPROPion SR (Wellbutrin SR) 150 MG 12 hr tablet Take 150 mg by mouth 1 time each day. citalopram (CeleXA) 20 MG tablet Take 2 tablets by mouth 1 time each day. gabapentin (Neurontin) 300 MG capsule Take 300 mg by mouth at bedtime. isosorbide mononitrate ER (Imdur) 30 MG 24 hr tablet Take 30 mg by mouth 1 time each day. simvastatin (Zocor) 40 MG tablet Take 40 mg by mouth at bedtime. ROS: 10 point review of systems assessed and negative except as stated in the HPI. Objective Vital SignsCurrent: Visit Vitals BP 109/55 Pulse 81 Temp 36.9 ?C (98.4 ?F) Resp (!) 32 24 Hour:Vitals: 01/19/24 0300 01/19/24 0400 01/19/24 0500 01/19/24 0600 BP: 109/55 108/71 110/54 109/55 Pulse: 75 78 80 81 Resp: (!) 30 (!) 28 (!) 36 (!) 32 Temp: 36.9 ?C (98.4 ?F) SpO2: 99% 100% 99% 96% Intake/Output: I/O last 3 completed shifts: In: 833.8 (10.1 mL/kg) [P.O.:200; I.V.:633.8 (7.7 mL/kg)] Out: 950 (11.5 mL/kg) [Urine:950 (0.3 mL/kg/hr)] Weight: 82.6 kg Intake/Output Summary (Last 24 hours) at 01/19/2024630Last data filed at 01/19/2024 0605 Gross per 24 hour Intake 980.06 ml Output 2200 ml Net -1219.94 ml Net intake/output since admission: Net IO Since Admission: -1,071.66 mL[01/19/24630] PHYSICAL EXAM General Appearance: no acute distress, no pallor, very soft voiceHEENT: Extra ocular movements intact, no scleral icterus, mucous membrane moist, external ears normal Neck: Supple, FROM Lungs: respiratory effort normal, crackles bilaterally, no wheezes/rales/rhonchi Heart: Regular rate and regular rhythm, no murmur Abdomen: soft, non-tender, non-distended MSK/Extremities: No edema, pulses 2+. No obvious deformity. Skin: No lesions, no rash. No jaundice. Neurologic: AOx3, no focal deficits, speech clear Psych: Mood congruent affect, responds appropriately to questions. SCHEDULED HOSPITAL MEDICATIONS [Held by provider] amLODIPine, 5 mg, Oral, Daily aspirin, 81 mg, Oral, Daily atorvastatin, 40 mg, Oral, Daily azithromycin, 500 mg, Oral, q24h buPROPion SR, 150 mg, Oral, Daily [Held by provider] carvedilol, 12.5 mg, Oral, BID with meals cefepime, 1 g, Intravenous, q6h clopidogrel, 75 mg, Oral, Daily Ensure Enlive, 1 Container, Oral, TID with meals Enteral Free water Flush, 30 mL, Nasogastric, q4h escitalopram, 5 mg, Oral, Daily gabapentin, 300 mg, Oral, Nightly hydrocortisone sodium succinate, 50 mg, Intravenous, q6h MICHEL ipratropium, 0.5 mg, Nebulization, q6h [Held by provider] isosorbide mononitrate ER, 30 mg, Oral, Daily [Held by provider] lisinopril, 40 mg, Oral, Daily memantine, 10 mg, Oral, BID metoprolol succinate XL, 25 mg, Oral, Daily metroNIDAZOLE, 500 mg, Intravenous, q8h pantoprazole, 40 mg, Oral, Daily before breakfast sodium chloride, 10 mL, Intravenous, q12h vancomycin (Vancocin) 1,000 mg in sodium chloride 0.9 % 100 mL IVPB-MB+, 1,000 mg, Intravenous, q12h PRN Medications:PRN medications: dextrose, dextrose, glucagon, guaiFENesin, sodium chloride, sodium chloride, Pharmacy to dose vancomycin AND Vancomycin Pharmacy Dosing Drips:Amiodarone HCl in Dextrose, 450 mg, Last Rate: 450 mg (01/19/24 005) heparin, 0.1-40 Units/kg/hr, Last Rate: 25 Units/kg/hr (01/19/24 0551) peptamen AF, , Last Rate: 40 mL/hr at 01/19/24 0400 LABSResults from last 7 days Lab Units 01/19/2425101/18/24193701/18/24210 WBC 10*3/uL 14.61* 15.45* 20.09* HEMOGLOBIN g/dL 7.9* 8.3* 8.3* MCV fL 91.9 90.8 94.4 Results from last 7 daysLab Units 01/19/2425101/18/24193701/18/24210 WBC 10*3/uL 14.61* 15.45* 20.09* HEMOGLOBIN g/dL 7.9* 8.3* 8.3* MCV fL 91.9 90.8 94.4 Results from last 7 daysLab Units 01/19/2425101/18/2421001/17/24231801/17/240 POC SODIUM, ARTERIAL mEq/L -- -- 131* -- SODIUM mEq/L 134* 133* -- 135* POC POTASSIUM, ARTERIAL mEq/L -- -- 4.0 -- POTASSIUM mEq/L 3.5 3.9 -- 4.2 POC CHLORIDE mEq/L -- -- 99 -- CHLORIDE mEq/L 103 101 -- 101 CO2 mEq/L 24.2 24.4 -- 26.2 BUN mg/dL 20 34* -- 36* PHOSPHORUS mg/dL 3.4 3.5 -- 4.0 Results from last 7 daysLab Units 01/19/2425101/18/2421001/17/24 1906 AST U/L 35 47* 58* ALT U/L 38 41* 45* Results from last 7 daysLab Units 01/19/24 0458 01/19/24 0252 01/18/24 1938 INR 1.34* 1.53* 1.33* PROTIME Seconds 16.8* 18.7* 16.7* PTT Seconds 40.0* >200.0* 45.1* No lab exists for component: "APH", "APCO2", "APO2"No lab exists for component: "POCGLU" Microbiology:No results found for the last 90 days. OTHER DATA EKG Review: Encounter Date: 01/17/24 Electrocardiogram, 12-lead Result Value Ventricular Rate 80 Atrial Rate 80 AR Interval 194 QRS Duration 80 QT/QTc 430 QTc Calculation 495 P-[place] 71 R-[place] 48 T-[place] 57 Narrative SINUS RHYTHM WITH PREMATURE SUPRAVENTRICULAR COMPLEX(ES) PROLONGED QT INTERVAL OR TU FUSION, CONSIDER MYOCARDIAL DISEASE, ELECTROLYTE IMBALANCE, OR DRUG EFFECTS ABNORMAL ECG Compared with prior study, prolonged QT interval is now noted Confirmed by Katelin Hayward ([id number]) on 01/18/2024 10:46:16 AM Echo: Transthoracic echo (TTE) complete Result Date: 01/18/2024 1. This study demonstrates normal biventricular size and overall systolic function, concentric left ventricular remodeling, a catheter in the right sided chambers, trace mitral regurgitation, and trace tricuspid regurgitation. 2. There are no prior echocardiographic studies currently available for comparison. Stress Test: Cath: Radiology Review: US thyroid Result Date: 01/18/2024 EXAM: US THYROID DATE: 01/18/2024 13:38 INDICATION: 73-year-old Male to evaluate thyroid for thyroiditis COMPARISON: None. TECHNIQUE: Multiplanar grayscale and color Doppler ultrasound of the neck was obtained in the area of the thyroid. FINDINGS: Thyroid: Homogeneous parenchyma with subjectively normal color Doppler flow. Size: Right thyroid: 1.8 cm x 3.2 cm x 1.2 cm, 3.6 cm3 Left thyroid: 1.7 cm x 3.3 cm x 1.6 cm, 4.9 cm3 Isthmus thickness: 0.4 cm Thyroid nodules: None. Other: None. Unremarkable thyroid ultrasound. This report was dictated by a [employer] Controller/Fellow/MIRACLE: Gisele Alexander, RES 01/18/2024 14:54 I have personally reviewed the images as well as the interpretation and agree with the findings. Dictation Date/time: 01/18/2024 14:51 Electronically Signed by: Lori Gonzalez MD 01/18/2024 16:16 XR abdomen 1 viewResult Date: 01/18/2024 EXAM: XR ABDOMEN 1 VIEW DATE: 01/18/2024 2:59 INDICATION: abdominal distention ADDITIONAL INFORMATION: None. COMPARISON: X-ray chest, 01/17/2024. TECHNIQUE: AP abdomen. FINDINGS: Lines, tubes and hardware: Partially visualized combination pacer ICD with leads overlying the right atrium and right ventricle. Lower thorax: Pulmonary opacities within the left midlung and right lower lobe, same as prior. Abdomen and bowel: Diffusely dilated gas-filled bowel loops, small bowel loop measuring up to 3.6 cm. Bones and soft tissues: Regional skeleton is unchanged. Others: Residual contrast in the distended urinary bladder. 1. Ileus. Serial radiographs may be obtained to ensure resolution. 2. Hardwareas above. This report was dictated by a [employer] Controller/Fellow/MIRACLE: Gina Murphy RES, MD 01/18/2024 11:53 I have personally reviewed the images as well as the interpretation and agree with the findings. Dictation Date/time: 01/18/2024 11:46 Electronically Signed by: Samson Garrison MD 01/18/2024 13:16 Transthoracic echo (TTE) completeResult Date: 01/18/2024 1. This study demonstrates normal biventricular size and overall systolic function, concentric left ventricular remodeling, a catheter in the right sided chambers, trace mitral regurgitation, and trace tricuspid regurgitation. 2. There are no prior echocardiographic studies currently available for comparison. Electrocardiogram, 12-leadResult Date: 01/18/2024 SINUS RHYTHM WITH PREMATURE SUPRAVENTRICULAR COMPLEX(ES) PROLONGED QT INTERVAL OR TU FUSION, CONSIDER MYOCARDIAL DISEASE, ELECTROLYTE IMBALANCE, OR DRUG EFFECTS ABNORMAL ECG Compared with prior study, prolonged QT interval is now noted Confirmed by Katelin Hayward ([id number]) on 01/18/2024 10:46:16 AM ECG 12 leadResult Date: 01/18/2024 SINUS RHYTHM NORMAL ECG NO PREVIOUS ECGS AVAILABLE Confirmed by Katelin Hayward ([id number]) on 01/18/2024 9:43:[address] BRAIN WO IV CONTRASTResult Date: 01/18/2024 EXAM: CT BRAIN WITHOUT CONTRAST DATE: 01/18/2024 6:10 INDICATION: s/p fall . COMPARISON: None. TECHNIQUE: Axial CT images of the brain were obtained. Sagittal and coronal reformats. IV contrast: None DLP: Refer to CT protocol form FINDINGS: No acute intracranial hemorrhage or extra-axial collection. No midline shift or mass effect. No brain parenchymal edema. The ventricles and sulci are enlarged from chronic brain parenchymal volume loss. Periventricular white matter hypoattenuation is nonspecific but likely represents chronic microvascular ischemic changes. The skull base, calvarium, and included facial bones have no acute fracture. The paranasal sinuses and mastoid air cells are predominantly clear. * No acute intracranial hemorrhage or calvarial fracture. This report was dictated by a [employer] Controller/Fellow/MIRACLE: Magaly Landry RES, MD 01/18/2024 8:18 I have personally reviewed the images as well as the interpretation and agree with the findings. Dictation Date/time: 01/18/2024 8:11 Electronically Signed by: Kayden Calderon MD 01/18/2024 9:07 CT angiogram chest pulmonary embolismResult Date: 01/18/2024 EXAM: CTA CHEST WITH CONTRAST DATE: 01/17/2024 17:36 INDICATION: Pacemaker shocks, runs of VT and VF, concern for PE Age: 73 years y/o Male; ADDITIONAL INFORMATION: None. COMPARISON: None available. TECHNIQUE: CT of the chest is acquired during pulmonary arterial phase following administration of IV contrast. Axial, sagittal, coronal, and oblique MIP reconstructions are created. IV Contrast and DLP: Refer to MAR/pet technologist documentation. FINDINGS: Lines, tubes and hardware: There is a left-sided ICD/pacemaker with its leads terminating in the right atrial appendage and right ventricle. Lower neck: The visualized portions of the lower neck are unremarkable. Lymph nodes: There are enlarged mediastinal and bilateral hilar lymph nodes measuring up to 1.4 cm in short axis. Mediastinum, heart, pericardium and great vessels: Pulmonary emboli: None. Pulmonary trunk: 2.3 cm. Ascending aorta: 3.0 cm. Heart: The heart size is within normal limits. There is no CT evidence of right heart strain. RV/LV <1.0, within normal limits. Moderate Pericardium: No pericardial effusion. Airway, lungs and pleura: There is mucous plugging in the peripheral airways. There is moderate centrilobular enprostil emphysema. There are bilateral consolidations some of which contain cavitary changes. No pleural effusions or pneumothorax. Upper abdomen: There is a small hiatal hernia. Musculoskeletal: No acute abnormality. Age-related degenerative findings. Low attenuation of the vertebral trabecular bone, suggestive of osteopenia/osteoporosis. Correlation with DEXA scan is recommended. 1. No pulmonary emboli or right heart strain. 2. Bilateral consolidations, some of which contain cavitary changes. The differential diagnosis mainly includes necrotizing pneumonia. Less possible differential possibilities include septic emboli, mycobacterial infection, or fungal infection. Follow-up with chest CT in 8 weeks is recommended to ensure resolution and rule out underlying malignancy. 3. Enlarged mediastinal and bilateral hilar lymph nodes, indeterminate. Attention on follow-up imaging is recommended. 4. Moderate emphysema. 5. Moderate atherosclerotic coronary artery calcifications. 6. Findings suggestive of osteopenia/osteoporosis. Correlation with DEXA scan is recommended. 7. Other incidental findings as described above. The above findings were communicated to and acknowledged by Dr. Gomez via Securechat at 01/17/2024 17:59 by Virginia Rogers RES. This report was dictated by a [employer] Controller/Fellow/MIRACLE: Virginia Rogers RES 01/17/2024 18:08 I have personally reviewed the images as well as the interpretation and agree with the findings. Dictation Date/time: 01/17/2024 17:52 Electronically Signed by: González Mireles MD 01/18/2024 8:29 XR chest 1 viewResult Date: 01/17/2024 EXAM: XR CHEST 1 VIEW DATE: 01/17/2024 12:55 INDICATION: CP COMPARISON: None. TECHNIQUE: AP chest. FINDINGS: Lines, tubes and hardware: Combination pacer-ICD has leads overlying the right atrium and right ventricle. Lungs and pleura: Pulmonary opacities within the left midlung and right lower lobe. The costophrenic sulci are sharp without effusion. Heart and mediastinum: The heart size is normal. Vascular calcifications are present at the aorta. Bones and soft tissues: No acute abnormality. Age-related degenerative findings. Left midlung and right lower lobe pulmonary opacities suggesting multifocal infection. Cosigned by Tiffany Jamil MD at 01/19/2024 10:44 AM CST TERY MANAGER TERY MANAGER Associated attestation - Tiffany Jamil MD - 01/19/2024 10:44 AM CEMETERY MANAGER The patient was seen and examined with the resident. The relevant lab results, imaging and EKGs were personally reviewed, and the medications were reconciled. I agree with above mentioned assessment and plan. Total amount of critical care time spent throughout the day excluding procedural time was - 35 minutes. The patient remain critically ill, and requires ICU level of care. -- Pt with VT/Vfib , also has ICD, started on amiodarone and metoprolol-- Ischemic cardiomyopathy , LVEF ~ 50% -- Multifocal pneumonia with cavitary lesions - AFB pending, on antibiotics -- Continue GI and DVT prophylaxis per ICU protocol -- Appreciate PCCM input on non-cardiac critical issues Patient Active Problem ListDiagnosis Date Noted Emphysema lung ([facility]) 01/18/2024 Acute respiratory failure with hypoxemia ([facility]) 01/18/2024 VT (ventricular tachycardia) ([facility]) 01/17/2024 VF (ventricular fibrillation) (CMS/HCC) ([facility]) 01/17/2024 Anxiety 01/17/2024 Depression 01/17/2024 Multifocal pneumonia 01/17/2024 Carotid artery stenosis 01/17/2024 Mixed hyperlipidemia 01/17/2024 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 01/17/2024 Hyponatremia 01/17/2024 Hypokalemia 01/17/2024 Hypocalcemia 01/17/2024 Transaminitis 01/17/2024 Normocytic anemia 01/17/2024 Atrial fibrillation/flutter (HCC) 01/17/2024 Cardiac defibrillator in situ 04/17/2023 * Arya Hallman-Tammy Goddard MD - 01/18/2024 3:25 PM CEMETERY MANAGER [facility] This patient was seen with SUGARCANE PLANTER Louise and Dr. Bella and bedside RN as part of a multidisciplinary team. Briefly this is a 73 y/o male who presents with VT in the setting of a multifocal pneumonia and acute hypoxic respiratory failure Interval Events: -does not endorse hyperthyroid symptoms (with exception of diarrhea) -does not endorse chronic/subacute symptoms of infections -reports two other prior episodes of pneumonia (last one more than 30 years ago) -does not report difficulty eating or swallowing; denies any coughing with food Problem List -ventricular tachycardia with ICD -acute hypoxic hypercapnic respiratory failure -multifocal pneumonia with left sided cavitary lung lesions -emphysema -TFTs suggestive of hyperthyroid state -hyponatremia -thrombocytosis -anemia - likely nutritional and chronic disease related -history of dyslipidemia -history of atrial fibrillation/flutter (CHADSVASc 3) -history of multivessel CAD Daily Plan -continue memantine -continue escitalopram -continue on buproprion -continue on gabapentin -tylenol prn for pain/discomfort -continue ASA/plavix/statin for dyslipidemia/CAD -continued on amiodarone infusion per CCU/EP -continued on heparin drip per CCU/EP -continue supplemental oxygen -encourage IS -start ipratropium q6h for COPD -start steroids for CAP -NPO pending MEETING MANAGER evaluation; clinical/radiographic presentation is concerning for aspiration -continue PPI -bowel regimen deferred for now given precedent diarrhea -recommend obtaining thyroid US; consider endocrinology consult given deranged TFTs and VT presentation -SSI as needed to maintain blood glucose targets of 140-180 -continue vancomycin/cefepime/azithromycin; will add metronidazole as well -follow-up infectious work-up including blood, respiratory cultures, aspergillus antigen and fungitell -follow-up enteral PCR panel -continued on heparin drip (atrial fibrillation) ICU Quality Review -ICU day: 1 day -mechanically ventilated: no -restraints indicated: no -PT/OT: ordered -DVT prophylaxis: systemic anticoagulation -GI prophylaxis: yes -central Lines: none -arterial Lines: none -devices: none -posada: no -tubes/drains: none -pressure injury: none I spent a total of 45 minutes caring for this patient including reviewing the patients chart, obtaining relevant history from the patient, performing a physical examination, interpreting date and coordinating care with consultants. This is exclusive to any procedures or teaching. Vitals: Visit Vitals BP 126/59 Pulse 82 Temp 36.6 ?C (97.8 ?F) (Oral) Resp (!) 41 Ht 1.778 m (5' 10") Wt 82.6 kg (182 lb) SpO2 90% BMI 26.11 kg/m? BSA 2.02 m? Tube/Drain Output: Output by Drain (mL) 01/16/24 07 - 01/16/24 18501/16/24 1900 - 01/17/24 0659 01/17/24699 - 01/17/24 18501/17/24 190 - 01/18/24 0659 01/18/24 07 - 01/18/24 1525 Patient has no LDAs of requested type attached. Labs: Last ABG Results from last 7 days Lab Units 01/17/24 2319 POC PH, ARTERIAL 7.46* POC PCO2, ARTERIAL mmHg 34* POC PO2, ARTERIAL mmHg 66* POC HCO3, ARTERIAL mMol/L 24 POC SO2, ARTERIAL (CALC) % 93.8* POC SO2, ARTERIAL % 92.8* POC BASE EXCESS, ARTERIAL mMol/L 1 Last CBC ResultLast Lab Result Automated Differential Collection Time: 01/18/24 2:11 AM Result Value Ref Range Segs % 89.2 (H) 40.6 - 75.7 % Lymphs % 5.5 (L) 14.9 - 47.8 % Monos % 3.6 (L) 4.2 - 12.6 % Eos % 0.5 0.2 - 5.0 % Basos % 0.2 0.2 - 1.3 % Immature Grans % 1.0 0.1 - 1.0 % Segs # 17.90 (H) 1.48 - 6.56 10*3/uL Lymphs # 1.11 0.86 - 3.84 10*3/uL Monos # 0.73 0.29 - 0.96 10*3/uL Eos # 0.11 0.00 - 0.46 10*3/uL Basos # 0.04 0.01 - 0.08 10*3/uL Imm Grans # 0.20 (H) 0.01 - 0.07 10*3/uL Complete Blood Count Collection Time: 01/18/24 2:11 AM Result Value Ref Range WBC 20.09 (H) 3.92-.10.07 10*3/uL RBC 2.87 (L) 4.27 - 6.02 10*6/uL NRBC % 0.0 0 /100 WBC Hgb 8.3 (L) 12.4 - 17.4 g/dL Hct 27.1 (L) 37.1 - 50.8 % MCV 94.4 79.2 - 96.8 fL MCH 28.9 26.1 - 32.4 pg MCHC 30.6 (L) 31.2 - 36.1 g/dL RDW - SD 49.9 (H) 34.0 - 37.0 fL Plt Count 576 (H) 160 - 381 10*3/uL MPV 9.0 9.0 - 12.0 fL Last BMP or CMP ResultLast Lab Result Basic Metabolic Panel STAT Collection Time: 01/17/24 9:20 PM Result Value Ref Range Glucose Lvl 135 (H) 70 - 99 mg/dL BUN 36 (H) 9 - 23 mg/dL Creatinine Lvl 1.18 0.7 - 1.30 mg/dL Sodium Lvl 135 (L) 136 - 145 mEq/L Potassium Lvl 4.2 3.4 - 4.5 mEq/L Chloride Lvl 101 98 - 107 mEq/L CO2 Lvl 26.2 20.0 - 31.0 mEq/L Anion Gap 12.0 10.0 - 20.0 mEq/L Calcium Lvl 7.8 (L) 8.3 - 10.6 mg/dL eGFR 65 >60 mL/min/1.73m2 Culture ResultsNo results found for the last 90 days. Bowel Movements:No data recorded Ventilator Settings Active Medications Amiodarone HCl in Dextrose, 450 mg, Last Rate: 450 mg (01/18/24 1035) heparin, 0.1-40 Units/kg/hr, Last Rate: 19 Units/kg/hr (01/18/24 1307) peptamen AF, [Held by provider] amLODIPine, 5 mg, Oral, Dailyaspirin, 81 mg, Oral, Daily atorvastatin, 40 mg, Oral, Daily azithromycin, 500 mg, Oral, q24h buPROPion SR, 150 mg, Oral, Daily [Held by provider] carvedilol, 12.5 mg, Oral, BID with meals cefepime, 1 g, Intravenous, q6h clopidogrel, 75 mg, Oral, Daily Ensure Enlive, 1 Container, Oral, TID with meals Enteral Free water Flush, 30 mL, Nasogastric, q4h escitalopram, 5 mg, Oral, Daily gabapentin, 300 mg, Oral, Nightly hydrocortisone sodium succinate, 50 mg, Intravenous, q6h MICHEL ipratropium, 0.5 mg, Nebulization, q6h [Held by provider] isosorbide mononitrate ER, 30 mg, Oral, Daily [Held by provider] lisinopril, 40 mg, Oral, Daily memantine, 10 mg, Oral, BID metroNIDAZOLE, 500 mg, Intravenous, q8h pantoprazole, 40 mg, Oral, Daily before breakfast sodium chloride, 10 mL, Intravenous, q12h vancomycin (Vancocin) 1,000 mg in sodium chloride 0.9 % 100 mL IVPB-MB+, 1,000 mg, Intravenous, q12h TERY MANAGER * Shantelle Arzate, Joi - 01/18/2024 11:15 AM CEMETERY MANAGER Clinician Notes: Vancomycin Dosing and Monitoring Protocol - Follow-Up Note Consulting Physician: Tiana Londono MD Indication for Vancomycin: Pneumonia AUC Goal: 400 - 600 mg h/L Vancomycin Start Date: 01/17/2024 Duration: TBD Plan: Vancomycin 1000 mg every 12 hours Next level: 01/19 (not ordered); unless clinically indicated sooner Thank you for allowing us to participate in the care of this patient. We will continue to monitor and adjust vancomycin therapy as needed. Recommended Dose: 1000 mg IV over 1 hour every 12 hours for 2 days Next Dose At: 20:00 on Jan 18 2024 Dosing Interval: 12 hours Infusion Length: 1 hours Dose Valid For: 2 days only Dose Recommendation Method: Clinician-selected dose (Individualized model) Predicted Peak: 28.5 mcg/mL Predicted Trough: 16.2 mcg/mL Predicted AUC24: 523.6 mcg.h/mL Predicted AUC12: 261.8 mcg.h/mL Most Recent Dose: 1000 mg over 1 hours at 08:00 on Jan 18 2024 Most Recent SCr: 1.06 mg/dL at 02:11 on Jan 18 2024 Most Recent Blood Concentration: 21.7 mcg/mL at 02:11 on Jan 18 2024 Peak: 27.8 mcg/mL Trough: 15.8 mcg/mL AUC24: 511 mcg.h/mL AUC12: 255 mcg.h/mL TERY MANAGER * Kelsey Hutson CCC-MEETING MANAGER - 01/18/2024 10:50 AM CEMETERY MANAGER Images from the original note were not included. Speech-Language Pathology [facility] MEETING MANAGER CLINICAL SWALLOWING EVALUATION (CSE) Patient Name: Susan Parker Today's Date: 01/18/2024 Room: [place] [id number] CLINICAL SWALLOW EVALUATION SUMMARY: Patient seen for clinical swallow evaluation. OME completed, impaired vocal intensity noted. MEETING MANAGER provided patient with PO trials of ice via spoon and thin liqudi via cup and straw. Clinical s/sx of airway invasion characterized by impaired vocal quality and overt s/sx of airway invasion characterized by coughing with trials. Trials were discontinued for patient's comfort and safety. Patient is not currently safe for PO diet at this time and an instrumental swallow evaluation is indicated. Recommendations: Diet: NPO with alternate means of nutrition/hydration/medications Aggressive oral care MEETING MANAGER services warranted at this time to complete instrumental swallow evaluation. RECOMMENDATIONS: Diet Recommendations: NPO Medications: Non oral Oral care: Suction toothbrush , Every 2 hours MEETING MANAGER to follow up with instrumental evaluation and dysphagia management as indicated. PROGNOSIS: Good PLAN: Treatment/Interventions: Instrumental Assessments Frequency: 1-2 times per week GENERAL INFORMATION: Reason for Consult: Pt was referred for a clinical swallow evaluation. Oxygenation: Nasal canula Behavior:Cooperative Level of Consciousness: Awake & alert Diet Prior to this Evaluation: Level 0- Thin Liquids and Level 7- Regular diet Preferred Language: Burmese ORAL MOTOR EXAM: Dentition: Some missing teeth Face: Within Functional Limits Jaw: Within Functional Limits Lips: Within Functional Limits Tongue: Within Functional Limits Soft Palate: Within Functional Limits Larynx: Impaired Larynx Voice Quality: Impaired Larynx Voice Intensity: Impaired Larynx Volitional Cough: Impaired CRANIAL NERVES FOR SPEECH, VOICE, AND SWALLOWING: SWALLOW ASSESSMENT: Consistencies Assessed Consistencies Assessed: Yes Swallowing Overview - Liquids0 - Thin Liquid: Impaired Clinical Swallow EvaluationPatient Positioning: Upright Previous History of Dysphagia?: No Inability to Follow One Step Directions?: No Tracheostomy Present: No Inability to Manage Their Secretions?: No Incomplete Lingual ROM?: No Incomplete Facial Symmetry (Facial Droop)?: No Voice Change During Swallowing Trials?: No Abnormal/Weak Volitional Cough?: Yes Cough/Throat Clear w/ Trial Consistency?: Yes Dysphonia (Quality and/or Pitch Change)?: Yes Motor Speech Disorder (Dysarthria/Apraxia)?: No Apraxia of the Swallow Suspected?: No Delayed Swallow Suspected?: No Multiple Swallows Per Bolus Suspected?: No Tongue Pumping Suspected?: No OUTCOME MEASURES:International Dysphagia Diet Standardization Initiative - IDDSI Solids - N/A Liquids - N/A IDDSI Level - 0 GOALS:Encounter Goals Encounter Goals (Active) LTG - Patient will improve on swallowing outcome measure Start: 01/18/24 STG - Improve airway protection Start: 01/18/24 STG - Participate in an instrumental swallow study Start: 01/18/24 EDUCATION:Education Documentation Speech-Language/Pathology Treatment Plan, taught by Kelsey Hutson CCC-JACY at 01/18/2024 2:26 PM. Learner: Patient Readiness: Eager Method: Explanation Response: Verbalizes Understanding Results of Exam, taught by Kelsey Hutson CCC-JACY at 01/18/2024 2:26 PM.Learner: Patient Readiness: Eager Method: Explanation Response: Verbalizes Understanding Education CommentsNo comments found. If this is the last documented treatment, then it will signify discharge from acute care prior to discharge from the therapy service and will serve as the discharge summary. Therapy discharge recommendations are made by determining the patient's prior level of function, assessing current function level and establishing rehab potential. The overall discharge plan may be affected by input from Physicians, Care Coordination, medical condition/status, family support and insurance benefits. KATELYN RamSLP TERY MANAGER * Valencia Gil NP - 01/18/2024 7:05 AM CEMETERY MANAGER Hospital Course: This is a 73-year-old male with CAD and prior PCI's, HTN, HLD, A-fib, carotid artery stenosis, COPD/emphysema, BPH, HFrEF, AICD, anxiety, depression presented with multiple AICD shocks and CT imaging concerning for multifocal pneumonia versus cavitary pneumonia. Interval events: Underwent FEEs procedure which showed mild to moderate oropharyngeal dysphagia. Continue n.p.o. status Review of Systems Constitutional: Negative. Respiratory: Negative. Cardiovascular: Negative. Genitourinary: Negative. Skin: Negative. Neurological: Negative. All other systems reviewed and are negative. Physical Exam: Constitutional: General: He is not in acute distress. Appearance: Normal appearance. He is normal weight. Cardiovascular: Rate and Rhythm: Normal rate and regular rhythm. Pulses: Normal pulses. Heart sounds: Normal heart sounds. Pulmonary: Effort: Pulmonary effort is normal. No respiratory distress. Breath sounds: Normal breath sounds. Abdominal: General: Bowel sounds are normal. There is no distension. Palpations: Abdomen is soft. Tenderness: There is no abdominal tenderness. Skin: General: Skin is warm and dry. Capillary Refill: Capillary refill takes less than 2 seconds. Neurological: General: No focal deficit present. Mental Status: He is alert and oriented to person, place, and time. Mental status is at baseline. Psychiatric: Mood and Affect: Mood normal. Behavior: Behavior normal. BP 117/55 | Pulse 80 | Temp 36.5 ?C (97.7 ?F) | Resp 22 | Ht 1.778 m (5' 10") | Wt 82.6 kg (182 lb 1.6 oz) | SpO2 96% | BMI 26.13 kg/m? [Held by provider] amLODIPine, 5 mg, Oral, Dailyaspirin, 81 mg, Oral, Daily atorvastatin, 40 mg, Oral, Daily azithromycin, 500 mg, Oral, q24h buPROPion SR, 150 mg, Oral, Daily [Held by provider] carvedilol, 12.5 mg, Oral, BID with meals cefepime, 1 g, Intravenous, q6h clopidogrel, 75 mg, Oral, Daily escitalopram, 5 mg, Oral, Daily gabapentin, 300 mg, Oral, Nightly ipratropium-albuterol, 3 mL, Nebulization, q6h [Held by provider] isosorbide mononitrate ER, 30 mg, Oral, Daily [Held by provider] lisinopril, 40 mg, Oral, Daily memantine, 10 mg, Oral, BID pantoprazole, 40 mg, Oral, Daily before breakfast sodium chloride, 10 mL, Intravenous, q12h vancomycin (Vancocin) 1,000 mg in sodium chloride 0.9 % 100 mL IVPB-MB+, 1,000 mg, Intravenous, q12h Amiodarone HCl in Dextrose, 450 mg, Last Rate: 450 mg (01/18/24 0159)heparin, 0.1-40 Units/kg/hr, Last Rate: 17 Units/kg/hr (01/18/24 0427) Encounter Date: 01/17/24XR chest 1 view Narrative EXAM: XR CHEST 1 VIEW DATE: 01/17/2024 12:55 INDICATION: CP COMPARISON: None. TECHNIQUE: AP chest. FINDINGS: Lines, tubes and hardware: Combination pacer-ICD has leads overlying the right atrium and right ventricle. Lungs and pleura: Pulmonary opacities within the left midlung and right lower lobe. The costophrenic sulci are sharp without effusion. Heart and mediastinum: The heart size is normal. Vascular calcifications are present at the aorta. Bones and soft tissues: No acute abnormality. Age-related degenerativefindings. ImpressionLeft midlung and right lower lobe pulmonary opacities suggesting multifocal infection. No echocardiogram results found for the past 12 months Patient Active Problem ListDiagnosis VT (ventricular tachycardia) (HCC) VF (ventricular fibrillation) (CMS/HCC) (HCC) Anxiety Depression Multifocal pneumonia Cardiac defibrillator in situ Carotid artery stenosis Mixed hyperlipidemia 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 Hyponatremia Hypokalemia Hypocalcemia Transaminitis Normocytic anemia Atrial fibrillation/flutter (HCC) Emphysema lung (HCC) Acute respiratory failure with hypoxemia (HCC) Plan: Neuro/Psych/HEENT:-No acute issues -CT brain negative for acute abnormality -Continue home meds Lexapro and Wellbutrin for anxiety and depression -Continues on memantine for memory difficulties -Pain control with gabapentin and Tylenol PRN -Continue delirium precautions and adherence to sleep-wake cycle. CV:-AICD interrogation shows multiple V. tach and V-fib episodes as well as SVT. EP wants to transition Amiodarone to PO and consider outpatient ablation after infectious issues resolve -Needs anticoagulation for A fib. Currently on Heparin drip -ECHO showing normal biventricular size and systolic function, LV remodeling, trace mitral and tricuspid regurgitation -Continue metoprolol for rate control. Other oral anti-hypertensives remain held -Continue aspirin, statin, Plavix for CAD. Multivessel disease shown on CTA PE protocol. Would recommend ischemic evaluation Resp:-Supplemental O2 to keep O2 sats > 92% -CTA PE protocol shows to the segmental level. Bilateral groundglass and consolidative opacities with a peripheral predominance. Air and fluid-filled cavities are seen in the left midlung and the right middle lobe which could represent mycobacterial or fungal infection, abscess, septic emboli, or malignancy. Extensive emphysematous changes -Ipratropium and budesonide scheduled -Continue volume expansion protocol and incentive spirometry GI/Nutrition:-Underwent FEEs procedure which showed mild to moderate oropharyngeal dysphagia. -Keep NPO and continue tube feeds at goal. Monitor tolerance -Protonix ppx -Reports of prodromal mucoid diarrhea prior to admission. Enteric pathogen stool culture sent. Continue Flagyl -Hepatitis panel negative Renal/Electrolytes:-Monitor UOP with strict I's/O's -Trend BUN/Cr -Avoid nephrotoxic agents -Replace electrolytes as needed Endo:-Continue strict glycemic control with sliding scale insulin to keep blood glucose 100-180 -HgbA1c 5, TSH low and T4 high. Thyroid US normal Heme/Onc:-Monitor for bleeding and coagulopathies -Maintain Hgb > 7 and Platelets > 10k -Iron studies low. Wait on oral iron given underlying infection ID:-Continue empiric vancomycin, cefepime, and azithromycin day 3 for concern for multifocal pneumonia on CT scan. -Continue Flagyl day 2 for diarrhea coverage -Continue hydrocortisone 50 mg q6h for PNA day 2 of 5 -UA negative, HIV negative, Viral panel negative, strep pna and legionella negative -Fungal sputum culture prelim negative -Blood culture prelim negative -Resp gram stain growing few GPC in pairs and clusters. Culture pending -MTB PCR, QuantiFERON gold pending -Fungitell, mycoplasma, aspergillus pending -Also pending cocci, histo, and blasto -Discontinue vancomycin Musculoskeletal/Skin:-Continue wound care and sacral decubitus prevention -PT/OT and out of be to chair daily Prophylaxis:-DVT ppx: Heparin -PUD ppx: Protonix Vascular/ access:Peripheral IV 01/17/24 Left Antecubital (Active) Peripheral IV 01/17/24 Anterior;Right;Upper Arm (Active) Compliance:Restraints: None Indwelling Posada Catheter: None Central Venous Access: None Arterial Access: None Code Status: Full Disposition: CCU I spent a total of 25 minutes of critical care time with this patient independently, not including procedure time, then [facility] Attending Dr. Nitza Gil, MSN, [facility] #[id number] Division of Pulmonary Critical Care MedicineTexas Health [facility] [email or web address] Cosigned by Arya Goddard MD at 01/19/2024 4:34 PM CEMETERY MANAGER TERY MANAGER TERY MANAGER TERY MANAGER * Vanessa Reyes MD - 01/18/2024 6:47 AM CEMETERY MANAGER CCU Progress Note Admission Date: 01/17/2024 CCU Day: 1 Problem List Principal Problem: VT (ventricular tachycardia) (HCC) Active Problems: VF (ventricular fibrillation) (CMS/HCC) (HCC) Anxiety Depression Multifocal pneumonia Cardiac defibrillator in situ Carotid artery stenosis Mixed hyperlipidemia 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 Hyponatremia Hypokalemia Hypocalcemia Transaminitis Normocytic anemia Atrial fibrillation/flutter (HCC) Emphysema lung (HCC) Acute respiratory failure with hypoxemia (HCC) Esequiel Chew Jr [address] White Assessment & Plan Mr. Esequiel Chew Jr a 73 y.o. 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 CARDIOVASCULAR: #Ventricular Tachycardia #Ventricular Fibrillation - ddx: ischemia, CHF, electrolyte abnomalitites - may consider LHC this admission to workup known CAD for potential progression Device interrogation shows since 08/06 >> 7 episodes of VT-2 (HR >181) >> 4 episodes of VF with 3 shocks delivered >> 49 episodes of SVT noted >> AP <1%, MEDICAID BILLING SPECIALIST 3.5% - BNP 170 PLAN: - trend trop, initial trop 12 - TTE - amiodarone gtt - can consider LHC this hospitalization for ischemic eval #Afib - not on anticoagulation or any rhythm control - not in Afib on admission PLAN: - heparin gtt - amiodarone as above #CAD - history of FL in 1999 and 2004 - describes chest tightness with exertion - Troponin 12 PLAN: - trend troponin - GDMT: * RAAS: lisinopril * BB: coreg * MRA: none * SGLT2: will consider adding after monitoring BP - continue atorvastatin - continue plavix - pending TSH, A1C, lipid panel #HTN - continue amlodipine 5mg daily - continue coreg 12.5 daily BID NEURO/PSYCH - RASS/AxO4 - Fall precautions RESPIRATORY: - No acute concerns; monitor for hypoxemic respiratory concerns - Stable on NC, O2 sat goal >90% - Early ambulation as tolerated - Aspiration precautions #Multifocal PNA- Fever and chill for 3 weeks (Tmax 103) - CXR 01/16: Left midlung and right lower lobe pulmonary opacities suggesting multifocal infection. - WBC 20.05 on admission - CTA chest shows cavitary lesion - Pt on 2 L NC on admission, not on home O2 - Plan: - strep pneumo antigen, legionella antigen, AFB, MRSA nares, Mycoplasma, Blood Cultures - vanc/cefepime/azithromycin GI/FEN:- Heart health diet - Bowel regimen (miralax/senna) - PPI RENAL:- Strict I&Os - Check & replete lytes - Avoid nephrotoxins - Renally dose medications INFECTIOUS DISEASE:- Monitor for infections HEMATOLOGY:#Anemia - Hb 9.4 on admission - transfuse to keep Hgb >7.0, Plt >20 ENDO:- follow up A1c/TSH MSK/DERM- PT/OT consulted Code status: FULLContact: No patient contacts matched the search criteria. DVT PPX: heparin gtt PUD PPX : Not indicated Diet: Heart Healthy L/T/D: IV Access: Peripheral IV 01/17/24 Left Antecubital (Active) Peripheral IV 01/17/24 Right Antecubital (Active) Dispo: pending clinical improvement Patient staffed with attending physician, Dr. Omero Reyes MDInternal Medicine | PGY-2 [facility] | [facility]. Today, Mr. Chew reports that his ICD has been shocking him for ~5 weeks. He is feeling a lot better today. PMH:History reviewed. No pertinent past medical history. PSH: History reviewed. No pertinent surgical history. FH: No family history on file. SH: Social History Tobacco UseSmoking Status Not on file Smokeless Tobacco Not on file Social History Substance and Sexual ActivityAlcohol Use None Social History Substance and Sexual ActivityDrug Use Not on file ALLERGIES: Patient has no known allergies. PRIOR TO ADMISSION MEDS:No current facility-administered medications on file prior to encounter. Current Outpatient Medications on File Prior to EncounterMedication Sig Dispense Refill amLODIPine (Norvasc) 5 MG tablet Take 1 tablet by mouth in the morning and 1 tablet in the evening. benazepril (Lotensin) 20 MG tablet Take 1 tablet by mouth 1 time each day. carvedilol (Coreg) 12.5 MG tablet Take 12.5 mg by mouth in the morning and 12.5 mg in the evening. Take with meals. clopidogrel (Plavix) 75 MG tablet Take 75 mg by mouth 1 time each day. escitalopram (Lexapro) 20 MG tablet 1 time each day. lovastatin (Mevacor) 40 MG tablet Take 40 mg by mouth at bedtime. memantine (Namenda) 10 MG tablet Take 10 mg by mouth in the morning and 10 mg in the evening. aspirin 325 MG tablet Take 325 mg by mouth 1 time each day. buPROPion SR (Wellbutrin SR) 150 MG 12 hr tablet Take 150 mg by mouth 1 time each day. citalopram (CeleXA) 20 MG tablet Take 2 tablets by mouth 1 time each day. gabapentin (Neurontin) 300 MG capsule Take 300 mg by mouth at bedtime. isosorbide mononitrate ER (Imdur) 30 MG 24 hr tablet Take 30 mg by mouth 1 time each day. simvastatin (Zocor) 40 MG tablet Take 40 mg by mouth at bedtime. ROS: 10 point review of systems assessed and negative except as stated in the HPI. Objective Vital SignsCurrent: Visit Vitals BP 117/55 Pulse 80 Temp 36.5 ?C (97.7 ?F) Resp 22 24 Hour:Vitals: 01/18/24 0218 01/18/24 0300 01/18/24 0400 01/18/24 0500 BP: 122/59 118/58 117/55 Pulse: 79 81 80 80 Resp: 22 Temp: SpO2: 98% 93% 94% 96% Intake/Output: No intake/output data recorded. Intake/Output Summary (Last 24 hours) at 01/18/2024 0647Last data filed at 01/18/2024 0500 Gross per 24 hour Intake 398.28 ml Output 250 ml Net 148.28 ml Net intake/output since admission: Net IO Since Admission: 148.28 mL [01/18/24 0647] PHYSICAL EXAM General Appearance: no acute distress, no pallor, very soft voiceHEENT: Extra ocular movements intact, no scleral icterus, mucous membrane moist, external ears normal Neck: Supple, FROM Lungs: respiratory effort normal, crackles bilaterally, no wheezes/rales/rhonchi Heart: Regular rate and regular rhythm, no murmur Abdomen: soft, non-tender, non-distended MSK/Extremities: No edema, pulses 2+. No obvious deformity. Skin: No lesions, no rash. No jaundice. Neurologic: AOx3, no focal deficits, speech clear Psych: Mood congruent affect, responds appropriately to questions. SCHEDULED HOSPITAL MEDICATIONS [Held by provider] amLODIPine, 5 mg, Oral, Daily aspirin, 81 mg, Oral, Daily atorvastatin, 40 mg, Oral, Daily azithromycin, 500 mg, Oral, q24h buPROPion SR, 150 mg, Oral, Daily [Held by provider] carvedilol, 12.5 mg, Oral, BID with meals cefepime, 1 g, Intravenous, q6h clopidogrel, 75 mg, Oral, Daily escitalopram, 5 mg, Oral, Daily gabapentin, 300 mg, Oral, Nightly ipratropium-albuterol, 3 mL, Nebulization, q6h [Held by provider] isosorbide mononitrate ER, 30 mg, Oral, Daily [Held by provider] lisinopril, 40 mg, Oral, Daily memantine, 10 mg, Oral, BID pantoprazole, 40 mg, Oral, Daily before breakfast sodium chloride, 10 mL, Intravenous, q12h vancomycin (Vancocin) 1,000 mg in sodium chloride 0.9 % 100 mL IVPB-MB+, 1,000 mg, Intravenous, q12h PRN Medications:PRN medications: dextrose, dextrose, glucagon, guaiFENesin, sodium chloride, sodium chloride, Pharmacy to dose vancomycin AND Vancomycin Pharmacy Dosing Drips:Amiodarone HCl in Dextrose, 450 mg, Last Rate: 450 mg (01/18/24 0159) heparin, 0.1-40 Units/kg/hr, Last Rate: 17 Units/kg/hr (01/18/24 0427) LABSResults from last 7 days Lab Units 01/18/24 02101/17/24 1301 WBC 10*3/uL 20.09* 20.05* HEMOGLOBIN g/dL 8.3* 9.4* MCV fL 94.4 92.7 Results from last 7 daysLab Units 01/18/24 0211 01/17/24 1301 WBC 10*3/uL 20.09* 20.05* HEMOGLOBIN g/dL 8.3* 9.4* MCV fL 94.4 92.7 Results from last 7 daysLab Units 01/18/24 0211 01/17/24 2319 01/17/24211901/17/24 1906 POC SODIUM, ARTERIAL mEq/L -- 131* -- -- SODIUM mEq/L 133* -- 135* 136 POC POTASSIUM, ARTERIAL mEq/L -- 4.0 -- -- POTASSIUM mEq/L 3.9 -- 4.2 4.0 POC CHLORIDE mEq/L -- 99 -- -- CHLORIDE mEq/L 101 -- 101 101 CO2 mEq/L 24.4 -- 26.2 25.0 BUN mg/dL 34* -- 36* 36* PHOSPHORUS mg/dL 3.5 -- 4.0 4.3 Results from last 7 daysLab Units 01/18/24 0211 01/17/24 1906 01/17/24 1301 AST U/L 47* 58* 41* ALT U/L 41* 45* 41* Results from last 7 daysLab Units 01/18/24 0211 01/17/24 1618 01/17/24 1301 INR 1.48* -- 1.32* PROTIME Seconds 18.2* -- 16.6* PTT Seconds 37.2* 35.3 -- No lab exists for component: "APH", "APCO2", "APO2"No lab exists for component: "POCGLU" Microbiology:No results found for the last 90 days. OTHER DATA EKG Review: Encounter Date: 01/17/24 Electrocardiogram, 12-lead Result Value Ventricular Rate 80 Atrial Rate 80 AR Interval 194 QRS Duration 80 QT/QTc 430 QTc Calculation 495 P-Ouaquaga 71 R-Ouaquaga 48 T-Ouaquaga 57 Narrative SINUS RHYTHM WITH PREMATURE SUPRAVENTRICULAR COMPLEX(ES) PROLONGED QT INTERVAL OR TU FUSION, CONSIDER MYOCARDIAL DISEASE, ELECTROLYTE IMBALANCE, OR DRUG EFFECTS ABNORMAL ECG NO PREVIOUS ECGS AVAILABLE Echo: No echocardiogram results found for the past 12 months Stress Test: Cath: Radiology Review: ECG 12 lead Result Date: 01/17/2024 SINUS RHYTHM NORMAL ECG NO PREVIOUS ECGS AVAILABLE Electrocardiogram, 12-leadResult Date: 01/17/2024 SINUS RHYTHM WITH PREMATURE SUPRAVENTRICULAR COMPLEX(ES) PROLONGED QT INTERVAL OR TU FUSION, CONSIDER MYOCARDIAL DISEASE, ELECTROLYTE IMBALANCE, OR DRUG EFFECTS ABNORMAL ECG NO PREVIOUS ECGS AVAILABLE CT angiogram chest pulmonary embolismResult Date: 01/17/2024 EXAM: CTA CHEST WITH CONTRAST DATE: 01/17/2024 17:36 INDICATION: Pacemaker shocks, runs of VT and VF, concern for PE ADDITIONAL INFORMATION: None. COMPARISON: X-ray chest 01/17/2024 TECHNIQUE: Volumetric CT of the chest is acquired during pulmonary arterial phase following intravenous administration of contrast. Axial, sagittal, coronal, and oblique MIP reconstructions are created at the acquisition workstation. FINDINGS: THIS IS A PRELIMINARY REPORT BY THE ON-CALL RESIDENT. CHANGES TO THIS PRELIMINARY REPORT MAY OCCUR IN AN ADDITIONAL PRELIMINARY OR FINALIZED VERSION. 1. No pulmonary embolus is identified to the segmental level. Evaluation is partially limited in the subsegmental branches due to acute parenchymal changes 2. CT evidence for right heart strain is absent. 3. Bilateral groundglass and consolidative opacities with a peripheral predominance. Air and fluid-filled cavities are seen in the left midlung and right middle lobe measuring 3.7 x 4.3 cm and 3.0 x 2.3 cm, respectively (series 4 images 85 and 113).these findings could represent infection (including mycobacterial or fungal infection), abscesses, or septic emboli in the appropriate clinical situation. Cannot exclude underlying malignancy. 4. Extensive background emphysematous changes. 5. Multivessel coronary atherosclerosis. The above findings were communicated to and acknowledged by Dr. Gomez via Securechat at 01/17/2024 17:59 by Virginia Rogers RES. This report was dictated by a [employer] Controller/Fellow/MIRACLE: Virginia Rogers RES 01/17/2024 18:08 XR chest 1 viewResult Date: 01/17/2024 EXAM: XR CHEST 1 VIEW DATE: 01/17/2024 12:55 INDICATION: CP COMPARISON: None. TECHNIQUE: AP chest. FINDINGS: Lines, tubes and hardware: Combination pacer-ICD has leads overlying the right atrium and right ventricle. Lungs and pleura: Pulmonary opacities within the left midlung and right lower lobe. The costophrenic sulci are sharp without effusion. Heart and mediastinum: The heart size is normal. Vascular calcifications are present at the aorta. Bones and soft tissues: No acute abnormality. Age-related degenerative findings. Left midlung and right lower lobe pulmonary opacities suggesting multifocal infection. Cosigned by Tiffany Jamil MD at 01/18/2024 10:02 AM CST TERY MANAGER TERY MANAGER Associated attestation - Tiffany Jamil MD - 01/18/2024 10:02 AM CEMETERY MANAGER The patient was seen and examined with the resident. The relevant lab results, imaging and EKGs were personally reviewed, and the medications were reconciled. I agree with above mentioned assessment and plan. Total amount of critical care time spent throughout the day excluding procedural time was - 35 minutes. The patient remain critically ill, and requires ICU level of care. -- Pt with VT/Vfib , also has ICD-- Ischemic cardiomyopathy , echo pending -- Multifocal pneumonia with cavitary lesions -- Continue GI and DVT prophylaxis per ICU protocol -- Appreciate PCCM input on non-cardiac critical issues Patient Active Problem ListDiagnosis Date Noted Emphysema lung ([facility]) 01/18/2024 Acute respiratory failure with hypoxemia ([facility]) 01/18/2024 VT (ventricular tachycardia) ([facility]) 01/17/2024 VF (ventricular fibrillation) ([facility]) ([facility]) 01/17/2024 Anxiety 01/17/2024 Depression 01/17/2024 Multifocal pneumonia 01/17/2024 Carotid artery stenosis 01/17/2024 Mixed hyperlipidemia 01/17/2024 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 01/17/2024 Hyponatremia 01/17/2024 Hypokalemia 01/17/2024 Hypocalcemia 01/17/2024 Transaminitis 01/17/2024 Normocytic anemia 01/17/2024 Atrial fibrillation/flutter ([facility]) 01/17/2024 Cardiac defibrillator in situ 04/17/2023 * Nisa Salas, Joi - 01/17/2024 8:50 PM CEMETERY MANAGER Clinician Notes: Vancomycin Dosing and Monitoring Protocol - Initial Consult Note Consulting Physician: Tiana Londono MD Indication for Vancomycin: Pneumonia AUC Goal: 450 - 600 mg h/L Vancomycin Start Date: 01/16 Vancomycin 2000 mg given at 20:08 Duration: 7 days Plan: Vancomycin 1000 mg every 12 hours starting 01/17 at 8 AM Next level 01/17 with AM labs MRSA PCR: Ordered Thank you for allowing us to participate in the care of this patient. We will continue to monitor and adjust vancomycin therapy as needed. Recommended Dose: 1000 mg IV over 1 hour every 12 hours for 2 days Next Dose At: 08:00 on Jan 18 2024 Dosing Interval: 12 hours Infusion Length: 1 hours Dose Valid For: 2 days only Dose Recommendation Method: Clinician-selected target (Population model) Target Outcome: AUC24: 450 mcg.h/mL Predicted Outcome: AUC24: 490.06 mcg.h/mL Predicted Peak: 26.5 mcg/mL Predicted Trough: 15.3 mcg/mL Predicted AUC24: 490.1 mcg.h/mL Predicted AUC12: 245 mcg.h/mL [facility]2024-11-13 14:57:54Pending Results Scheduled Orders Name Type Priority Associated Diagnoses Order Schedule Cardiac device check - Inpatient Implantable Cardiac Device STAT Once for 1 Occurrences starting 01/17/2024 until 01/17/2024 Phosphorus Level AM Lab STAT Morni ng draw (Lab) for 1 Weeks starting 01/18/2024 until 01/24/2024, 6 completed Legionella antigen, urine Lab STAT Once (Lab) for 1 Occurrences starting 01/17/2024 until 01/17/2024 pH Stool Lab Routine Once (Lab) for 1 Occurrences starting 01/19/2024 until 01/19/2024 ECG 12 lead ECG STAT Once for 1 Occurrences starting 01/17/2024 until 01/17/2024 Blood Gas, Venous Lab Routine Once (L ab) for 1 Occurrences starting 01/21/2024 until 01/21/2024 Magnesium Level Lab Routine Morning d raw (Lab) until discontinued starting 01/22/2024, 6 completed Basic Metabolic Panel Lab Routine Morning draw (La b) until discontinued starting 01/23/2024, 5 completed Calprotectin, Stool Lab Routine Once (Lab) for 1 Occurrences starting 01/24/2024 until 01/24/2024 Complete Blood Count w/Diff and Platelet Lab Routine Morning draw (La b) for 30 Days starting 01/25/2024 until 02/23/2024, 3 completed Phosphorus Level Lab Routine Morning draw (Lab) for 30 Days starting 01/26/2024 until 02/24/2024, 2 completed FL esophagus barium swallow w video and speech Imaging Routine Once for 1 Occurrences starting 01/27/2024 until 01/27/2024 Scheduled Referrals Name Type Priority Associated Diagnoses Orde r Schedule Ambulatory referral to Home Health Outpatient Referral Routine Cavitary lesion of lung Aspiration pneumonia of both lungs, unspecified aspiration pneumonia type, unspecified part of lung (CMS/HCC) (HCC) Multifocal pneumonia VF (ventricular fibrillation) (CMS/HCC) (HCC) VT (ventricular tachycardia) (HCC) Expected: 01/25/2024 (Approximate), Expires: 07/24/2024 Ambulatory referral to Home Health Outpatient Referral Routine Dysphagia, unspecified type Expected: 01/27/2024 (Approximate), Expires: 07/26/2024 Health Maintenance Due Date Last Done Comments CT Colonography 1949 Colonoscopy 1950 Colorectal Cancer Screening 1950 FIT-DNA 1949 FIT 1949 FOBT 1950 Medicare Annual Wellness (AWV) 1950 Sigmoidoscopy 1949 Annual Physical 1952 Respiratory Syncytial Virus (RSV) or >=60 (1 - Risk 60-74 years 1-dose series) 2009 Abdominal Aortic Aneurysm (AAA) Screening 2014 Zoster Vaccines (2 of 3) 05/13/2018 03/18/2018, 10/14 DTaP/Tdap/Td Vaccines (4 - Td or Tdap) 08/17/2028 08/17/2018, 03/18/2018, 08/12/2017 Lipid Panel 01/17/2029 01/18/2024 Pneumococcal Vaccine: 65+ Years Completed 12/20/2021 Influenza Vaccine Completed 01/26/2024, , 12/02/2021, Additional history exists HIB Vaccines Aged Out No longer eligi ble based on patient's age to complete this topic HPV Vaccines Aged Out No longer eligi ble based on patient's age to complete this topic Hepatitis A Vaccines Aged Out No long er eligible based on patient's age to complete this topic Hepatitis B Vaccines Aged Out No long er eligible based on patient's age to complete this topic IPV Vaccines Aged Out No longer eligi ble based on patient's age to complete this topic Meningococcal Vaccine Aged Out No parker cathi eligible based on patient's age to complete this topic Rotavirus Vaccines Aged Out No longer eligible based on patient's age to complete this topic [id number]57:54 Diagnosis Cavitary lesion of lung - Pr imary Chest pain, unspecified type Dysphagia, unspecified type Cavitary lesion of lung Aspiration pneumonia of both lungs, unspecified aspiration pneumonia type, unspecified part of lung (CMS/HCC) (HCC) Multifocal pneumonia VF (ventricular fibrillation) (CMS/HCC) (HCC) Ventricular fibrillation VT (ventricular tachycardia) (HCC) Paroxysmal ventricular tachycardia Moderate malnutrition (CMS/H CC) (HCC) Acute respiratory failure wi th hypoxemia (HCC) Weakness generalized Other malaise and fatigue Arrhythmia Unspecified cardiac dysrhythmia VT (ventricular tachycardia) (HCC) Paroxysmal ventricular tachycardia VF (ventricular fibrillation) (CMS/HCC) (HCC) Ventricular fibrillation Anxiety Anxiety state, unspecified Depression Depressive disorder, not elsewhere classified Multifocal pneumonia Cardiac defibrillator in sit u Mixed hyperlipidemia Coronary artery disease invo lving king salmon coronary artery of king salmon heart without angina pectoris Hyponatremia Hyposmolality and/or hyponatremia Hypokalemia Hypopotassemia Hypocalcemia Transaminitis Nonspecific elevation of levels of transaminase or lactic acid dehydrogenase (LDH) Normocytic anemia Unspecified anemia Carotid artery stenosis Occlusion and stenosis of carotid artery without mention of cerebral infarction Atrial fibrillation/flutter (HCC) Emphysema lung (HCC) Other emphysema Acute respiratory failure wi th hypoxemia (HCC) Moderate malnutrition (CMS/H CC) (HCC) Diarrhea Dysphagia Aspiration pneumonia (CMS/HCC) (HCC) Pneumonitis due to inhalation of food or vomitus Drop in hemoglobin Precipitous drop in hematocrit Benign prostatic hyperplasia Unspecified hyperplasia of prostate without urinary obstruction and other lower urinary tract symptoms (LUTS) [id number] 14:57:54 [id number] 12:16:37 Images from the original note were not included. [id number] Arrhythmias What is an arrhythmia? An arrhythmia is an abnormal heart rhythm. Some arrhythmias can cause problems with contractions of your heart chambers by: ? Not allowing the lower chambers (ventricles) to fill with enough blood, because an abnormal electrical signal is causing your heart to pump too fast or too slow. ? Not allowing enough blood to be pumped out to your body, because an abnormal electrical signal is causing your heart to pump too slowly or irregularly. ? Not allowing the top chambers (atria) to squeeze correctly. An arrhythmia can occur in the sinus node, the atria, or the atrioventricular (AV) node. These are called supraventricular arrhythmias. Arrhythmias can also happen in your ventricles and are caused by an abnormal electrical focus. This results in abnormal conduction of electrical signals in your ventricles. Arrhythmias can also be listed as slow (bradyarrhythmia) or fast (tachyarrhythmia). In any of these situations, your body's vital organs may not get enough blood to meet their needs. Heart with normal conduction system. Heart with arrhythmia. What causes an arrhythmia? An arrhythmia happens when there is a problem with the electrical system that is supposed to control a steady heartbeat. With a problem in the electrical system, your heart may beat too fast, too slow, or irregularly. Who is at risk for an arrhythmia? Many things can affect the electrical system of your heart and cause an arrhythmia. Substances such as caffeine, alcohol, tobacco, illegal drugs, diet medicines, some herbs, and even prescription medicines can trigger an arrhythmia. Health conditions such as coronary heart disease, high blood pressure, sleep apnea, and diabetes raise your risk for arrhythmias. Arrhythmias become more common as you get older. What are the symptoms of arrhythmias? The effects on the body are often the same, whether the heartbeat is too fast, too slow, or too irregular. Some symptoms of arrhythmias include: ? A fluttering feeling or irregular heartbeat (palpitations) ? Weakness ? Severe tiredness (fatigue) ? Low blood pressure ? Dizziness ? Fainting ? Heart failure ? Collapse and cardiac arrest ? Trouble feeding (in babies) The symptoms of an arrhythmia may look like other conditions. Always see your healthcare provider for a diagnosis. How are arrhythmias diagnosed? Several tests may be used to diagnose arrhythmias. Electrocardiogram (ECG). This test measures the electrical activity of your heart. Small sticky patches called electrodes are placed at specific locations on your body such as your chest, arms, and legs. The electrodes are connected to wires that clam picker the heart's electrical activity and send it to the machine. The machine interprets the activity and makes a graph (tracing). An ECG can show: ? An arrhythmia (both fast or slow ones) ? Damage to the heart from a lack of oxygen to the heart muscle (ischemia) or a scar from a heart attack (also called a myocardial infarction) ? Irregular interval measurements ? Other types of heart condition There are a few types of ECG tests: ? Exercise ECG, or stress test. You are attached to the ECG machine as described above. But you walk on a treadmill or pedal a stationary bike while the ECG is recorded. This test is done to check for changes in the ECG during stress, such as exercise. If you're unable to exercise, the test may be done with your heart stressed by medicines. ? Signal-averaged ECG. This procedure is done in the same way as a regular ECG. But this test records your heart's electrical activity for a longer time, often 15 to 20 minutes. Signal-averaged ECGs are done when your healthcare provider thinks you may have abnormal electrical conduction in the heart muscle. but it's not seen on a regular ECG. The signal-averaged ECG is more sensitive to problems in the ventricles called late potentials. Signal-averaged ECGs are used in research. In rare cases they may be used for routine evaluations. ? Electrophysiologic studies (EPS). This is a nonsurgical but invasive test. A small, thin tube (catheter) is put into a large vein in your leg or neck and moved to your heart. This lets your provider test for arrhythmias and find where the arrhythmia starts within your heart tissue. Your provider can then figure out how to best treat it. Sometimes they can treat the arrhythmia by doing an ablation at the time of the study. An ablation creates scar tissue in the heart. This disrupts the abnormal electrical signal. ? Holter monitor. A Holter monitor is a continuous ECG recording done over a period of 24 or more hours. Electrodes are attached to your chest and connected to a small portable ECG recorder by lead wires. Holter monitoring may be done when your provider thinks you may have an arrhythmia. Arrhythmias may last only a very short time. They may not be seen during the shorter recording time of a regular ECG. While wearing a Holter monitor, you can go about your daily activities. But you should not do things that cause a lot of sweating. This could cause the electrodes to become loose or fall off. You should also not take a shower or swim while wearing a Holter monitor. Newer Holter monitors don't require electrodes. Instead they are a single patch device attached to the skin over the heart. ? Event monitor. This is a lot like a Holter monitor, except that you start the ECG recording only when you feel symptoms. Event monitors are typically worn longer than Holter monitors, for up to 30 days. You can remove the monitor to shower or bathe. ? Mobile cardiac monitoring. This is a lot like Holter and event monitors. The ECG is constantly reviewed by a reading center to spot arrhythmias. The ECG is recorded and sent to your healthcare provider, whether or not you have symptoms. You can also start recordings yourself when you have symptoms. These monitors can be worn up to 30 days. ? Implantable loop recorder. This is a miniature heart recording device that is implanted under the skin over your heart. It can record the heart rhythm for up to 3 to 4 years before the battery runs out. It's useful in diagnosing arrhythmias that happen only now and then or rarely. How is an arrhythmia treated? Some arrhythmias may cause few, if any, problems. In this case, you may not need treatment. When the arrhythmia causes symptoms, you have a few different choices for treatment. Your healthcare provider will discuss your treatment options with you. Together you will choose a treatment that is best for you. The choice will be based on the type of arrhythmia you have and how severe your symptoms are. It will also depend on if you have other conditions such as diabetes, kidney failure, or heart failure. These can affect the course of the treatment. Some treatments for arrhythmias include: ? Lifestyle changes. Stress, caffeine, and alcohol can cause arrhythmias. Your healthcare provider may advise you to not have caffeine, alcohol, or any other things that may be causing the problem. If your provider thinks that stress is a cause, they may suggest meditation, stress-management classes, an exercise program, or psychotherapy to ease stress. ? Medicine. Medicine can treat arrhythmias. The medicine used will be based on the type of arrhythmia you have, if you have other health conditions, and if you take other medicines. Medicines may be used to slow down a fast arrhythmia or lower your chances for a stroke by keeping blood clots from forming. ? Cardioversion. In this procedure, the healthcare provider sends an electrical shock to your heart through the chest. This may stop certain very fast arrhythmias such as atrial fibrillation, supraventricular tachycardia, or atrial flutter. You are connected to an ECG monitor, which is also connected to the defibrillator. The electrical shock is given at a point during the ECG cycle to change the rhythm to a normal one. ? Ablation. This is an invasive but nonsurgical procedure done in the electrophysiology lab. The provider puts a thin, flexible tube (catheter) into your heart through a large vein in your groin or neck. The provider may use high-frequency radio waves to heat the tissue at the site of the arrhythmia and destroy it. This method is called radiofrequency ablation. Cryoablation is another method that can be used. For this, an ultra-cold substance is used to cool the tip of a catheter or balloon. This freezes and destroys the tissue. ? Pacemaker. A permanent pacemaker is a small device that is put under the skin, often in the chest region just under the collarbone. It sends electrical signals to speed up a slow heartbeat. A permanent pacemaker may be used to make the heart beat if the heart's natural pacemaker (the SA node) is not working as it should, or if the electrical pathways are blocked. Pacemakers are often used for slow arrhythmias such as sinus bradycardia, sick sinus syndrome, or heart block. ? Implantable cardioverter defibrillator (ICD). An ICD is a small device similar to a pacemaker. It's put under the skin, often just under the collarbone. An ICD senses the heart rhythm. When the device detects an abnormal rhythm, it sends an electrical shock to the heart. This corrects the rhythm to a more normal heart rhythm. Some ICDs can act as a pacemaker to send an electrical signal to adjust a slow heart rate. ICDs are often used for life-threatening fast arrhythmias such as ventricular tachycardia or ventricular fibrillation. A new generation of ICDs can now be placed in the left axillary region with a wire tunneled under the skin over the sternum. This ICD doesn't need a wire in the heart itself but can't act as a pacemaker. ? Surgery. Surgery is usually done only when all other treatments have failed. Surgical ablation is major surgery that needs general anesthesia. The surgeon opens your chest or uses incisions in between the ribs to reach your heart. The surgeon destroys or removes the tissue causing the arrhythmia. This is most often used to treat advanced atrial fibrillation. What are possible complications of an arrhythmia? Some arrhythmias have no complications. But arrhythmias that are more serious can cause heart failure, stroke, or even cardiac arrest and . Living with an arrhythmia Living with an arrhythmia includes making lifestyle changes such as not having caffeine, alcohol, or other triggers. It also includes taking medicines as directed. It may also include having a pacemaker or ICD inserted. If you have a pacemaker or ICD, ask your healthcare providers about any limits or lifestyle changes you may need to make. Working with your provider can promote your health and well-being. When should I call my healthcare provider? Tell your healthcare provider if: ? Your symptoms get worse or you start to have new symptoms. ? You have side effects from your medicine. ? You need help with managing stress or emotions. Huertas points about arrhythmias An arrhythmia is an abnormal heart rhythm. ? An arrhythmia can happen in the sinus node, the atria, or the atrioventricular node, or the ventricle. ? Some arrhythmias cause few, if any, problems. ? Other arrhythmias can cause serious complications such as heart failure, stroke, or even cardiac arrest and . ? Many treatment options are available to treat arrhythmia, including medicines, devices, cardiac ablation, and surgery. Many arrhythmias can be controlled with procedures. Next steps Tips to help you get the most from a visit to your healthcare provider: ? Know the reason for your visit and what you want to happen. ? Before your visit, write down questions you want answered. ? Bring someone with you to help you ask questions and remember what your provider tells you. ? At the visit, write down the name of a new diagnosis, and any new medicines, treatments, or tests. Also write down any new instructions your provider gives you. ? Know why a new medicine or treatment is prescribed, and how it will help you. Also know what the side effects are. ? Ask if your condition can be treated in other ways. ? Know why a test or procedure is recommended and what the results could mean. ? Know what to expect if you do not take the medicine or have the test or procedure. ? If you have a follow-up appointment, write down the date, time, and purpose for that visit. ? Know how you can contact your provider if you have questions. Last Reviewed Date: 2023 00:00:00 ? [id number] [employer] All rights reserved. This information is not intended as a substitute for professional medical care. Always follow your healthcare professional's instructions. [facility]2024-11-13 10:45:50 Problem: Pain - Adult Goal: Verbalizes/displays adequate comfort level or baseline comfort level Outcome: Progressing Problem: Safety - Adult Goal: Free from fall injury Outcome: Progressing Problem: Discharge Planning Goal: Discharge to home or other facility with appropriate resources Outcome: Progressing Problem: Chronic Conditions and Co-morbidities Goal: Patient's chronic conditions and co-morbidity symptoms are monitored and maintained or improved Outcome: Progressing Problem: Knowledge Deficit Goal: Patient/family/caregiver demonstrates understanding of disease process, treatment plan, medications, and discharge instructions Outcome: Progressing Problem: Inadequate Airway Clearance Goal: Patient will maintain patent airway Outcome: Progressing Goal: Patient will achieve/maintain normal respiratory rate/effort Outcome: Progressing Problem: Inadequate Gas Exchange Goal: Patient is adequately oxygenated and ventilation is improved Outcome: Progressing Goal: Nutritional status is improving Outcome: Progressing Problem: Infection Goal: Signs and symptoms of infections are decreased or avoided Outcome: Progressing Problem: Activity Intolerance/Impaired Mobility Goal: Mobility/activity is maintained at optimum level for patient Outcome: Progressing Goal: Maintains or returns to baseline bowel function Outcome: Progressing Goal: Maintains or returns to baseline bladder function Outcome: Progressing Problem: Nutrition Goal: Nutritional status is improving Outcome: Progressing [facility]2024-11-13 04:06:51 The patient's goals for the shift include pain control The clinical goals for the shift include wean O2 [facility] [id number] 15:35:49 The patient is Moderately Stable - Low risk of patient condition declining or worsening The patient's goals for the shift include pain management The clinical goals for the shift include adequate nutrition, Over the shift, the patient did not make progress toward the following goals. Barriers to progression include onoign. Recommendations to address these barriers include chronic pain. [facility]2024-11-12 14:14:50 Problem: Moderate Malnutrition Goal: Food and/or Nutrient Delivery (ND) Outcome: Progressing Registered Dietitian: Lillie Cox MS, RD, LD Thursday-Thursday office phone [phone] Thursday-Thursday pager [phone] Weekend/On-call pager [phone] [place] 28177-11-11 16:25:10 The patient is Moderately Stable - Low risk of patient condition declining or worsening The patient's goals for the shift include pain management The clinical goals for the shift include adequate nutrition, Over the shift, the patient did not make progress toward the following goals. Barriers to progression include ongoing. Recommendations to address these barriers include ongoing. [facility]2024-11-09 11:29:02 Problem: Pain - Adult Goal: Verbalizes/displays adequate comfort level or baseline comfort level Outcome: Progressing Problem: Safety - Adult Goal: Free from fall injury Outcome: Progressing Problem: Discharge Planning Goal: Discharge to home or other facility with appropriate resources Outcome: Progressing Problem: Chronic Conditions and Co-morbidities Goal: Patient's chronic conditions and co-morbidity symptoms are monitored and maintained or improved Outcome: Progressing Problem: Knowledge Deficit Goal: Patient/family/caregiver demonstrates understanding of disease process, treatment plan, medications, and discharge instructions Outcome: Progressing Problem: Inadequate Airway Clearance Goal: Patient will maintain patent airway Outcome: Progressing Goal: Patient will achieve/maintain normal respiratory rate/effort Outcome: Progressing Problem: Inadequate Gas Exchange Goal: Patient is adequately oxygenated and ventilation is improved Outcome: Progressing Goal: Nutritional status is improving Outcome: Progressing Problem: Infection Goal: Signs and symptoms of infections are decreased or avoided Outcome: Progressing Problem: Activity Intolerance/Impaired Mobility Goal: Mobility/activity is maintained at optimum level for patient Outcome: Progressing Goal: Maintains or returns to baseline bowel function Outcome: Progressing Goal: Maintains or returns to baseline bladder function Outcome: Progressing Problem: Nutrition Goal: Nutritional status is improving Outcome: Progressing [facility]2024-11-09 11:03:00 PTT came back 74.5 which Is therapeutic. Heparin still continued at the same dose per protocol. PTT to be redrawn in 6 hours. [facility] Internal [facility]2024-11-08 20:12:02 The patient is Moderately Unstable - Medium risk of patient condition declining or worsening The patient's goals for the shift include safety and pain free The clinical goals for the shift include safety Problem: Pain - Adult Goal: Verbalizes/displays adequate comfort level or baseline comfort level Outcome: Progressing Problem: Safety - Adult Goal: Free from fall injury Outcome: Progressing Problem: Discharge Planning Goal: Discharge to home or other facility with appropriate resources Outcome: Progressing Problem: Chronic Conditions and Co-morbidities Goal: Patient's chronic conditions and co-morbidity symptoms are monitored and maintained or improved Outcome: Progressing Problem: Knowledge Deficit Goal: Patient/family/caregiver demonstrates understanding of disease process, treatment plan, medications, and discharge instructions Outcome: Progressing Problem: Inadequate Airway Clearance Goal: Patient will maintain patent airway Outcome: Progressing Goal: Patient will achieve/maintain normal respiratory rate/effort Outcome: Progressing Problem: Inadequate Gas Exchange Goal: Patient is adequately oxygenated and ventilation is improved Outcome: Progressing Goal: Nutritional status is improving Outcome: Progressing Problem: Infection Goal: Signs and symptoms of infections are decreased or avoided Outcome: Progressing Problem: Activity Intolerance/Impaired Mobility Goal: Mobility/activity is maintained at optimum level for patient Outcome: Progressing Goal: Maintains or returns to baseline bowel function Outcome: Progressing Goal: Maintains or returns to baseline bladder function Outcome: Progressing Problem: Nutrition Goal: Nutritional status is improving Outcome: Progressing [facility]2024-11-08 04:58:32 The patient is Moderately Stable - Low risk of patient condition declining or worsening The patient's goals for the shift include pain management The clinical goals for the shift include clinical improvement Problem: Pain - Adult Goal: Verbalizes/displays adequate comfort level or baseline comfort level Outcome: Progressing Problem: Safety - Adult Goal: Free from fall injury Outcome: Progressing Problem: Discharge Planning Goal: Discharge to home or other facility with appropriate resources Outcome: Progressing Problem: Chronic Conditions and Co-morbidities Goal: Patient's chronic conditions and co-morbidity symptoms are monitored and maintained or improved Outcome: Progressing Problem: Knowledge Deficit Goal: Patient/family/caregiver demonstrates understanding of disease process, treatment plan, medications, and discharge instructions Outcome: Progressing Problem: Inadequate Airway Clearance Goal: Patient will maintain patent airway Outcome: Progressing Goal: Patient will achieve/maintain normal respiratory rate/effort Outcome: Progressing Problem: Inadequate Gas Exchange Goal: Patient is adequately oxygenated and ventilation is improved Outcome: Progressing Goal: Nutritional status is improving Outcome: Progressing Problem: Infection Goal: Signs and symptoms of infections are decreased or avoided Outcome: Progressing Problem: Activity Intolerance/Impaired Mobility Goal: Mobility/activity is maintained at optimum level for patient Outcome: Progressing Goal: Maintains or returns to baseline bowel function Outcome: Progressing Goal: Maintains or returns to baseline bladder function Outcome: Progressing Problem: Nutrition Goal: Nutritional status is improving Outcome: Progressing [place] [id number] 22:28:00 Dr. Ramos informed that patient's PTT result at 2219- 121.6 and that current heparin infusion is placed on hold for 60 min, after, will drop rate from 27units/kg/hr to 23 units/kg/hr and will draw PTT 6 hrs after change of rate. JDSRN [facility] [id number] 14:45:23 The patient is Moderately Unstable - Medium risk of patient condition declining or worsening The patient's goals for the shift include pain management The clinical goals for the shift include clinical improvement [facility]2024-11-07 13:47:00 Sepsis alert HR 93 - pt trend 80s-90s RR 29 - now low 20s WBC 18.74 - up from 15 - patient on iv abx, BC done 01/16 INR 1.58 - up from 1.44 - patient on heparin gtt for afib Patient remains hemodynamically stable and afebrile. Patient is awake and alert sitting up in bed, no complaints. Team is following wbc and per their not will change abx accordingly. [facility] Internal [place] [id number] 11:39:40 Patient returned to unit in stable condition. Patient denied pain upon asking. No signs of acute distress noted. No concerns voiced at this time. [facility] Internal [facility]2024-11-07 09:30:00 Patient off of the unit for EGD procedure. Patient denied pain upon asking. No signs of acute distress noted. No concerns voiced at this time. [facility]2024-11-06 22:04:05 The patient is Moderately Stable - Low risk of patient condition declining or worsening The patient's goals for the shift include Care Management The clinical goals for the shift include Care Management Over the shift, the patient did not make progress toward the following goals. Barriers to progression include : Disease Management. Recommendations to address these barriers include : Education. [facility] Internal [facility]2024-11-05 22:43:11 The patient is Moderately Unstable - Medium risk of patient condition declining or worsening The patient's goals for the shift include respiratory and hemodynamic stability The clinical goals for the shift include rest, stable vs Problem: Pain - Adult Goal: Verbalizes/displays adequate comfort level or baseline comfort level Outcome: Ongoing Problem: Safety - Adult Goal: Free from fall injury Outcome: Ongoing Problem: Chronic Conditions and Co-morbidities Goal: Patient's chronic conditions and co-morbidity symptoms are monitored and maintained or improved Outcome: Ongoing Problem: Knowledge Deficit Goal: Patient/family/caregiver demonstrates understanding of disease process, treatment plan, medications, and discharge instructions Outcome: Ongoing Problem: Inadequate Airway Clearance Goal: Patient will maintain patent airway Outcome: Ongoing Goal: Patient will achieve/maintain normal respiratory rate/effort Outcome: Ongoing Problem: Infection Goal: Signs and symptoms of infections are decreased or avoided Outcome: Ongoing Problem: Activity Intolerance/Impaired Mobility Goal: Mobility/activity is maintained at optimum level for patient Outcome: Ongoing Goal: Maintains or returns to baseline bowel function Outcome: Ongoing [facility]2024-11-05 16:44:59 The patient is Moderately Unstable - Medium risk of patient condition declining or worsening The patient's goals for the shift include comfort and rest The clinical goals for the shift include hemodynamic stability, improve resp function [facility] HospitalEqpwmsx3632-07-01 21:57:43 The patient is Moderately Unstable - Medium risk of patient condition declining or worsening The patient's goals for the shift include Sleep The clinical goals for the shift include Monitor hemodynamics Problem: Pain - Adult Goal: Verbalizes/displays adequate comfort level or baseline comfort level Outcome: Ongoing Problem: Chronic Conditions and Co-morbidities Goal: Patient's chronic conditions and co-morbidity symptoms are monitored and maintained or improved Outcome: Ongoing Problem: Knowledge Deficit Goal: Patient/family/caregiver demonstrates understanding of disease process, treatment plan, medications, and discharge instructions Outcome: Ongoing [facility]2024-11-04 01:20:09 Problem: Pain - Adult Goal: Verbalizes/displays adequate comfort level or baseline comfort level Outcome: Met Problem: Safety - Adult Goal: Free from fall injury Outcome: Met Problem: Discharge Planning Goal: Discharge to home or other facility with appropriate resources Outcome: Met Problem: Chronic Conditions and Co-morbidities Goal: Patient's chronic conditions and co-morbidity symptoms are monitored and maintained or improved Outcome: Met Problem: Inadequate Airway Clearance Goal: Patient will maintain patent airway Outcome: Met Goal: Patient will achieve/maintain normal respiratory rate/effort Outcome: Met Problem: Inadequate Gas Exchange Goal: Patient is adequately oxygenated and ventilation is improved Outcome: Met Problem: Knowledge Deficit Goal: Patient/family/caregiver demonstrates understanding of disease process, treatment plan, medications, and discharge instructions Outcome: Progressing Problem: Inadequate Gas Exchange Goal: Nutritional status is improving Outcome: Progressing Problem: Infection Goal: Signs and symptoms of infections are decreased or avoided Outcome: Progressing Problem: Activity Intolerance/Impaired Mobility Goal: Mobility/activity is maintained at optimum level for patient Outcome: Progressing Goal: Maintains or returns to baseline bowel function Outcome: Progressing Goal: Maintains or returns to baseline bladder function Outcome: Progressing Problem: Nutrition Goal: Nutritional status is improving Outcome: Progressing The patient is Moderately Stable - Low risk of patient condition declining or worsening [facility] [id number] 12:35:00 History of Present Illness: Chief Complaint: Patient presents with Pacemaker Problem Elderly gentleman with past history of hypertension, CAD, multiple heart caths, and defibrillator presenting after being shocked by his defibrillator. States his defibrillator has gone off multiple times over the past 3 weeks. Says he generally has palpitations right before he is shocked. Currently denies chest pain. Currently denies palpitations. Currently denies shortness of breath. No nausea or vomiting. No fevers. States he takes clopidogrel but no other blood thinners. Additionally reports he has a history of COPD but does not use any extra oxygen at home. Does not follow with cardiology here. States is defibrillator brand is [employer]. Patient History History reviewed. No pertinent past medical history. History reviewed. No pertinent surgical history. No family history on file. Social History: Tobacco Use Smoking status: Not on file Smokeless tobacco: Not on file Substance Use Topics Alcohol use: Not on file Drug use: Not on file Review of Systems: Review of Systems Constitutional: Negative for fever. HENT: Negative for rhinorrhea. Eyes: Negative for visual disturbance. Respiratory: Positive for cough. Negative for shortness of breath. Cardiovascular: Positive for chest pain. Gastrointestinal: Negative for vomiting. Genitourinary: Negative for dysuria. Skin: Negative for rash. Neurological: Negative for syncope. Physical Exam: Constitutional: General: He is not in acute distress. Appearance: Normal appearance. HENT: Head: Normocephalic. Nose: Nose normal. Mouth/Throat: Mouth: Mucous membranes are moist. Eyes: Extraocular Movements: Extraocular movements intact. Pupils: Pupils are equal, round, and reactive to light. Cardiovascular: Rate and Rhythm: Normal rate. Pulses: Normal pulses. Heart sounds: No murmur heard. Pulmonary: Effort: Pulmonary effort is normal. No respiratory distress. Abdominal: General: There is no distension. Palpations: Abdomen is soft. Tenderness: There is no abdominal tenderness. Musculoskeletal: General: No swelling. Normal range of motion. Skin: General: Skin is warm. Capillary Refill: Capillary refill takes less than 2 seconds. Neurological: General: No focal deficit present. Mental Status: He is alert and oriented to person, place, and time. Cranial Nerves: No cranial nerve deficit. Triage Vitals: BP: 108/52, Heart Rate: 86, Temp: 37.7 ?C (99.9 ?F), Resp: 16, SpO2: 91 %, Height: 177.8 cm (5' 10"), Weight: 88.5 kg (195 lb) Last Recorded Vitals: BP: 109/53, Heart Rate: 86, Temp: 37.7 ?C (99.9 ?F), Resp: 18, SpO2: 92 %, Height: 177.8 cm (5' 10"), Weight: 88.5 kg (195 lb) Procedures Performed: Procedures ED Course : ED Course: as of 01/17/241909 [place] Jan 17, 2024 1237 Patient is a 73-year-old male presenting today after his AICD fired this morning. Has been shocked multiple times over the past weeks, will do an ACS workup, and discuss with cardiology. [HM] 1542 Started abx for multifocal pneumonia, had runs of vtach, cards rec admit and heparin drip, may need amio [HM] ED Course: User Index [HM] Ute Gomez MD Diagnoses as of 01/17/241909 Chest pain, unspecified type Disposition: Medical Decision Making 73-year-old male with past history of hypertension, CAD, CHF, multiple heart caths, and defibrillator presenting after being shocked by his defibrillator earlier today. On physical exam patient is overall well-appearing with regular rate and rhythm on cardiac exam, clear lungs bilaterally, equal pulses bilaterally, nondistended nontender abdomen. Nonfocal neurological exam. Ddx: arrhythmia, ACS, CHF exacerbation, defibrillator malfunction, pneumonia, MSK strain Plan: bmp, cbc, troponin, BNP, LFT, lipase, mag, phosphorus, coags, CXR BMP returned with mild hypokalemia to 3.0. CBC with WBC elevated to 20. Additionally has mild anemia to 9.4. LFT without concerning findings. Lipase, magnesium, phosphorus levels normal with PT elevated to 16.6 VBG without hypercarbia or acidemia. Chest x-ray showing infiltrates in the right lower lobe concerning for pneumonia infection. Patient signed out to oncoming team pending CT PE and reevaluation. MEDICAL DECISION MAKING Complexity of Problems Addressed High: I am concerned about a severe complexity problem which was evidenced by the differential, and associated workup to rule out the severe problem: arrhythmia, which is a new problem for this patient as evidenced by chest pain with defibrillator shock. Complexity of Data Review Category 1: (# Of Data Points) Ordered the following tests: bmp, cbc, troponin, vbg Category 2: (Image/Tracing Interpretation): I contemporaneously during the patient encounter interpreted the following: telemetry tracing of the patient and these are my findings: NSR Category 3: None Risk of Management None Amount and/or Complexity of Data Reviewed Labs: ordered. Radiology: ordered. Risk Prescription drug management. [employer] Johana Lafleur MD Emergency Medicine, PGY-2 [facility] Johana Lafleur MD 01/17/24 1750 Cosigned by Marielle Cota MD at 01/18/2024 8:54 AM CEMETERY MANAGER TERY MANAGER TERY MANAGER Associated attestation - Marielle Cota MD - 01/18/2024 8:54 AM CEMETERY MANAGER Teaching Attending Attestation: The patient was seen and examined by me in the presence of, or jointly with, the resident, and I agree with the History/Exam/Medical Decision Making documented unless further documented below. Additionally, I was directly involved in the management of the patient. Impression: 1. Chest pain, unspecified type Marielle Cota MD [facility] Daytonjimena [id number] 12:35:00 ACCEPTANCE OF CARE I assumed care of this patient at shift change from the outgoing team. Prior documents, lab results, and imaging reviewed. In brief, Pt is a 73 yo M with past history of hypertension, CAD, multiple heart caths, and defibrillator presenting after being shocked by his defibrillator. States his defibrillator has gone off multiple times over the past 3 weeks. Says he generally has palpitations right before he is shocked. Currently denies chest pain. Currently denies palpitations. Currently denies shortness of breath. No nausea or vomiting. No fevers. States he takes clopidogrel but no other blood thinners. Additionally reports he has a history of COPD but does not use any extra oxygen at home. Previous team got labs and imaging, pacemaker interrogation. Pacemaker interrogation showing he has been shocked for V. Tach and V-fib. X-ray concerning for pneumonia. Labs concerning for hypokalemia. Upon acceptance under my care, the patient is pending: CT PE MEDICAL DECISION MAKING -Upon re-examination, the patient is hemodynamically stable and resting comfortably in bed. -Patient having runs of V. Tach. Discussed with cardiology w who will admit, recommend heparin drip. Started on antibiotics for pneumonia. Repleting potassium. -Got call from radiology at that CT is concerning for possible tuberculosis. Will switch ceftriaxone to cefepime and get Legionella, TB, MRSA. -Admitted to CCU. ED Course: as of 01/17/241934 Sun Jan 17, 2024 1237 Patient is a 73-year-old male presenting today after his AICD fired this morning. Has been shocked multiple times over the past weeks, will do an ACS workup, and discuss with cardiology. [HM] 1542 Started abx for multifocal pneumonia, had runs of vtach, cards rec admit and heparin drip, may need amio [HM] ED Course: User Index [HM] Ute Gomez MD Diagnoses as of 01/17/241934 Chest pain, unspecified type Clinical Impression: No diagnosis found. Disposition: Follow Up: No follow-ups on file. MDM BILLING (ADDENDUM LOS) Complexity of Data Review Category 1: (# Of Data Points) Ordered the following tests: repeat labs, MRSA, Legionella, afb Category 2: (Image/Tracing Interpretation): I contemporaneously during the patient encounter interpreted the following: CT of the patient and these are my findings: pneumonia with cavitations Category 3: (Machine Boss) I consulted and spoke with cardiology about the patient and they stated as above. Risk of Management (Admission) Patient to be admitted to the hospital. Ute Gomez MD PGY1 Emergency Medicine MSO# [id number] Ute Gomez MD 01/17/242106 Cosigned by Steph Mcbride MD at 01/21/2024 1:59 AM CEMETERY MANAGER TERY MANAGER TERY MANAGER Associated attestation - Steph Mcbride MD - 01/21/2024 1:59 AM CEMETERY MANAGER Teaching Attending Attestation ([employer] of Care Note): I assumed care of this patient from the previous EC attending. I agree with the resident's plan unless further documented below. Additionally, I was directly involved in the management of the patient. Impression: 1. Chest pain, unspecified type 2. Dysphagia, unspecified type Steph Mcbride MD [facility]
[2024-01-31] MEDS ORDERED: NA CHLORIDE 0.9% 1,000 ML ONE (20:15)
[2024-01-31 21:00] LABS: Absolute Basophils 0.1 K/uL (0-0.5); Absolute Eosinophils 0.2 K/uL (0-0.5); Absolute Lymphocytes (CBC) 1.3 K/uL (0.7-4.9); Absolute Monocytes 0.7 K/uL (0.1-1.3); Absolute Neutrophil 13.5 K/uL (1.8-8.0); Basophils % 0.6 % (0-1.3); Eosinophils % 1.1 % (0-4.4); Hematocrit 24.5 % (39.6-49.0); Hemoglobin 7.7 g/dL (13.6-17.9); Lymphocytes % 7.9 % (15.3-44.8); MCH 28.8 pg (27.0-35.0); MCHC 31.6 g/dL (32.0-36.0); MPV 7.5 fL (7.6-11.3); Monocytes % 4.6 % (3.3-12.3); Neutrophils % 85.8 % (41.7-73.7); Platelets 390 thou/uL (152-406); RBC Red Blood Cell Count 2.69 M/uL (4.33-5.43); Red Cell Distribution Width 15.2 % (12.1-15.2)
[2024-01-31 21:02] LABS: PT Prothrombin Time 21.5 SECONDS (9.4-12.5); Protime INR 1.96
[2024-01-31 21:17] LABS: Anion Gap 13.7 mEq/L (5.0-15.0); Magnesium 1.8 mg/dL (1.6-2.4); Potassium 4.7 mEq/L (3.5-5.1); Troponin High Sensitivity 36.7 pg/mL (<58.9)
--- NOTE | 2024-01-31 21:30 | RAD REPORT ---
Procedure: Chest Single View HISTORY: Hypertension COMPARISON: none FINDINGS: Areas of consolidation involving the lungs bilaterally. Moderate additional bilateral lung opacities are present.. No significant pleural effusion noted. The heart is mildly enlarged. Pacemaker leads in place IMPRESSION: Bilateral consolidation likely pneumonia Additional bilateral pulmonary opacities could represent additional infection or chronic changes.
--- NOTE | 2024-01-31 22:01 | ER ---
Nurse's Notes [facility] Name: Esequiel Franklin Jr Age: 73 yrs Sex: Male : 1950 Arrival Date: 01/31/2024 Time: 19:55 Bed 2 Private MD: Diagnosis: Ventricular tachycardia;Hypotension, unspecified;Elevated BNP Presentation: 01/30 20:10 Chief complaint: EMS states: PER EMS PT SENT TO ER DUE TO LOW SATURATIONS AND LOW br2 B/P...PT ARRIVES TO ER PALE BUT AWAKE AND ALERT, ORIENTED. 20:10 Coronavirus screen: Client denies travel out of the [place] in the last 14 days. Ebola br2 Screen: Patient denies travel to an Ebola-affected area in the 21 days before illness onset. Initial Sepsis Screen: Does the patient meet any 2 criteria? RR > 20 per min. Systolic BP < 90 mmHg. HR > 90 bpm. Does the patient have a suspected source of infection? No. Patient's initial sepsis screen is negative. Risk Assessment: Do you want to hurt yourself or someone else? Patient reports no desire to harm self or others. Onset of symptoms was January 31, 2024 at 19:00. 20:10 Method Of Arrival: EMS: [facility] br2 20:10 Acuity: DEVON 2 br2 Triage Assessment: 20:10 General: Appears uncomfortable, Behavior is quiet. Pain: Denies pain. EENT: No signs br2 and/or symptoms were reported regarding the EENT system. Neuro: Shell Agitation-Sedation Scale (RASS): -1 Drowsy Level of Consciousness is awake, alert, obeys commands, Oriented to person, place, time, situation, Cordage Sales Representative are weak on right weak on left Moves all extremities. Weakness Speech SOFT. Cardiovascular: Capillary refill < 3 seconds Rhythm is WIDE QRS TACHYCARDIA WITH PVC, LLL. Historical: - Allergies: 01/31 00:17 No Known Allergies; br2 - Home Meds: 00:48 ferrous sulfate 325 mg (65 mg iron) Oral tablet, delayed release (enteric coated) 1 tab br2 3 times per day [Active]; hydrocodone-acetaminophen 10-325 mg Oral tablet 1 tab [Active]; lorazepam 0.5 mg Oral tablet [Active]; lovastatin 40 mg Oral tablet 1 tab every day at bedtime [Active]; memantine 10 mg oral tablet 1 tab 2 times per day [Active]; amiodarone 400 mg Oral tablet 1 tab [Active]; amlodipine 5 mg tablet 1 tab [Active]; amoxicillin 875 mg Oral tablet [Active]; 01:07 apixaban 5 mg oral tablet [Active]; carvedilol 25 mg oral tablet [Active]; clopidogrel br2 75 mg oral tablet [Active]; escitalopram oxalate 20 mg oral tablet [Active]; - PMHx: 00:48 Hypertensive disorder; Anxiety; br2 - Immunization history:: Adult Immunizations not up to date. - Infectious Disease History:: Denies. - Social history:: Smoking status: Patient/guardian denies using tobacco, Patient/guardian denies using alcohol, street drugs, IV drugs. Screenin/17 20:10 [facility] ED Fall Risk Assessment (Adult) History of falling in the last 3 months, br2 including since admission No falls in past 3 months (0 pts) Confusion or Disorientation No (0 pts) Intoxicated or Sedated No (0 pts) Impaired Gait No (0 pts) Mobility Assist Device Used Yes (1 pt) Altered Elimination Yes (1 pt) Score/Fall Risk Level 0 - 2 = Low Risk Oriented to surroundings, Maintained a safe environment. Abuse screen: Denies threats or abuse. Denies injuries from another. Nutritional screening: No deficits noted. Tuberculosis screening: No symptoms or risk factors identified. Assessment: 21:15 Reassessment: Patient and/or family updated on plan of care and expected duration. Pain br2 level reassessed. Patient is alert, oriented x 3, equal unlabored respirations, skin warm/dry/pink. Reassessment: NIECE AT BEDSIDE. PT RESPONSIVE, DENIES ANY PAIN. General: Appears comfortable, Behavior is cooperative. 22:00 Reassessment: Patient and/or family updated on plan of care and expected duration. Pain br2 level reassessed. Patient is alert, oriented x 3, equal unlabored respirations, skin warm/dry/pink. SITTING IN BED TALKING TO FAMILY THAT IS AT BEDSIDE. PT STATES HE FEELS MUCH BETTER. PT STATES HE TOOK ALL HIS MEDICATIONS (WHICH INCLUDES HTN) AND HE BELIEVES IT MIGHT HAVE BEEN SLIGHTLY LOW ALREADY. PT WAS DISCHARGE FROM [facility] ON THURSDAY AND DX WITH BILATERAL PNEUMOINA AND IS TALKING ANTIBIOTICS. Patient states feeling better. Patient states symptoms have improved. 23:00 Reassessment: Patient and/or family updated on plan of care and expected duration. Pain br2 level reassessed. Patient is alert, oriented x 3, equal unlabored respirations, skin warm/dry/pink. PT WAS ON BEDPAN. PT STATES HE HAS BEEN HAVING DIARRHEA SINCE HE STARTED ANTIBIOTICS. PT HAS BRUISING TO MEDIAL BUTTOCKS. PT STATES HIS DEFIBULATOR SHOCKED HIM MULTIPLE TIMES LAST WEEK AND ONCE MADE HIM FALL TO THE FLOOR ON BUTTOCKS. 01/31 00:25 Reassessment: SEE TRIAGE ASSESSEMNT. br2 Vital Signs: 01/30 20:10 BP 70 / 54; Pulse 142; Resp 28; Temp 96.8(TE); Pulse Ox 92% on R/A; Weight 86.18 kg; br2 Height 5 ft. 4 in. ; Pain 0/10; 20:30 BP 80 / 46; Pulse 68; Resp 17; Pulse Ox 92% on 4 lpm NC; br2 21:00 BP 86 / 41; Pulse 68; Resp 21; Pulse Ox 99% on 4 lpm NC; br2 22:07 BP 99 / 51; Pulse 70; Resp 20; Pulse Ox 100% on 3 lpm NC; br2 22:23 BP 102 / 52; Pulse 69; Resp 17; Pulse Ox 100% on 4 lpm NC; br2 22:45 BP 102 / 55; Pulse 69; Resp 18; Pulse Ox 100% on 4 lpm NC; br2 23:15 BP 112 / 57; Pulse 74; Resp 16; Pulse Ox 100% on 4 lpm NC; br2 20:10 Body Mass Index 32.61 (86.18 kg, 162.56 cm) br2 20:10 Pain Scale: Adult br2 ED Course: 20:03 Patient arrived in ED. vk 20:03 Kamaljit Villar DO is Attending Physician. ms3 20:10 Arm band placed on right wrist. br2 20:10 Patient has correct armband on for positive identification. Placed in gown. Bed in low br2 position. Call light in reach. Side rails up X 1. Provided Education on: PLAN OF CARE. 20:10 Maintain EMS IV. Site clean \T\ dry. Gauge \T\ site: 20G LEFT AC. Flushed with 10 mL NS. br 2 20:25 Vickie Gates RN is Primary Nurse. br2 21:03 XRAY Chest (1 view) In Process Unspecified. EDMS 23:46 Triage completed. br2 01/31 00:51 Nick Agee MD is Hospitalizing Provider. ms3 01:37 Blood Culture Adult (2) Sent. br2 01:37 CMP Sent. br2 01:37 Lactate w/ 2H reflex if indic. Sent. br2 01:37 Ptt, Activated Sent. br2 01:45 Inserted saline lock: 22 gauge in right hand, using aseptic technique. br2 01:48 01/31/247 called Mikael for Transfer talked to Maira 02/01/24 0020 Maira hernandez called and stated no beds at capacity. Administered Medications: 01/30 20:30 Drug: NS 0.9% IV 1000 ml IV at 1000 ml once; to be given as a bolus over 60 minutes br2 Route: IV; Rate: 1000 ml; Site: left antecubital; 21:45 Follow up: Response: No adverse reaction; IV Status: Completed infusion; IV Intake: br2 1000ml 01/31 01:37 Drug: Cefepime IVPB 2 grams IVPB at 200 ml/hr once over 30 mins; (mix in NS 100 mL) br2 Route: IVPB; Rate: 200 ml/hr; Infused Over: 30 mins; Site: left antecubital; 02:18 Follow up: Response: No adverse reaction; IV Status: Completed infusion; IV Intake: al5 100ml 02:14 Drug: AZITHromycin IVPB 500 mg IVPB once over 1 hrs; (mix in 250 mL NS) Route: IVPB; br2 Infused Over: 1 hrs; Site: right wrist; Intake: 01/30 21:45 IV: 1000ml; Total: 1000ml. br2 01/31 02:18 IV: 100ml; Total: 1100ml. al5 Outcome: 01/30 22:01 ER care complete, transfer ordered by . ms3 01/31 00:53 Decision to Hospitalize by Provider. ms3 03:26 Patient left the ED. br2 Signatures: Dispatcher [employer] EDMS Catherine Higgins Marcus, DO ms3 Adri Ibrahim Amanda, RN RN al5 [place], Vickie, RN RN br2
--- NOTE | 2024-01-31 22:02 | EDPHYS ---
Physician Documentation [facility] Name: Esequiel Franklin Jr Age: 73 yrs Sex: Male : 1950 Arrival Date: 01/31/2024 Time: 19:55 Bed 2 Private MD: ED Physician Kamaljit Villar HPI: 01/30 23:01 This 73 yrs old Male presents to ER via Unassigned with complaints of generalized ms3 weakness, hypotension. 23:01 Esequiel Franklin Jr. is a 73-year-old male who presents to the emergency department after ms3 being discharged from a recent hospital stay at [facility], where he was treated for issues with his pacemaker that was delivering shocks. EMS reports patient took his medications as prescribed today (bp medication). He has a history of sinus tachycardia and premature ventricular contractions (PVCs), but no current shocks from the pacemaker. . Historical: - Allergies: 01/31 00:17 No Known Allergies; br2 - Home Meds: 00:48 ferrous sulfate 325 mg (65 mg iron) Oral tablet, delayed release (enteric coated) 1 tab br2 3 times per day [Active]; hydrocodone-acetaminophen 10-325 mg Oral tablet 1 tab [Active]; lorazepam 0.5 mg Oral tablet [Active]; lovastatin 40 mg Oral tablet 1 tab every day at bedtime [Active]; memantine 10 mg oral tablet 1 tab 2 times per day [Active]; amiodarone 400 mg Oral tablet 1 tab [Active]; amlodipine 5 mg tablet 1 tab [Active]; amoxicillin 875 mg Oral tablet [Active]; 01:07 apixaban 5 mg oral tablet [Active]; carvedilol 25 mg oral tablet [Active]; clopidogrel br2 75 mg oral tablet [Active]; escitalopram oxalate 20 mg oral tablet [Active]; - PMHx: 00:48 Hypertensive disorder; Anxiety; br2 - Immunization history:: Adult Immunizations not up to date. - Infectious Disease History:: Denies. - Social history:: Smoking status: Patient/guardian denies using tobacco, Patient/guardian denies using alcohol, street drugs, IV drugs. ROS: 01/30 23:01 Skin: Negative for injury, rash, and discoloration, ms3 Constitutional: Positive for Generalized weakness, Cardiovascular: Positive for palpitations, Respiratory: Positive for shortness of breath, Exam: 23:01 Head/Face: Normocephalic, atraumatic. ms3 23:01 Respiratory: Lungs have equal breath sounds bilaterally, clear to auscultation and percussion. No rales, rhonchi or wheezes noted. No increased work of breathing, no retractions or nasal flaring. Abdomen/GI: Soft, non-tender, with normal bowel sounds. No distension or tympany. No guarding or rebound. No evidence of tenderness throughout. 23:01 Constitutional: The patient appears alert, awake, obviously ill, pale, 23:01 Cardiovascular: Rate: tachycardic, Rhythm: regular, Pulses: weak, 23:01 ECG was reviewed by the Attending Physician. Vital Signs: 20:10 BP 70 / 54; Pulse 142; Resp 28; Temp 96.8(TE); Pulse Ox 92% on R/A; Weight 86.18 kg; br2 Height 5 ft. 4 in. ; Pain 0/10; 20:30 BP 80 / 46; Pulse 68; Resp 17; Pulse Ox 92% on 4 lpm NC; br2 21:00 BP 86 / 41; Pulse 68; Resp 21; Pulse Ox 99% on 4 lpm NC; br2 22:07 BP 99 / 51; Pulse 70; Resp 20; Pulse Ox 100% on 3 lpm NC; br2 22:23 BP 102 / 52; Pulse 69; Resp 17; Pulse Ox 100% on 4 lpm NC; br2 22:45 BP 102 / 55; Pulse 69; Resp 18; Pulse Ox 100% on 4 lpm NC; br2 23:15 BP 112 / 57; Pulse 74; Resp 16; Pulse Ox 100% on 4 lpm NC; br2 20:10 Body Mass Index 32.61 (86.18 kg, 162.56 cm) br2 20:10 Pain Scale: Adult br2 MDM: 20:36 Medical Screening Exam initiated ms3 23:01 Differential Diagnosis V. Tachycardia vs Electrolyte abnormality vs Heart Failure vs ms3 Defibrillator malfunction. Data reviewed: vital signs, nurses notes, lab test result(s), EKG, radiologic studies, and as a result, I will transfer patient back to [facility]. No ICU beds at [facility] and patient's family requesting transfer back to [facility] for continuity of care.. Consideration of Admission/Observation Will transfer patient. I considered the following discharge prescriptions or medication management in the emergency department Medications were administered in the Emergency Department. See MAR. Independent interpretation of the following test(s) in the Emergency Department EKG: See my EKG interpretation above. Historians other than the Patient: EMS: [facility]. Counseling: I had a detailed discussion with the patient and/or guardian regarding the historical points, exam findings, and any diagnostic results supporting the discharge/admit diagnosis, lab results, radiology results, the need to transfer to another facility. ED course: Patient rate and rhythm converted after administration of IVF. BP responded well to IVF as well. . 01/30 20:37 Order name: Basic Metabolic Panel; Complete Time: 21:44 ms3 01/30 20:37 Order name: CBC with Diff; Complete Time: 22:52 ms3 01/30 20:37 Order name: Magnesium; Complete Time: 21:44 ms3 01/30 20:37 Order name: NT PRO-BNP; Complete Time: 21:44 ms3 01/30 20:37 Order name: PT-INR; Complete Time: 21:44 ms3 01/30 20:37 Order name: Troponin HS; Complete Time: 21:44 ms3 01/30 21:21 Order name: Manual Differential; Complete Time: 22:52 EDMS 01/31 00:53 Order name: Blood Culture Adult (2) ms3 01/31 00:53 Order name: CMP; Complete Time: 02:48 ms3 01/31 00:53 Order name: Lactate w/ 2H reflex if indic. ms3 01/31 00:53 Order name: Ptt, Activated ms3 01/31 01:32 Order name: Creatine Phosphokinase EDMS 01/31 01:32 Order name: Lactate w/ 2H reflex if indic. EDMS 01/31 01:32 Order name: Liver (Hepatic) Function EDMS 01/31 01:32 Order name: Magnesium EDMS 01/31 01:32 Order name: NT PRO-BNP EDMS 01/31 01:32 Order name: Phosphorus EDMS 01/31 01:32 Order name: Thyroid Stimulating Hormone EDMS 01/31 01:32 Order name: Urinalysis w/ reflexes EDMS 01/31 01:32 Order name: Lipid Profile EDMS 01/31 01:32 Order name: Lipid Profile EDMS 01/31 01:32 Order name: Troponin High Sensitivity [facility] 01/31 01:32 Order name: Troponin High Sensitivity [facility] 01/31 01:32 Order name: Troponin High Sensitivity [facility] 01/31 01:32 Order name: Troponin High Sensitivity [facility] 01/31 01:33 Order name: D-Dimer; Complete Time: 02:48 EDMS 01/31 01:33 Order name: Vancomycin Level Trough [facility] 01/31 02:32 Order name: PTT, Activated Partial Thromb; Complete Time: 02:48 [facility] 01/30 20:37 Order name: XRAY Chest (1 view); Complete Time: 21:44 ms3 01/30 20:37 Order name: EKG; Complete Time: 20:38 ms3 01/31 01:32 Order name: CONS Physician Consult [facility] 01/31 01:32 Order name: Respiratory Therapy Consult [facility] 01/30 20:37 Order name: Cardiac monitoring; Complete Time: 00:28 ms3 01/30 20:37 Order name: EKG - Nurse/Tech; Complete Time: 00:28 ms3 01/30 20:37 Order name: IV Saline Lock; Complete Time: 00:28 ms3 01/30 20:37 Order name: Labs collected and sent; Complete Time: 00:28 ms3 01/30 20:37 Order name: O2 Per Protocol; Complete Time: 00:28 ms3 01/30 20:37 Order name: O2 Sat Monitoring; Complete Time: 00:28 ms3 01/31 00:53 Order name: Accucheck; Complete Time: 01:37 ms3 01/31 00:53 Order name: IV Saline Lock - Large Bore; Complete Time: 01:37 ms3 01/31 00:53 Order name: Vital Signs; Complete Time: 01:37 ms3 EC:01 Rate is 145 beats/min. Rhythm is regular. Left axis deviation noted. QRS interval is ms3 prolonged. Clinical impression: Ventricular Tachycardia. Interpreted by me. Reviewed by me. Administered Medications: 20:30 Drug: NS 0.9% IV 1000 ml IV at 1000 ml once; to be given as a bolus over 60 minutes br2 Route: IV; Rate: 1000 ml; Site: left antecubital; 21:45 Follow up: Response: No adverse reaction; IV Status: Completed infusion; IV Intake: br2 1000ml 01/31 01:37 Drug: Cefepime IVPB 2 grams IVPB at 200 ml/hr once over 30 mins; (mix in NS 100 mL) br2 Route: IVPB; Rate: 200 ml/hr; Infused Over: 30 mins; Site: left antecubital; 02:18 Follow up: Response: No adverse reaction; IV Status: Completed infusion; IV Intake: al5 100ml 02:14 Drug: AZITHromycin IVPB 500 mg IVPB once over 1 hrs; (mix in 250 mL NS) Route: IVPB; br2 Infused Over: 1 hrs; Site: right wrist; Disposition Summary: 02/01/24 00:53 Hospitalization Ordered Notes: Hospitalization Status: Observation ms3 Provider: Nick Agee ms3 Location: Telemetry/MedSurg (observation) ms3 Condition: Stable(02/01/24 00:53) ms3 Problem: new(02/01/24 00:53) ms3 Symptoms: are unchanged(02/01/24 00:53) ms3 Bed/Room Type: Standard ms3 Room Assignment: [facility](02/01/24 01:39) sp Diagnosis - Ventricular tachycardia(02/01/24 00:53) ms3 - Hypotension, unspecified(02/01/24 00:53) ms3 - Elevated BNP ms3 Forms: - Medication Reconciliation Form ms3 - SBAR form ms3 - Leadership Thank You Letter ms3 Critical care time excluding procedures: 01/30 23:01 Critical care time: Bedside Care: 35 minutes, Consultation: 5 minutes, Family ms3 Intervention: 5 minutes. Total time: 45 minutes Signatures: Dispatcher [employer] EDMS Catherine Higgins Marcus, DO DO ms3 Vickie Gates RN RN br2 Selene Robledo RN al5 Corrections: (The following items were deleted from the chart) 20:38 20:38 BASIC METABOLIC PANEL+C.LAB.BRZ ordered. EDMS EDMS 20:38 20:38 CBC+H.LAB.BRZ ordered. EDMS EDMS 20:38 20:38 MAGNESIUM+C.LAB.BRZ ordered. EDMS EDMS 20:38 20:38 PROBNP+C.LAB.BRZ ordered. EDMS EDMS 20:38 20:38 PROTIME (+INR)+COAG.LAB.BRZ ordered. EDMS EDMS 20:38 20:38 Troponin High Sensitivity+C.LAB.BRZ ordered. EDMS EDMS 01/31 00:51 01/30 22:01 Dr ms3 ms3 01/31 00:51 01/30 22:01 [facility] ms3 ms3 01/31 00:51 01/30 22:01 Higher level of care ms3 ms3 01/31 00:51 01/30 22:01 Stable ms3 ms3 01/31 00:51 01/30 22:01 new ms3 ms3 01/31 00:51 01/30 22:01 are unchanged ms3 ms3 01/31 00:51 01/30 22:01 Ventricular tachycardia ms3 ms3 01/31 00:51 01/30 22:01 Hypotension, unspecified ms3 ms3 01/31 00:51 01/30 22:01 Elevated BNP ms3 ms3 01/31 00:54 00:54 BLOOD CULTURE*+BA.LAB.BRZ ordered. EDMS EDMS 00:54 00:54 COMPREHENSIVE METABOLIC PANEL+C.LAB.BRZ ordered. EDMS EDMS 00:54 00:54 LACTATE+C.LAB.BRZ ordered. EDMS EDMS 00:54 00:54 PTT, ACTIVATED+COAG.LAB.BRZ ordered. EDMS EDMS 01:39 00:53 ms3 sp
[2024-01-31 22:31] LABS: Band Neutrophils 4 % (0-1); Differential Total Cells Count 100; Eosinophils 1 % (0-3); Lymphocytes 9 % (15-42); Monocytes 6 % (0-10); Segmented Neutrophils 80 % (40-80)
[2024-01-31 22:32] LABS: Blood Morphology Comment NOT SEEN (NOT SEEN); Platelet Estimate ADEQ
[2024-02-01] MEDS ORDERED: AZITHROMYCIN 500 MG INJ IVPB ONE (01:27)
[2024-02-01] MEDS ORDERED: CEFEPIME 2 GM VIAL ONE (01:27)
[2024-02-01] MEDS ORDERED: NA CHLORIDE 0.9% 100 ML ONE (01:28)
[2024-02-01] MEDS ORDERED: NA CHLORIDE 0.9% 250 ML ONE (01:28)
--- NOTE | 2024-02-01 01:42 | P.HP ---
Certification for Inpatient With expected LOS: <2 Midnights Practitioner: I am a practitioner with admitting privileges, knowledge of patient current condition, hospital course, and medical plan of care. Services: Services provided to patient in accordance with Admission requirements found in Title 42 Section 412.3 of the Code of Federal Regulations Patient History Date of Service: 02/01/24 Reason for admission: pneumonia, tachycardia History of Present Illness: 73-year-old man with a past medical history significant for pacemaker placement, CAD s/p stent on Eliquis, HTN, dementia, chronic anemia, and HDL presented to the emergency room complaining of hypotension and tachycardia that began earlier today. The patient is alert, and oriented x 3. The patient's is present at bedside. Since the patient has been in the ED, his hypotension and tachycardia have resolved with IVF only. The patient states that he was recently discharged from [facility] on 01/27/2024 for "pacemaker issues", and pneumonia. He was discharged from [facility] with Augmentin for his pneumonia. The patient states that his last dose of Augmentin was on 01/31/24 morning. He was found to have evidence of pneumonia on CXR on this visit. He denies fever, cough, and shortness of breath. The patient is not on home oxygen. He is a former smoker who quit 15 years ago. He denies urinary symptoms as well. Allergies No Known Allergies Allergy (Verified 10/26/18 13:10) Home Medications: Albuterol Sulfate [Ventolin Hfa] 1 puff IH PRN PRN 10/26/18 Amlodipine [Norvasc*] 5 mg PO DAILY 10/26/18 Benazepril HCl [Lotensin*] 20 mg PO [id number] 10/26/18 Cholecalciferol (Vitamin D3) [Vitamin D3] 2,000 unit PO DAILY 10/26/18 Clopidogrel Bisulfate [Plavix*] 75 mg PO DAILY 10/26/18 Cyclobenzaprine [Flexeril*] 10 mg PO TID PRN 10/26/18 Escitalopram [Lexapro*] 20 mg PO DAILY 10/26/18 Ferrous Sulfate [Ferrous Sulfate*] 325 mg PO DAILY 10/26/18 Hydrocodone Bit/Acetaminophen [Hydrocodon-Acetaminophn 10-325] 1 each PO Q6HP PRN 10/26/18 Isosorbide Mononitrate [Isosorbide Mononitrate ER] 30 mg PO DAILY 10/26/18 Loteprednol Etabonate [Lotemax] 1 gtt EACH EYE BID 10/26/18 Lovastatin [Altoprev] 40 mg PO DAILY 10/26/18 Memantine HCl [Namenda*] 10 mg PO BEDTIME 10/26/18 Multivitamin/Iron/Folic Acid [Centrum Adults Tablet] 1 each PO DAILY 10/26/18 Nitroglycerin 0.4 mg SL PRN PRN 10/26/18 Tamsulosin [Flomax*] 0.4 mg PO BEDTIME 10/26/18 carvediloL [Coreg*] 12.5 mg PO BID 10/26/18 cycloSPORINE [Restasis] 1 drop EACH EYE BID 10/26/18 - Past Medical/Surgical History Diabetic: No -: CAD s/p stent -: HTN -: chronic anemia -: dementia -: HDL -: cataract sx 2019 - Family History Family History: Reviewed- Non-Contributory - Social History Smoking Status: Former smoker (quit 15 years ago) Alcohol use: No Review of Systems Cardiovascular: Palpitations Physical Examination - Vital Signs Temperature: 96.6 F Blood Pressure: 105/50 Pulse: 73 Respirations: 18 Pulse Ox (%): 99 (on nasal cannula) - Physical Exam General: Alert, In no apparent distress, Oriented x3 HEENT: Atraumatic, Normocephalic Neck: JVD not distended Respiratory: Crackles/rales (heard b/l, left >right) Cardiovascular: No edema, Regular rate/rhythm, No gallops, No rubs, No murmurs Gastrointestinal: Normal bowel sounds, Non-distended, No tenderness Musculoskeletal: No swelling, No erythema, No tenderness, No warmth Neurological: Normal strength at 5/5 x4 extr, Sensation intact - Studies Laboratory Data (last 24 hrs) 01/31/24 01/31/24 01/31/24 20:00 20:00 20:00 WBC 15.80 H Hgb 7.7 L Hct 24.5 L Plt Count 390 PT 21.5 H INR 1.96 Sodium 138 Potassium 4.7 BUN 20 H Creatinine 1.31 H Glucose 158 H Magnesium 1.8 Assessment and Plan - Problems (Diagnosis) (1) Pneumonia Current Visit: Yes Status: Acute (2) Anemia Current Visit: Yes Status: Acute (3) Dementia Current Visit: Yes Status: Acute (4) Dyslipidemia (high LDL; low HDL) Current Visit: Yes Status: Acute (5) CAD (coronary artery disease) Current Visit: Yes Status: Acute - Plan Pneumonia: Admit to floor CXR revealed bilateral lobar consolidation consistent with pneumonia DuoNebs as needed ordered D-dimer ordered Blood cultures collected in ED Given cefepime, vancomycin, and azithromycin in ED Continue with cefepime Continue with vancomycin Vancomycin trough ordered Continue with azithromycin Respiratory therapy consulted CAD/pacemaker placement: Telemetry ordered Cardiology consulted Negative troponin BNP, Trop, and other labs ordered to trend Heparin ordered Anemia: Hb currently 7.7 Will transfuse if hb <7 with morning labs No evidence of a bleed on physical exam HDL: Resume home medication Dementia: Resume home medication HTN: Resume medication - Advance Directives Does patient have a Living Will: No Does patient have a Durable POA for Healthcare: No
[2024-02-01] MEDS ORDERED: VANCOMYCIN 1 GM in NA CHLORIDE 0.9% 250 ML IVPB SCH (02:00)
[2024-02-01] MEDS: VANCOMYCIN 1.5 GM in NA CHLORIDE 0.9% 500 ML IVPB SCH (02:00)
[2024-02-01 02:32] LABS: Albumin 1.5 g/dL (3.4-5.0); Albumin/Globulin Ratio 0.3 (1.1-1.8); Anion Gap 9.2 mEq/L (5.0-15.0); Bilirubin Total 0.2 mg/dL (0.2-1.0); D-Dimer 1.546 FEUug/mL (0-0.500); Globulin 5.2 g/dL (2.3-3.5); PTT, Activated Partial Thromb 31.4 SECONDS (24.3-36.9); Potassium 4.2 mEq/L (3.5-5.1); Protein, Total 6.7 g/dL (6.4-8.2)
[2024-02-01] MEDS: VANCOMYCIN 500 MG/VIAL ONE (04:19)
[2024-02-01] MEDS: NA CHLORIDE 0.9% 250 ML ONE (04:20)
[2024-02-01] MEDS: VANCOMYCIN 1 GM/VIAL ONE (04:22)
[2024-02-01 06:31] LABS: Albumin 1.5 g/dL (3.4-5.0); Albumin/Globulin Ratio 0.3 (1.1-1.8); Bilirubin Direct 0.2 mg/dL (0-0.2); Bilirubin Total 0.2 mg/dL (0.2-1.0); Globulin 4.7 g/dL (2.3-3.5); Magnesium 1.9 mg/dL (1.6-2.4); Phosphorus 3.5 mg/dL (2.5-4.9); Protein, Total 6.2 g/dL (6.4-8.2); Thyroid Stimulating Hormone 0.415 uIU/mL (0.358-3.740)
[2024-02-01 07:57] VITALS: BMI 32.4
[2024-02-01] MEDS: IPRATROPIUM BROM 0.5MG/2.5ML NEB SCH (08:35)
[2024-02-01] MEDS: CEFEPIME 1 GM in NA CHLORIDE 0.9% 100 ML IV SCH (08:45)
[2024-02-01] MEDS: HEPARIN 5000 UNIT/ML 1 ML VIAL SQ SCH (08:45)
[2024-02-01] MEDS ORDERED: CEFEPIME 0.5 GM in NA CHLORIDE 0.9% 50 ML IV SCH (09:00)
[2024-02-01] MEDS ORDERED: CEFEPIME 2 GM in NA CHLORIDE 0.9% 100 ML IV SCH (09:00)
--- NOTE | 2024-02-01 13:11 | P.PN ---
Date of Service: 02/01/24 Patient seen and examined. He is maintained on 2.5 L of oxygen by nasal cannula. Patient stated he was discharged with home oxygen during his admission at [facility]. Patient was treated did not undergo any procedure regarding his AICD and that it was just interrogated. He was told his heart was racing fast and weak because of the pneumonia. He was brought in for low BP and tachycardia. Patient mentioned he noted his blood pressure was borderline low, however he took his blood pressure medications. Patient blood pressure improved with IV hydration in the ED and has been relatively stable since then. On examination noted bilateral crackles in the lungs. Diagnosis: Pneumonia with hypoxic respiratory failure. Drug-induced hypotension. Chronic atrial fibrillation Plan: Continue current broad-spectrum antibiotics. Oxygen supplementation Consult pulmonary-Dr. Valdes informed. Hold home antihypertensives. Resume amiodarone and Eliquis.
[2024-02-01] MEDS: FERROUS SULFATE 325 MG TAB PO SCH (13:56)
[2024-02-01] MEDS: CLOPIDOGREL 75 MG TABLET PO SCH (13:56)
[2024-02-01] MEDS: ESCITALOPRAM 20 MG TAB PO SCH (13:56)
[2024-02-01] MEDS: AMIODARONE HCL 200 MG TAB PO SCH (13:56)
[2024-02-01] MEDS: HYDROCODONE/APAP 10/325 TAB PO PRN (14:01)
--- NOTE | 2024-02-01 14:08 | P.CNS ---
Date of Consult: 02/01/24 Chief Complaint: pneumonia, tachycardia History of Present Illness: Patient with PMH of atrial fibrillation, Heart failure, s/p ICD/Pacemaker presented with worsening PNA, denies chest pain, no palpitations, no syncope. Allergies No Known Allergies Allergy (Verified 10/26/18 13:10) Home medications list reviewed: Yes Home Medications: Amlodipine [Norvasc*] 5 mg PO DAILY 10/26/18 Benazepril HCl [Lotensin*] 20 mg PO [id number] 10/26/18 Clopidogrel Bisulfate [Plavix*] 75 mg PO DAILY 10/26/18 Escitalopram [Lexapro*] 20 mg PO DAILY 10/26/18 Ferrous Sulfate [Ferrous Sulfate*] 325 mg PO TID 10/26/18 Hydrocodone Bit/Acetaminophen [Hydrocodon-Acetaminophn 10-325] 1 each PO Q6HP PRN 10/26/18 Lovastatin [Altoprev] 40 mg PO BEDTIME 10/26/18 Memantine HCl [Namenda*] 10 mg PO DAILY 10/26/18 Tamsulosin [Flomax*] 0.4 mg PO BEDTIME 10/26/18 carvediloL [Coreg*] 25 mg PO BID 10/26/18 Amiodarone HCl [Pacerone] 200 mg PO DAILY 02/01/24 Amoxicillin/Potassium Clav [Amox-Clav 875-125 mg Tablet] 1 each PO BID 02/01/24 Apixaban [Eliquis] 5 mg PO BID 02/01/24 Benazepril HCl 20 mg PO DAILY 02/01/24 LORazepam [Ativan] 0.5 mg PO BEDTIME PRN 02/01/24 tadalafiL [Tadalafil] 5 mg PO DAILY 02/01/24 - Past Medical/Surgical History Diabetic: No -: CAD s/p stent -: HTN -: chronic anemia -: dementia -: HDL -: cataract sx 2019 - Social History Alcohol use: No Review of Systems 10-point ROS is otherwise unremarkable Physical Examination Temp Pulse Resp BP Pulse Ox 98.6 F 83 17 117/57 L 98 02/01/24 12:00 02/01/24 12:00 02/01/24 14:01 02/01/24 12:00 02/01/24 14:01 General: Alert, In no apparent distress HEENT: Atraumatic, PERRLA, Mucous membr. moist/pink, EOMI, Sclerae nonicteric Neck: Supple, 2+ carotid pulse no bruit, No LAD, Without JVD or thyroid abnormality Respiratory: Clear to auscultation bilaterally, Normal air movement Cardiovascular: Regular rate/rhythm, Normal S1 S2 Gastrointestinal: Normal bowel sounds, No tenderness Musculoskeletal: No tenderness Integumentary: No rashes Neurological: Normal gait, Normal speech, Normal tone, Normal affect Lymphatics: No axilla or inguinal lymphadenopathy Laboratory Data (last 24 hrs) 02/01/24 01/31/24 01/31/24 00:53 20:00 20:00 WBC 15.80 H Hgb 7.7 L Hct 24.5 L Plt Count 390 PT 21.5 H INR 1.96 APTT Cancelled Sodium Potassium BUN Creatinine Glucose Magnesium 01/31/24 20:00 WBC Hgb Hct Plt Count PT INR APTT Sodium 138 Potassium 4.7 BUN 20 H Creatinine 1.31 H Glucose 158 H Magnesium 1.8 - Problems (1) Atrial fibrillation Current Visit: Yes Status: Acute Plan: patient tele shows he is in sinus rhythm continue amiodarone 200 mg daily continue Eliquis 5 mg po BID (2) Chronic heart failure Current Visit: Yes Status: Acute Plan: patient looks euvolemic on exam continue to hold Coreg and lisinopril until Patient BP is better then resume slowly.
[2024-02-01] MEDS: ALBUTEROL 2.5 MG/3 ML NEB SOL NEB PRN (20:32)
[2024-02-01] MEDS ORDERED: HOME MED 1 EA UNK (Lovastatin [Altoprev] 40 MG Tab.Er.24h) PO SCH (21:00)
[2024-02-01] MEDS: APIXABAN 5 MG TABLET PO SCH (21:48)
[2024-02-01] MEDS: ATORVASTATIN 10 MG TAB PO SCH (21:49)
[2024-02-01] MEDS: TAMSULOSIN 0.4 MG SR CAP PO SCH (21:49)
[2024-02-02 04:37] LABS: Anion Gap 7.2 mEq/L (5.0-15.0); Magnesium 1.6 mg/dL (1.6-2.4); Potassium 4.2 mEq/L (3.5-5.1); Troponin High Sensitivity 57.5 pg/mL (<58.9)
[2024-02-02 04:47] LABS: Absolute Basophils 0.1 K/uL (0-0.5); Absolute Eosinophils 0.2 K/uL (0-0.5); Absolute Lymphocytes (CBC) 1.2 K/uL (0.7-4.9); Absolute Monocytes 0.5 K/uL (0.1-1.3); Absolute Neutrophil 6.1 K/uL (1.8-8.0); Basophils % 1.2 % (0-1.3); Eosinophils % 2.8 % (0-4.4); Hematocrit 23.9 % (39.6-49.0); MCH 29.7 pg (27.0-35.0); MCHC 33.5 g/dL (32.0-36.0); MCV 88.6 fL (80-100); MPV 6.7 fL (7.6-11.3); Monocytes % 5.7 % (3.3-12.3); Neutrophils % 75.3 % (41.7-73.7); Nucleated Red Blood Cells % 0.1 % (0-0); Platelets 392 thou/uL (152-406); Red Cell Distribution Width 15.4 % (12.1-15.2)
[2024-02-02] MEDS: VANCOMYCIN 1.5 GM in NA CHLORIDE 0.9% 500 ML IVPB SCH (05:36)
--- NOTE | 2024-02-02 07:22 | P.PN ---
Date of Service: 02/02/24 Subjective: feels strength and breathing is improved compared to yesterday BP more stable in 130s-140s since last night reports decreased intake at home prior to admission afebrile ROS: 10 point ROS as noted above, otherwise negative Physical Exam: GEN: Alert, NAD HEENT: Normal conjunctiva, sclera anicteric, CV: Regular rate and rhythm, no edema Pulm: Nonlabored respirations on 3L NC ABD: soft, nontender, nondistended Neuro: Normal speech, normal affect Problem List: bilateral pneumonia - cavitary lesions Hx dysphagia Chronic a-fib on chronic anticoagulation s/p recent AICD shock Chronic anemia Hx CAD s/p PCI Dementia Hypertension Hyperlipidemia BPH hypotension JAQUELINE, prerenal bilateral pneumonia - cavitary lesions Hx dysphagia on admission presents with hypotension, tachycardia, low O2 sats, decreased responsiveness. reports decreased PO intake and continued anti-hypertensives. BP improved in ED with IVF reports [facility], ICD shock workup include:: [facility] (azithromycin, cefepime, vanc, unasyn, flagyl); has been oral Augmentin since 01/23 plan was for 4-6 weeks of augmentin on discharge per dc summary [facility] noted b/l disease, with cavitary appearance, concerning for necrotizing pneumonia / possible abscess formation s/p IV hydrocortisone 50mg q6h 01/17 - 01/20 NEGATIVE: HIV, viral panel, strep, legionella, fungitel, aspergillus, mycoplasma, histo, blasto, coccidio Cultures without growth: fungal sputum, blood, respiratory. TB negative recommended repeat CT chest with contrast ~6 weeks from discharge to re-eval Discharged with new home oxygen during last hospitalization CXR (01/30): bilateral consolidation likely pneumonia. Additional bilateral pulmonary opacities could represent additional infection/chronic changes Dr. Valdes, pulm consulted repeat CT ordered continue empiric vanc / cefepime / azithromycin (01/31-) likely transition to PO augmentin afebrile, no leukocytosis duonebs, oxygen supplementation Speech consulted - previously on soft/bite sized diet with mildly thickened liquids failed FEES 01/17, 01/21 OSH EGD 01/20 noted non-obstructive schatzki's ring and small hiatal hernia Hypotension; suspect drug-induced / prerenal Likely drug-induced. Patient reports taking all his BP meds prior to arrival. seems Coreg was recently increased during last hospitalization BP 70s/50s in ED initially. Improved with IVF in the ED BP stable last 24 hours hold lisinopril and coreg for now. Chronic a-fib on chronic anticoagulation s/p recent AICD shock reports ICD shock [facility]. Patient did not undergo any procedure regarding his AICD and that it was just interrogated. was told his heart was racing fast and weak because of the pneumonia. Previously on amiodarone 400 mg BID (01/18-01/25), transitioned to 400 mg daily (01/26-02/01) then was supposed to decrease to 200 mg daily starting 02/02 EP was considering outpatient ablation therapy once pneumonia/infection resolved Cardiology consulted continue amiodarone, eliquis Chronic anemia Daily labs. Hgb stable. continue ferrous sulfate Hx CAD s/p PCI Dementia Hypertension Hyperlipidemia BPH confirm home meds, restart as appropriate VTE: home eliquis Dispo: home with HH, ~1-2 days Pending cardiac/pulm recs, breathing improves, BP remains stable Time Spent Managing Pts Care (In Minutes): 55
[2024-02-02] MEDS: MEMANTINE HCL 10 MG TABLET PO SCH (08:05)
[2024-02-02] MEDS: MAGNESIUM SULFATE 1 gm IVPB 1 GM/100 ML BAG IV ONE (08:06)
[2024-02-02] MEDS: AZITHROMYCIN IV 250 MG in NA CHLORIDE 0.9% 250 ML IVPB SCH (10:06)
[2024-02-02] MEDS: predniSONE 20 MG TAB PO SCH (15:16)
--- NOTE | 2024-02-02 19:07 | RAD REPORT ---
EXAMINATION: CT Thorax Wo Con CLINICAL INDICATION: Male, 73 years old. [facility] MAIN pneumonia Y TECHNIQUE: Axial CT scan of the chest without intravenous contrast. Multiplanar reformats were genera casa and reviewed. One or more of the following dose reduction techniques were used: Automated exposure control, adjustment of the mA and/or kV according patient size, and/or iterative reconstruct ion. Unless otherwise specified, incidental findings do not require dedicated imaging follow-up. COMPARISON: Chest radiograph 01/31/2024 FINDINGS: LOWER NECK: Visualized thyroid gland and soft tissues are normal. LUNGS: Central airways show no suspicious lesion. Centrilobular at least moderate emphysematous doe es, with bullous changes at the right more than left base. Multifocal patchy predominantly peripheral opacities, with some air bronchograms. Within the most confluent left upper lobe region of opacification, an ill-defined ovoid collection with air-fluid level is present, perhaps abutting the pleural surface, measuring 5.0 x 3.7 cm in greatest axial dimensions. A similar ill-defined proba ble collection is present near the junction of the right major minor fissures, measuring 3.6 x 2.9 cm. PLEURA: Small bilateral layering pleural effusions. No pneumothorax. . MEDIASTINUM AND LYMPH NODES: No mediastinal mass or fluid collection. Mildly prominent lymph nodes th roughout the mediastinal largest in the subcarinal region measuring 1.4 cm in short axis, probably reactive/inflammatory. No significant hilar adenopathy within limits of noncontrast evaluation. No anand spicious axillary or lower cervical lymph nodes present. Left chest wall pacer/AICD in place. OSSEOUS STRUCTURES AND CHEST WALL: Intact. UPPER ABDOMEN: No significant abnormalities. IMPRESSION: Multifocal predominantly peripheral airspace opacities, concerning for multifocal pneumonia. Ill-defined fluid collections in the periphery of the left upper lobe, and along the junction of the right major and minor fissures, measuring up to 5.0 cm and 3.6 cm respectively, with an air-fluid level within the left-sided abnormality, concerning for necrotizing pneumonia with developing abscess es versus loculated elements of effusion. Small layering bilateral effusions are also present. The presence of an air-fluid level in the left would suggest communication with a bronchial branch, in th e case of a loculated effusion. Short-term interval CT follow-up is recommended in 1 month following proper treatment, to evaluate for the resolution of the findings.
[2024-02-02] MEDS: LORAZEPAM 0.5 MG TABLET PO ONE (20:33)
[2024-02-02] MEDS: ACETAMINOPHEN 325 MG TABLET PO PRN (20:34)
[2024-02-02] MEDS ORDERED: VANCOMYCIN 1.75 GM in NA CHLORIDE 0.9% 500 ML IVPB SCH (23:00)
[2024-02-03 05:18] LABS: Hematocrit 26.3 % (39.6-49.0); MCH 29.8 pg (27.0-35.0); MCHC 34.1 g/dL (32.0-36.0); MCV 87.3 fL (80-100); MPV 6.8 fL (7.6-11.3); Platelets 422 thou/uL (152-406); RBC Red Blood Cell Count 3.01 M/uL (4.33-5.43); Red Cell Distribution Width 15.3 % (12.1-15.2)
[2024-02-03 05:37] LABS: Anion Gap 9.1 mEq/L (5.0-15.0); Magnesium 1.6 mg/dL (1.6-2.4); Potassium 4.1 mEq/L (3.5-5.1); Troponin High Sensitivity 29.1 pg/mL (<58.9)
[2024-02-03] MEDS: carvediloL 12.5 MG TAB PO SCH (06:20)
[2024-02-03] MEDS: MAGNESIUM SULFATE 1 gm IVPB 1 GM/100 ML BAG IV ONE (07:18)
[2024-02-03] MEDS: AMOX/K CLAV 875 MG TAB PO SCH (09:35)
--- NOTE | 2024-02-03 12:07 | P.PN ---
Date of Service: 02/03/24 Subjective: improving - feels breathing easier/better has not gotten out of bed in several days BP has improved ROS: 10 point ROS as noted above, otherwise negative Physical Exam: GEN: Alert, NAD HEENT: Normal conjunctiva, sclera anicteric, CV: Regular rate and rhythm, no edema Pulm: Nonlabored respirations on 3L NC Neuro: Normal speech, normal affect Problem List: bilateral pneumonia - cavitary lesions Hx dysphagia Chronic a-fib on chronic anticoagulation s/p recent AICD shock Chronic anemia Hx CAD s/p PCI Dementia Hypertension Hyperlipidemia BPH hypotension JAQUELINE, prerenal bilateral pneumonia - cavitary lesions Hx dysphagia on admission presents with hypotension, tachycardia, low O2 sats, decreased responsiveness. reports decreased PO intake and continued anti-hypertensives. BP improved in ED with IVF reports recently DC'd from [facility] for Pneumonia, ICD shock workup include:: s/p multiple antibiotics at [facility] (azithromycin, cefepime, vanc, unasyn, flagyl); has been oral Augmentin since 01/23 plan was for 4-6 weeks of augmentin on discharge per dc summary from [facility] CT noted b/l disease, with cavitary appearance, concerning for necrotizing pneumonia / possible abscess formation s/p IV hydrocortisone 50mg q6h 01/17 - 01/20 NEGATIVE: HIV, viral panel, strep, legionella, fungitel, aspergillus, mycoplasma, histo, blasto, coccidio Cultures without growth: fungal sputum, blood, respiratory. TB negative recommended repeat CT chest with contrast ~6 weeks from discharge to re-eval Discharged with new home oxygen during last hospitalization CXR (01/30): bilateral consolidation likely pneumonia. Additional bilateral pulmonary opacities could represent additional infection/chronic changes Dr. Valdes, pulm consulted feels less likely infectious etiology, and started steroids repeat CT chest (02/01): Multifocal predominantly peripheral airspace opacities, concerning for multifocal pneumonia. Fluid collections in the periphery of HALIE and along the junction of the right major fissures, measuring up to 5cm and 3.6cm respectively, concerning for necrotizing pneumonia with developing abscesses versus loculated elements of effusion vanc/cefepime/azithromycin (01/31-02/02) transitioned to PO augmentin 02/02 afebrile, no leukocytosis duonebs, oxygen supplementation Speech consulted - previously on soft/bite sized diet with mildly thickened liquids failed FEES 01/17, 01/21 OSH EGD 01/20 noted non-obstructive schatzki's ring and small hiatal hernia Hypotension; suspect drug-induced / prerenal Likely drug-induced. Patient reports taking all his BP meds prior to arrival. seems Coreg was recently increased during last hospitalization BP 70s/50s in ED initially. Improved with IVF in the ED BP stable last 24 hours coreg restarted at 12.5 mg BID 02/02 increase to 25 mg BID add ACEI tomorrow Chronic a-fib on chronic anticoagulation s/p recent AICD shock reports ICD shock prior to admission at [facility]. Patient did not undergo any procedure regarding his AICD and that it was just interrogated. was told his heart was racing fast and weak because of the pneumonia. EP was considering outpatient ablation therapy once pneumonia/infection resolved Cardiology consulted continue amiodarone, eliquis Chronic anemia Daily labs. Hgb stable. continue ferrous sulfate Hx CAD s/p PCI Dementia Hypertension Hyperlipidemia BPH confirm home meds, restart as appropriate VTE: home eliquis Dispo: home with HH, ~1-2 days Pending cardiac/pulm recs, breathing improves, BP remains stable Time Spent Managing Pts Care (In Minutes): 55
--- NOTE | 2024-02-03 15:33 | P.CNS ---
Date of Consult: 02/02/24 Reason for Consult: Bilateral pneumonia Chief Complaint: pneumonia, tachycardia History of Present Illness: Kidney 73 years of age admitted with bilateral pneumonia treated at [facility] was discharged home on antibiotic he came in because of low blood pressure he was in [facility] for rapid discharge of his defibrillator he denies any fever chills chest pain history of COPD and coronary artery disease Allergies No Known Allergies Allergy (Verified 10/26/18 13:10) Home Medications: Amlodipine [Norvasc*] 5 mg PO DAILY 10/26/18 Benazepril HCl [Lotensin*] 20 mg PO [id number] 10/26/18 Clopidogrel Bisulfate [Plavix*] 75 mg PO DAILY 10/26/18 Escitalopram [Lexapro*] 20 mg PO DAILY 10/26/18 Ferrous Sulfate [Ferrous Sulfate*] 325 mg PO TID 10/26/18 Hydrocodone Bit/Acetaminophen [Hydrocodon-Acetaminophn 10-325] 1 each PO Q6HP PRN 10/26/18 Lovastatin [Altoprev] 40 mg PO BEDTIME 10/26/18 Memantine HCl [Namenda*] 10 mg PO DAILY 10/26/18 Tamsulosin [Flomax*] 0.4 mg PO BEDTIME 10/26/18 carvediloL [Coreg*] 25 mg PO BID 10/26/18 Amiodarone HCl [Pacerone] 200 mg PO DAILY 02/01/24 Amoxicillin/Potassium Clav [Amox-Clav 875-125 mg Tablet] 1 each PO BID 02/01/24 Apixaban [Eliquis] 5 mg PO BID 02/01/24 Benazepril HCl 20 mg PO DAILY 02/01/24 LORazepam [Ativan*] 0.5 mg PO BEDTIME PRN 02/01/24 tadalafiL [Tadalafil] 5 mg PO DAILY 02/01/24 - Past Medical/Surgical History Diabetic: No -: CAD s/p stent -: HTN -: chronic anemia -: dementia -: HDL -: cataract sx 2019 - Social History Alcohol use: No Review of Systems 10-point ROS is otherwise unremarkable Physical Examination Temp Pulse Resp BP Pulse Ox 97.6 F 87 20 159/69 H 95 02/03/24 12:00 02/03/24 12:00 02/03/24 12:00 02/03/24 12:00 02/03/24 12:00 General: Alert, Oriented x3 HEENT: Atraumatic Neck: Supple Respiratory: Clear to auscultation bilaterally Cardiovascular: No edema, Regular rate/rhythm, Normal S1 S2 - Problems (1) Pneumonia Current Visit: Yes Status: Acute Plan: Patient is 73 years of age was recently discharged with possible cavitary pneumonia he has bilateral infiltrates predominantly peripheral more like Boop like response there is no evidence of sepsis he is mildly anemic signs oxygenation satisfactory recommend CT scan trial of steroid to infection charge planning follow-up with me in 2 weeks
--- NOTE | 2024-02-03 15:34 | P.PN ---
Subjective Date of Service: 02/03/24 Chief Complaint: pneumonia, Subjective: Improving (No new complaints CT scan shows bilateral dense infiltrates) Review of Systems Unremarkable Physical Examination - Vital Signs Temperature: 97.6 F Blood Pressure: 159/69 Pulse: 87 Respirations: 20 Pulse Ox (%): 95 - Physical Exam General: Alert, Oriented x3 Respiratory: Clear to auscultation bilaterally Cardiovascular: No edema, Regular rate/rhythm Assessment And Plan - Current Problems (Diagnosis) (1) Pneumonia Current Visit: Yes Status: Acute Plan: Patient has dense bilateral pneumonia with prior evidence of COPD he does have active sepsis patient can be discharged home on prednisone 10 mg twice a day for 2 weeks dense of sepsis I do not think antibiotics are indicated check room air pulse ox ambulate labs reviewed discharge planning pre-clinic chest x-ray
--- NOTE | 2024-02-03 16:58 | P.PN ---
Subjective Date of Service: 02/03/24 Chief Complaint: pneumonia, Subjective: No new changes, No C/O voiced, Tolerating diet, Ambulating, Improving Review of Systems 10-point ROS is otherwise unremarkable Physical Examination - Vital Signs Temperature: 97.6 F Blood Pressure: 159/69 Pulse: 87 Respirations: 20 Pulse Ox (%): 95 - Physical Exam General: Alert, In no apparent distress HEENT: Atraumatic, PERRLA, EOMI Neck: Supple, JVD not distended Respiratory: Clear to auscultation bilaterally, Normal air movement Cardiovascular: Regular rate/rhythm, Normal S1 S2 Gastrointestinal: Normal bowel sounds, No tenderness Musculoskeletal: No tenderness Integumentary: No rashes Neurological: Normal speech, Normal tone, Normal affect Lymphatics: No axilla or inguinal lymphadenopathy - Studies Medications List Reviewed: Yes Assessment And Plan - Current Problems (Diagnosis) (1) Atrial fibrillation Current Visit: Yes Status: Acute Plan: patient tele shows he is in sinus rhythm continue amiodarone 200 mg daily continue Eliquis 5 mg po BID (2) Chronic heart failure Current Visit: Yes Status: Acute Plan: patient looks euvolemic on exam increase Coreg to 25 mg BID benzapril 20 mg daily
[2024-02-03] MEDS: LORAZEPAM 0.5 MG TABLET PO PRN (20:41)
[2024-02-04] MEDS ORDERED: HYDRALAZINE HCL 20 MG/ML VIAL IV PRN (00:10)
[2024-02-04 05:24] LABS: Hematocrit 26.5 % (39.6-49.0); Hemoglobin 8.9 g/dL (13.6-17.9); MCH 29.4 pg (27.0-35.0); MCHC 33.6 g/dL (32.0-36.0); MCV 87.7 fL (80-100); MPV 6.6 fL (7.6-11.3); Platelets 470 thou/uL (152-406); RBC Red Blood Cell Count 3.03 M/uL (4.33-5.43); Red Cell Distribution Width 15.7 % (12.1-15.2)
[2024-02-04] MEDS: carvediloL 12.5 MG TAB PO SCH (05:34)
[2024-02-04 05:39] LABS: Anion Gap 7.1 mEq/L (5.0-15.0); Magnesium 1.7 mg/dL (1.6-2.4); Potassium 5.1 mEq/L (3.5-5.1); Troponin High Sensitivity 28.2 pg/mL (<58.9)
[2024-02-04] MEDS: MAGNESIUM SULFATE 1 gm IVPB 1 GM/100 ML BAG IV ONE (07:43)
--- NOTE | 2024-02-04 08:57 | P.DS ---
Admission Date: 02/01/24 Discharge Date: 02/04/24 Disposition: DC HOME/HOME HEALTH CARE Discharge Condition: GOOD Reason for Admission: pneumonia, Consultations: Cardiology - Dr. Alcantar, Dr. Quevedo Pulmonology - Dr. Valdes Brief History of Present Illness: 73 yo M, PMH: pacemaker placement, CAD s/p stent on Eliquis, HTN, dementia, chronic anemia, and HDL Patient presented to the emergency room complaining of hypotension and tachycardia that began earlier today. The patient is alert, and oriented x 3. The patient's is present at bedside. Since the patient has been in the ED, his hypotension and tachycardia have resolved with IVF only. The patient states that he was recently discharged from [facility] on 01/27/2024 for "pacemaker issues", and pneumonia. He was discharged from [facility] with Augmentin for his pneumonia. The patient states that his last dose of Augmentin was on 01/31/24 morning. He was found to have evidence of pneumonia on CXR on this visit. He denies fever, cough, and shortness of breath. The patient is not on home oxygen. He is a former smoker who quit 15 years ago. He denies urinary symptoms as well. Hospital Course: Problem List: Bilateral pneumonia - cavitary lesions Hypotension, multifactorial secondary to hypovolemia / drug-induced JAQUELINE, prerenal; improved Hx dysphagia Chronic a-fib on chronic anticoagulation s/p recent AICD shock Chronic anemia Hx CAD s/p PCI Dementia Hyperlipidemia BPH Physician discharge instructions: Patient brought in by EMS for low blood pressure, weakness, decreased responsiveness, low O2 sats. Blood pressure 70/50s initially in ED, improved to 100s systolic with fluids. Suspect hypotension was multifactorial - hypovolemia with decreased oral intake and drug-induced from still taking his anti-hypertensives. He reports recently having some of his antihypertensives increased/adjusted within the last 2-3 weeks and reports taking all his medications prior to coming to the ED. His home antihypertensives were restarted in a step-bassett fashion as blood pressure improved and patient had continued improvement of his symptoms. Patient was feeling better, close to his normal self, blood pressure improved, breathing more comfortably, afebrile without leuckocytosis for > 24 hours, and deemed stable for discharge with home health. 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 Check blood pressure daily around the same time each day. Keep daily diary of blood pressure readings to take to follow up appointments for further adjustments of medications. Follow up with PCP/cardiology with blood pressure diary for further discussion on when to restart scheduled home amlodipine. In regards to Pneumonia: Chest xray on admission with bilateral consolidation likely pneumonia. Additional bilateral pulmonary opacities could represent additional infection/chronic changes. CT chest report below. He reports recent hospitalization ~2 weeks ago at [facility] for Pneumonia, ICD shock workup after his AICD fired prior to his recent admission. Patient reports being treated for bilateral pneumonia with cavitary lesions - currently on Augmentin with plans for 4-6 weeks course per last hospitalization dc summary. Workup at that time at [facility] - cultures were without g rowth, fungal sputum, blood, respiratory. HIV, viral panel, strep, legionella, fungitel, aspergillus, mycoplasma, histo, blasto, coccidio - all came back negative. He was told his heart was racing fast and weak because of the pneumonia and EP was considering outpatient ablation therapy once pneumonia/infection resolved. Here, he briefly received ~1-2 days of IV antibiotics. Antibiotics were nye sitioned back to oral augmentin and patient continued to improve. He remained afebrile without leukocytosis for several days. Blood cultures without growth since 01/31. No further intervention warranted at this time. Recommend finishing prior augmentin course and advised patient to repeat CT chest with contrast in ~1 month to reeval consolidations and ensure continued improvement / resolution. Pulmonology was consulted. Dr. Valdes reviewed imaging here. Unable to obtain imaging for comparison from [facility]. He felt this may be less infectious etiology and patient would benefit from steroids. Prednisone was initiated and he recommended 2 week course of 10mg twice daily course of prednisone, and deemed stable for discharge home. Patient has home O2 which was set up on discharge from [facility], and has been on 2L nasal cannula. Full CT chest (02/01) report: Multifocal predominantly peripheral airspace opacities, concerning for multifocal pneumonia. Ill-defined fluid collections in the periphery of the left upper lobe, and along the junction of the right major and minor fissures, measuring up to 5.0 cm and 3.6 cm respectively, with an air-fluid level within the left-sided abnormality, concerning for necrotizing pneumonia with developing abscesses versus loculated elements of effusion. Small layering bilateral effusions are also present. The presence of an air-fluid level in the left would suggest communication with a bronchial branch, in the case of a loculated effusion. Short-term interval CT follow-up is recommended in 1 month following proper treatment, to evaluate for the resolution of the findings. Medications: Recommend completing previous Augmentin prescription picked up after last discharge. Prednisone 10 mg twice daily for 2 weeks Hold amlodipine as discussed above. Follow up with PCP/cardiology on when to restart. Follow up: PCP 3-5 days Pulmonology in 1-2 weeks Please call to schedule / confirm appointments Physical Exam: GEN: Alert, NAD, oriented HEENT: Normal conjunctiva, sclera anicteric CV: Regular rate and rhythm, no edema Pulm: Nonlabored respirations, clear bilaterally Neuro: Normal speech, normal affect Vital Signs/Physical Exam: Temp Pulse Resp BP Pulse Ox 97.6 F 79 18 153/69 H 99 02/04/24 00:00 02/04/24 05:34 02/04/24 01:09 02/04/24 05:34 02/04/24 01:09 Laboratory Data at Discharge: WBC 10.50 thou/uL (4.3-10.9) 02/04/24 04:58 Hgb 8.9 g/dL (13.6-17.9) L 02/04/24 04:58 Hct 26.5 % (39.6-49.0) L 02/04/24 04:58 Plt Count 470 thou/uL (152-406) H 02/04/24 04:58 PT 21.5 SECONDS (9.4-12.5) H 01/31/24 20:00 INR 1.96 01/31/24 20:00 APTT 31.4 SECONDS (24.3-36.9) 02/01/24 01:49 Sodium 135 mEq/L (136-145) L 02/04/24 04:58 Potassium 5.1 mEq/L (3.5-5.1) D 02/04/24 04:58 BUN 16 mg/dL (7-18) 02/04/24 04:58 Creatinine 0.67 mg/dL (0.70-1.30) L 02/04/24 04:58 Glucose 141 mg/dL (74-106) H 02/04/24 04:58 Phosphorus 3.5 mg/dL (2.5-4.9) 02/01/24 05:49 Magnesium 1.7 mg/dL (1.6-2.4) 02/04/24 04:58 Total Bilirubin 0.2 mg/dL (0.2-1.0) 02/01/24 05:49 AST 37 U/L (15-37) 02/01/24 05:49 ALT 51 U/L (16-61) 02/01/24 05:49 Alkaline Phosphatase 114 U/L (45-117) 02/01/24 05:49 Triglycerides 81 mg/dL (<150) 02/02/24 03:59 Cholesterol 99 mg/dL (<200) 02/02/24 03:59 HDL Cholesterol 31 mg/dL (40-60) L 02/02/24 03:59 Cholesterol/HDL Ratio 3.19 02/02/24 03:59 Home Medications: Amlodipine [Norvasc*] 5 mg PO DAILY 10/26/18 Benazepril HCl [Lotensin*] 20 mg PO [id number] 10/26/18 Clopidogrel Bisulfate [Plavix*] 75 mg PO DAILY 10/26/18 Escitalopram [Lexapro*] 20 mg PO DAILY 10/26/18 Ferrous Sulfate [Ferrous Sulfate*] 325 mg PO TID 10/26/18 Hydrocodone Bit/Acetaminophen [Hydrocodon-Acetaminophn 10-325] 1 each PO Q6HP PRN 10/26/18 Lovastatin [Altoprev] 40 mg PO BEDTIME 10/26/18 Memantine HCl [Namenda*] 10 mg PO DAILY 10/26/18 Tamsulosin [Flomax*] 0.4 mg PO BEDTIME 10/26/18 carvediloL [Coreg*] 25 mg PO BID 10/26/18 Amiodarone HCl [Pacerone] 200 mg PO DAILY 02/01/24 Amoxicillin/Potassium Clav [Amox-Clav 875-125 mg Tablet] 1 each PO BID 02/01/24 Apixaban [Eliquis] 5 mg PO BID 02/01/24 Benazepril HCl 20 mg PO DAILY 02/01/24 LORazepam [Ativan*] 0.5 mg PO BEDTIME PRN 02/01/24 tadalafiL [Tadalafil] 5 mg PO DAILY 02/01/24 predniSONE [Deltasone*] 10 mg PO BID 14 Days #28 tab 02/04/24 predniSONE [Prednisone] 10 mg PO BID 14 Days #28 tablet 02/04/24 New Medications: predniSONE [Deltasone*] 10 mg PO BID 14 Days #28 tab predniSONE [Prednisone] 10 mg PO BID 14 Days #28 tablet Physician Discharge Instructions: Physician discharge instructions: Patient brought in by EMS for low blood pressure, weakness, decreased responsiveness, low O2 sats. Blood pressure 70/50s initially in ED, improved to 100s systolic with fluids. Suspect hypotension was multifactorial - hypovolemia with decreased oral intake and drug-induced from still taking his anti-hypertensives. He reports recently having some of his antihypertensives increased/adjusted within the last 2-3 weeks and reports taking all his medications prior to coming to the ED. His home antihypertensives were restarted in a step-bassett fashion as blood pressure improved and patient had continued improvement of his symptoms. Patient was feeling better, close to his normal self, blood pressure improved, breathing more comfortably, afebrile without leuckocytosis for > 24 hours, and deemed stable for discharge with home health. 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 Check blood pressure daily around the same time each day. Keep daily diary of blood pressure readings to take to follow up appointments for further adjustments of medications. Follow up with PCP/cardiology with blood pressure diary for further discussion on when to restart scheduled home amlodipine. In regards to Pneumonia: Chest xray on admission with bilateral consolidation likely pneumonia. Additional bilateral pulmonary opacities could represent additional infection/chronic changes. CT chest report below. He reports recent hospitalization ~2 weeks ago at [facility] for Pneumonia, ICD shock workup after his AICD fired prior to his recent admission. Patient reports being treated for bilateral pneumonia with cavitary lesions - currently on Augmentin with plans for 4-6 weeks course per last hospitalization dc summary. Workup at that time at [facility] - cultures were without growth, fungal sputum, blood, respiratory. HIV, viral panel, strep, legionella, fungitel, aspergillus, mycoplasma, histo, blasto, coccidio - all came back negative. He was told his heart was racing fast and weak because of the pneumonia and EP was considering outpatient ablation therapy once pneumonia/infection resolved. Here, he briefly received ~1-2 days of IV antibiotics. Antibiotics were transitioned back to oral augmentin and patient continued to improve. He remained afebrile without leukocytosis for several days. Blood cultures without growth since 01/31. No further intervention warranted at this time. Recommend finishing prior augmentin course and advised patient to repeat CT chest with contrast in ~1 month to reeval consolidations and ensure continued improvement / resolution. Pulmonology was consulted. Dr. Valdes reviewed imaging here. Unable to obtain imaging for comparison from [facility]. He felt this may be less infectious etiology and patient would benefit from steroids. Prednisone was initiated and he recommended 2 week course of 10mg twice daily course of prednisone, and deemed stable for discharge home. Patient has home O2 which was set up on discharge from [facility], and has been on 2L nasal cannula. Full CT chest (02/01) report: Multifocal predominantly peripheral airspace opacities, concerning for multifocal pneumonia. Ill-defined fluid collections in the periphery of the left upper lobe, and along the junction of the right major and minor fissures, measuring up to 5.0 cm and 3.6 cm respectively, with an air-fluid level within the left-sided abnormality, concerning for necrotizing pneumonia with developing abscesses versus loculated elements of effusion. Small layering bilateral effusions are also present. The presence of an air-fluid level in the left would suggest communication with a bronchial branch, in the case of a loculated effusion. Short-term interval CT follow-up is recommended in 1 month following proper treatment, to evaluate for the resolution of the findings. Medications: Recommend completing previous Augmentin prescription picked up after last discharge. Prednisone 10 mg twice daily for 2 weeks Hold amlodipine as discussed above. Follow up with PCP/cardiology on when to restart. Follow up: PCP 3-5 days Pulmonology in 1-2 weeks Please call to schedule / confirm appointments HOME HEALTH SERVICES ARRANGED WITH: [facility] P:[phone] Followup: Mendoza Valdes MD [ACTIVE - CAN ADMIT] - OOT,OOT [Primary Care Provider] - Time spent managing pt's care (in minutes): 45
[2024-02-04] MEDS ORDERED: AMLODIPINE 5 MG TAB PO SCH (09:00)
[2024-02-04 09:17] VITALS: BP 141/65; TEMP 96.5
[2024-02-04] MEDS: BENAZEPRIL 20 MG TAB PO SCH (09:28)
[2024-02-04 09:47] VITALS: O2SAT 95
--- NOTE | 2024-02-08 12:18 | EKG ---
Test Date: 2024-01-31 Test Time: 20:11:54 Chemical Equipment Controller: [id number] MEASUREMENT RESULTS: Intervals: Rate: 145 GA: QRSD: 178 QT: 316 QTc: 490 [place]: P: GA: QRS: -6 T: 155 INTERPRETIVE STATEMENTS: Wide QRS tachycardia with frequent premature ventricular complexes Left bundle branch block Abnormal ECG No previous ECG available for comparison Electronically Signed On 02-08-24 12:09:22 VEHICLE ASSEMBLER by Patel Quevedo
== END 2024-02-04 12:00 | disposition home health service (06) | DRG 193 ==
LOC: ER 19:55 → ERHOLD 02-01 01:27 → 2ND 02-01 02:14
PROVIDERS: ADMIT Internal Medicine; ATTEND Hospitalist
DX: J18.9 Pneumonia, unspecified organism (principal); J96.91 Respiratory failure, unspecified with hypoxia; I48.20 Chronic atrial fibrillation, unspecified; N17.9 Acute kidney failure, unspecified; J44.0 Chronic obstructive pulmonary disease with (acute) lower respiratory infection; D64.9 Anemia, unspecified; I11.0 Hypertensive heart disease with heart failure; I50.9 Heart failure, unspecified; E78.5 Hyperlipidemia, unspecified; N40.0 Benign prostatic hyperplasia without lower urinary tract symptoms; I95.2 Hypotension due to drugs; T50.995A Adverse effect of other drugs, medicaments and biological substances, initial encounter; I25.10 Atherosclerotic heart disease of native coronary artery without angina pectoris; F03.90 Unspecified dementia, unspecified severity, without behavioral disturbance, psychotic disturbance, mood disturbance, and anxiety; Z95.5 Presence of coronary angioplasty implant and graft; Z79.01 Long term (current) use of anticoagulants; Z79.02 Long term (current) use of antithrombotics/antiplatelets; Z87.891 Personal history of nicotine dependence; Z79.899 Other long term (current) drug therapy; Z95.810 Presence of automatic (implantable) cardiac defibrillator
CPT/HCPCS: 36415; 71045; 71250; 80048; 80053; 80061; 80076; 80202; 82550; 83605; 83735; 83880; 84100; 84443; 84484; 85025; 85027; 85379; 85610; 85730; 87040; 92610; 93005; 94640; 94760; 96361; 96365; 96375; 97116; 97163; 97530; 99284; J0692; J1644; J3475; J7030; J7040; J7050; J7512; J7644

== ENCOUNTER 2024-04-07 14:47 | Inpatient (IN) | payer OTHER ==
--- OUTSIDE RECORDS SUMMARY | 2024-04-07 14:53 | XMS REPORT | Continuity of Care Document ---
Author Name Unknown Address [address] [facility] [address] [place] [address] [facility] Address [address] [facility] 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 Role Phone UNKNOWN, REFFERING Primary Care Physician TIFFANY Farias Attending Clinician Unavailable Ashly WILKINS, Mark Rausch Attending Clin ician JULIAN AMAYA Attending Clinician Unavailable FLACA GREY Attending Clinician Unavailab von Cota MD, Marielle Ross Attending Clinician + [phone] Steph Mcbride MD Attending Clinician [phone] Kalie Freed MD Attending Clinician + Tiffany Toney MD Attending Clinician [phone] Neo WILKINS, Tobin Phillips Attending Clinician [phone] Flaca Grey MD Attending Clinician [phone] YURI WHITE Attending Clinician Unavailable Yuri White Attending Clinician Unavailable Young_J Attending Clinician Unavailable YURI WHITE Attending Clinician Unavailable KALIE FREED Admitting Clinician Kalie Carvajal MD Admitting Clinician + Gal_J Admitting Clinician Unavailable YURI WHITE Admitting Clinician Unavailable Payers Payer Name Policy Type Policy Number Effective Date Expirati on Date Source [employer] MEDICARE OON Medicare [id number] 2022 00:00:00 [employer] MEDICARE ADVANTAGE PPO [id number] 2022 00:00:00 Problems Condition Name Condition Details Condition Category Status Onset Date Resolution Date Last Treatment Date Treating Clinician Comments Source Benign prostatic hyperplasi a Benign prostatic hyperplasi a Disease Recurre nhe 2023-03 00:00: 00 Jose A Youssef Epic Drop in hemoglobin Drop in hemoglobin Disease Active 2023-03 00:00: 00 Memoria l [place] Epic Aspiration pneumonia (CMS/HCC) Aspiration pneumonia (CMS/HCC) Disease Active 2023-03 00:00: 00 Memoria l Mikael Epic 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 Disease Active 2023-03 00:00: 00 Memoria gt Youssef Epic Dysphagia Dysphagia Disease Active 2023-03 00:00: 00 Memoria gt GanMikael Epic Moderate malnutriti on (CMS/HCC) Moderate malnutriti on (CMS/HCC) Disease Active 2023-03 00:00: 00 Memoria l Mikael Epic Emphysema lung Emphysema lung Disease Active 2023-03 00:00: 00 Memoria gt Youssef Epic VT (ventricul ar tachycardi a) VT (ventricul ar tachycardi a) Disease Active 2023-03 00:00: 00 Memoria l [place] Epic Anxiety Anxiety Disease Active 2023-03 00:00: 00 Memcarlos Youssef Epic Depression Depression Disease Active 2023-03 00:00: 00 Memcarlos Youssef Epic Multifocal pneumonia Multifocal pneumonia Disease Active 2023-03 00:00: 00 Memoria gt Youssef Epic Carotid artery stenosis Carotid artery stenosis Disease Active 2023-03 00:00: 00 Memcarlos Ganann Epic Mixed hyperlipid emia Mixed hyperlipid emia Disease Active 2023-03 00:00: 00 Memcarlos Ganann Epic 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 artery disease involving havasupai coronary artery 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 pectoris Disease Active 2023-03 [...] Disease Active 2023-03 00:00: 00 Jose A Treadwell Diarrhea Diarrhea Disease Resolve d 2023-03 00:00: 00 2024-01-25 00:00:00 2024-01-25 10:57:12 Jose A Treadwell Acute respirator y failure with hypoxemia Acute respirator y failure with hypoxemia Disease Resolve d 2023-03 00:00: 00 2024-01-25 00:00:00 2024-01-25 10:57:36 Jose A Youssef Epic VF (ventricul ar fibrillati on) (CMS/HCC) VF (ventricul ar fibrillati on) (CMS/HCC) Disease Resolve d 2023-03 00:00: 00 2024-01-25 00:00:00 2024-01-25 10:58:23 Jose A Treadwell Hyponatrem ia Hyponatrem ia Disease Resolve d 2023-03 00:00: 00 2024-01-25 00:00:00 2024-01-25 10:40:33 Jose A Treadwell Arrhythmia Arrhythmia Disease Resolve d 2023-03 00:00: 00 2024-01-17 00:00:00 2024-01-17 23:55:10 Jose A Treadwell Allergies, Adverse Reactions, Alerts Allergy Name Allergy Type Status Severity Reaction(s) Onset Date Inactive Date Treating Clinician Comments Source No Known Drug Allergie s DA Active U 11-14 00:00: 00 [facility] Social History Social Habit Start Date Stop Date Quantity Comments Source History of tobacco use Cigarette Smoker [facility] Gender identity Reed jimena [facility] Sexual orientation [facility] Tobacco use and exposure 2024-01-19 00:00:00 2024-01-19 00:00:00 Smokeless tobacco non-user [facility] History of Social function 2024-01-18 00:00:00 2024-01-18 00:00:00 [facility] Smoking Status Start Date Stop Date Source Ex-smoker 2024-01-19 00:00:00 2024-01-19 00:00:00 [facility] Medications Ordered Medication Name Filled Medication Name Start Date Stop Date Current Medication? Ordering Clinician Indication Dosage Frequency Signature (SIG) Comments Components Source amiodarone (Pacerone) tablet 200 mg amiodarone (Pacerone) tablet 200 mg 2023-03 09:00: 00 Yes 200mg QD 200 mg, Oral, Daily, First dose (after last modificati on) on Thu02/03/24 at 0900 Jose A [facility] amiodarone (Pacerone) 200 MG tablet amiodarone (Pacerone) 200 MG tablet 2023-03 00:00: 00 02-02 23:59 :00 No 200mg QD Take 1 tablet by mouth 1 time each day. Do not start before February 03, 2024. Jose A del real [facility] traMADol (Ultram) 50 MG tablet traMADol (Ultram) 50 MG tablet 2023-03 14:57: 48 01-26 00:00 :00 No 50mg Q6H Take 50 mg by mouth every 6 hours if needed for severe pain (7-10). Jose A del real [facility] benazepril (Lotensin) 20 MG tablet benazepril (Lotensin) 20 MG tablet 2023-03 14:57: 47 Yes 1{tbl} QD Take 1 tablet by mouth 1 time each day. Jose A del real [facility] ferrous sulfate 325 (65 Fe) MG EC tablet ferrous sulfate 325 (65 Fe) MG EC tablet 2023-03 14:57: 47 Yes 325mg Take 325 mg by mouth in the morning and 325 mg at noon and 325 mg in the evening. Take with meals. Do not crush, chew, or split.. Jose A Treadwell tadalafil (Cialis) 5 MG tablet tadalafil (Cialis) 5 MG tablet 2023-03 14:57: 47 Yes 5mg QD Take 5 mg by mouth 1 time each day. Jose A Treadwell citalopram (CeleXA) 20 MG tablet citalopram (CeleXA) 20 MG tablet 2023-03 14:57: 45 01-25 00:00 :00 No 2{tbl} QD Take 2 tablets by mouth 1 time each day. Jose A Treadwell simvastatin (Zocor) 40 MG tablet simvastatin (Zocor) 40 MG tablet 2023-03 14:57: 45 01-25 00:00 :00 No 40mg Take 40 mg by mouth at bedtime. Jose A Treadwell aspirin 325 MG tablet aspirin 325 MG tablet 2023-03 14:57: 45 01-22 00:00 :00 No 325mg QD Take 325 mg by mouth 1 time each day. Jose A Treadwell calcium carbonate (Tums) chewable tablet 500 mg calcium carbonate (Tums) chewable tablet 500 mg 2023-03 09:00: 00 Yes 500mg QD 500 mg, Oral, Daily, First dose on Thu01/27/24 at 0900 Jose A Treadwell amiodarone (Pacerone) tablet 400 mg amiodarone (Pacerone) tablet 400 mg 2023-03 09:00: 00 02-02 08:59 :00 No 400mg QD 400 mg, Oral, Daily, First dose (after last modificati on) on Thu01/27/24 at 0900, For 7 days Jose A Treadwell carvedilol (Coreg) 25 MG tablet carvedilol (Coreg) 25 MG tablet 2023-03 00:00: 00 04-26 23:59 :00 No 25mg Take 1 tablet by mouth in the morning and 1 tablet in the evening. Take with meals. Jose A Treadwell amiodarone (Pacerone) 400 MG tablet amiodarone (Pacerone) 400 MG tablet 2023-03 00:00: 00 02-02 23:59 :00 Yes 400mg QD Take 1 tablet by mouth 1 time each day for 7 doses. Do not start before January 27, 2024. Jose A Treadwell amoxicillin -clavulanat e (Augmentin) [...] apply): Pneumonia Jose A Treadwell tamsulosin (Flomax) 0.4 MG 24 hr capsule tamsulosin (Flomax) 0.4 MG 24 hr capsule 2023-03 09:00: 00 02-24 08:59 :00 Yes .4mg QD Take 0.4 mg by mouth 1 time each day. Jose A Treadwell apixaban (Eliquis) 5 MG [...] mL/hr, Administer over 2 Hours, Once, On 01/25/24 at 1045, For 1 dose Jose A Treadwell amoxicillin -clavulanat e (Augmentin) 875-125 MG per tablet 875 mg amoxicillin -clavulanat e (Augmentin) 875-125 MG per tablet 875 mg 2023-03 21:00: 00 01-25 09:54 :19 No 875mg Q.5D 875 mg, Oral, Every 12 hours scheduled, First dose (after last modificati on) on 01/24/24 at 2100, For 7 days, Give with food., Suspected Indication (Select all that apply): Pneumonia Jose A Treadwell LORazepam (Ativan) 0.5 MG tablet LORazepam (Ativan) 0.5 MG tablet 2023-03 13:31: 32 Yes .5mg Q6H Take 0.5 mg by mouth every 6 hours if needed for anxiety. Jose A Treadwell zinc oxide (Desitin) 40 % paste 1 [...] Every 12 hours scheduled, [facility] on Thu01/23/24 at 1300 [facility] Potassium chloride solution 40 mEq Potassium chloride solution 40 mEq 2023-03 10:15: 00 01-22 10:47 :00 No 40meq 40 mEq, Oral, Once, On Thu01/23/24 at 1015, For 1 dose, Mix with 4 oz (120ml) of water prior to administra tion [facility] carvedilol (Coreg) tablet 12.5 mg carvedilol (Coreg) tablet 12.5 mg 2023-03 08:00: 00 01-22 10:11 :34 No 12.5mg 12.5 mg, Oral, 2 times daily with meals, First dose (after last modificati on) on Thu01/23/24 at 0800 [facility] ipratropium (Atrovent) 0.02 % nebulizer solution 0.5 mg ipratropium (Atrovent) 0.02 % nebulizer solution 0.5 mg 2023-03 16:00: 00 Yes .5mg Q6H 0.5 mg, Nebulizati on, Every 6 hours PRN, wheezing, shortness of breath, Starting on Thu01/22/24 at 1600 [facility] potassium & sodium phosphates (Phos-NaK) 280-160-250 MG [...] or juice; stir well and administer promptly. [facility] HYDROcodone -acetaminop hen (Cameron) 10-325 MG tablet HYDROcodone -acetaminop hen (Cameron) 10-325 MG tablet 2023-03 13:06: 59 Yes 1{tbl} Q6H Take 1 tablet by mouth every 6 hours if needed for severe pain (7-10). Jose A Treadwell LORazepam (Ativan) tablet 0.5 [...] unheld Jose A Treadwell HYDROcodone -acetaminop hen (Cameron) 10-325 MG per tablet 1 tablet HYDROcodone -acetaminop hen (Cameron) 10-325 MG per tablet 1 tablet 2023-03 07:33: 22 01-20 10:31 :13 No 1{tbl} Q6H 1 tablet, Oral, Every 6 hours PRN, severe pain (7-10), Starting on Thu01/19/24 at 0733 Jose A gt [place] Epic HYDROcodone -acetaminop hen (Cameron) 5-325 MG per tablet 1 tablet HYDROcodone -acetaminop hen (Cameron) 5-325 MG per tablet 1 tablet 2023-03 07:33: 22 01-20 10:31 :13 No 1{tbl} Q6H 1 tablet, Oral, Every 6 hours PRN, moderate pain (4-6), Starting on Thu01/19/24 at 0733 Jose A gt Mikael Epic HYDROcodone -acetaminop hen (Cameron) 5-325 MG per tablet 1 tablet HYDROcodone -acetaminop hen (Cameron) 5-325 MG per tablet 1 tablet 2023-03 20:45: 00 01-18 00:08 :00 No 1{tbl} 1 tablet, Oral, Once, On Thu01/18/24 at 2045, For 1 dose Jose A gt Youssef Epic Enteral Free water Flush 30 mL Enteral Free water Flush 30 mL 2023-03 15:00: 00 01-23 09:23 :23 No 30mL Q4H 30 mL, Nasogastri c, Every 4 hours, First dose on Thu01/18/24 at 1500 Jose A Youssef Epic peptamen AF liquid peptamen AF liquid 2023-03 [...] at 1547 until manually unheld Jose A Youssef Epic azithromyci n (Zithromax) tablet 500 mg azithromyci [...] on) on Thu01/18/24 at 0900 Jose A gt Mikael Eben aspirin chewable tablet 81 mg aspirin chewable tablet 81 mg 2023-03 09:00: 00 01-19 17:26 :56 No 81mg QD 81 mg, Oral, Daily, First dose on Thu01/18/24 at 0900, On hold since Thu01/20/2024 at 1619 until manually unheld Jose A del real [place] Eben vancomycin (Vancocin) 1,000 mg in sodium chloride [...] Suspected Indication (Select all that apply): Pneumonia Marcoscarlos gt Mikael Eben pantoprazol e (ProtoNix) EC tablet 40 mg pantoprazol e (ProtoNix) EC tablet 40 mg 2023-03 07:30: 00 Yes 40mg 40 mg, Oral, Daily before breakfast, First dose on Thu01/18/24 at 0730, Do not crush, chew, or split. Jose A del real [place] Eben HYDROcodone -acetaminop hen (Cameron) 5-325 MG per tablet 1 tablet HYDROcodone -acetaminop hen (Cameron) 5-325 MG per tablet 1 tablet 2023-03 22:45: 00 01-16 23:30 :00 No 1{tbl} 1 tablet, Oral, Once, On 01/17/24 at 2245, For 1 dose Jose A Treadwell pantoprazol e (ProtoNix) injection 40 mg pantoprazol e (ProtoNix) injection 40 mg 2023-03 22:45: 00 01-16 23:32 :00 No 40mg 40 mg, Intravenou s, Once, 1 dose, On 01/17/24 at 2245 Jose A Treadwell guaiFENesin (Robitussin [...] 40 mg, Oral, Daily, First dose on Thu01/17/24 at 1855 Jose A Treadwell Potassium chloride [...] mL/hr, Administer over 2 Hours, Once, On Thu01/17/24 at 1750, For 1 dose Jose A Treadwell iohexol (OMNIPaque) 350 MG/ML injection 100 mL iohexol (OMNIPaque) 350 MG/ML injection 100 mL 2023-03 17:47: 36 01-16 17:47 :00 No 100mL 100 mL, Intravenou s, Once in imaging, Starting on 11/3/24 at 1747, For 1 dose Jose A Youssef [facility] buPROPion SR (Wellbutrin SR) 150 MG 12 hr tablet buPROPion SR (Wellbutrin SR) 150 MG 12 hr tablet 2023-03 17:40: 00 Yes 150mg QD Take 150 mg by mouth 1 time each day. Jose A Youssef [facility] lisinopril tablet 40 mg lisinopril tablet 40 mg 2023-03 17:40: 00 Yes 40mg QD 40 mg, Oral, Daily, First dose on 01/17/24 at 1740 Jose A Youssef [facility] memantine (Namenda) tablet 10 mg memantine (Namenda) tablet 10 mg 2023-03 17:40: 00 Yes 10mg Q.5D 10 mg, Oral, 2 times daily, First dose on 01/17/24 at 1740 Jose A Youssef [facility] escitalopra m (Lexapro) tablet 5 mg escitalopra m (Lexapro) tablet 5 mg 2023-03 17:40: 00 Yes 5mg QD 5 mg, Oral, Daily, First dose on 01/17/24 at 1740 Jose A Youssef [facility] clopidogrel (Plavix) tablet 75 mg clopidogrel (Plavix) tablet 75 mg 2023-03 17:40: 00 Yes 75mg QD 75 mg, Oral, Daily, First dose on 01/17/24 at 1740 Jose A Youssef [facility] isosorbide mononitrate ER (Imdur) 24 hr tablet 30 mg isosorbide mononitrate ER (Imdur) 24 hr tablet 30 mg 2023-03 17:40: 00 01-25 00:00 :00 Yes 30mg QD Take 30 mg by mouth 1 time each day. Jose A Youssef [facility] sodium chloride (NS) 0.9 % flush 10 mL sodium chloride (NS) 0.9 % flush 10 mL 2023-03 17:25: 00 Yes 10mL Q12H 10 mL, Intravenou s, Every 12 hours, First dose on 01/17/24 at 1725, Administer at least once every 12 hours Jose A Youssef [facility] glucagon injection 1 mg glucagon injection 1 [...] or npo and notify MD. Jose A Ganann Epic dextrose 50 % solution 25 g dextrose [...] No 40meq 40 mEq, Oral, Once, On 11/3/24 at 1710, For 1 dose, Mix with 4 oz (120ml) of water prior to administra tion Jose A del real [place] Epic Amiodarone HCl in Dextrose 450-5 MG/250ML-% [...] for HR < 50 BPM. Jose A del real [place] Epic heparin 50 units/mL in sodium chloride 0.45 % heparin 50 units/mL in sodium chloride 0.45 % 2023-03 16:35: 00 01-22 12:46 :25 No .1U/kg/ h 0.1-40 Units/kg/h r ?82.5 kg (0.165-66 mL/hr, rounded to 0.17-66 mL/hr), Intravenou s, Continuous , Starting on Thu01/17/24 at 1635, AFIB/Strok e PTT Weight Based [...] after decrease in dose --- Jose A Youssef Epic amiodarone (Cordarone) 150 mg in dextrose 5 [...] may mix in 100 mL of NS Marcosoria gt Youssef Epic HYDROcodone -acetaminop hen (Cameron) 10-325 MG per tablet 1 tablet HYDROcodone -acetaminop hen (Cameron) 10-325 MG per tablet 1 tablet 2023-03 15:20: 00 01-16 15:20 :00 No 1{tbl} 1 tablet, Oral, Once, On 01/17/24 at 1520, For 1 dose Jose A Youssef Epic azithromyci n (Zithromax) 500 mg in sodium [...] (Select all that apply): Pneumonia Jose A Youssef Epic cefTRIAXone (Rocephin) 1 g in sterile [...] Suspected Indication (Select all that apply): Pneumonia Marcoscarlos gt Youssef Epic magnesium sulfate IVPB 2 g magnesium sulfate IVPB 2 g 2023-03 14:45: 00 01-16 15:44 :00 No 2g 2 g, Intravenou s, at 100 mL/hr, Administer over 30 Minutes, Once, On 01/17/24 at 1445, For 1 dose Jose A Youssef Epic Potassium chloride solution 40 mEq Potassium chloride solution 40 mEq 2023-03 14:45: 00 01-16 14:48 :00 No 40meq 40 mEq, Oral, Once, On 01/17/24 at 1445, For 1 dose, Mix with 4 oz (120ml) of water prior to administra tion [facility] benzonatate (Tessalon) capsule 100 mg benzonatate (Tessalon) capsule 100 mg 2023-03 13:45: 00 01-16 14:48 :00 No 100mg 100 mg, Oral, Once, On 01/17/24 at 1345, For 1 dose, Do not crush or chew. [facility] carvedilol (Coreg) 12.5 MG tablet carvedilol (Coreg) 12.5 MG tablet 2023-03 0 00:00: 00 01-26 00:00 :00 No 12.5mg Take 12.5 mg by mouth in the morning and 12.5 mg in the evening. Take with meals. [facility] lovastatin (Mevacor) 40 MG tablet lovastatin (Mevacor) 40 MG tablet 2023-03 00:00: 00 Yes 40mg Take 40 mg by mouth at bedtime. [facility] escitalopra m (Lexapro) 20 MG tablet escitalopra m (Lexapro) 20 MG tablet 08-10 00:00: 00 Yes QD 1 time each day. [facility] clopidogrel (Plavix) 75 MG tablet clopidogrel (Plavix) 75 MG tablet 08-10 00:00: 00 01-22 00:00 :00 No 75mg QD Take 75 mg by mouth 1 time each day. [facility] memantine (Namenda) 10 MG tablet memantine (Namenda) 10 MG tablet 06-10 00:00: 00 Yes 10mg Q.5D Take 10 mg by mouth in the morning and 10 mg in the evening. [facility] amLODIPine (Norvasc) 5 MG tablet amLODIPine (Norvasc) 5 MG tablet 2022-03 00:00: 00 Yes 1{tbl} Q.5D Take 1 tablet by mouth in the morning and 1 tablet in the evening. [facility] Immunizations Ordered Immunization Name Filled Immunization Name Date Status Comments Source Influenza, High Dose Seasonal, Preservative Free Influenza, High Dose Seasonal, Preservative Free 2024-01-26 00:00:00 Completed [facility] Vital Signs Vital Name Observation Time Observation Value Comments [place] Heart rate 2024-01-27 11:30:16 102 /min Memor ial Mikael Epic Respiratory rate 2024-01-27 11:30:16 18 /min [facility] Oxygen saturation in Arterial blood by Pulse oximetry 2024-01-27 11:30:16 98 /min [facility] Systolic blood pressure 2024-01-27 11:30:10 161 mm[Hg] [facility] Diastolic blood pressure 2024-01-27 11:30:10 74 mm[Hg] [facility] Body temperature 2024-01-27 11:29:48 37.06 [facility] Body height 2024-01-18 09:01:00 177.8 cm Reed rial [place] [facility] Body weight 2024-01-18 09:01:00 82.555 kg Reed rial [place] Epic BMI 2024-01-18 09:01:00 26.11 kg/m2 Reed rial [place] Epic Heart rate 2024-01-27 11:30:16 102 /min Memor ial [place] Epic Respiratory rate 2024-01-27 11:30:16 18 /min [facility] Epic Oxygen saturation in Arterial blood by Pulse oximetry 2024-01-27 11:30:16 98 /min [facility] Her dodson [facility] Systolic blood pressure 2024-01-27 11:30:10 161 mm[Hg] [facility] Her dodson [facility] Diastolic blood pressure 2024-01-27 11:30:10 74 mm[Hg] [facility] Body temperature 2024-01-27 11:29:48 37.06 [facility] Body height 2024-01-18 09:01:00 177.8 cm Reed rial [place] Epic Body weight 2024-01-18 09:01:00 82.555 kg Reed rial [place] [facility] BMI 2024-01-18 09:01:00 26.11 kg/m2 [facility] 2024-01-27 11:30:16 102 /min [facility] 2024-01-27 11:30:16 18 /min [facility] Epic Oxygen saturation in Arterial blood by Pulse oximetry 2024-01-27 11:30:16 98 /min [facility] Epic Systolic blood pressure 2024-01-27 11:30:10 161 mm[Hg] Darryn Hallman [facility] Diastolic blood pressure 2024-01-27 11:30:10 74 mm[Hg] Darryn Hallman [facility] Body temperature 2024-01-27 11:29:48 37.06 Char [facility] Body height 2024-01-18 09:01:00 177.8 cm [facility] Body weight 2024-01-18 09:01:00 82.555 kg [facility] BMI 2024-01-18 09:01:00 26.11 kg/m2 [facility] Procedures Procedure Date / Time Performed Performing Clinician Source Phosphorus Level 2024-02-24 00:00:00 [facility] Complete Blood Count w/Diff and Platelet 2024-02-23 00:00:00 [facility] POC GLUCOSE UNSOLICITED RESULTS 2024-01-27 11:31:00 Neo, Min Alan [facility] POC GLUCOSE UNSOLICITED RESULTS 2024-01-27 07:31:00 Neo, Min Alan [facility] MAGNESIUM LEVEL 2024-01-27 03:28:00 Linda Bella [facility] PHOSPHORUS LEVEL 2024-01-27 03:28:00 Jacinta Limonisle [facility] COMPLETE BLOOD COUNT W/DIFF AND PLATELET 2024-01-27 03:28:00 Mark Limonisle [facility] COMPLETE BLOOD COUNT 2024-01-27 03:28:00 Mark Limon [facility] AUTOMATED DIFFERENTIAL 2024-01-27 03:28:00 Mark Limonisle [facility] BASIC METABOLIC PANEL 2024-01-27 03:28:00 Myah Arcos [facility] [place] esophagus barium swallow w video and speech 2024-01-27 00:00:00 [facility] POC GLUCOSE UNSOLICITED RESULTS 2024-01-26 20:53:00 Neo, Min Alan [facility] POC GLUCOSE UNSOLICITED RESULTS 2024-01-26 15:51:00 Neo, Min Alan [facility] POC GLUCOSE UNSOLICITED RESULTS 2024-01-26 11:50:00 Neo, Min Alan [facility] COMPLETE BLOOD COUNT W/DIFF AND PLATELET 2024-01-26 10:24:00 Nesby Mark Gómezisle [facility] COMPLETE BLOOD COUNT 2024-01-26 10:24:00 Nesby Mark Gómezisle [facility] AUTOMATED DIFFERENTIAL 2024-01-26 10:24:00 Nesby Mark Rausch [facility] POC GLUCOSE UNSOLICITED RESULTS 2024-01-26 07:22:00 Neo, Min Alan [facility] COMPLETE BLOOD COUNT W/DIFF AND PLATELET 2024-01-26 03:33:00 Nessanjuanita Mark Shalom [facility] COMPLETE BLOOD COUNT 2024-01-26 03:33:00 Nessanjuanita Mark Gómezisle [facility] AUTOMATED DIFFERENTIAL 2024-01-26 03:33:00 Ashly Mark Gómezisle [facility] MAGNESIUM LEVEL 2024-01-26 03:32:00 Linda Bella [facility] PHOSPHORUS LEVEL 2024-01-26 03:32:00 Nessanjuanita Jacinta Gómezisle [facility] BASIC METABOLIC PANEL 2024-01-26 03:32:00 Myah Arcos [facility] POC GLUCOSE UNSOLICITED RESULTS 2024-01-25 20:58:00 Neo, Min Alan [facility] POC GLUCOSE UNSOLICITED RESULTS 2024-01-25 16:09:00 Neo, Min Alan [facility] COMPLETE BLOOD COUNT W/DIFF AND PLATELET 2024-01-25 12:30:00 Nesby Mark Shalom [facility] COMPLETE BLOOD COUNT 2024-01-25 12:30:00 Nessanjuanita Mark Shalom [facility] AUTOMATED DIFFERENTIAL 2024-01-25 12:30:00 Ashly Mark Shalom [facility] POC GLUCOSE UNSOLICITED RESULTS 2024-01-25 11:37:00 Neo, Min Alan [facility] POC GLUCOSE UNSOLICITED RESULTS 2024-01-25 07:31:00 Neo, Min Alan [facility] MAGNESIUM LEVEL 2024-01-25 04:37:00 Jena Lindaangel Thomasvikramrafael [facility] PHOSPHORUS LEVEL 2024-01-25 04:37:00 NessanjuanitaJacinta [facility] BASIC METABOLIC PANEL 2024-01-25 04:37:00 Myah Arcos [facility] POCT BLOOD GLUCOSE 2024-01-24 18:26:00 Romulo Arcos [facility] POC GLUCOSE UNSOLICITED RESULTS 2024-01-24 16:34:00 Neo, Tobin Phillips [facility] POCT BLOOD GLUCOSE 2024-01-24 13:25:00 Romulo Arcos [facility] POC GLUCOSE UNSOLICITED RESULTS 2024-01-24 11:56:00 Neo, Tobin Phillips [facility] OSMOLALITY URINE 2024-01-24 11:39:00 AshlyJacinta [facility] SODIUM LEVEL URINE 2024-01-24 11:39:00 Nessanjuanita, Ada Rausch [facility] OSMOLALITY 2024-01-24 11:38:00 Nessanjuanita Kimberlee Rausch [facility] BASIC METABOLIC PANEL 2024-01-24 11:38:00 Nessanjuanita Mark Rausch [facility] POCT BLOOD GLUCOSE 2024-01-24 10:48:00 Romulo Arcos [facility] POC GLUCOSE UNSOLICITED RESULTS 2024-01-24 08:06:00 Neo, Tobin Phillips [facility] MAGNESIUM LEVEL 2024-01-24 04:10:00 JenaLindanirafael [facility] OSMOLALITY 2024-01-24 04:10:00 NessanjuanitaKimberlee [facility] PHOSPHORUS LEVEL 2024-01-24 04:10:[address] [facility] COMPLETE BLOOD COUNT W/DIFF AND PLATELET 2024-01-24 04:10:[address] [facility] COMPLETE BLOOD COUNT 2024-01-24 04:10:[address] [facility] AUTOMATED DIFFERENTIAL 2024-01-24 04:10:00 Carter young, [facility] BASIC METABOLIC PANEL 2024-01-24 04:10:00 Myah Arcos [facility] Phosphorus Level AM 2024-01-24 00:00:00 M [facility] Calprotectin, Stool 2024-01-24 00:00:00 M [facility] POC GLUCOSE UNSOLICITED RESULTS 2024-01-23 21:15:00 Neo, Min Alan [facility] POC GLUCOSE UNSOLICITED RESULTS 2024-01-23 16:06:00 Neo, Min Ji [facility] Epic C DIFFICILE DNA WITH REFLEX TO TOXIN IF INDICATED 2024-01-23 13:55:00 Jermaine Whitman [facility] POC GLUCOSE UNSOLICITED RESULTS 2024-01-23 11:19:00 Neo, Min [facility] Epic PTT 2024-01-23 09:41:00 Neo, Min Ji [facility] POC GLUCOSE UNSOLICITED RESULTS 2024-01-23 08:09:00 Neo, Min [facility] MAGNESIUM LEVEL 2024-01-23 01:16:00 Linda Bella Marthaoli [facility] PHOSPHORUS LEVEL 2024-01-23 01:16:[address] [facility] COMPLETE BLOOD COUNT W/DIFF AND PLATELET 2024-01-23 01:16:[address] [facility] PT AND PTT 2024-01-23 01:16:00 Neo, Tobin Phillips [facility] COMPLETE BLOOD COUNT 2024-01-23 01:16:[address] [facility] AUTOMATED DIFFERENTIAL 2024-01-23 01:16:[address] [facility] BASIC METABOLIC PANEL 2024-01-23 01:16:00 Myah Arcos [facility] POC GLUCOSE UNSOLICITED RESULTS 2024-01-22 22:18:00 Neo, Tobin Phillips [facility] POC GLUCOSE UNSOLICITED RESULTS 2024-01-22 16:56:00 Neo, Min Alan [facility] Epic [place] ESOPHAGUS BARIUM SWALLOW WITH VIDEO AND SPEECH 2024-01-22 15:18:55 Myah Arcos [facility] PT AND PTT 2024-01-22 14:20:00 Neo, Tobin Phillips [facility] Epic POC GLUCOSE UNSOLICITED RESULTS 2024-01-22 12:36:00 Neo, Min Alan [facility] Epic POC GLUCOSE UNSOLICITED RESULTS 2024-01-22 08:14:00 Neo, Min Alan [facility] Epic POC GLUCOSE UNSOLICITED RESULTS 2024-01-22 07:20:00 Neo, Tobin Phillips [facility] Epic PT AND PTT 2024-01-22 05:43:00 Neo, Tobin Phillips [facility] Epic MAGNESIUM LEVEL 2024-01-22 05:38:00 Linda Bella [facility] PHOSPHORUS LEVEL 2024-01-22 05:38:[address] [facility] C3 COMPLEMENT 2024-01-22 05:38:00 Clare Arcos [facility] COMPLETE BLOOD COUNT W/DIFF AND PLATELET 2024-01-22 05:38:[address] [facility] ANTINEUTROPHIL CYTOPLASMIC ANTIBODY W/ REFLEX TITER 2024-01-22 05:38:00 Myah Arcos [facility] ANTINUCLEAR ANTIBODY COMPREHENSIVE PANEL 2024-01-22 05:38:00 Myah Arcos [facility] COMPLETE BLOOD COUNT 2024-01-22 05:38:[address] [facility] AUTOMATED DIFFERENTIAL 2024-01-22 05:38:[address] [facility] COMPREHENSIVE METABOLIC PANEL 2024-01-22 05:38:[address] [facility] PT AND PTT 2024-01-21 21:09:00 Neo, Tobin Phillips [facility] POC GLUCOSE UNSOLICITED RESULTS 2024-01-21 18:02:00 Neo, Toibn Phillips [facility] Epic XR ABDOMEN 1 VIEW 2024-01-21 17:23:29 Yuri Marrufo [facility] Epic XR ABDOMEN 1 VIEW 2024-01-21 16:37:59 Lisandro López [facility] PT AND PTT 2024-01-21 13:13:00 Neo, Tobin Phillips [facility] Epic XR ABDOMEN 1 VIEW 2024-01-21 13:04:11 Nader Nieves [facility] EGD 2024-01-21 10:42:25 Khari Varghese [facility] TISSUE EXAM 2024-01-21 10:18:00 Myah Ledbetter ial [facility] PTT 2024-01-21 03:48:00 [facility]l [facility] 2024-01-21 02:25:00 Darryn Dunham [facility] PTT 2024-01-21 01:34:00 Tiffany Toney Memo [facility] PHOSPHORUS LEVEL 2024-01-21 01:32:[address] [facility] COMPLETE BLOOD COUNT W/DIFF AND PLATELET 2024-01-21 01:32:[address] [facility] COMPLETE BLOOD COUNT 2024-01-21 01:32:[address] [facility] AUTOMATED DIFFERENTIAL 2024-01-21 01:32:[address] [facility] COMPREHENSIVE METABOLIC PANEL 2024-01-21 01:32:[address] [facility] POC ARTERIAL BLOOD GAS AND BASIC PANEL UNSOLICITED RESULTS 2024-01-21 01:28:00 Tiffany Toney [facility] Blood Gas, Venous 2024-01-21 00:00:00 [facility] UNSOLICITED RESULTS 2024-01-20 18:17:00 Tiffany Toney [facility] Epic PTT 2024-01-20 17:44:00 Tiffany Toney Reed [facility] [place] Epic POC GLUCOSE UNSOLICITED RESULTS 2024-01-20 11:31:00 Ab Omerohijeet [facility] Epic PTT 2024-01-20 09:44:00 Tiffany Toney Reed [facility] [place] Epic POC GLUCOSE UNSOLICITED RESULTS 2024-01-20 06:00:00 Ab Omerohijeet [facility] MAGNESIUM LEVEL 2024-01-20 02:13:00 Tiffany Toney [facility] [place] [facility] COMPLETE BLOOD COUNT W/DIFF AND PLATELET 2024-01-20 02:13:00 Smith[place], [facility] RETICULOCYTE COUNT 2024-01-20 02:13:00 [facility]ON [facility] AND TIBC 2024-01-20 02:13:00 Vanessa Reyes [facility] CALCIUM LEVEL IONIZED WHOLE BLOOD 2024-01-20 02:13:00 [facility] 2024-01-20 02:13:00 Omero, [facility] COMPLETE BLOOD COUNT 2024-01-20 02:13:[address] [facility] AUTOMATED DIFFERENTIAL 2024-01-20 02:13:[address] [facility] COMPREHENSIVE METABOLIC PANEL 2024-01-20 02:13:[address] [facility] FOLATE LEVEL 2024-01-20 02:13:00 [facility] 2024-01-19 19:05:00 Omero, Tiffany [facility] POC GLUCOSE UNSOLICITED RESULTS 2024-01-19 17:28:00 Omero, [facility] PT AND PTT 2024-01-19 13:13:00 [facility], [facility] POC GLUCOSE UNSOLICITED RESULTS 2024-01-19 11:26:00 Omero, [facility] FECAL LEUKOCYTE STAIN 2024-01-19 11:02:00 Omero, [facility] ENTERIC PATHOGENS WITH CULTURE IF INDICATED 2024-01-19 11:02:00 Omero, [facility] PT AND PTT 2024-01-19 04:58:00 Omero, Tiffany Reed [facility] MAGNESIUM LEVEL 2024-01-19 02:52:00 Getachew Londono [facility] PHOSPHORUS LEVEL 2024-01-19 02:52:[address] [facility] COMPLETE BLOOD COUNT W/DIFF AND PLATELET 2024-01-19 02:52:[address] [facility] PT AND PTT 2024-01-19 02:52:00 Dhoble[facility] COMPLETE BLOOD COUNT 2024-01-19 02:52:[address] [facility] AUTOMATED DIFFERENTIAL 2024-01-19 02:52:[address] [facility] COMPREHENSIVE METABOLIC PANEL 2024-01-19 02:52:[address] [facility] pH Stool 2024-01-19 00:00:00 [facility] POC GLUCOSE UNSOLICITED RESULTS 2024-01-18 23:08:00 Dhoble, [facility] XR ABDOMEN 1 VIEW 2024-01-18 21:47:00 Dhoble, [facility] COMPLETE BLOOD COUNT W/DIFF AND PLATELET 2024-01-18 19:38:00 [facility]TT 2024-01-18 19:38:00 Dhoble, [facility] COMPLETE BLOOD COUNT 2024-01-18 19:38:00 Dhoble, Abhij eet [facility] AUTOMATED DIFFERENTIAL 2024-01-18 19:38:00 Dhoble, Abh ijeet [facility] REFLEX MORPHOLOGY - DO NOT ORDER 2024-01-18 19:38:00 Wayneoble, Tiffany [facility] US THYROID 2024-01-18 14:06:44 Valencia Gil [facility] STORE HAND FEES PROCEDURE 2024-01-18 13:20:00 Valencia Gil Carlie [facility] PTT 2024-01-18 11:06:00 Corine Freed [facility] FUNGAL CULTURE W/SMEAR 2024-01-18 11:05:00 Nisa Gonzalez [facility] MYCOBACTERIUM TUBERCULOSIS PCR RESP 2024-01-18 11:05:00 Vanessa Reyes [facility] RESPIRATORY CULTURE W/GRAM STAIN 2024-01-18 11:04:00 Tiana Londono [facility] [employer] CULTURE W/SMEAR W/PCR IF INDICATED 2024-01-18 11:04:00 Vanessa Reyes [facility] HISTOPLASMA ANTIGEN, URINE 2024-01-18 11:00:00 Harse, Valencia Sexton [facility] BLASTOMYCES ANTIBODY 2024-01-18 11:00:00 Harse, Andrésjaida muller [facility] COCCIDIOIDES ANTIBODY IGG, IGM W/ REFLEX TO CF 2024-01-18 11:00:00 Harse, Valencia Carlie [facility] TRANSTHORACIC ECHO (TTE) COMPLETE W/ STRAIN 2024-01-18 09:38:00 Smithhannah, [facility] CT BRAIN WO IV CONTRAST 2024-01-18 06:18:00 Sam Gonzalez [facility] STREP PNEUMONIAE ANTIGEN 2024-01-18 05:21:00 [facility] TRANSPLANT RESPIRATORY VIRAL PANEL [facility] 2024-01-18 [facility] UA WITH CULTURE IF INDICATED 2024-01-18 05:[facility]:00 [facility] LACTIC ACID LEVEL 2024-01-18 03:15:00 Nisa Gonzalez [facility] XR ABDOMEN 1 VIEW 2024-01-18 03:06:24 Nisa Gonzalez [facility] MAGNESIUM LEVEL 2024-01-18 02:11:00 Getachew Londono [facility] PHOSPHORUS LEVEL 2024-01-18 02:11:00 Smith[place], [facility] T4 FREE 2024-01-18 02:11:00 Getachew Londono [facility] BILIRUBIN TOTAL AND DIRECT 2024-01-18 02:11:00 Nisa Gonzalez [facility] COMPLETE BLOOD COUNT W/DIFF AND PLATELET 2024-01-18 02:11:00 SmithTiana young [place] [facility] RETICULOCYTE COUNT 2024-01-18 02:11:00 Nisa Gonzalez [facility] IRON LEVEL AND TIBC 2024-01-18 02:11:00 Nisa Gonzalez [facility] CALCIUM LEVEL IONIZED WHOLE BLOOD 2024-01-18 02:11:00 Kalie Freed [facility] THYROID STIMULATING HORMONE W/ REFLEX FREE T4 2024-01-18 02:11:00 Spring, [facility] PT AND PTT 2024-01-18 02:11:00 Corine Freed [facility] COMPLETE BLOOD COUNT 2024-01-18 02:11:00 Dasia rt, [facility] AUTOMATED DIFFERENTIAL 2024-01-18 02:11:[address] [facility] COMPREHENSIVE METABOLIC PANEL 2024-01-18 02:11:00 Spring, [facility] LIPID PANEL W/CALCULATED LDL 2024-01-18 02:11:00 Spring, [facility] VANCOMYCIN LEVEL 2024-01-18 02:11:00 Spring, [facility] VITAMIN B12 LEVEL 2024-01-18 02:11:00 Nisa Gonzalez [facility] FERRITIN 2024-01-18 02:11:00 Nisa Gonzalez [facility] FOLATE LEVEL 2024-01-18 02:11:00 Nisa Gonzalez [facility] HEMOGLOBIN A1C 2024-01-18 02:11:00 Getachew Londono [facility] ACUTE HEPATITIS PANEL 2024-01-18 00:01:00 Nisa Gonzalez [facility] QUANTIFERON - TB GOLD PLUS 2024-01-18 00:01:00 Nisa Gonzalez [facility] POC ARTERIAL BLOOD GAS AND COMPREHENSIVE PANEL UNSOLICITED RESULTS 2024-01-17 23:19:00 Kalie Freed [facility] BLOOD CULTURE 2024-01-17 23:14:00 Getachew Londono [facility] BLOOD CULTURE 2024-01-17 23:08:00 Getachew Londono [facility] TYPE AND SCREEN 2024-01-17 21:25:00 Nisa Gonzalez [facility] ASPERGILLUS GALACTOMANNA ANTIGEN 2024-01-17 21:25:00 Nisa Gonzalez [facility] MAGNESIUM LEVEL 2024-01-17 21:20:00 Nisa Gonzalez [facility] B-TYPE NATRIURETIC PEPTIDE 2024-01-17 21:20:00 Nisa Gonzalez [facility] PHOSPHORUS LEVEL 2024-01-17 21:20:00 Nisa Gonzalez [facility] T4 FREE 2024-01-17 21:20:00 Nisa Gonzalez [facility] HIV 4TH GEN WITH REFLEX 2024-01-17 21:20:00 Sam Gonzalez [facility] THYROID STIMULATING HORMONE W/ REFLEX FREE T4 2024-01-17 21:20:00 Nisa Gonzalez [facility] TROPONIN I HIGH SENSITIVITY (SINGLE ORDER) 2024-01-17 21:20:00 Tiana Londono [facility] FUNGITELL 2024-01-17 21:20:00 Nisa Gonzalez [facility] MYCOPLASMA ANTIBODY IGG, IGM 2024-01-17 21:20:00 Tiana Londono [facility] BASIC METABOLIC PANEL 2024-01-17 21:20:00 Nisa Gonzalez [facility] HEMOGLOBIN A1C 2024-01-17 21:20:00 Nisa Gonzalez [facility] LACTIC ACID LEVEL 2024-01-17 21:20:00 Nisa Gonzalez [facility] ECG 12-LEAD 2024-01-17 20:11:56 Getachew Londono [facility] MAGNESIUM LEVEL 2024-01-17 19:06:00 Cj Oro [facility] PHOSPHORUS LEVEL 2024-01-17 19:06:00 Cj Oro [facility] BASIC METABOLIC PANEL 2024-01-17 19:06:00 Maria Esther Oro [facility] HEPATIC FUNCTION PANEL 2024-01-17 19:06:00 Nisa Gonzalez [facility] [employer] CULTURE W/SMEAR W/PCR IF INDICATED 2024-01-17 19:05:00 Ute Gomez [facility] PROCALCITONIN LEVEL 2024-01-17 19:05:00 Ute Gomez [facility] MRSA BY PCR 2024-01-17 19:05:00 JasonElieryohana Connors [facility] CT ANGIOGRAM CHEST PULMONARY EMBOLISM 2024-01-17 17:47:25 Tiana Londono [facility] PTT 2024-01-17 16:18:00 ReedSteph ial [facility] XR CHEST 1 VIEW 2024-01-17 13:17:58 Beata, Marielle Clarissa [facility] ECG 12-LEAD 2024-01-17 13:14:45 Getachew Londono [facility] BLOOD GAS, VENOUS 2024-01-17 13:02:00 Beata, Marielle Brittney [facility] B-TYPE NATRIURETIC PEPTIDE 2024-01-17 13:01:00 Beata, [facility] PHOSPHORUS LEVEL 2024-01-17 13:01:00 BeataMarielle kay [facility] COMPLETE BLOOD COUNT W/DIFF AND PLATELET 2024-01-17 13:01:00 Beata, [facility] PROTIME-INR 2024-01-17 13:01:00 BeataMarielle kay [facility] TROPONIN I HIGH SENSITIVITY (SINGLE ORDER) 2024-01-17 13:01:00 Beata, [facility] COMPLETE BLOOD COUNT 2024-01-17 13:01:00 [facility] AUTOMATED DIFFERENTIAL 2024-01-17 13:01:00 Paul Cota [facility] BASIC METABOLIC PANEL 2024-01-17 13:01:00 Julianmadhruv Am jesus [facility] HEPATIC FUNCTION PANEL 2024-01-17 13:01:00 BeataPaul kay Vandana [facility] LIPASE LEVEL 2024-01-17 13:01:00 BeataMarielle kay [facility] MAGNESIUM LEVEL 2024-01-17 13:01:[address] [facility] CARDIAC POC US 2024-01-17 12:45:39 Pipo Lafleur [facility] Cardiac device check - Inpatient 2024-01-17 00:00:00 [facility] Legionella antigen, urine 2024-01-17 00:00:00 [facility] Epic ECG 12 lead 2024-01-17 00:00:00 [facility] Epic Magnesium Level [facility] Basic Metabolic Panel Memsonia al [facility] [employer] Culture w/Smear w/PCR if Indicated [facility] Fungal Culture w/Smear [facility] [place] Epic Encounters Start Date/Time End Date/Time Encounter Type Admission Type Attending [facility] Facility Care Department Encounter ID Source 2024-01-17 12:35:00 Inpatient Emergency TIFFANY TONEY [facility] Medicine [id number] [facility] 2024-01-26 00:00:00 2024-03-27 20:33:46 Results Follow-Up Tonia Limon [facility] [id number] [facility] [place] [facility] 2024-03-02 10:00:00 2024-03-02 10:00:00 Outpatient JULIAN AMAYA [facility] [id number] [facility] 2024-01-17 12:35:00 2024-01-27 14:57:00 Inpatient Emergency FLACA GREY [facility] Medicine [id number] [facility] 2024-01-17 12:35:00 2024-01-27 14:57:00 Hospital Encounter Marielle Cota, Kalie Falk, Tobin Smith Nuzha Adnan [facility] [id number] [facility] Epic 2023-10-14 09:43:00 2023-10-14 09:43:00 Outpatient [facility] [id number] [facility] 2023-05-04 10:49:00 2023-05-04 10:49:00 Outpatient [facility] [id number] [facility] 2023-04-23 10:48:00 2023-04-23 10:48:00 Outpatient [facility] [id number] [facility] 2021-11-29 06:02:00 2021-11-29 12:30:00 Outpatient Elective Yuri [facility] [id number] [facility] 2021-11-29 06:02:00 2021-11-29 06:02:00 Outpatient [facility] [id number] [facility] 2021-11-15 06:36:00 2021-11-15 15:25:00 Outpatient Elective Yuri White [facility] [id number] [facility] 2021-11-15 06:36:00 2021-11-15 06:36:00 Outpatient [facility] [id number] [facility] 2021-05-24 10:26:00 2021-05-24 10:26:00 Outpatient [facility] [id number] [facility] 2020-04-17 12:11:00 2020-04-17 12:11:00 Outpatient [facility] [id number] [facility] 2020-02-22 04:39:00 2020-02-22 04:39:00 Outpatient Young_J MMG MMG [id number] [facility] 2020-01-18 03:04:00 2020-01-18 03:04:00 Outpatient Young_J MMG MMG [id number] [facility] 2019-11-07 04:57:00 2019-11-07 04:57:00 Outpatient Young[id number] 2019-03-17 10:46:00 2019-03-17 10:46:00 Outpatient Young_J MMG MMG [id number] [facility] 2017-02-02 20:25:00 2017-02-02 20:25:00 Outpatient YURI IVERSON [facility] [id number] [facility] 2014-12-04 12:07:00 2014-12-04 12:07:00 Outpatient [facility] [id number] [facility] 2013-07-18 12:36:00 2013-07-18 12:36:00 Outpatient [facility] [id number] [facility] 2013-05-30 08:06:00 2013-05-30 08:06:00 Outpatient [facility] [id number] [facility] 2010-03-25 13:48:00 2010-03-25 13:48:00 Outpatient [facility] [id number] [facility] Results Test Description Test Time Test Comments Results Result Co mments Source [facility] Qnghybr9490-06-05 08:18:30* Test Item Value Reference Range Interpretation Comme nts POC Glu (test code = 0884868556) 94 mg/dL 70-99 POC Performing Location (jocelyne t code = 3975569750) C4E JE [facility] Gwlzujl2225-48-12 21:12:29* Test Item Value Reference Range Interpretation Comme nts POC Glu (test code = 1353260974) 107 mg/dL 70-99 H POC Glu Comment 1 (test code = 6071731703) Notified RN/MD POC Performing Location (jocelyne t code = 5224990684) C4W ONC Lab Interpretation (test cod e = 69188-2) Abnormal [facility] [id number] 15:53:50* Test Item Value Reference Range Interpretation Comme nts POC Glu (test code = 6740863632) 109 mg/dL 70-99 H POC Performing Location (jocelyne t code = 4510195725) C4E JE Lab Interpretation (test cod e = 78682-2) Abnormal [facility] Eckgwpm8589-90-50 12:34:53* Test Item Value Reference Range Interpretation Comme nts POC Glu (test code = 9481687612) 131 mg/dL 70-99 H POC Performing Location (jocelyne t code = 3075432766) C4E JE Lab Interpretation (test cod e = 64969-3) Abnormal [facility] Ttxgnur5426-73-33 08:21:11* Test Item Value Reference Range Interpretation Comme nts POC Glu (test code = 5529611705) 88 mg/dL 70-99 POC Performing Location (jocelyne t code = 5593805014) C4W ONC [facility] Cijnbes7144-24-44 21:49:16* Test Item Value Reference Range Interpretation Comme nts POC Glu (test code = 8870606086) 110 mg/dL 70-99 H POC Glu Comment 1 (test code = 8651709947) Notified RN/MD POC Performing Location (jocelyne t code = 9533188586) C4E JE Lab Interpretation (test cod e = 23767-9) Abnormal [facility] Uzrtnhc3741-53-12 20:45:02* Test Item Value Reference Range Interpretation Comme nts POC Glu (test code = 1425157999) 110 mg/dL 70-99 H POC Performing Location (jocelyne t code = 5776151980) C4E JE Lab Interpretation (test cod e = 04066-7) Abnormal [facility] [id number] 12:27:04* Test Item Value Reference Range Interpretation Comme nts POC Glu (test code = 7122750236) 120 mg/dL 70-99 H POC Performing Location (jocelyne t code = 8041343132) C4W ONC Lab Interpretation (test cod e = 92989-5) Abnormal [facility] Lyorocv2689-63-26 08:50:44* Test Item Value Reference Range Interpretation Comme nts POC Glu (test code = 0747246583) 102 mg/dL 70-99 H POC Performing Location (jocelyne t code = 1088909942) C4E JE Lab Interpretation (test cod e = 62811-1) Abnormal [facility] Cwueflj5023-84-51 17:46:54* Test Item Value Reference Range Interpretation Comme nts POC Glu (test code = 2388419385) 105 mg/dL 70-99 H POC Performing Location (jocelyne t code = 7556693656) C4W ONC Lab Interpretation (test cod e = 25306-4) Abnormal [facility] [id number] 12:07:30* Test Item Value Reference Range Interpretation Comme nts POC Glu (test code = 7815386699) 110 mg/dL 70-99 H POC Glu Comment 1 (test code = 7472713342) Notified RN/MD POC Performing Location (jocelyne t code = 3367522631) C4E JE Lab Interpretation (test cod e = 07134-8) Abnormal [facility]2024-11-10 08:12:28* Test Item Value Reference Range Interpretation Comme nts POC Glu (test code = 2758341760) 87 mg/dL 70-99 POC Glu Comment 1 (test code = 9285928275) Notified RN/MD POC Performing Location (jocelyne t code = 5048459882) C4E JE [facility] [id number] 21:26:28* Test Item Value Reference Range Interpretation Comme nts POC Glu (test code = 8178442090) 121 mg/dL 70-99 H POC Glu Comment 1 (test code = 2403176259) Notified RN/MD POC Performing Location (jocelyne t code = 1770913747) C4W ONC Lab Interpretation (test cod e = 36239-5) Abnormal [facility] Ygapkha1103-17-82 16:41:43* Test Item Value Reference Range Interpretation Comme nts POC Glu (test code = 0855771308) 112 mg/dL 70-99 H POC Performing Location (jocelyne t code = 9904892178) C4E JE Lab Interpretation (test cod e = 37460-0) Abnormal [facility]2024-11-09 13:20:17* Test Item Value Reference Range Interpretation Comme nts POC Glu (test code = 8596510322) 141 mg/dL 70-99 H POC Performing Location (jocelyne t code = 8461122960) C4E JE Lab Interpretation (test cod e = 49597-0) Abnormal [facility] Yfrqxnr1992-91-57 09:20:45* Test Item Value Reference Range Interpretation Comme nts POC Glu (test code = 4643541200) 92 mg/dL 70-99 POC Performing Location (jocelyne t code = 8009568351) C4W ONC [facility] Ujwcoxv2918-50-98 22:40:57* Test Item Value Reference Range Interpretation Comme nts POC Glu (test code = 9200190472) 74 mg/dL 70-99 POC Glu Comment 1 (test code = 8374691897) Notified RN/MD POC Performing Location (jocelyne t code = 8610192520) C4W ONC [facility] Eadzvip6635-13-99 17:29:02* Test Item Value Reference Range Interpretation Comme nts POC Glu (test code = 5894166405) 130 mg/dL 70-99 H POC Glu Comment 1 (test code = 0758548547) Notified RN/MD POC Performing Location (jocelyne t code = 9110190131) C4W ONC Lab Interpretation (test cod e = 72467-2) [facility] Qgjxacn8596-98-55 14:09:26* Test Item Value Reference Range Interpretation Comme nts Aspergillus galactomannan Ag (test code = 6266313730) SEE COMMENT Aspergillus galactomannan In dex (test code = 6032848279) Source A galactomannan Ag (t est code = 8359369866) SERUM EMELIA (test code = EMELIA) [facility] Ghznihwpqni7444-67-20 13:59:53* Test Item Value Reference Range Interpretation Comme nts Case Report (test code = 1499) Final Diagnosis (test code = 74051-9) w5fgaLErWAIgsWFbQX EwMVxhbnNpXHNwbHRw N2ZtfgvzWUmrJK8pCI 5veGxhdHRveWVuXGRl XrUtm6uwo376cOIxo5 xmMCBTZWdvZSBVSTt9 mPggZ27dn5F7WjgzE0 xyZWQwXGdyZWVuMFxi pOOxYHq6XXHorCQbrt EyMjQwXHBhcGVyaDE1 IDNrTU3ymdsgONkoSC spDEFgerV0NPHlqXJw C9GxIMZtQL4xrgigGI U8ISvrEWGfEFP1YmQx HPKaw4Lyslo7UcPbyT FyZFxwbGFpblxiXGZz UxWxFD2fHMTpdYopD8 ZcBKOhy9sbiwunNnwd hBB0BlcpPPTvFLZKn8 9waGFnZWFsIHNxdWFt b5HdGO46P55iVJB8rN LaQFDiXWV4ouBoEQ6i WAPxHph4dNYhp37hhR BttQWzch1ivNVzEG9e P5giccA4sBXgQT91R0 4zVRIzI3MnwUYtHvHr YXJkaWEpIHdpdGggbW lsZCBjaHJvbmljIGlu MhzdrO3xlGlnln3gaJ VkTLTeEFSjCP5eS6D1 aXZlIGZvciBpbnRlc3 OtkoJlYS1ybVCavIWe rOBsu8FjWUkyyYrjk4 lhLlxwYXJccGFyIEIu IFxjZjAgRXNvcGhhZ3 UpBAIqoJEkLEJhh3Ii uXzroREiFJ7wCMAxjF fzG1RdeREzdWKxtU78 zzXspKNxe0Diy7k8wX EdlAauLSMxYQH1vRTe EJKuBU5kDPHeHVJsqp xjZjEgLSBOZWdhdGl2 VQVfe9UjrW00CSQ1vR 0bcADcJGNihNjjf9ok YV2fMUL2y0AvVROrCO 5ccGFyXHBhcmRcYjBc Q4FqQOYipu8= Clinical Information (test code = 29) r9zlqTKpLMZovYDeUJ EwMVxhbnNpXHNwbHRw P9YpruhdDXgmJW1zUT 5veGxhdHRveWVuXGRl VwUwy9ntx803oPYji8 xmMCBTZWdvZSBVSTt9 eIrmC82cx3D0CpfrB7 5mjNGsUBA1ZXEoUBVc pJQiRUGhTLZ5RPCcqU IgV9tdAPUlHB2hnkgo EKbvNWrsXBSvpMH0NN WrhPCaW6YdVAJbXCla SAHmcci3OnRzYf3itU VyeTcyMFxwYXJkXHBs NPjyUSLtJmDtYe88GV Ejt3XhQBDvMIVezl8= Macroscopic Description (test code = 6107691159) n0iqlMVvJWHjvNVVUT IaYWUuVS2yfXnxvFr8 lOjtJKShgjW4wVWzWH cad4yoBEG7h2rlueAX OqziNJIiPK4bDHkiNZ ZxNU0uGwXrBLWaUzRw XHBhcGVydzEyMjQwXH AywPFtqHU8WTUuWY4y cmdsMTgwMFxtYXJncj T7NQDpcQTcI3TaIOFy IM5xegtvMET5SAVSAz gfOc5ayWUvxRooAvMf ZmNoYXJzZXQwXGZzd2 lzcyBTZWdvZSBVSTt9 tL7VCDYlG0JsHL2Og6 adJUXfxSSgRNA7AEnp w2peEEfnLKW8WRMxOM FgTHXiMJ0IUaVpMZL3 IlnxZOBmFCm7QMn2LF VXRZYrKku8PUB0APq7 RJMoTP0rYHafbBNlLJ toMxfnTZavT019YBdr RSUfJ0LnE4LqRMgnMx BcXGlkIDUxMDAyIFxc DXSkY0PHUVYfPFx1Cy HpMyIxDZg0GIevG7JA LYJoLLYlTXX1NkysGi E4BNv0ZIGDMz5fYjM2 UQB0CANbWKO4LacfAZ dbwALgEFdhb1MbHoCi SQIrSMuteaN4MLFnrd YyNCcsaJvlgF2jEqDk DHIDEuNMi01cgZBwdI DaNCOOp9svvb6euZIp D8ooWjVmOzfzRQCuDM pccGFyZCANClxwbGFp blxsdHJjaFxmczIyXG WnkDMHRTP6TN7zHJZM TdzswGFgHYEof2VpRN xlcGljWHNhMzAgDQpS ZWNlaXZlZCBpbiBmb3 JtYWxpbiBsYWJlbGVk IHdpdGggdGhlIHBhdG hpgjKfonEtUK8sIUJU Yw2oQVDeVBMiIRmke4 FeKSJdq7QcFHxbYXhh YmlvcHNpZXMiIGFyZS HtaRa2cFOtFWP1RJ7c u4kojFNlf67zoCF8sG BkaJVoLeEaZ41ujlHp IHRoYXQgYXJlIDAuNC T8HXLdORK0ULOoXoMf rGTmloGcW1sxSOgmkX FtYZANkNVyl6MyM5gr DV0szZPmSO37rAZkdO vlx6NpeKx4aGTyIYob IEExIGluIGEgYmlvcH B7EJIkNk2RAhtadUtr RuAzyIFeHgZ5AECuxT GrDQS8EH6boMjeRAYs DFr1GLzjESNiS6CxE1 QgXFxzZyBcXGlkIDUx OQSjJQiiDUQeC6WCUZ WoCXu8BqYfDvWsCAh3 DFfhV4RTFVViTTWuJG F0OfTjKwL2SRn6DGYW Wl2kWpH7ZXI7PIY3EP U2SndhVWudgJBcVEnv e0QkHeDyJPNwIVeihm N6VGLhepNkq6GkOBMc USXxU7xpElDlDUFQEo cgoxHtGBEaQHJbf7Oj KYq2xcTsBU4nSM0gPp MyMlxwYXIgDQpccGFy ZCANClxwbGFpblxsdH JjaFxmczIyXGVwaWNO DFK2PS6fKEXKKtpmpO BoQREwf7YvUPgsfIia CAWlEsJmt5KlWMzyfO ljWHNhMzAgDQpSZWNl vSYdUAVcfmHsl8VkVW xpbiBsYWJlbGVkIHdp dGggdGhlIHBhdGllbn RnjoQkBJ9oZOOCGv4n QRXnCQLfWT4tQEXvx1 5joZEyRNCzLUTwg3Po aWVzIiBpcyBhIHNpbm dsZSBvZiBmcmFnbWVu fNEhXzF9XD8ly9pdsM Oyg51njRB0dGYpjBHw dGhhdCBpcyAwLjMgeC DkGnDahVAjQyHbM10m MIFVoZWqb1KgU2nnYV 7rvBQqKV31nCJghTvn a5JrcBy2kNQdPEfdMQ IxIGluIGEgYmlvcHN5 RRJnYl3EZrnxeFexSs VtmUYwNiU9ERQjmAAi SWT2VG9dgBhvPRUuC4 KyI8LfxsT2FVCetdDY EmuhSYYqCF2DVCUrDI moTT5RrS== Microscopic Description (test code = 32) e2nnhOWpKKYdeAIhCi XqJJHaPEIya3yyCFVs bGFuZzEwMzNcZnRuYm wjgDVpKRKaQmVsg1bs d757wOKex5ciOXQgBn W9zCIkSPEcD87dLGVJ T220XTOfDLure9qfm3 DiMDBgdQFam6E3IJVD ZXqyVNRJZTc0iRcnG9 7ag3D5WhhrR3lwYGFr TVEmO7NjVC3lQGEuKl x5XBZ1AJW9PQYiJJGg D9WjYD2yIUBbnWVpDV m9j8spcDygRAOnFKP6 g2fnAOotfiQmAC3hhx 0xmQf8x6xuooKiOGNa CAQokAKHCUOfQ9MwbD rtIv4qbCu0fKkaXjuc UYA4Oqc4KK1gju73os o2uCueAAFizxgpFcV2 IRwgXLUhfihqDEg2SM nmZJCldLY0ENWszNDr R0HuSPTfFM3uppp4IX U8UJsnNGQuOxM9YSUh aGVhZGVyeTcyMFxmb2 96BHW4IrUmUT5cJ1Ql c8U3oZ9shUDmNRIjxZ OoOnPoEWNnxc8dsQHg ETvyv1CcTEG5czQ4iF PkoPMlBSMzYJ44Oqqu l6DvSkjpTOP6XZRtmt Ofy2Qat7pxAjZorzEe X6avN1DrPJUnQZKkXD AkWbIxzbHio8Yck0Hq jQHarJp9b7vnVDQaGW BreLjkc4qcVAD5BTYk G4X8bMRgh0ncCClnZA PtoZH1atV3FYUymZZb H4WddS7tZOZqIS3ene i1v7ncLNA7BAnaRLHa JrC3aaX1LSEhgXPxLH WljLooINfey129BUJ5 MmGxAPLzv8UgB3RfcL kcI09kpAakL86mZLUv eXwuhA1orNmqlK7xBo BcZnMyNFxxbFxwbGFp blxmMVxmczIyXGxhbm bdZHIcDNanP0vsSeAy SOPyiKkjCQtld4HuHE YxXGZzMjIgQSBtaWNy d7Zbu8ReBgWlqQXlsZ 5hdGlvbiBoYXMgYmVl dlXzAYMyx1PuVRGpMP 1vKRPkVHTwdV5peQ6b dyTtwxYinL1bu5Ibb9 JhdGVkIGluIHRoZSBk qRCybr6onHAyHVNbcp GkBFOtDMGyk2LdyYh9 ZSBhbmQgbmVnYXRpdm ReV57bpUFtvDCuEp5y PQZjoLAizWZ9r8NvSV 3tK6TlCKJaRIMgmW33 en8hgDH3a8SlMN9uC6 FyCIZ9UKuuiyeojHHe nCHmXi7qfDOyEPRefa T8bDxvOUPql8HaJKho dmUgYmVlbiByZXZpZX dlZCBhbmQsIHVubGVz yzHdcZiowslfz5Eico 90ZWQsIGhhdmUgYmVl kwIqw8CiNLF2coAkOV ZdpADir7GyqZU5QH3x cGFyfQ== Non-Clinical Documentation (test code = 2082175474) n7gnqXPvYEImyBNwFB EwMVxhbnNpXHNwbHRw A7VuclmcWHtcCZ2nKD 5veGxhdHRveWVuXGRl ErPtc6xgc185oEAdi7 xmMCBTZWdvZSBVSTt9 nXuhO76hc6U1CwwyK4 xyZWQwXGdyZWVuMFxi pNBwMSy4EELotYUozr EyMjQwXHBhcGVyaDE1 BPZkXB8vclibBPuyPJ ttGQKtokP4LRJooFZj Q9RtTSTtKB1aupvvKS M3UXjqOAKzGCV5RqLj KQVvr1Tisyj9HsHstN FyZFxwbGFpblxmczIw XGNmMSBUaXNzdWUgcH EaQ0Tka8qkJhWuewDy q3qdZTYssKZybZOqZB Euu20ukNDuKe5mgJMp JPM6IH5ffK7uxUYhXE rmfx5zyd3eNYYVKJMu pAduZWOPJLCpGS4kbU x8TIzsNZFrcnWVwWZu s6Czx6IbEnTvsLZehY 5hdGlvbiBhbmQgZGlh U91zt6raJLBlhfDtfr 7zEFZdqAPHYO4eorbm nORQBJOeVZ1lC2KCGU RniXOnLA0bAP9QINen w0BdrYQzCjdtHQFvZm LjCVEUFX3gfE6dTNue nQU0l07wQMNALKl3WX MwLlxwYXJ9 Teaching Physician Statement (test code = 3244291972) i4usrEWpJIBlvCWyQa UjSEVjOHUsg7jwWTIo bGFuZzEwMzNcZnRuYm xyzMZaRAUnVkSkf8bz w203ePXan5glVOIjSy J9bSUcDZRkZ93tFIJK W544NALeWBwno1xkl4 GyFFTfbHZzi9Y0YVWY zbzciOf5tVrcA74uq1 H8NbtsL9iyMGCpMVLj C9UoRW6nMEObXnu0FI A8GMV4RAFlAMIsK8Nf EG6fHRGorXKjOKw5u6 ajdOycQJPxQIT3d3ca TGxdvqTmAY6vqx1kcN q1v3njokXoVXIiKGIi vOYPFLZeL5MglJuhDw 4yaWl5fVpgXrpsGZW3 Jru9EL6ogm97pgr2jN jhOWVmnnjzDtE2LRyc MAKhffooZIf8FNrkOB YooEZ6LYRgtFHrW0Vl BHGuKD2buoa4BQM6NI zmXBWmEkD1WHWisEZz HMArfLbhJUqyu438QA E5MgAiRH4jO2Oss6D8 aF1wgIArHOTjdLLbIz XgGEXkuy0dpRKgJTav n2GtVVB1clU8yUPgiA KkQZNnMF86Mlkjp7Ce WfcoMDF7JKDpdqRge0 Uix7csQpTqmeFkX1ek T3YzHZGjEOLmYISvVa RbzoWkv8Bdb4VzbLHw bAm8i0zzIGPeSNZjiO gta1uzZFD5UBJjV9I3 yDVvj1peVVfoIUIzuO T6xuG2UWZmbKSiU7Nq jQ1lJVBdZN4hnld9b3 dpDDB5HRbtOYYcFjR5 saO5XJNgzMJyIGFhhG nrZQmfw083WXG7HwPy YDSxd6VtJ4OthUhiN7 0vdQtgR83mDAOuxSjf uS3bnCwnbU4eHwHzUo MyNFxxbFxwbGFpblxm MVxmczIwXGxhbmcxMD GnAVkwD0kbXhSkCEBr yYdsVFcmq8UcRVQeDB XsXeBqJrpgoZT6MKKe RFVkc11ggJt0YVCxac xmq6GxSCXlIPQjRXIl ZGVudCdzIHByZWxpbW mjSLQ6PGpdlDUocDCu mYQ0sG0iTBKcMYPxaD fes0LxU7dhQF3wwVNg uJTaDCYtt76vROFhMU BoYXZlIHBlcnNvbmFs bHkgaXNzdWVkIHRoaX BbscHll3N6DlIxxLPt fQ== [facility] Bvvlweh9670-96-37 12:53:09* Test Item Value Reference Range Interpretation Comme nts POC Glu (test code = 6390798594) 123 mg/dL 70-99 H POC Glu Comment 1 (test code = 9499604648) Notified RN/MD POC Performing Location (jocelyne t code = 1765019640) C4W ONC Lab Interpretation (test cod e = 98758-3) Abnormal [facility] Hpujoit4868-88-04 08:27:18* Test Item Value Reference Range Interpretation Comme nts POC Glu (test code = 0634490432) 135 mg/dL 70-99 H POC Glu Comment 1 (test code = 3464550099) Notified RN/MD POC Performing Location (jocelyne t code = 2666531198) C4W ONC Lab Interpretation (test cod e = 99419-3) Abnormal [facility] Spejker9982-49-30 07:22:21* Test Item Value Reference Range Interpretation Comme nts POC Glu (test code = 4886228826) 106 mg/dL 70-99 H POC Performing Location (jocelyne t code = 4681442662) C4E JE Lab Interpretation (test cod e = 37823-1) Abnormal [facility] Jpictxr5729-71-54 20:43:59* Test Item Value Reference Range Interpretation Comme nts POC Glu (test code = 0959147691) 117 mg/dL 70-99 H POC Performing Location (jocelyne t code = 6418826382) C4E JE Lab Interpretation (test cod e = 62339-3) Abnormal [facility] Arterial Blood Gas and Basic Bsvuj5245-15-04 01:31:07* Test Item Value Reference Range Interpretation Comme nts POC A Temp (test code = 4216361618) DegC POC A Source (test code = 2010509891) ART POC A pH (test code = [...] POC A Hgb Tot (test code = 15869-3) 9.6 g/dL 13.7-17.5 L POC A Hct (calc) (test code = 69743-2) 29 % 40.1-51.0 L POC A Na (test code = 21340-8) See_Comment L [Automated messa ge] The system which generated this result transmitted reference range: 135 - 145 mEq/L. The reference range was not used to interpret this result as normal/abnormal. POC A K (test code = 5130661) See_Comment L [Automated messa ge] The system which generated this result transmitted reference range: 3.5 - 5.1 mEq/L. The reference range was not used to interpret this result as normal/abnormal. POC Chloride (test code = 8483360) See_Comment [Automated messa Servoy] The system which generated this result transmitted reference range: 95 - 109 mEq/L. The reference range was not used to interpret this result as normal/abnormal. POC A Glu (test code = 2339-0) 97 mg/dL 70-99 POC A LA (test code = 224) See_Comment [Automated 1CLICKa Servoy] The system which generated this result transmitted reference range: 0.5 - 2.2 mMol/L. The reference range was not used to interpret this result as normal/abnormal. POC A Ca Ion (test code = 45472-7) See_Comment [Automated 1CLICKa Servoy] The system which generated this result transmitted reference range: 1.05 - 1.25 mMol/L. The reference range was not used to interpret this result as normal/abnormal. POC A Ca Ion (7.4) (test code = 0207452470) 1.21 mmol/L 1.05-1.25 POC Performing Location (test code = 2394688765) [facility] Lab Interpretation (test code = 34570-6) Abnormal [facility] Oxsocta3230-54-98 18:31:24* Test Item Value Reference Range Interpretation Comme [facility] POC Glu (test code = 0495608666) 95 mg/dL 70-99 POC Glu Comment 1 (test code = 0010541960) Notified RN/MD POC Performing Location (jocelyne t code = 7545990396) [facility] Vjrfkmz7421-63-38 12:08:15* Test Item Value Reference Range Interpretation Comme nts POC Glu (test code = 9416027693) 115 mg/dL 70-99 H POC Glu Comment 1 (test code = 1611611310) Notified RN/MD POC Performing Location (jocelyne t code = 6286722051) [facility] Lab Interpretation (test cod e = 10491-8) Abnormal [facility] Slhealm9129-66-10 06:02:32* Test Item Value Reference Range Interpretation Comme nts POC Glu (test code = 0722462279) 116 mg/dL 70-99 H POC Performing Location (jocelyne t code = 7056422403) [facility] Lab Interpretation (test cod e = 78588-8) Abnormal [facility] Bjhsztp5546-33-67 17:36:04* Test Item Value Reference Range Interpretation Comme nts POC Glu (test code = 2696866479) 124 mg/dL 70-99 H POC Glu Comment 1 (test code = 7624136338) Notified RN/MD POC Performing Location (jocelyne t code = 2386037135) [facility] Lab Interpretation (test cod e = 96385-6) Abnormal [facility] Zciatxu3808-48-66 11:29:34* Test Item Value Reference Range Interpretation Comme nts POC Glu (test code = 0574722669) 119 mg/dL 70-99 H POC Performing Location (jocelyne t code = 6507064503) [facility] CCU Lab Interpretation (test cod e = 73285-3) Abnormal [facility] Mcvbhdq6085-56-69 23:29:51* Test Item Value Reference Range Interpretation Comme nts POC Glu (test code = 1504689852) 137 mg/dL 70-99 H POC Glu Comment 1 (test code = 6560823849) Notified RN/MD POC Glu Comment 2 (test code = 1723703754) Cleaned Meter POC Performing Location (jocelyne t code = 8552305142) [facility] Lab Interpretation (test cod e = 24244-2) [facility] pjelmfyk3363-54-07 11:04:22* Test Item Value Reference Range Interpretation Comme nts RVOT Vmean (test code = 3266009796) 0.78 m/s LA Vol I (A4C) BSA (test code = 3614113270) 25.2 ml/m2 LA Vol I BSA (test code = 6396867809) 37.4 ml/m2 LVOT Vmax/AV Vmax (test code = 9086430413) 0.91 {ratio} Ao Root diam diastole (test code = 7875065278) 28 mm LVOT Vmean (test code = 8482849678) 0.75 m/s PV mn jomar (test code = 7716172938) 1 m/s LA area A4C (test code = 1743290659) 17.7 cm2 LA area A2C (test code = 3471974353) 23.3 cm2 MV max jomar (test code = 9320891546) 0.942 cm/s TR pk grad (test code = 8270015089) mmHg TAPSE (test code = 0735044562) 28 mm LA ESV A2C (test code = 6064172402) 75.499906112378771 mL LA ESV A4C (test code = 8989362348) 75.890236834849728 mL MV mn jomar (test code = 1022664997) 0.591 m/s MV A pk jomar (test code = 4736114006) 0.8 m/s MV VTI (test code = 3822399528) 21.5 cm MV E pk jomar (test code = 9441476789) 0.88 m/s PV mn grad (test code = 5114544066) mmHg MV pk grad (test code = 6681967611) mmHg AV pk grad (test code = 8453301751) mmHg LV stroke vol (test code = 0716531421) 86 ml RVOT VTI (test code = 8084180103) 22.9 cm RVOT pk jomar (test code = 1696384973) 1.19 m/s AV VTI (test code = 4607003690) 23.6 cm AV pk jomar (test code = 7289454718) 1.2 m/s LVOT VTI (test code = 1285042465) 22.5 cm LVOT pk jomar (test code = 1688651401) 1.09 m/s LVOT area (test code = 2416896407) 3.8 cm2 LVOT diam (test code = 6630575030) 22 mm MV DT (test code = 6441751597) 176 ms MV e' lateral jomar (test code = 7844172245) 13.7 cm/s MV E/A ratio (test code = 3261199500) PV pk grad (test code = 7293084555) mmHg MV area cont eq (test code = 5224343030) 3.98 cm2 MV mn grad (test code = 7124077034) mmHg LVOT pk grad (test code = 7110454841) mmHg AV mn grad (test code = 0582445579) mmHg RVOT mn grad (test code = 1145291618) mmHg RVOT pk grad (test code = 0830186378) mmHg MV E/e' septal (test code = 9037170238) TR pk jomar (test code = 1724122163) 2.07 m/s AV area pk jomar (test code = 4218211952) 3.45 cm2 AV area cont VTI (test code = 8948861768) 3.62 cm2 LVOT mn grad (test code = 3659532881) mmHg LV ESV 3D (test code = 6110151522) 117 cm3 LV EDV 3D (test code = 6137312801) 276 ml LVEF 3D (test code = 2832185373) 58 % AV mn jomar (test code = 6631936984) 0.93 m/s LVPWd (test code = 4403338422) 11 mm LA size (test code = 0413526942) [address] junction (test code = 8710994937) 24 mm Fractional Shortening 2D (test code = 2530205435) 23 % LVIDs (test code = 5804521748) 36 mm IVSd (test code = 5892554817) 10 mm LVIDd (test code = 1005505885) 46 mm PV pk jomar (test code = 6197511774) 1.42 m/s PV VTI (test code = 1354497) 25.7 cm MV E/e' lateral (test code = 2193056) MV e' septal jomar (test code = 8637889) 7.62 cm/s LV ESV 2D (test code = 0826575) 52.6 mL LV EDV 2D (test code = 2306344) 96.3 mL IVSd 2D (test code = 6903150) 10.4 cm BSA (test code = 3902945601) 2.02 m2 LV RWT 2D (test code = 7190817047) LV mass index 2D (test code = 5255974888) 84.6 g/m2 LV GLS (test code = 0471203143) -16.9 % Radiology Study observation (narrative) (test code = 88783-8) EMELIA (test code = EMELIA) [facility] EpicElectrocardiogram, 58-bwxd7434-25-04 10:46:23* Test Item Value Reference Range Interpretation Comme nts Ventricular Rate (test code = 3051554252) BPM Atrial Rate (test code = 9055587089) BPM LA Interval (test code = 1063657184) 194 ms QRS Duration (test code = 9748524022) 80 ms QT/QTc (test code = 2688336324) 430 ms QTc Calculation (test code = 3829834066) 495 ms P-[place] (test code = 9592670168) degrees R-[place] (test code = 8201465420) degrees T-[place] (test code = 8760962646) degrees EMELIA (test code = EMELIA) PXN (test code = PXN) [facility] 12 triw4304-33-96 09:43:40* Test Item Value Reference Range Interpretation Comme nts Ventricular Rate (test code = 8530152470) BPM Atrial Rate (test code = 0536047832) BPM LA Interval (test code = 6047352794) 192 ms QRS Duration (test code = 3824422513) 100 ms QT/QTc (test code = 7821129054) 396 ms QTc Calculation (test code = 5395158443) 467 ms P-[place] (test code = 7080226489) degrees R-[place] (test code = 4297992419) degrees T-[place] (test code = 3702805991) degrees EMELIA (test code = EMELIA) PXN (test code = PXN) [facility] Arterial Blood Gas and Comprehensive [id number] 23:21:39* Test Item Value Reference Range Interpretation Comme nts POC A Temp (test code = 1023483399) DegC POC A Source (test code = 1609406800) ART POC A pH (test code = [...] A O2 Sat (shona) (test code = 2667250563) 92.8 % 95.0-100.0 L POC A Oxyhgb (test code = 9336947543) 91.2 % 95-100 L POC A Carboxy (test code = 1569856041) 0.8 % Non-Smoker: 0.0-2.0 Smoker: 0.0-9.0 Reference RangeNon-Smoker 0.0-2.0 ? ?Smoker 0.0-9.0 POC A Methgb (test code = 2615-3) 0.8 % 0.0-1.4 POC A Hgb Tot (test code = 36435-6) 10.6 g/dL 13.7-17.5 L POC A Hct (calc) (test code = 63555-2) 32 % 40.1-51.0 L POC A Na (test code = 15730-8) See_Comment L [Automated messa ge] The system which generated this result transmitted reference range: 135 - 145 mEq/L. The reference range was not used to interpret this result as normal/abnormal. POC A K (test code = 3816444) See_Comment [Automated messa ge] The system which generated this result transmitted reference range: 3.5 - 5.1 mEq/L. The reference range was not used to interpret this result as normal/abnormal. POC Chloride (test code = 8679764) See_Comment [Automated messa ge] The system which [...] POC A Ca Ion (test code = 82782-7) See_Comment [Automated messa ge] The system which generated this result transmitted reference range: 1.05 - 1.25 mMol/L. The reference range was not used to interpret this result as normal/abnormal. POC A Ca Ion (7.4) (test code = 4204265012) 1.15 mmol/L 1.05-1.25 POC Performing Location (test code = 7938888412) [facility] CLI Lab Interpretation (test code = 98959-1) [facility] Ciqn7147-21-65 06:38:00* Test Item Value Reference Range Interpretation Comme nts Partial Thromboplastin Time (test code = PTT) 26.8 Seconds 23.9-32.8 N Comprehensive Metabolic [id number] 06:38:00* Test Item Value Reference Range Interpretation [...] = ALP) 77 U/L 46-116 N Lipid [id number] 06:38:00* Test Item Value Reference Range Interpretation [...] ratio 0.0-5.0 N Complete Blood Count w/o [id number] 06:38:00* Test Item Value Reference Range Interpretation [...] code = NRBCP) 0 % Prothrombin Time [id number] 06:38:00* Test Item Value Reference Range Interpretation [...] Heart, Intracardiac Thrombosis. Complete Blood Count w/o Eybb7399-59-22 07:52:00* Test Item Value Reference Range Interpretation [...] code = NRBCP) 0 % Prothrombin Time [id number] 07:52:00* Test Item Value Reference Range Interpretation [...] 3.5 Mechanical Heart, Intracardiac Thrombosis. Comprehensive Metabolic Huhed0815-87-74 07:52:00* Test Item Value Reference Range Interpretation [...] = ALP) 83 U/L 46-116 N Lipid Rxiog4658-40-53 07:52:00* Test Item Value Reference Range Interpretation [...] = CHLHDL) 4.7 ratio 0.0-5.0 N Glycosylated Pvhnucqusb9960-94-55 00:43:00* Test Item Value Reference Range Interpretation Comme nts HBA1c (test code = HBA1C) 5.3 % 4.8-5.9 N CBC with Igssbwpmhwgg8779-27-02 00:09:00* Test Item Value Reference Range Interpretation [...] code = ALYMPH) 2.0 K/cumm 0.5-4.6 N [place] Abs (test code = AMONO) 0.5 K/cumm 0.0-1.2 N Eos Abs (test code = AEOS) 0.43 K/cumm 0.00-0.74 N Baso Abs (test code = ABASO) 0.1 K/cumm 0.00-0.21 N Lipid Djceenk4844-63-52 23:40:00* Test Item Value Reference Range Interpretation Comme nts Cholesterol (test code = CHOL) 143 mg/dL 0-200 N Triglycerides (test code = TRIG) 117 mg/dL 9-200 N HDL (test code = HDL) 41 mg/dL 40-60 N Chol/HDL (test code = CHOLPHDL) 3.5 Ratio 0.0-5.0 N LDL, Calculated (test code = LDLC) 79 mg/dL 0-130 N (NOTE)RISK OF HEART DISEASEPublished by [place] Citizen Heart AssociationAnalyte Optimal Boderline Increased RiskCHOL <200 200-239 >240TRIG <150 150-199 >200HDL Male: >60 <40HDL Female: >60 <50LDL <100 130-159 >160LDL NEAR OPTIMAL IS 100-129 VLDL (test code = VLDL) 23 mg/dL 5-40 N LDL/HDL (test code = LDLPHDL) 2 Comprehensive Metabolic [id number] 23:40:00* Test Item Value Reference Range Interpretation [...] race is not provided, and the patient isAfrican-[place] Citizen, multiply by 1.212. If sex is not [...] Evaluation: Improved Interventions and Recommendation: Diet per STORE HAND Continue Ensure TID chocolate Order snack per pt request: peach and vanilla yogurt (pm) NUTRITION RISK: Low, in 8-10 days Next Date for Nutrition Services Follow Up: 02/05/24 Communication : verbally STORE [facility] Current Nutrition: Dietary Orders (From admission, onward) Start Ordered 01/24/24 1012 Adult Diet Dysphagia; 2 - Mildly Thick (Seatac); 6 - Soft & Bite Sized (Dysphagia Advanced); No Diet effective now Question Answer Comment Diet type Dysphagia Liquid Consistency or Liquid Type: 2 - Mildly Thick (Seatac) Modify Texture or Food Level (Dysphagia): 6 [...] un-thickened water for the past 5 days. STORE HAND at bedside re-educated pt the risk of aspiration and PNA of taking liquid consistency that's not recommended by STORE HAND. Pt had diarrhea in the past few [...] 82.6kg Body mass index is 26.11 kg/m?. [place] body weight: 73 kg (160 lb 15 [...] 1817 kcal/day (kcal/day) Energy Needs Upper Range: 2065 kcal/day Temp: 36.7 ?C (98.1 ?F) Estimated Protein Needs (g/kg) Protein Lower Range: 1.2 (g/kg) Protein Upper Range: 1.5 (g/day) Protein Lower Range: 99 g/day (g/day) Protein Upper Range: 124 g/day Fluid Needs Fluid Needs Method: mL/kg/day; Or per MD (mL/kg) Fluid Needs: 25 Nutrition Physical Findings per dispatcher motor vehicle: Orientation Level: Oriented X4 O2 Delivery Method: [...] Status: No change from prior exam (01/25) [place]: Iaod-hf-kdsvexyl deficit: Slight depression Clavicle Bone Region: Rmiv-ri-ndzfancy deficit: More prominent clavicle bone, less prominent muscle when palpated Patellar Region: Gsdz-an-ssaafheg deficit: Knee cap more prominent Calves-Posterior Region: No deficits noted Assessment of Fat Status Date Assessed: 01/19/24 Fat Status: No change from prior exam (01/25) Orbital Region: Vgii-kf-kwwjqpma deficit: Somewhat hollow look, slightly dark circles Cheek Region (Buccal Fat Pads): No deficits noted: Full, round, filled-out cheeks / Ample bounce back of fat pads Basic Information: Admitting diagnosis: Arrhythmia [I49.9] Chest pain, unspecified type [R07.9] Clinical course: Problem List VT (ventricular tachycardia) ([facility]) VF (ventricular fibrillation) (CMS/HCC) (HCC) Anxiety Depression Multifocal pneumonia Cardiac defibrillator in situ Carotid artery stenosis Mixed hyperlipidemia Coronary artery disease involving havasupai coronary artery 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 pectoris Hyponatremia Hypokalemia Hypocalcemia [...] Cox MS, RD, LD Thursday-Thursday office phone [phone] Thursday-Thursday pager [phone] Weekend/On-call pager [phone] NCING ANALYST Nutrition [facility] 2024-01-21 15:33:46 Associated Order(s): IP CONSULT TO SOCIAL WORK SW following up on inpatient consult. SW met with pt at bedside to discuss MPOA paperwork. Pt would like to wait to complete until his niece Rito visits. SW will revisit with pt tomorrow. Consult will be marked as completed. Sherri Garcia LMSW Mechanical Manufacturing Engineer, Internal Medicine Case Management Department [phone] NCING ANALYST [facility] 2024-01-21 11:07:35 Pulmonary Consultation Note History Of [...] Pt admitted to CCU and followed by [facility] for multifocal pneumonia with cavitary lesions, and acute hypoxic respiratory failure. He has been treated with cefepime/flagyl for PNA x 3 days Per cardiology, recommendations for medical management of VT with amiodarone taper, and outpatient evaluation for VT ablation and PVI. Pt underwent FEES on 01/17 showing mild to moderate oropharyngeal dysphagia, with STORE HAND recommendations for NPO with alternate means of [...] not want to be discharged to a jail. He would like to enjoy at least [...] from last 7 days Lab Units 01/21/24 01201/17/24 2319 POC PH, ARTERIAL 7.51* 7.46* POC PCO2, ARTERIAL mmHg 31* 34* POC PO2, ARTERIAL mmHg 31* 66* POC HCO3, ARTERIAL mMol/L 25 24 POC SO2, ARTERIAL (CALC) % 67.7* 93.8* POC SO2, ARTERIAL % -- 92.8* POC BASE EXCESS, ARTERIAL mMol/L 2 1 Results from last 7 days Lab Units 01/21/24 0132 01/21/24 0128 01/20/24 0213 01/19/24 0252 WBC 10*3/uL 18.74* -- 15.03* 14.61* HEMOGLOBIN g/dL 9.1* -- 8.7* 7.9* POC HEMATOCRIT, ARTERIAL (CALC) % -- 29.0* -- -- HEMATOCRIT % 29.0* -- 25.4* 23.8* PLATELETS 10*3/uL 842* -- 706* 566* Results from last 7 days Lab Units 01/21/24 0132 01/21/24 0128 01/20/24 1817 01/20/24 0600 01/20/24 0213 01/19/24 1126 01/19/24 0252 POC SODIUM, ARTERIAL mEq/L [...] Nieves MD Fellow Alonzo Scott MA [employer] Aircraft Accessories Mechanic ASA Score: 4 Mallampati Score: II XR [...] antrum. This report was dictated by a Compositor Apprentice/Fellow/MIRACLE: Deborah Matute RES, MD 01/19/2024 11:05 I [...] ultrasound. This report was dictated by a Compositor Apprentice/Fellow/MIRACLE: Gisele Alexander RES 01/18/2024 14:54 I have [...] above. This report was dictated by a Compositor Apprentice/Fellow/MIRACLE: Gina Murphy RES, MD 01/18/2024 11:53 I [...] fracture. This report was dictated by a Compositor Apprentice/Fellow/MIRACLE: Magaly Landry RES, MD 01/18/2024 8:18 I [...] created. IV Contrast and DLP: Refer to MAR/chief nuclear medicine technologist documentation. FINDINGS: Lines, tubes and hardware: [...] RES. This report was dictated by a Compositor Apprentice/Fellow/MIRACLE: Virginia Rogers RES 01/17/2024 18:08 I have [...] Amaya. Reg Edgar MD Internal Medicine PGY-3 [employer] [facility] Cosigned by Julian Amaya MD at 01/21/2024 4:38 PM FINANCING ANALYST NCING ANALYST NCING ANALYST Associated attestation - Julian Amaya MD - 01/21/2024 4:38 PM FINANCING ANALYST Attending note: I personally saw and examined [...] clinical worsening. High complexity. Julian Amaya MD Superintendent Jobmaterial handler 1st shift Department of Pulmonary, Critical Care and Sleep Medicine [facility] Internal Medicine [facility] 2024-01-20 16:51:48 GASTROENTEROLOGY INPATIENT CONSULT SERVICE CONSULT NOTE Consult requested by Dr Tiffany Toney MD Consult order placed by primary team [...] stenosis Mixed hyperlipidemia Coronary artery disease involving havasupai coronary artery 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 pectoris Hyponatremia Hypokalemia Hypocalcemia [...] Varghese MD Gastroenterology & Hepatology l PGY-4 [facility] 01/20/2024 4:55 PM Cosigned by Chintan Mendoza MD at 01/20/2024 8:42 PM FINANCING ANALYST NCING ANALYST NCING ANALYST Associated attestation - Chintan Mendoza MD - 01/20/2024 8:42 PM FINANCING ANALYST I reviewed the resident's note and agree with the documented findings and plan of care.Elderly male with dysphagia and weight loss. Plan for EGD tomorrow to exclude UGI pathology. Chintan Mendoza MD, KIM, DWIGHT TONG and Tammy Harding material handler 1st shift Chief, Gastroenterology, Hepatology, and Nutrition [facility] Gastroenterology [facility] 2024-01-20 10:38:48 Associated Order(s): Inpatient consult to Supportive Medicine Supportive Medicine Initial Consult Note Inpatient consult to Supportive Medicine Performed by: Cher Clemente DO Authorized by: Vanessa Reyes MD Principal Problem: VT (ventricular tachycardia) (HCC) Reason for Consult: goals of care discussions Requesting Clinician: Tiffany Toney MD History Of Present Illness Esequiel Chew [...] Pt admitted to CCU and followed by [facility] for multifocal pneumonia with cavitary lesions, and acute hypoxic respiratory failure. Per cardiology, recommendations for medical management of VT with amiodarone taper, and outpatient evaluation for VT ablation and PVI. Pt underwent FEES on 01/17 showing mild to moderate oropharyngeal dysphagia, with STORE HAND recommendations for NPO with alternate means of [...] surgery. Pt reports taking tramadol 50mg and Cameron 10 at home for at least 15 years, reports taking 2-4 tablets of tramadol or Cameron per day. Pt reports alternating tramadol and Cameron as needed for pain, would take 4 tablets of tramadol in addition to 4 tablets of Cameron 10 per day but sometimes would take 2 tablets of tramadol in addition to 2 tablets of Cameron 10 per day depending on his pain [...] and Living Will: Not Received Power of City Planning Engineer: Not Received Medical Power of City Planning Engineer/Advance Directive: No AD/MPOA documentation in [employer]. Pt reports he previously completed MPOA documentation for adalberto Donovan but does not know where the document is, does not think Rito has a copy of the document. Social History Social History Tobacco Use Smoking status: Former Types: Cigarettes Passive exposure: Never Smokeless tobacco: Never Substance Use Topics Alcohol use: Not on file Social History Substance and Sexual Activity Drug Use Never Living situation: Pt reports living alone in a house. Self-identifed support system: Pt reports he has a brother who lives in [place], sister and niece who live in [place]. Pt is and does not have any [...] Pt admitted to CCU and followed by [facility] for multifocal pneumonia with cavitary lesions, and acute hypoxic respiratory failure. Per cardiology, recommendations for medical management of VT with amiodarone taper, and outpatient evaluation for VT ablation and PVI. Pt underwent FEES on 01/17 showing mild to moderate oropharyngeal dysphagia, with STORE HAND recommendations for NPO with alternate means of [...] Care Planning - No AD/MPOA documentation in Epic. Pt reports previously completing MPOA documentation for his niece Rito to be his MPOA, but does not [...] that a life of dependence in a jail would not be acceptable to him, and that he would not want to be intubated if he is at end-of-life. Discussed with pt Advance Directives and MPOA documentation, discussed with pt to further discuss his wishes in detail with his niece Rito who he wants to be his MPOA. Pt amenable to completing Advance Directives and Medical Power of City Planning Engineer documentation at this time. - Recommend SW consult for assistance with completing AD/MPOA documentation. Recommendations # Pain, Chronic - MEDD: 22.5 - Current pain regimen: gabapentin 300mg at bedtime, Cameron 5 q6h PRN for moderate pain, Cameron 10 q6h PRN for severe pain - Continue current pain regimen - [place] PDMP system reviewed; no patterns suggestive of abuse or diversion noted - Maintain naloxone readily available at bedside in case of respiratory depression # Dysphagia - STORE HAND following, appreciate recommendations - Recommend further evaluation/workup [...] at bedside as well, if possible. Cher Clemente DO Supportive Medicine Fellow Thank you for the opportunity to participate in the care of this patient. We are available as needed, please contact us as below. To contact us, please message our team through Epic: [facility] Supportive and Palliative Medicine Weekday (weekdays 7am to 4pm) [facility] Supportive and Palliative Medicine Weeknight/Weekend/Holiday (all other times) Cosigned by Kanika Desai MD at 01/22/2024 4:12 PM FINANCING ANALYST NCING ANALYST NCING ANALYST NCING ANALYST NCING ANALYST Associated attestation - Kanika Desai MD - 01/22/2024 4:12 PM FINANCING ANALYST ATTENDING ATTESTATION I have seen and examined [...] would be open to discussion. Life in jail is not acceptable quality of life. HE [...] us, please message our team through Epic: [facility] Supportive and Palliative Medicine Weekday (weekdays 7am to 4pm) [facility] Supportive and Palliative Medicine Weeknight/Weekend/Holiday (all other times) Hospice Services [facility] 2024-01-19 09:43:53 Associated Order(s): IP CONSULT TO [...] Advance diet as medically feasible and Per STORE HAND recommendations 3: DIET: Oral supplement(s) : Ensure Enlive TID chocolate when diet advances NUTRITION RISK: Moderate, in 5-7 days Next Date for Nutrition Services Follow Up: 01/26/24 Communication : SANYA Current Nutrition: Orderered Tube Feeds and Supplements Medication Dose Route Frequency Provider Last Rate Last Admin Ensure Enlive liquid 1 Container 1 Container Oral TID with meals Valencia Gil NP 1 Container at 01/18/24 1723 Enteral Free water Flush 30 mL 30 mL Nasogastric q4h Vanessa Reeys MD 30 mL at 01/19/24 1200 peptamen [...] 82.6kg Body mass index is 26.11 kg/m?. [place] body weight: 73 kg (160 lb 15 [...] (Calculated): 2065 mL/kg/day Nutrition Physical Findings per dispatcher motor vehicle: Orientation Level: Disoriented to time O2 Delivery [...] Assessment of Muscle Status Date Assessed: 01/19/24 [place] Region: Bqji-lx-oycaumfu deficit: Slight depression Clavicle Bone Region: Zkmq-vp-aspryohz deficit: More prominent clavicle bone, less prominent muscle when palpated Patellar Region: Rnvo-so-kfefiryt deficit: Knee cap more prominent Calves-Posterior Region: No deficits noted Assessment of Fat Status Date Assessed: 01/19/24 Orbital Region: Nqbh-zf-bmzgggsb deficit: Somewhat hollow look, slightly dark circles [...] stenosis Mixed hyperlipidemia Coronary artery disease involving havasupai coronary artery 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 pectoris Hyponatremia Hypokalemia Hypocalcemia [...] Kaye Card MPH RD LD Thursday-Thursday pager [phone] Weekend/Oncall pager [phone] [facility] 2024-01-19 08:05:18 Brief EP Plan of Care Note: Echo reviewed, with normal EF. Recommend continued medical management of VT with amiodarone taper. Consider initiating beta ronen as tolerated. Will follow up outpatient for evaluation of VT ablation and PVI. Continue workup and management of pulmonary cavitary lesions per primary team. Oseas Isbell MD Investigation Lieutenant EP will sign off at this time. Cosigned by Kay Schrader MD at 01/22/2024 10:32 PM FINANCING ANALYST NCING ANALYST NCING ANALYST Operations/Dispatch Physician Darryn Youssef 2024-01-18 10:27:10 Associated Order(s): IP CONSULT TO ELECTROPHYSIOLOGY Electrophysiology (EP) Consult Note Referring Provider: No ref. provider found Reason for Consult: Consult for ventricular tachycardia/ICD shocks History of Present Illness Susan Parker is a 73-year-old male with a history of CAD status post PCI last in 2004, reported heart failure with reduced ejection fraction (?), NE presenting for dizziness and lightheadedness followed by [...] very recent cardiac catheterization with his primary development trainer which showed mild nonobstructive coronary artery disease with patent stents, left for medical management. History reviewed. No pertinent surgical history. No family history on file. Social History Substance and Sexual Activity Drug Use Not on file Tobacco Use: Low Risk (01/16/2023) Received from [facility] Nephrology Patient History Smoking Tobacco Use: Never [...] Value Ventricular Rate 80 Atrial Rate 80 LA Interval 194 QRS Duration 80 QT/QTc 430 QTc Calculation 495 P-Upland 71 R-Upland 48 T-Upland 57 Narrative SINUS RHYTHM WITH PREMATURE SUPRAVENTRICULAR [...] heart failure with reduced ejection fraction (?), NE presenting for dizziness and lightheadedness followed by an ICD shock. EP consulted for ventricular tachycardia and ICD shocks. # Monomorphic ventricular tachycardia # Paroxysmal atrial fibrillation (based on ICD EGM, [id number] of 3) Recommendations: -Continue IV amiodarone per [...] follow. Oseas Isbell MD Cosigned by Kay Scharder MD at 01/18/2024 10:05 PM FINANCING ANALYST NCING ANALYST NCING ANALYST NCING ANALYST Associated attestation - Kay Schrader MD - 01/18/2024 10:05 PM FINANCING ANALYST I have seen and examined the patient with Dr. Isbell on 01/18/24. I have reviewed all the clinical information, lab investigation and imaging data. I agree with the above findings, assessment and plan. Continue medical therapy for VT . 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 Good candidate for VT ablation for scar modification as outpatient once his lung infection subside. [facility] 2024-01-17 21:52:50 Consults History Of Present Illness [...] stenosis Mixed hyperlipidemia Coronary artery disease involving havasupai coronary artery 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 pectoris Hyponatremia Hypokalemia Hypocalcemia [...] episodes of SVT noted >> AP <1%, BUSINESS APPLICATIONS MANAGER 3.5% - BNP 170 - trend trop, initial trop 12 - Obtain TTE - Continue amiodarone gtt. - Consult EP in the AM. - can consider [facility] this hospitalization for ischemic eval. - Continue [...] COPD at a pulmonary clinic GI/Nutrition: - AHA diet - send for enteric pathogens for [...] Zak Donaldson MD at 01/18/2024 2:04 AM FINANCING ANALYST NCING ANALYST NCING ANALYST Associated attestation - Zak Donaldson MD - 01/18/2024 2:04 AM FINANCING ANALYST MD PCCM Attending Attestation I saw and examined the patient on 01/17/24. I agree with Nisa Gonzalez AUTOMOTIVE TECHNICIAN INSTRUCTOR's chief complaint, history, exam, and medical decision [...] stenosis Mixed hyperlipidemia Coronary artery disease involving havasupai coronary artery 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 pectoris Hyponatremia Hypokalemia Hypocalcemia [...] separately billable procedures: 40 minutes Please note, Dragon Dictation was used for this note. Please excuse any typos or transcriptional errors. Zak Donaldson MD [facility] Pulmonary and Critical Care Medicine Faculty Nurse Practitioner Darryn Youssef History and Physical Notes Date/Time Note Provider Source 2024-01-17 16:08:08 CCU History and Physical Admission Date: 01/17/2024 CCU Day: 0 Problem List Active Problems: There are no active Hospital Problems. Esequiel Chew Jr 1950 [address] White Assessment & Plan The patient [...] episodes of SVT noted >> AP <1%, BUSINESS APPLICATIONS MANAGER 3.5% - BNP 170 - Plan - trend trop, initial trop 12 - TTE - amiodarone gtt - can consider C this hospitalization for ischemic eval #Afib - not on anticoagulation or any rhythm control - not in Afib on admission - Plan: - heparin gtt - amiodarone as above #CAD - history of NE in 1999 and 2004 - describes chest [...] Tiana Cooney MD Internal Medicine | PGY-1 [facility] Subjective History of Present Illness The patient [...] Pulse: 84 82 84 83 Resp: 16 Temp: SpO2: 91% 91% 92% 94% [...] Kalie Freed MD at 01/18/2024 5:37 PM FINANCING ANALYST NCING ANALYST NCING ANALYST Associated attestation - Kalie Freed MD - 01/18/2024 5:37 PM FINANCING ANALYST The patient was seen and examined with [...] Problem List Diagnosis Date Noted Emphysema lung ([facility]) 01/18/2024 Acute respiratory failure with hypoxemia ([facility]) 01/18/2024 VT (ventricular tachycardia) ([facility]) 01/17/2024 VF (ventricular fibrillation) ([facility]) ([facility]) 01/17/2024 Anxiety 01/17/2024 Depression 01/17/2024 Multifocal pneumonia 01/17/2024 Carotid artery stenosis 01/17/2024 Mixed hyperlipidemia 01/17/2024 Coronary artery disease involving havasupai coronary artery 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 pectoris 01/17/2024 Hyponatremia 01/17/2024 Hypokalemia 01/17/2024 Hypocalcemia 01/17/2024 Transaminitis 01/17/2024 Normocytic anemia 01/17/2024 Atrial fibrillation/flutter (HCC) 01/17/2024 Cardiac defibrillator in situ 04/17/2023 Internal Medicine [facility] Procedure Notes Date/Time Note Provider Source 2024-01-27 10:30:00 Images from the original note were not included. Speech-Language Pathology [facility] STORE HAND FIBEROPTIC ENDOSCOPIC EVALUATION OF SWALLOWING (FEES) Patient Name: Esequiel Chew Jr. Today's Date: 01/27/2024 Room: [place] [address] FEES EVALUATION SUMMARY: Pt appears safe to [...] 6- Dysphagia Soft and Bite-Sized Preferred Language: Martiniquais PRE-ASSESSMENT: STORE HAND Pre-Assessment Current Method of Nutrition: Oral intake FEES PROCEDURE: STORE HAND present on this date for instrumental swallow study. STORE HAND passed the scope through the right nare, views of the hypopharynx and larynx obtained. Anatomy appears WFL. STORE HAND provided the pt with trials of thin [...] and bite sized with thin liquid diet. STORE HAND provided the pt with strict aspiration precautions that the pt verbalized he will follow. STORE HAND instructed that the pt not mix consistencies at this time. Pt verbalized understanding. If concern for aspiration arises please discontinue diet and consult speech therapy services. STORE HAND to continue to follow for dysphagia treatment. [...] Phase Observations: Posterior loss Swallow Initiated: Valleculae Seco-Valleculae Residue: III-Mild 5-25% Epiglottic Ligament Visible Penetration-Aspiration [...] family support and insurance benefits. ANDREW Quezada [facility] 2024-01-22 14:50:00 Images from the original note were not included. Speech-Language Pathology [facility] STORE HAND MODIFIED BARIUM SWALLOW STUDY (MBSS) Patient Name: Esequiel Chew JrJeremie Today's Date: 01/22/2024 [facility] MBSS EVALUATION SUMMARY: STORE HAND present on this date for MBS. Prior to the exam the pt was NPO with DHT access. Pt participating in MBS given concern for aspiration during the swallow. STORE HAND provided the pt with trials of thin [...] discontinue diet and consult speech therapy services. STORE HAND to continue to follow for dysphagia treatment. [...] 6- Dysphagia Soft and Bite-Sized Preferred Language: Martiniquais PRE-ASSESSMENT: STORE HAND Pre-Assessment Current Method of Nutrition: Dobhoff Tube [...] condition/status, family support and insurance benefits. KATELYN QuezadaSTORE HAND [facility] 2024-01-22 10:15:00 Speech-Language Pathology [facility] STORE HAND FIBEROPTIC ENDOSCOPIC EVALUATION OF SWALLOWING (FEES) Patient Name: Esequiel Chew Jr. Today's Date: 01/22/2024 Room: [facility] FEES EVALUATION SUMMARY: Suspected aspiration during [...] Prior to this Evaluation: NPO Preferred Language: Martiniquais PRE-ASSESSMENT: STORE HAND Pre-Assessment Current Method of Nutrition: Dobhoff Tube FEES PROCEDURE: STORE HAND present on this date for instrumental swallow study. STORE HAND passed the scope through the right nare, views of the hypopharynx and larynx obtained. Anatomy appears WFL at this time. STORE HAND provided the pt with trials of thin [...] Phase Observations: Posterior loss Swallow Initiated: Valleculae Seco-Valleculae Residue: III-Mild 5-25% Epiglottic Ligament Visible Penetration-Aspiration [...] family support and insurance benefits. ANDREW Quezada [facility] 2024-01-21 10:47:58 [facility] ENDOSCOPY LAB BRIEF POSTOP NOTE Please refer to EPIC procedure note (under "Chart review: Procedures tab") for full narrative Procedure: EGD Pre-Op Diagnosis: Orophayngeal dysphagia Post-Op Diagnosis: Oropharyngeal dysphagia, non-obstructive mild Schatzki's ring Endoscopist: Dr. Ledbetter Amalgamator/Fellow/Resident(s ): Dr. Nieves Sedation: anesthesia TIVA EBL: [...] at this time. Please page GI fellow cash application representative with questions or concerns. - This is a brief note used for immediate communication. See complete procedure note for full details in the 'chart review' section, under the 'procedures' tab. The note will generally be available within 24 hours. -------- Cosigned by Myah Ledbetter MD at 01/21/2024 12:11 PM FINANCING ANALYST NCING ANALYST NCING ANALYST Internal Medicine Physician [facility] 2024-01-18 13:20:00 Associated Order(s): STORE HAND FEES PROCEDURE Images from the original note were not included. Speech-Language Pathology [facility] STORE HAND FIBEROPTIC ENDOSCOPIC EVALUATION OF SWALLOWING (FEES) Patient Name: uSsan Parker Today's Date: 01/18/2024 Room: [place] [address] [address] FEES EVALUATION SUMMARY: RECOMMENDATIONS: Diet Recommendations: NPO with alternate means of nutrition Medications: Non oral Patient may have up to 10 ice chips an hour only after aggressive oral care. Oral care: Suction toothbrush , Every 2 hours STORE HAND to follow up with dysphagia management and repeat instrumental as indicated. PROGNOSIS: Good PLAN: Treatment/Interventions: Instrumental Assessments, Swallow function Frequency: 1-2 times per week GENERAL INFORMATION: Reason for Consult: Pt was referred for a FEES evaluation. Oxygenation: Nasal canula Behavior:Cooperative Level of Consciousness: Awake & alert Diet Prior to this Evaluation: NPO Preferred Language: Martiniquais PRE-ASSESSMENT: STORE HAND Pre-Assessment Current Method of Nutrition: NPO until cleared by Speech FEES PROCEDURE: The Patient was educated re: the purpose of the test and the procedure. The Patient was given the chance to ask questions re: the procedure and provided verbal assent. The [place] [facility] Swallowing Station was utilized at this evaluation. [...] Trace 1-5% Trace Coating of The Mucosa Seco-Pyriform Sinus Residue: II- Trace 1-5% Trace Coating [...] Trace 1-5% Trace Coating of The Mucosa Seco-Pyriform Sinus Residue: II- Trace 1-5% Trace Coating [...] - 0 FUNCTIONAL ORAL INTAKE SCALE (FOIS), CARTER ET [...] family support and insurance benefits. ANDREW Ram [facility]
[2024-04-07] MEDS ORDERED: METOPROLOL TARTRATE 5 MG/5 ML INJ IV ONE ×2 (14:55→15:08)
[2024-04-07] MEDS ORDERED: MAGNESIUM SULFATE 1 gm IVPB 1 GM/100 ML BAG IV ONE (14:56)
[2024-04-07 15:16] LABS: Absolute Basophils 0.1 K/uL (0-0.5); Absolute Eosinophils 0.3 K/uL (0-0.5); Absolute Lymphocytes (CBC) 2.9 K/uL (0.7-4.9); Absolute Monocytes 0.6 K/uL (0.1-1.3); Absolute Neutrophil 6.8 K/uL (1.8-8.0); Basophils % 0.9 % (0-1.3); Eosinophils % 2.7 % (0-4.4); Hematocrit 39.9 % (39.6-49.0); Hemoglobin 13.4 g/dL (13.6-17.9); Lymphocytes % 27.3 % (15.3-44.8); MCH 28.3 pg (27.0-35.0); MCHC 33.5 g/dL (32.0-36.0); MCV 84.5 fL (80-100); MPV 7.3 fL (7.6-11.3); Neutrophils % 63.1 % (41.7-73.7); Nucleated Red Blood Cells % 0.1 % (0-0); Platelets 273 thou/uL (152-406); RBC Red Blood Cell Count 4.73 M/uL (4.33-5.43); Red Cell Distribution Width 16.9 % (12.1-15.2)
[2024-04-07 15:27] LABS: D-Dimer 0.298 FEUug/mL (0-0.500); PT Prothrombin Time 13.5 SECONDS (9.4-12.5); Protime INR 1.29
[2024-04-07 15:39] LABS: ALT/SGPT 28 U/L (16-61); AST/SGOT 19 U/L (15-37); Albumin 3.4 g/dL (3.4-5.0); Albumin/Globulin Ratio 0.9 (1.1-1.8); Alkaline Phosphatase 56 U/L (45-117); Anion Gap 7.2 mEq/L (5.0-15.0); BUN Blood Urea Nitrogen 17 mg/dL (7-18); Bicarbonate 28 mEq/L (21-32); Bilirubin Total 0.2 mg/dL (0.2-1.0); Globulin 3.9 g/dL (2.3-3.5); Glomerular Filtration Rate 91 ml/min (=/>90); Glucose Level 128 mg/dL (74-106); Magnesium 1.9 mg/dL (1.6-2.4); NT PRO-BNP 816 pg/mL (<125); Potassium 3.2 mEq/L (3.5-5.1); Protein, Total 7.3 g/dL (6.4-8.2); Sodium Level 137 mEq/L (136-145); Troponin High Sensitivity 9.7 pg/mL (<58.9)
[2024-04-07 15:41] LABS: Bilirubin Direct < 0.2 mg/dL (0-0.2)
[2024-04-07] MEDS ORDERED: POTASSIUM 25 MEQ EFFERV TAB ONE (15:50)
[2024-04-07] MEDS ORDERED: MIDAZOLAM HCL 5 ML ONE (16:22)
--- NOTE | 2024-04-07 16:42 | RAD REPORT ---
EXAMINATION: ONE VIEW CHEST XR CLINICAL INDICATION: Male, 73 years old.,Defib x 2 TECHNIQUE: Frontal chest projection is submitted. Examination is limited by patient positioning and t echnique. COMPARISON: 02/10/2024 FINDINGS: The lungs are well inflated and clear of new airspace opacities. Chronic scattered reticular opacitie s, stable. No pneumothorax or sizable effusion. The heart is normal in size. Mediastinal contours are unremarkable. IMPRESSION: No acute intrathoracic abnormalities. Stable chronic findings as above.
--- NOTE | 2024-04-07 17:11 | EDPHYS ---
Physician Documentation [facility] Name: Esequiel Franklin Jr Age: 73 yrs Sex: Male : 1950 Arrival Date: 04/07/2024 Time: 14:47 Bed 4 Private MD: ED Physician Jason Tolliver HPI: 04/07 16:49 This 73 yrs old Male presents to ER via EMS with complaints of Palpitations - HIGH bo1 HEART RATE. 16:49 The patient presents with a history of heart racing, Sudden defib by implanted defib bo1 [employer]ATING [employer] x 2. Per EMS, afib with RVR then VT. BP is stable. Context: The symptoms occur with light activity, Pt has just finished shopping at [employer] and was headed home. Onset: The symptoms/episode began/occurred suddenly. Associated signs and symptoms: Pertinent negatives: chest pain, SOB. Severity of symptoms: At their worst the symptoms were moderate Amiodarone given 150 mg IV w/o changes. The patient has experienced similar episodes in the past, Hx of an acute defib about two weeks ago, the defib device was "adjusted" by his barrel racer Dr Cindy WILKINS. Hx of recent dx of afib on meds. Historical: - Allergies: 15:02 No Known Allergies; ld1 - Home Meds: 15:02 amiodarone 400 mg Oral Tablet 1 tab [Active]; carvedilol 25 mg Oral Tablet [Active]; ld1 apixaban 5 mg Oral Tablet [Active]; clopidogrel 75 mg Oral Tablet [Active]; escitalopram oxalate 20 mg Oral Tablet [Active]; lovastatin 40 mg Oral Tablet 1 tab every day at bedtime [Active]; lorazepam 0.5 mg Oral Tablet [Active]; amlodipine 5 mg Tablet 1 tab [Active]; hydrocodone-acetaminophen 10-325 mg Oral Tablet 1 tab [Active]; - PMHx: 15:02 Anxiety; Hypertensive disorder; Cardiac stent (Hypertensive disorder); Pacemaker ld1 (Hypertensive disorder); - Immunization history:: Adult Immunizations up to date. - Infectious Disease History:: Denies. - Social history:: Smoking status: Patient denies any tobacco usage or history of. ROS: 17:02 Constitutional: Negative for fever, chills, and weight loss bo1 17:02 Cardiovascular: Positive for palpitations, 17:02 Cardiovascular: Positive for "Defib shocked x 2", 17:02 Respiratory: Negative for cough, shortness of breath, 17:02 Abdomen/GI: Negative for abdominal pain, nausea and vomiting, 17:02 MS/extremity: Negative for pain, swelling, 17:02 Skin: Negative for diaphoresis, rash, 17:02 Neuro: Negative for altered mental status, 17:02 All other systems are negative, Exam: 17:04 Constitutional: This is a well developed, well nourished patient who is awake, alert, bo1 and in no acute distress. 17:04 Constitutional: The patient appears in no acute distress, alert, awake, comfortable, non-toxic, 17:04 Eyes: Exam is negative for 17:04 Neck: External neck: is normal, no acute changes, 17:04 Chest/axilla: Inspection: normal, Left sided implanted defib device, 17:04 Cardiovascular: Rate: tachycardic, actual rate is 147 bpm, Rhythm: regular, Pulses: no pulse deficits are appreciated, 17:04 ECG was reviewed by the Attending Physician. 17:04 Respiratory: Exam negative for acute changes, the patient does not display signs of respiratory distress, Respirations: normal, no acute changes, Breath sounds: are clear throughout, 17:04 Abdomen/GI: Inspection: abdomen appears normal, Palpation: abdomen is soft and non-tender, 17:04 Musculoskeletal/extremity: Extremities: all appear grossly normal, with no appreciated pain with palpation, DVT Exam: no pain, no swelling, no tenderness, 17:04 Skin: no rash present. No diaphoresis, 17:04 Neuro: Orientation: is normal, appropriate for stated age, Mentation: is normal, appropriate for stated age, Memory: is normal, appropriate for stated age, 17:04 Psych: exam not indicated, Vital Signs: 15:01 BP 131 / 49; Pulse 145; Resp 18; Temp 97.8(TE); Pulse Ox 100% on R/A; Height 5 ft. 10 ld1 in. ; Pain 0/10; 15:06 BP 114 / 79; Pulse 144; Resp 18; Pulse Ox 100% on R/A; Pain 0/10; ld1 15:08 Weight 80.74 kg; ld1 15:27 BP 102 / 75; Pulse 143; Resp 18 S; Pulse Ox 97% on R/A; Pain 0/10; kc6 15:54 BP 134 / 82; Pulse 147; Resp 16 S; Pulse Ox 100% on R/A; kc6 16:43 BP 127 / 70; Pulse 87; Resp 16 S; Pulse Ox 100% ; kc6 18:43 BP 132 / 66; Pulse 74; Resp 16 S; Pulse Ox 99% on R/A; Pain 0/10; kc6 19:52 BP 152 / 70; Pulse 73; Resp 16 S; Pulse Ox 100% on R/A; kc6 15:01 Pain Scale: Adult ld1 15:06 Pain Scale: Adult ld1 15:27 Pain Scale: Adult kc6 18:43 Pain Scale: Adult kc6 Procedures: 17:01 Cardioversion: (synchronized) using pacer pads, for treatment of V tach, with 50 joules bo1 X 1. the patient tolerated the procedure well, Pre-procedural Versed 5mg IV, oxygen bedside attendance by MD and two staff RNs. MDM: 14:53 Medical Screening Exam initiated bo1 17:07 Differential diagnosis: arrythmia, Electrolyte abnl. Data reviewed: vital signs, lab bo1 test result(s), EKG, radiologic studies, plain films. Consideration of Admission/Observation Patient was admitted/placed on observation. Management of patient was discussed with the following: Cake Batter Mixer: Dr Emy WILKINS - Continue home meds and hold the Eliquis and transient to Lovenox temporarily. I considered the following discharge prescriptions or medication management in the emergency department Medications were administered in the Emergency Department. See MAR. ED course: Pt was converted successfully with 50J of defib per pads in room #4. Will be admitted for obs-consult with Emy WILKINS. 04/07 14:54 Order name: Basic Metabolic Panel; Complete Time: 15:46 04/07 14:54 Order name: CBC with Diff; Complete Time: 15:18 04/07 14:54 Order name: D-Dimer; Complete Time: 15:46 04/07 14:54 Order name: LFT's; Complete Time: 15:46 04/07 14:54 Order name: Magnesium; Complete Time: 15:46 04/07 14:54 Order name: NT PRO-BNP; Complete Time: 15:46 04/07 14:54 Order name: PT-INR; Complete Time: 15:46 04/07 14:54 Order name: Troponin HS; Complete Time: 15:46 04/07 18:09 Order name: T4 Free EDMS 04/07 18:09 Order name: Thyroid Stimulating Hormone EDMS 04/07 18:09 Order name: Urinalysis w/ reflexes EDMS 04/07 18:09 Order name: Basic Metabolic Panel EDMS 04/07 18:09 Order name: Basic Metabolic Panel EDMS 04/07 18:09 Order name: Basic Metabolic Panel EDMS 04/07 18:09 Order name: CBC with Automated Diff EDMS 04/07 18:09 Order name: CBC with Automated Diff EDMS 04/07 18:09 Order name: CBC with Automated Diff EDMS 04/07 18:09 Order name: Magnesium EDMS 04/07 18:09 Order name: Magnesium EDMS 04/07 18:09 Order name: Magnesium EDMS 04/07 18:09 Order name: Phosphorus EDMS 04/07 18:09 Order name: Phosphorus EDMS 04/07 18:09 Order name: Phosphorus EDMS 04/07 18:09 Order name: Troponin High Sensitivity EDMS 04/07 18:09 Order name: Troponin High Sensitivity EDMS 04/07 18:09 Order name: Troponin High Sensitivity EDMS 04/07 14:54 Order name: XRAY Chest (1 view); Complete Time: 16:48 04/07 14:54 Order name: EKG; Complete Time: 14:54 04/07 14:54 Order name: Cardiac monitoring; Complete Time: 15:06 04/07 14:54 Order name: EKG - Nurse/Tech; Complete Time: 15:06 04/07 14:54 Order name: IV Saline Lock; Complete Time: 15:06 04/07 14:54 Order name: Labs collected and sent; Complete Time: 15:06 04/07 14:54 Order name: O2 Per Protocol; Complete Time: 15:06 04/07 14:54 Order name: O2 Sat Monitoring; Complete Time: 15:06 EC:04 Rate is 145 beats/min. Rhythm is regular. QRS [place] is Normal. MN interval is normal. bo1 QRS interval is normal. QT interval is normal. No Q waves. T waves are Normal. No ST changes noted. Clinical impression: Sinus tachycardia and Rhythm changes enroute, appears to have VT features and perhaps a "delta-wave.". Interpreted by me. Reviewed by me. Administered Medications: 15:00 Drug: Metoprolol IVP 5 mg IVP once; Hold for SBP <100 or HR <60. Route: IVP; Site: ld1 right antecubital; 15:11 Follow up: Response: No adverse reaction; Cardiac rhythm is unchanged ld1 15:06 Drug: Magnesium Sulfate IVPB 1 grams IVPB once over 1 hrs Route: IVPB; Infused Over: 1 ld1 hrs; Site: right forearm; 18:40 Follow up: IV Status: Completed infusion; IV Intake: 100ml kc6 15:11 Drug: Metoprolol IVP 5 mg IVP once; Hold for SBP <100 or HR <60. Route: IVP; Site: left ld1 antecubital; 15:25 Follow up: Response: No adverse reaction; Cardiac rhythm is unchanged kc6 15:49 CANCELLED (Other Intervention Used): potassium chlorideliquid 40 meq PO once kc6 15:52 Drug: Potassium PO Effervescent Tablet 50 mEq PO once; dissolve in 4 ounces of water or kc6 juice Route: PO; 16:22 Follow up: Response: No adverse reaction kc6 16:30 Drug: Midazolam IVP or IV 5 mg IVP once Route: IVP; Site: left antecubital; kc6 16:45 Follow up: Response: No adverse reaction; Pain is decreased; Anxiety decreased; RASS: kc6 Light sedation (-2) Disposition Summary: 04/07/24 17:11 Hospitalization Ordered Notes: Provider: Ben Butler Condition: Stable bo1 Problem: an acute exacerbation bo1 Symptoms: have improved bo1 Bed/Room Type: Standard bo1 Hospitalization Status: Inpatient Admission(04/07/24 19:39) dw Location: Intensive Care Unit(04/07/24 19:39) dw Room Assignment: 3-(04/07/24 19:39) dw Diagnosis - Ventricular tachycardia bo1 - Chronic atrial fibrillation bo1 Forms: - Medication Reconciliation Form bo1 - SBAR form bo1 - Leadership Thank You Letter bo1 Critical care time excluding procedures: 17:09 Critical care time: Bedside Care: 120 minutes, Consultation: 25 minutes, Family bo1 Intervention: 25 minutes. Total time: 170 minutes Signatures: Dispatcher [employer] Nikki Eaton RN RN dw Mirtha Villar RN RN ld1 Kelsey Mendieta RN RN kc6 Jason Tolliver MD MD bo1 Corrections: (The following items were deleted from the chart) 15:49 15:47 Potassium Chloride PO Liquid 40 mEq PO once ordered. bo1 kc6 19:39 17:11 Observation bo1 dw 19:39 17:11 Telemetry/MedSurg (observation) [facility] dw 19:39 17:11 [facility]
--- NOTE | 2024-04-07 17:11 | ER ---
Nurse's Notes [facility] Name: Esequiel Franklin Jr Age: 73 yrs Sex: Male : 1950 Arrival Date: 04/07/2024 Time: 14:47 Bed 4 Private MD: Diagnosis: Ventricular tachycardia;Chronic atrial fibrillation Presentation: 04/07 14:59 Chief complaint: EMS states: toned out to home for being shocked by pacemaker - reports ld1 2 shocks. Received patient in [facility]. Onset of symptoms was April 07, 2024. Care prior to arrival: Medication(s) given: 150mg Amiodarone. 15:01 Coronavirus screen: At this time, the client does not indicate any symptoms associated ld1 with coronavirus-19. Ebola Screen: No symptoms or risks identified at this time. Initial Sepsis Screen: Does the patient meet any 2 criteria? No. Patient's initial sepsis screen is negative. Does the patient have a suspected source of infection? No. Patient's initial sepsis screen is negative. Risk Assessment: Do you want to hurt yourself or someone else? Patient reports no desire to harm self or others. 15:01 Method Of Arrival: EMS: [facility] ld1 15:01 Acuity: DEVON 2 ld1 15:01 Care prior to arrival: IV initiated. 18 GA, in the right forearm. kc6 Triage Assessment: 15:05 General: Appears in no apparent distress. comfortable, Behavior is calm, cooperative, ld1 appropriate for age. Pain: Denies pain. EENT: No signs and/or symptoms were reported regarding the EENT system. Neuro: Level of Consciousness is awake, alert, obeys commands, Oriented to person, place, time, situation, Appropriate for age. Cardiovascular: Capillary refill < 3 seconds Patient's skin is warm and dry. Rhythm is ventricular tachycardia. Respiratory: Airway is patent Respiratory effort is even, unlabored. GI: Abdomen is flat, non-distended. : No signs and/or symptoms were reported regarding the genitourinary system. Derm: No signs and/or symptoms reported regarding the dermatologic system. Musculoskeletal: No signs and/or symptoms reported regarding the musculoskeletal system. Historical: - Allergies: 15:02 No Known Allergies; ld1 - Home Meds: 15:02 amiodarone 400 mg Oral Tablet 1 tab [Active]; carvedilol 25 mg Oral Tablet [Active]; ld1 apixaban 5 mg Oral Tablet [Active]; clopidogrel 75 mg Oral Tablet [Active]; escitalopram oxalate 20 mg Oral Tablet [Active]; lovastatin 40 mg Oral Tablet 1 tab every day at bedtime [Active]; lorazepam 0.5 mg Oral Tablet [Active]; amlodipine 5 mg Tablet 1 tab [Active]; hydrocodone-acetaminophen 10-325 mg Oral Tablet 1 tab [Active]; - PMHx: 15:02 Anxiety; Hypertensive disorder; Cardiac stent (Hypertensive disorder); Pacemaker ld1 (Hypertensive disorder); - Immunization history:: Adult Immunizations up to date. - Infectious Disease History:: Denies. - Social history:: Smoking status: Patient denies any tobacco usage or history of. Screenin:06 [facility] ED Fall Risk Assessment (Adult) History of falling in the last 3 months, ld1 including since admission No falls in past 3 months (0 pts) Confusion or Disorientation No (0 pts) Intoxicated or Sedated No (0 pts) Impaired Gait No (0 pts) Mobility Assist Device Used No (0 pt) Altered Elimination No (0 pt) Score/Fall Risk Level 0 - 2 = Low Risk Oriented to surroundings, Maintained a safe environment, Educated pt \T\ family on fall prevention, incl call for assistance when getting out of bed, Assessed \T\ reinforced patient's understanding of fall precautions, Provided non-skid footwear, Hourly rounding (assess needs \T\ fall precautionary measures) done, Used ambulatory aids as needed (educated on \T\ assisted with), Used gait belt as appropriate. Abuse screen: Denies threats or abuse. Denies injuries from another. Nutritional screening: No deficits noted. Tuberculosis screening: No symptoms or risk factors identified. Assessment: 14:50 Reassessment: Pt placed on monitor with defib pads - ERP at bedside assessing patient. ld1 14:50 General: Appears in no apparent distress. comfortable, well groomed, well developed, kc6 Behavior is calm, cooperative, appropriate for age. Pain: Denies pain. Neuro: Level of Consciousness is awake, alert, obeys commands, Oriented to person, place, time, situation, Appropriate for age Denies dizziness. Cardiovascular: Reports palpitations, Denies chest pain, shortness of breath, Capillary refill < 3 seconds Rhythm is ventricular tachycardia. Respiratory: Airway is patent Trachea midline Respiratory effort is even, unlabored, Respiratory pattern is regular, symmetrical. GI: No signs and/or symptoms were reported involving the gastrointestinal system. : No signs and/or symptoms were reported regarding the genitourinary system. EENT: No signs and/or symptoms were reported regarding the EENT system. Derm: No signs and/or symptoms reported regarding the dermatologic system. Skin is intact, is healthy with good turgor, Skin is pink, warm \T\ dry. Musculoskeletal: No signs and/or symptoms reported regarding the musculoskeletal system. Circulation, motion, and sensation intact. Range of motion: intact in all extremities. 15:06 Reassessment: See triage assessment. ld1 15:53 Reassessment: Patient appears in no apparent distress at this time. No changes from kc6 previously documented assessment. Patient and/or family updated on plan of care and expected duration. Pain level reassessed. Patient is alert, oriented x 3, equal unlabored respirations, skin warm/dry/pink. 16:43 Reassessment: Patient appears in no apparent distress at this time. No changes from kc6 previously documented assessment. Patient and/or family updated on plan of care and expected duration. Pain level reassessed. Patient is alert, oriented x 3, equal unlabored respirations, skin warm/dry/pink. Patient states feeling better. Patient states symptoms have improved. 17:43 Reassessment: Patient appears in no apparent distress at this time. No changes from kc6 previously documented assessment. Patient and/or family updated on plan of care and expected duration. Pain level reassessed. Patient is alert, oriented x 3, equal unlabored respirations, skin warm/dry/pink. 18:40 Reassessment: Patient appears in no apparent distress at this time. No changes from kc6 previously documented assessment. Patient and/or family updated on plan of care and expected duration. Pain level reassessed. Patient is alert, oriented x 3, equal unlabored respirations, skin warm/dry/pink. Patient denies pain at this time. Patient states feeling better. Patient states symptoms have improved. 19:52 Reassessment: Patient appears in no apparent distress at this time. No changes from kc6 previously documented assessment. Patient and/or family updated on plan of care and expected duration. Pain level reassessed. Patient is alert, oriented x 3, equal unlabored respirations, skin warm/dry/pink. nurse to nurse report given to SANYA Hinojosa in ICU. Vital Signs: 15:01 BP 131 / 49; Pulse 145; Resp 18; Temp 97.8(TE); Pulse Ox 100% on R/A; Height 5 ft. 10 ld1 in. ; Pain 0/10; 15:06 BP 114 / 79; Pulse 144; Resp 18; Pulse Ox 100% on R/A; Pain 0/10; ld1 15:08 Weight 80.74 kg; ld1 15:27 BP 102 / 75; Pulse 143; Resp 18 S; Pulse Ox 97% on R/A; Pain 0/10; kc6 15:54 BP 134 / 82; Pulse 147; Resp 16 S; Pulse Ox 100% on R/A; kc6 16:43 BP 127 / 70; Pulse 87; Resp 16 S; Pulse Ox 100% ; kc6 18:43 BP 132 / 66; Pulse 74; Resp 16 S; Pulse Ox 99% on R/A; Pain 0/10; kc6 19:52 BP 152 / 70; Pulse 73; Resp 16 S; Pulse Ox 100% on R/A; kc6 15:01 Pain Scale: Adult ld1 15:06 Pain Scale: Adult ld1 15:27 Pain Scale: Adult kc6 18:43 Pain Scale: Adult kc6 ED Course: 14:51 Patient arrived in ED. ph 14:53 Jason Tolliver MD is Attending Physician. bo1 15:00 Maintain EMS IV. Dressing intact. Good blood return noted. Site clean \T\ dry. Gauge \T\ ld 1 site: 18G RFA. 15:02 Triage completed. ld1 15:06 Inserted saline lock: 20 gauge in left antecubital area, using aseptic technique. Blood ld1 collected. Flushed with 10 mL NS. 15:06 No provider procedures requiring assistance completed. ld1 15:06 Patient maintains SpO2 saturation greater than 95% on room air. kc6 15:06 Arm band placed on right wrist. EKG completed in triage. Results shown to MD. ld1 15:06 Patient has correct armband on for positive identification. Placed in gown. Bed in low ld1 position. Call light in reach. Side rails up X2. child monitor on. Pulse ox on. NIBP on. Door closed. Noise minimized. Warm blanket given. 15:13 XRAY Chest (1 view) In Process Unspecified. EDMS 15:24 Kelsey Mendieta, RN is Primary Nurse. kc6 16:32 Assist provider with cardioversion (synchronized) with pads, for treatment of V tach kc6 with 50 joules X 1. Set up for procedure. Performed by Jason Tolliver MD Monitored with patient monitor, pulse ox, Post procedure rhythm is sinus rhythm. Patient tolerated well. 17:10 Ben Butler is Hospitalizing Provider. bo1 19:25 Repeat lab(s) drawn. by me, sent to lab. hw 20:38 Patient admitted, IV remains in place. kc6 Administered Medications: 15:00 Drug: Metoprolol IVP 5 mg IVP once; Hold for SBP <100 or HR <60. Route: IVP; Site: ld1 right antecubital; 15:11 Follow up: Response: No adverse reaction; Cardiac rhythm is unchanged ld1 15:06 Drug: Magnesium Sulfate IVPB 1 grams IVPB once over 1 hrs Route: IVPB; Infused Over: 1 ld1 hrs; Site: right forearm; 18:40 Follow up: IV Status: Completed infusion; IV Intake: 100ml kc6 15:11 Drug: Metoprolol IVP 5 mg IVP once; Hold for SBP <100 or HR <60. Route: IVP; Site: left ld1 antecubital; 15:25 Follow up: Response: No adverse reaction; Cardiac rhythm is unchanged kc6 15:49 CANCELLED (Other Intervention Used): potassium chlorideliquid 40 meq PO once kc6 15:52 Drug: Potassium PO Effervescent Tablet 50 mEq PO once; dissolve in 4 ounces of water or kc6 juice Route: PO; 16:22 Follow up: Response: No adverse reaction kc6 16:30 Drug: Midazolam IVP or IV 5 mg IVP once Route: IVP; Site: left antecubital; kc6 16:45 Follow up: Response: No adverse reaction; Pain is decreased; Anxiety decreased; RASS: kc6 Light sedation (-2) Medication: 15:06 VIS not applicable for this client. ld1 Intake: 18:40 IV: 100ml; Total: 100ml. kc6 Outcome: 17:11 Decision to Hospitalize by Provider. bo1 20:38 Admitted to ICU accompanied by nurse, accompanied by tech, via stretcher, room 3, on kc6 monitor, with chart, Report called to SANYA Hinojosa 20:38 Condition: improved 20:38 Instructed on the need for admit, 20:38 Patient left the ED. kc6 Signatures: Dispatcher [employer] Rosa Isela Nunes RN RN Mirtha Villar RN RN [email or web address] Kelsey Mendieta RN RN kc6 Unruly, MD CLAUDETTE Gomez bo1 Lucy Juan
--- NOTE | 2024-04-07 17:17 | P.HP ---
Certification for Inpatient Patient admitted to: Observation With expected LOS: <2 Midnights Practitioner: I am a practitioner with admitting privileges, knowledge of patient current condition, hospital course, and medical plan of care. Services: Services provided to patient in accordance with Admission requirements found in Title 42 Section 412.3 of the Code of Federal Regulations Patient History Date of Service: 04/07/24 Reason for admission: Refractory AFIB History of Present Illness: Esequiel Franklin is a 73 year old male with Pmhx CAD, hypertension, hyperlipidemia, Chronic back pain, dementia, A-fib, chronic anemia who presents to the ED after being defibrillated twice at home. He reports his defibrillator went off approximately one week earlier at which time he visited his Rope Coiling Machine Operator, Dr. White who made an adjustment but not sure of the current settings. EMS reported giving a 150 mg amiodarone bolus in transit. He presented to the ED in [facility], his HR was over 140 without the device going off, amio and metoprolol given without resolution, he was then successfully cardioverted with synchronize shocked at 50 J. He will be admitted to ICU and device interrogated. Marbin Franklin will be admitted hospitalist service for further evaluation and treatment, Dr. Quevedo consulted. Allergies No Known Allergies Allergy (Verified 10/26/18 13:10) Home Medications: Amlodipine [Norvasc*] 5 mg PO DAILY 10/26/18 Benazepril HCl [Lotensin*] 20 mg PO [id number] 10/26/18 Clopidogrel Bisulfate [Plavix*] 75 mg PO DAILY 10/26/18 Escitalopram [Lexapro*] 20 mg PO DAILY 10/26/18 Ferrous Sulfate [Ferrous Sulfate*] 325 mg PO TID 10/26/18 Hydrocodone Bit/Acetaminophen [Hydrocodon-Acetaminophn 10-325] 1 each PO Q6HP PRN 10/26/18 Lovastatin [Altoprev] 40 mg PO BEDTIME 10/26/18 Memantine HCl [Namenda*] 10 mg PO DAILY 10/26/18 Tamsulosin [Flomax*] 0.4 mg PO BEDTIME 10/26/18 carvediloL [Coreg*] 25 mg PO BID 10/26/18 Amiodarone HCl [Pacerone] 200 mg PO DAILY 02/01/24 Amoxicillin/Potassium Clav [Amox-Clav 875-125 mg Tablet] 1 each PO BID 02/01/24 Apixaban [Eliquis] 5 mg PO BID 02/01/24 Benazepril HCl 20 mg PO DAILY 02/01/24 LORazepam [Ativan*] 0.5 mg PO BEDTIME PRN 02/01/24 tadalafiL [Tadalafil] 5 mg PO DAILY 02/01/24 predniSONE [Deltasone*] 10 mg PO BID 14 Days #28 tab 02/04/24 predniSONE [Prednisone] 10 mg PO BID 14 Days #28 tablet 02/04/24 - Past Medical/Surgical History Diabetic: No -: CAD s/p stent -: HTN -: chronic anemia -: dementia -: HDL -: cataract sx 2019 -: AICD - Social History Smoking Status: Never smoker Alcohol use: No CD- Drugs: No Review of Systems Other: Reports AICD shocked x2 Physical Examination - Physical Exam General: Alert, In no apparent distress, Oriented x3 HEENT: Atraumatic, Normocephalic, PERRLA Neck: Supple Respiratory: Clear to auscultation bilaterally, Normal air movement Cardiovascular: Normal pulses, Regular rate/rhythm, Normal S1 S2 Capillary refill: <2 Seconds Gastrointestinal: Normal bowel sounds, Soft and benign Musculoskeletal: No clubbing Integumentary: No rashes Neurological: Normal speech, Normal tone - Studies Laboratory Data (last 24 hrs) 04/07/24 04/07/24 04/07/24 15:06 15:06 15:06 WBC 10.70 Hgb 13.4 L Hct 39.9 Plt Count 273 PT 13.5 H INR 1.29 Sodium 137 Potassium 3.2 L BUN 17 Creatinine 0.87 Glucose 128 H Magnesium 1.9 Total Bilirubin 0.2 AST 19 ALT 28 Alkaline Phosphatase 56 Assessment and Plan - Plan Assessment and plan Ventricular tachycardia Atrial fibrillation with RVR refractory CAD with stent -EMS administered 150 mg amiodarone bolus -Amiodarone PO and metoprolol PO with no resolution in the ED -Synchronized cardioversion 50 J -Admitted to ICU -Consult cardiology -Continuous telemetry -Continue amiodarone PO home dose Hypokalemia -K 3.2, replaced in the ED -Protocol in place Chronic anemia -Monitor H&H -Transfuse as needed Hypertension/hyperlipidemia Dementia Chronic Back pain -Continue home medications DVT PPx Lovenox BID Full code LOS 24-hour OBS Discharge Plan: Home Plan to discharge in: 24 Hours - Advance Directives Does patient have a Living Will: Yes Does patient have a Durable POA for Healthcare: Yes
[2024-04-07] MEDS: ENOXAPARIN 80 MG/0.8 ML SQ SCH (22:14)
[2024-04-07] MEDS: HYDROCODONE/APAP 10/325 TAB PO PRN (22:14)
[2024-04-08 05:34] LABS: Absolute Basophils 0.1 K/uL (0-0.5); Absolute Eosinophils 0.6 K/uL (0-0.5); Absolute Lymphocytes (CBC) 3.1 K/uL (0.7-4.9); Absolute Monocytes 0.7 K/uL (0.1-1.3); Basophils % 0.9 % (0-1.3); Eosinophils % 6.7 % (0-4.4); Hematocrit 40.1 % (39.6-49.0); Hemoglobin 13.2 g/dL (13.6-17.9); Lymphocytes % 36.8 % (15.3-44.8); MCH 28.1 pg (27.0-35.0); MCV 85.1 fL (80-100); MPV 7.7 fL (7.6-11.3); Monocytes % 7.8 % (3.3-12.3); Neutrophils % 47.8 % (41.7-73.7); Platelets 259 thou/uL (152-406); RBC Red Blood Cell Count 4.71 M/uL (4.33-5.43)
[2024-04-08 05:58] LABS: Anion Gap 8.2 mEq/L (5.0-15.0); Magnesium 2.1 mg/dL (1.6-2.4); Phosphorus 3.4 mg/dL (2.5-4.9); Potassium 4.2 mEq/L (3.5-5.1); Thyroid Stimulating Hormone 1.73 uIU/mL (0.358-3.740)
[2024-04-08] MEDS: AMIODARONE HCL 200 MG TAB PO SCH (08:07)
[2024-04-08] MEDS: AMIODARONE HCL 150 MG in D5W 100 ML IV STA (13:31)
[2024-04-08] MEDS: AMIODARONE HCL 900 MG in Dextrose 5%-Water 482 ML IV SCH (13:31)
[2024-04-08] MEDS: METOPROLOL TAR 25 MG TAB PO ONE (15:57)
[2024-04-08] MEDS: ACETAMINOPHEN 325 MG TABLET PO PRN (16:00)
--- NOTE | 2024-04-08 17:42 | P.PN ---
Date of Service: 04/08/24 Subjective Awake, eating and conversing well AICD interrogated, Cardiology restarted amio gtt no new complaints ROS 10 point ROS as noted above, otherwise negative Physical Exam General: Alert and Oriented x3, NAD HEENT: Atraumatic, Normocephalic, PERRLA Neck: Supple Respiratory: Clear BBS, Normal air movement, on RA Cardiovascular: Normal pulses, NSR, Normal S1 S2 Capillary refill: <2 Seconds Gastrointestinal: Normal bowel sounds, Soft on palpation, ND/NT Musculoskeletal: No clubbing Integumentary: No rashes Neurological: Normal speech, Normal tone Vitals Reviewed Problem list Ventricular tachycardia Atrial fibrillation with RVR refractory CAD with stent Hypokalemia Chronic anemia Hypertension/hyperlipidemia Dementia Chronic Back pain Assessment and Plan Ventricular tachycardia Atrial fibrillation with RVR refractory CAD with stent -EMS administered 150 mg amiodarone bolus -Amiodarone PO and metoprolol PO with no resolution in the ED -Synchronized cardioversion 50 J (04/08) -Admitted to ICU -Consult cardiology- amio gtt with restarted home medications -Continuous telemetry Hypokalemia -K 4.2- improved -Protocol in place Chronic anemia -Monitor H&H -Transfuse as needed Hypertension/hyperlipidemia Dementia Chronic Back pain -Continue home medications DVT PPx Lovenox BID Full code LOS 24-hour OBS Discharge Plan: Home Plan to discharge in: 24 Hours <Medina Duron - Last Filed: 04/08/24 17:42> Patient seen and examined with Ms. Duron. AICD interrogated. Patient evaluated by cardiology who recommended amiodarone drip. Patient to complete 24 hours amiodarone drip and transition to oral amiodarone. Continue monitoring the ICU. Monitor and optimize electrolytes. <sharath stephen - Last Filed: 04/10/24 19:49>
--- NOTE | 2024-04-08 18:04 | CON ---
Date of Consultation: 04/08/2024 Reason For Consultation: ICD shock. History Of Present Illness: A -qodm-hdb male with history of coronary artery disease, hype rtension, dyslipidemia, severe systolic heart failure with ICD in place, atrial fibrillation, and chr onic anemia, came in because of defibrillator shocks. He was in [place] and he was shocked multiple times and then ended up having a cardioversion in ICU and he is in sinus rhythm now. Feels well. Denies having any chest pain. Past Medical History: As outlined above in the HPI. Medications: Refer consult sheet for detailed list. Allergies: NO KNOWN DRUG ALLERGIES. Family History: No premature coronary artery disease or cancer. Social History: Does not smoke or drink. Does not use any drugs. Review of Systems: All systems were reviewed. They were negative except as mentioned in HPI. Physical Examination: Vital Signs: Reviewed. Head and Neck: Pupils are equal, reactive to light. Intact eye movements. No JVD, no cervical. Ne ck is supple. Thyroid is not enlarged. Lungs: Clear to auscultation bilaterally. No rhonchi, wheezing, or crackles. No accessory muscle u se. Heart: Regular rate and rhythm. No extra sounds. Abdomen: Soft, nontender. Bowel sounds positive. No organomegaly. No masses or hernia. No rigidi ty or rebound. Extremities: No clubbing, cyanosis. Intact pulses. Skin: No rash. Neurologic: Alert, awake, oriented x3. No acute focal deficits appreciated. Investigations: BUN is 14; creatinine 0.83; potassium is 4.2, it was 3.2. Magnesium is 2.1. Tropon ins x3 are negative. Hemoglobin is 13.2. Assessment/recommendations: 1.Ventricular tachycardia. He was shocked appropriately for ventricular tachycardia. Recommended t o reload with amiodarone 150 mg over 10 minutes and then 1 mg/minute for 6 hours and then 0.5 mg/jennifer te for 16 hours and increase metoprolol to 50 mg twice a day and then patient should follow up with rebeca estrada cdl team truck driver and we referred to Electrophysiology on an outpatient basis. 2.Systolic heart failure, severe, appears to be euvolemic, NYHA class 2. Continue his home medicati ons. 3.Hypertension. Blood pressure is elevated. Increase metoprolol as above. 4.Coronary artery disease. No chest pain. He is following up with cdl team truck driver. He probably will need ischemia evaluation, but he is asymptomatic, so this can be done as an outpatient. /MAYA Voice ID: [id number] Report ID: [id number]
[2024-04-08] MEDS: HYDRALAZINE HCL 20 MG/ML VIAL IV PRN (19:24)
[2024-04-08] MEDS: METOPROLOL TAR 25 MG TAB PO SCH (23:17)
[2024-04-09 05:06] LABS: Absolute Basophils 0.1 K/uL (0-0.5); Absolute Eosinophils 0.6 K/uL (0-0.5); Absolute Lymphocytes (CBC) 3.2 K/uL (0.7-4.9); Absolute Monocytes 0.7 K/uL (0.1-1.3); Absolute Neutrophil 5.7 K/uL (1.8-8.0); Basophils % 0.8 % (0-1.3); Eosinophils % 6.2 % (0-4.4); Hematocrit 40.2 % (39.6-49.0); Hemoglobin 13.5 g/dL (13.6-17.9); Lymphocytes % 31.1 % (15.3-44.8); MCH 28.5 pg (27.0-35.0); MCHC 33.5 g/dL (32.0-36.0); MCV 85.2 fL (80-100); MPV 7.7 fL (7.6-11.3); Monocytes % 6.4 % (3.3-12.3); Neutrophils % 55.5 % (41.7-73.7); Platelets 265 thou/uL (152-406); RBC Red Blood Cell Count 4.71 M/uL (4.33-5.43); Red Cell Distribution Width 17.5 % (12.1-15.2)
[2024-04-09 05:38] LABS: Anion Gap 10.8 mEq/L (5.0-15.0); Magnesium 1.9 mg/dL (1.6-2.4); Phosphorus 3.6 mg/dL (2.5-4.9); Potassium 3.8 mEq/L (3.5-5.1)
[2024-04-09] MEDS: MORPHINE 4 MG/ML SYR IV PRN (05:47)
[2024-04-09] MEDS: HYDRALAZINE HCL 20 MG/ML VIAL IV PRN (06:47)
[2024-04-09] MEDS: POTASSIUM 25 MEQ EFFERV TAB PO ONE (07:21)
[2024-04-09] MEDS: AMLODIPINE 5 MG TAB PO SCH (07:22)
[2024-04-09] MEDS: ONDANSETRON 4 MG/2 ML VIAL ONE (07:23)
[2024-04-09] MEDS: ONDANSETRON 4 MG/2 ML VIAL IV PRN (07:32)
[2024-04-09] MEDS ORDERED: SODIUM CHLORIDE 0.9% 10ML INJ IV PRN (08:31)
[2024-04-09] MEDS: CLOPIDOGREL 75 MG TABLET PO SCH (08:47)
[2024-04-09] MEDS: ESCITALOPRAM 20 MG TAB PO SCH (08:47)
[2024-04-09] MEDS: PANTOPRAZOLE 40 MG INJ IVP SCH (08:47)
[2024-04-09] MEDS: CALCIUM CARBONATE CHEW 500MG TAB PO PRN (08:47)
[2024-04-09] MEDS: MEMANTINE HCL 10 MG TABLET PO SCH (08:47)
[2024-04-09 09:45] LABS: ALT/SGPT 25 U/L (16-61); AST/SGOT 16 U/L (15-37); Albumin 3.3 g/dL (3.4-5.0); Albumin/Globulin Ratio 0.9 (1.1-1.8); Alkaline Phosphatase 52 U/L (45-117); Bilirubin Total 0.3 mg/dL (0.2-1.0); Globulin 3.6 g/dL (2.3-3.5); Protein, Total 6.9 g/dL (6.4-8.2)
[2024-04-09 10:11] LABS: Bilirubin Direct < 0.2 mg/dL (0-0.2); Bilirubin Indirect, Calculated 0.1 mg/dL (0.2-0.8)
[2024-04-09] MEDS: PROMETHAZINE INJ 25 MG/ML AMP IV ONE (10:51)
--- NOTE | 2024-04-09 13:25 | P.PN ---
Date of Service: 04/09/24 Subjective intractable N/V this morning Phenergan x 1 is helping Restarted home medications no new complaints ROS 10 point ROS as noted above, otherwise negative Physical Exam General: AAO x3, uncomfortable, NAD HEENT: Atraumatic, Normocephalic, PERRLA Neck: Supple Respiratory: Clear BBS, nonlabored breathing, on RA Cardiovascular: Normal pulses, RRR, Normal S1 S2 Capillary refill: <2 Seconds Gastrointestinal: Normal bowel sounds, nontender/nondistended, Soft on palpation Musculoskeletal: No clubbing Integumentary: No rashes Neurological: Normal speech, Normal tone Vitals Reviewed Problem list Ventricular tachycardia Atrial fibrillation with RVR refractory CAD with stent Hypokalemia Chronic anemia Hypertension/hyperlipidemia Dementia Chronic Back pain Assessment and Plan Ventricular tachycardia Atrial fibrillation with RVR refractory CAD with stent -EMS administered 150 mg amiodarone bolus -Amiodarone PO and metoprolol PO with no resolution in the ED -Synchronized cardioversion 50 J (04/08) -Admitted to ICU -Consult cardiology- amio gtt complete at 1600 -increased metoprolol to 50 mg BID -Continuous telemetry Hypokalemia -K 3.8- improved -Protocol in place Chronic anemia -Monitor H&H -Transfuse as needed Hypertension/hyperlipidemia Dementia Chronic Back pain -Continue home medications DVT PPx Lovenox BID Full code Discharge Plan: Home likely in the AM if nausea improved Plan to discharge in: 24 Hours
[2024-04-09] MEDS: AMIODARONE HCL 900 MG in Dextrose 5%-Water 482 ML IV SCH (14:00)
[2024-04-09] MEDS: AMIODARONE HCL 200 MG TAB PO SCH (15:12)
[2024-04-09] MEDS: METOPROLOL TAR 25 MG TAB PO SCH (20:25)
[2024-04-09] MEDS: TAMSULOSIN 0.4 MG SR CAP PO SCH (20:25)
[2024-04-10 04:20] VITALS: TEMP 98; O2SAT 98
[2024-04-10 04:58] VITALS: BMI 23.8
[2024-04-10 05:51] LABS: Absolute Basophils 0.1 K/uL (0-0.5); Absolute Eosinophils 0.3 K/uL (0-0.5); Absolute Lymphocytes (CBC) 2.8 K/uL (0.7-4.9); Absolute Monocytes 0.6 K/uL (0.1-1.3); Absolute Neutrophil 6.8 K/uL (1.8-8.0); Basophils % 0.5 % (0-1.3); Eosinophils % 2.6 % (0-4.4); Hematocrit 41.2 % (39.6-49.0); Lymphocytes % 26.5 % (15.3-44.8); MCH 29.1 pg (27.0-35.0); MCHC 34.1 g/dL (32.0-36.0); MCV 85.4 fL (80-100); MPV 7.8 fL (7.6-11.3); Neutrophils % 64.4 % (41.7-73.7); Platelets 266 thou/uL (152-406); RBC Red Blood Cell Count 4.82 M/uL (4.33-5.43); Red Cell Distribution Width 17.3 % (12.1-15.2)
[2024-04-10 06:04] LABS: Anion Gap 9.1 mEq/L (5.0-15.0); Magnesium 1.8 mg/dL (1.6-2.4); Phosphorus 3.3 mg/dL (2.5-4.9); Potassium 4.1 mEq/L (3.5-5.1)
--- NOTE | 2024-04-10 10:15 | P.DS ---
Admission Date: 04/08/24 Discharge Date: 04/10/24 Disposition: ROUTINE DISCHARGE Discharge Condition: GOOD Reason for Admission: Refractory AFIB Brief History of Present Illness: Diagnosis HPI 04/08/24 Esequiel Franklin is a 73 year old male with Pmhx CAD, hypertension, hyperlipidemia, Chronic back pain, dementia, A-fib, chronic anemia who presents to the ED after being defibrillated twice at home. He reports his defibrillator went off a pproximately one week earlier at which time he visited his Labor Relations Director, Dr. White who made an adjustment but not sure of the current settings. EMS reported giving a 150 mg amiodarone bolus in transit. He presented to the ED in [facility], his HR was over 140 without the device going off, amio and metoprolol given without resolution, he was then successfully cardioverted with synchronize shocked at 50 J. He will be admitted to ICU and device interrogated. Marbin Franklin will be admitted hospitalist service for further evaluation and treatment, Dr. Quevedo consulted. Vital Signs/Physical Exam: Temp Pulse Resp BP Pulse Ox 98 F 67 16 140/62 98 04/10/24 04:00 04/10/24 08:35 04/10/24 07:00 04/10/24 08:35 04/10/24 07:00 Laboratory Data at Discharge: WBC 10.60 thou/uL (4.3-10.9) 04/10/24 04:48 Hgb 14.0 g/dL (13.6-17.9) 04/10/24 04:48 Hct 41.2 % (39.6-49.0) 04/10/24 04:48 Plt Count 266 thou/uL (152-406) 04/10/24 04:48 PT 13.5 SECONDS (9.4-12.5) H 04/07/24 15:06 INR 1.29 04/07/24 15:06 Sodium 140 mEq/L (136-145) 04/10/24 04:48 Potassium 4.1 mEq/L (3.5-5.1) 04/10/24 04:48 BUN 12 mg/dL (7-18) 04/10/24 04:48 Creatinine 0.83 mg/dL (0.70-1.30) 04/10/24 04:48 Glucose 114 mg/dL (74-106) H 04/10/24 04:48 Phosphorus 3.3 mg/dL (2.5-4.9) 04/10/24 04:48 Magnesium 1.8 mg/dL (1.6-2.4) 04/10/24 04:48 Total Bilirubin 0.3 mg/dL (0.2-1.0) 04/09/24 04:42 AST 16 U/L (15-37) 04/09/24 04:42 ALT 25 U/L (16-61) 04/09/24 04:42 Alkaline Phosphatase 52 U/L (45-117) 04/09/24 04:42 Home Medications: Amlodipine [Norvasc*] 5 mg PO DAILY 10/26/18 Benazepril HCl [Lotensin*] 20 mg PO [id number] 10/26/18 Clopidogrel Bisulfate [Plavix*] 75 mg PO DAILY 10/26/18 Escitalopram [Lexapro*] 20 mg PO DAILY 10/26/18 Ferrous Sulfate [Ferrous Sulfate*] 325 mg PO DAILY 10/26/18 Hydrocodone Bit/Acetaminophen [Hydrocodon-Acetaminophn 10-325] 1 each PO Q6HP PRN 10/26/18 Lovastatin [Altoprev] 40 mg PO BEDTIME 10/26/18 Memantine HCl [Namenda*] 10 mg PO DAILY 10/26/18 Tamsulosin [Flomax*] 0.4 mg PO BEDTIME 10/26/18 Apixaban [Eliquis] 5 mg PO BID 02/01/24 Benazepril HCl 20 mg PO DAILY 02/01/24 tadalafiL [Tadalafil] 5 mg PO DAILY 02/01/24 Tramadol HCl [Ultram] 50 mg PO Q6HP PRN 04/07/24 predniSONE [Deltasone*] 10 mg PO DAILY 04/07/24 Amiodarone HCl [Cordarone*] 200 mg PO BID tab 04/10/24 Amiodarone HCl [Cordarone*] 200 mg PO BID 30 Days #60 tab 04/10/24 Metoprolol Tartrate [Lopressor*] 50 mg PO BID 30 Days #60 tab 04/10/24 New Medications: Amiodarone HCl [Cordarone*] 200 mg PO BID 30 Days #60 tab Metoprolol Tartrate [Lopressor*] 50 mg PO BID 30 Days #60 tab Physician Discharge Instructions: 1. Please call and schedule a follow-up appointment with your PCP in 3-5 days - Please follow-up with your PCP for medication refills/adjustments 2. Please call and schedule a follow-up appointment with Dr. Alcantar in one week -medication adjustments have been made 3. Continue heart healthy diet 4. activity restrictions , do not lift greater than 10 pounds for 3 days 5. Return to the ED if symptoms worsen New medications Ammiodarone 200 mg twice daily Metoprolol 50 mg BID stop taking Amiodarone 200 daily as it has been changed to twice a day metoprolol has been increased to 50 mg BID Diet: AHA Activity: No lifting more than 10 lbs Followup: Thom Chan DO [Primary Care Provider] -
[2024-04-10 11:54] VITALS: BP 155/84
--- NOTE | 2024-04-13 12:51 | EKG ---
Test Date: 2024-04-07 Test Time: 14:53:30 Dairy Manufacturing Technologist: MEGHNA MEASUREMENT RESULTS: Intervals: Rate: 145 IN: 128 QRSD: 174 QT: 318 QTc: 493 [place]: P: 61 IN: 128 QRS: 67 T: 243 INTERPRETIVE STATEMENTS: Sinus tachycardia Ventricular pre-excitation, WPW pattern type B Abnormal ECG Compared to ECG 01/31/2024 20:11:54 Ventricular preexcitation now present Ventricular premature complex(es) no longer present Wide-QRS tachycardia no longer present Left bundle-branch block no longer present Electronically Signed On 04-13-24 12:39:00 STEM MOUNTER by Patel Quevedo
--- NOTE | 2024-04-13 12:51 | EKG ---
Test Date: 2024-04-07 Test Time: 16:38:27 Tool Maker: MEGHNA MEASUREMENT RESULTS: Intervals: Rate: 86 OR: 222 QRSD: 112 QT: 406 QTc: 485 [place]: P: 83 OR: 222 QRS: 71 T: 77 INTERPRETIVE STATEMENTS: Sinus rhythm with 1st degree AV block with fusion complexes Otherwise normal ECG Compared to ECG 04/07/2024 16:36:12 Fusion complex(es) now present ST (T wave) deviation no longer present Electronically Signed On 04-13-24 12:38:39 PIPE ASSEMBLY WORKER by Patel Quevedo
--- NOTE | 2024-04-13 12:51 | EKG ---
Test Date: 2024-04-07 Test Time: 16:36:12 Compressor Stations Superintendent: MEGHNA MEASUREMENT RESULTS: Intervals: Rate: 85 NC: 226 QRSD: 110 QT: 372 QTc: 442 [place]: P: 78 NC: 226 QRS: 78 T: 103 INTERPRETIVE STATEMENTS: Sinus rhythm with 1st degree AV block Nonspecific ST and T wave abnormality Abnormal ECG Compared to ECG 04/07/2024 14:53:30 First degree AV block now present ST (T wave) deviation now present Sinus tachycardia no longer present Ventricular preexcitation no longer present Electronically Signed On 04-13-24 12:38:41 GENERAL INTERNAL MEDICINE DOCTOR by Patel Quevedo
== END 2024-04-10 10:30 | disposition home or self-care (01) | DRG 309 ==
LOC: ER 14:47 → ERHOLD 17:59 → 3RD-ICU 19:55 → OBSVTOIN 04-08 19:07
PROVIDERS: ADMIT Internal Medicine; ATTEND Internal Medicine
PROC: 5A2204Z Restoration of Cardiac Rhythm, Single (ICD-10-PCS; principal; 2024-04-08)
DX: I47.20 Ventricular tachycardia, unspecified (principal); I50.22 Chronic systolic (congestive) heart failure; I48.20 Chronic atrial fibrillation, unspecified; I11.0 Hypertensive heart disease with heart failure; E87.6 Hypokalemia; E78.5 Hyperlipidemia, unspecified; M54.9 Dorsalgia, unspecified; G89.29 Other chronic pain; I25.10 Atherosclerotic heart disease of native coronary artery without angina pectoris; F03.90 Unspecified dementia, unspecified severity, without behavioral disturbance, psychotic disturbance, mood disturbance, and anxiety; Z95.5 Presence of coronary angioplasty implant and graft; Z79.01 Long term (current) use of anticoagulants; Z79.52 Long term (current) use of systemic steroids; Z79.02 Long term (current) use of antithrombotics/antiplatelets; Z79.899 Other long term (current) drug therapy; Z95.810 Presence of automatic (implantable) cardiac defibrillator
CPT/HCPCS: 36415; 71045; 80048; 80076; 83735; 83880; 84100; 84439; 84443; 84484; 85025; 85379; 85610; 92960; 93005; 99291; G0378; J0282; J0360; J2250; J2405; J2470; J2550; J3475; J7060